=== PATIENT | female | born 1940 | race Caucasian/White ===

== ENCOUNTER → 2016-05-11 | Outpatient (CLI) | payer MEDICARE | END | disposition home or self-care (01) | LOC: LABWHC1 14:53 | PROVIDERS: ATTEND Internal Medicine Endocrinology, Diabetes & Metabolism | DX: E06.3 Autoimmune thyroiditis (principal) | CPT/HCPCS: 36415; 84439; 84443 ==

== ENCOUNTER → 2016-07-17 | Outpatient (CLI) | payer MEDICARE ==
--- NOTE | 2016-07-17 14:23 | MM ---
Reason for exam: follow-up at short interval from prior study. Last mammogram was performed 8 months ago. History: Patient is postmenopausal, has history of breast cancer at age 75, and is nulliparous. Family history of breast cancer in mother. Benign MG pre op needle loc RT of the right breast, December 03, 2015. Malignant US biopsy breast VAD RT of the right breast, November 17, 2015. Took hormonal contraceptives for 10 years beginning at age 22. Took estrogen for 5 years beginning at age 49. Took progesterone for 5 years beginning at age 49. Physical Findings: Nurse did not find any significant physical abnormalities on exam. MG 3D Diag Mammo W/Cad [facility] Bilateral CC and MLO view(s) were taken. Prior study comparison: November 17, 2015, right breast MG diagnostic mammo RT wo CAD. October 28, 2015, right breast US breast workup limited RT. October 22, 2015, bilateral MG 3d screening mammo w/cad. October 20, 2014, bilateral MG screening mammo w CAD. May 27, 2012, bilateral digital screening mammo w/CAD. There are scattered fibroglandular densities. There is chronic nodularity in the right breast. Post surgical and post therapy changes in the right breast. These results were verbally communicated with the patient and result sheet given to the patient on 07/17/16. ASSESSMENT: Benign, BI-RAD 2 RECOMMENDATION: Follow-up diagnostic mammogram of both breasts in 1 year.
== END | disposition home or self-care (01) ==
LOC: RADMAMWWP 13:11
PROVIDERS: ATTEND Radiology Radiation Oncology
DX: C50.511 Malignant neoplasm of lower-outer quadrant of right female breast (principal)
CPT/HCPCS: G0204; G0279

== ENCOUNTER → 2017-05-17 | Outpatient (CLI) | payer MEDICARE ==
[2017-05-17 11:51] LABS: ALT 29 U/L (9-52); AST 29 U/L (14-36); Albumin 3.6 g/dL (3.5-5.0); Alkaline Phosphatase 120 U/L (38-126); Anion Gap 8 mmol/L; Blood Urea Nitrogen 26 mg/dL (7-17); Calcium 9.6 mg/dL (8.4-10.2); Carbon Dioxide 29 mmol/L (22-30); Chloride 103 mmol/L (98-107); Cholesterol 178 mg/dL (<200); Glucose 99 mg/dL (74-99); HDL Cholesterol 67 mg/dL (40-60); LDL Cholesterol,Calculated 82 mg/dL (0-99); Potassium 4.2 mmol/L (3.5-5.1); Sodium 140 mmol/L (137-145); Total Bilirubin 0.5 mg/dL (0.2-1.3); Total Protein 6.2 g/dL (6.3-8.2); Triglycerides 146 mg/dL (<150)
[2017-05-17 12:04] LABS: T4, Free (Free Thyroxine) 0.88 ng/dL (0.78-2.19)
== END | disposition home or self-care (01) ==
LOC: LABWHC1 11:00
PROVIDERS: ATTEND Internal Medicine Endocrinology, Diabetes & Metabolism
DX: E03.9 Hypothyroidism, unspecified (principal); M89.9 Disorder of bone, unspecified; E55.9 Vitamin D deficiency, unspecified
CPT/HCPCS: 36415; 80053; 80061; 82306; 84439; 84443

== ENCOUNTER → 2017-07-25 | Outpatient (CLI) | payer MEDICARE ==
--- NOTE | 2017-07-25 14:04 | MM ---
Reason for exam: additional evaluation requested from prior study. Last mammogram was performed 1 year ago. History: Patient is postmenopausal, has history of breast cancer at age 75, and is nulliparous. Family history of breast cancer in mother. Benign MG pre op needle loc RT of the right breast, December 03, 2015. Malignant US biopsy breast VAD RT of the right breast, November 17, 2015. Took hormonal contraceptives for 10 years beginning at age 22. Took estrogen for 5 years beginning at age 49. Took progesterone for 5 years beginning at age 49. Physical Findings: Nurse did not find any significant physical abnormalities on exam. MG 3D Diag Mammo W/Cad [facility] Bilateral CC and MLO view(s) were taken. Prior study comparison: July 17, 2016, bilateral MG 3d diag mammo w/cad [facility]. November 17, 2015, right breast MG diagnostic mammo RT wo CAD. The breast tissue is almost entirely fat. There is chronic nodularity in the right breast. Asymmetric breast tissue greater in the right breast. Surgical clips on the right breast. These results were verbally communicated with the patient and result sheet given to the patient on 07/25/17. ASSESSMENT: Benign, BI-RAD 2 RECOMMENDATION: Follow-up diagnostic mammogram of both breasts in 1 year.
== END | disposition home or self-care (01) ==
LOC: RADMAMWWP 13:06
PROVIDERS: ATTEND Radiology Radiation Oncology
DX: C50.511 Malignant neoplasm of lower-outer quadrant of right female breast (principal); Z85.3 Personal history of malignant neoplasm of breast
CPT/HCPCS: 77066; G0279

== ENCOUNTER → 2018-07-26 | Outpatient (CLI) | payer MEDICARE ==
--- NOTE | 2018-07-26 11:54 | MM ---
Reason for exam: additional evaluation requested from prior study. Last mammogram was performed 1 year ago. History: Patient is postmenopausal, has history of breast cancer at age 75, and is nulliparous. Family history of breast cancer in mother. Benign MG pre op needle loc RT of the right breast, December 03, 2015. Malignant US biopsy breast VAD RT of the right breast, November 17, 2015. Took hormonal contraceptives for 10 years beginning at age 22. Took estrogen for 5 years beginning at age 49. Took progesterone for 5 years beginning at age 49. Physical Findings: Nurse did not find any significant physical abnormalities on exam. MG 3D Diag Mammo W/Cad [facility] Bilateral CC and MLO view(s) were taken. Prior study comparison: July 25, 2017, bilateral MG 3d diag mammo w/cad [facility]. July 17, 2016, bilateral MG 3d diag mammo w/cad [facility]. The breast tissue is heterogeneously dense. This may lower the sensitivity of mammography. No suspicious abnormality. Post therapy change on the right. These results were verbally communicated with the patient and result sheet given to the patient on 07/26/18. ASSESSMENT: Benign, BI-RAD 2 RECOMMENDATION: Follow-up diagnostic mammogram of both breasts in 1 year.
== END | disposition home or self-care (01) ==
LOC: RADMAMWWP 10:59
PROVIDERS: ATTEND Radiology Radiation Oncology
DX: Z08 Encounter for follow-up examination after completed treatment for malignant neoplasm (principal); Z85.3 Personal history of malignant neoplasm of breast
CPT/HCPCS: 77066; G0279; 77062

== ENCOUNTER 2018-10-12 16:31 | Emergency (ER) | payer MEDICARE ==
[2018-10-12 16:45] VITALS: RESP 18
--- NOTE | 2018-10-12 17:15 | XR ---
EXAMINATION TYPE: XR KUB DATE OF EXAM: 10/12/2018 COMPARISON: NONE HISTORY: Bloating and constipation TECHNIQUE: Single view FINDINGS: There is lumbar levoscoliosis. There is thoracic dextroscoliosis. There is no sign of intes tinal obstruction or pneumoperitoneum. There is large hiatal hernia that also appears to contain mccann sverse colon. 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 There is moderate retained fecal material in the bow el. IMPRESSION: Nonacute abdomen. Very large hiatal hernia. Constipation.
--- NOTE | 2018-10-12 17:27 | ED ---
General Adult HPI - General Chief complaint: Abdominal Pain Stated complaint: CONSTIPATION Time Seen by Provider: 10/12/18 16:49 Source: patient, RN notes reviewed, old records reviewed Mode of arrival: ambulatory Limitations: no limitations - History of Present Illness Initial comments: 78-year-old female presenting for evaluation of constipation. She states she has not had a normal bowel movement in the past one week. She has dealt with constipation for many years. Denies abdominal pain, she does complain of some abdominal distention. No vomiting. She did try to self disimpact with minimal success. She has been taking MiraLAX and Colace without relief. She states she had a colonoscopy 4 years ago which was reported as normal. - Related Data Home Medications Medication Instructions Recorded Confirmed Levothyroxine Sodium [Synthroid] 88 mcg PO DAILY 03/17/15 10/12/18 Calcium Carbonate/Vitamin D3 1 tab PO BID 12/01/15 10/12/18 [Caltrate 600 Plus D3 Tablet] Multivitamins, Thera [Multivitamin] 1 tab PO DAILY 12/01/15 10/12/18 Naproxen Sodium [Aleve] 220 mg PO BID 10/12/18 10/12/18 Polyethylene Glycol 3350 [Miralax] 17 gm PO DAILY 10/12/18 10/12/18 Previous Rx's Medication Instructions Recorded Magnesium Citrate [Citrate of 0 ml PO ONCE #150 ml 10/12/18 Magnesia] Allergies Allergy/AdvReac Type Severity Reaction Status Date / Time diphenhydramine HCl Allergy Itching Verified 10/12/18 17:46 [From Benadryl] morphine Allergy Itching Verified 10/12/18 17:46 Review of Systems ROS Statement: Those systems with pertinent positive or pertinent negative responses have been documented in the HPI. ROS Other: All systems not noted in ROS Statement are negative. Past Medical History Past Medical History: Osteoarthritis (OA), Thyroid Disorder Additional Past Medical History / Comment(s): hiatal hernia,sinusitis,osteopenia History of Any Multi-Drug Resistant Organisms: None Reported Past Surgical History: Appendectomy, Joint Replacement, Orthopedic Surgery, Tonsillectomy Additional Past Surgical History / Comment(s): hemmorroidectomy, bilateral hip, knee, and shoulder replacement, and bilateral oopherectomy Past Anesthesia/Blood Transfusion Reactions: Postoperative Nausea & Vomiting (PONV) Past Psychological History: No Psychological Hx Reported Smoking Status: Former smoker Past Alcohol Use History: Daily Past Drug Use History: None Reported - Past Family History Mother Family Medical History: Cancer Additional Family Medical History / Comment(s): breast Father Family Medical History: Cancer Additional Family Medical History / Comment(s): prostate and skin General Exam Limitations: no limitations General appearance: alert, in no apparent distress Head exam: Present: atraumatic, normocephalic Eye exam: Present: normal appearance, PERRL ENT exam: Present: normal exam Neck exam: Present: normal inspection. Absent: tenderness, meningismus Respiratory exam: Present: normal lung sounds bilaterally. Absent: respiratory distress, wheezes Cardiovascular Exam: Present: regular rate, normal rhythm GI/Abdominal exam: Present: soft. Absent: distended, tenderness, guarding, kiley ound, rigid Rectal exam: Present: normal rectal tone, fecal impaction Extremities exam: Present: normal inspection, full ROM Back exam: Present: normal inspection Neurological exam: Present: alert, oriented X3, CN II-XII intact. Absent: motor sensory deficit Psychiatric exam: Present: normal affect, normal mood Skin exam: Present: warm, dry, intact. Absent: cyanosis, diaphoretic Course Vital Signs 10/12/18 16:41 Temperature 98.4 F Pulse Rate 101 H Respiratory 18 Rate Blood Pressure 151/90 O2 Sat by Pulse 100 Oximetry Medical Decision Making - Medical Decision Making Patient with constipation, no bowel movement for one week. She has fecal impaction x-ray showing constipation no obstruction. Patient is well-appearing with soft abdomen. Given 2 enemas and has disimpaction in the emergency department with significant relief. She will continue Colace, and MiraLAX, she will be prescribed additional bottle of magnesium citrate. Please return with worsening or changing symptoms. Disposition Clinical Impression: Constipation Disposition: HOME SELF-CARE Condition: Good Instructions (If sedation given, give patient instructions): Constipation (ED) Prescriptions: Magnesium Citrate [Citrate of Magnesia] 0 ml PO ONCE #150 ml Is patient prescribed a controlled substance at d/c from ED?: No Referrals: Jasper Linares DO [Primary Care Provider] - 1-2 days Time of Disposition: 20:26
[2018-10-12] MEDS ORDERED: MAGNESIUM CITRATE 296 ML BOTTLE PO ONE (17:34)
[2018-10-12 21:34] VITALS: BP 118/92; PULSE 79; TEMP 97.9
== END 2018-10-12 21:38 | disposition home or self-care (01) ==
LOC: EC 16:31
DX: K59.00 Constipation, unspecified (principal); M19.90 Unspecified osteoarthritis, unspecified site; E07.9 Disorder of thyroid, unspecified; Z87.891 Personal history of nicotine dependence; Z79.1 Long term (current) use of non-steroidal anti-inflammatories (NSAID); Z79.890 Hormone replacement therapy; Z79.899 Other long term (current) drug therapy; Z88.5 Allergy status to narcotic agent; Z88.8 Allergy status to other drugs, medicaments and biological substances; Z96.643 Presence of artificial hip joint, bilateral; Z96.653 Presence of artificial knee joint, bilateral; Z96.612 Presence of left artificial shoulder joint; Z96.611 Presence of right artificial shoulder joint; Z90.49 Acquired absence of other specified parts of digestive tract
CPT/HCPCS: 74018; 99284

== ENCOUNTER 2019-04-16 15:29 | Emergency (ER) | payer MEDICARE ==
[2019-04-16 15:34] VITALS: BP 141/84; PULSE 93; RESP 20; TEMP 97.9
--- NOTE | 2019-04-16 16:04 | XR ---
EXAMINATION TYPE: XR KUB DATE OF EXAM: 04/16/2019 COMPARISON: 10/12/2018 HISTORY: Constipation TECHNIQUE: Upright abdomen FINDINGS: Scoliosis is present. Nonspecific bowel are evident. There is moderate fecal retention thro ughout the colon. No suspicious air-fluid levels or differential air-fluid levels are evident. No han e air is evident. Bilateral hip prostheses are present. Clinical consideration for fecal impaction at the rectum is recommended. IMPRESSION: 1. Moderate fecal retention. Clinical consideration for fecal impaction at the rectum is recommended
--- NOTE | 2019-04-16 17:58 | ED ---
Abdominal Pain HPI - General Chief Complaint: Abdominal Pain Stated Complaint: constipation Time Seen by Provider: 04/16/19 15:36 Source: patient Mode of arrival: wheelchair Limitations: no limitations - History of Present Illness Initial Comments: 79-year-old female presenting today for chief complaint of constipation. 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 She states that this causes a "bottle neck" effect and she has struggled with constipation ch ronically. She states for the past week she has had only small loose stool which she feels is going around a larger blockage. Admits to feeling distended similar to when she had constipation in the past and needed an enema. She denies severe abdominal pain, vomiting, fevers, bloody stools. Denies any other complaints. - Related Data Home Medications Medication Instructions Recorded Confirmed Levothyroxine Sodium [Synthroid] 88 mcg PO DAILY 03/17/15 10/12/18 Calcium Carbonate/Vitamin D3 1 tab PO BID 12/01/15 10/12/18 [Caltrate 600 Plus D3 Tablet] Multivitamins, Thera [Multivitamin] 1 tab PO DAILY 12/01/15 10/12/18 Naproxen Sodium [Aleve] 220 mg PO BID 10/12/18 10/12/18 Polyethylene Glycol 3350 [Miralax] 17 gm PO DAILY 10/12/18 10/12/18 Previous Rx's Medication Instructions Recorded Magnesium Citrate [Citrate of 0 ml PO ONCE #150 ml 10/12/18 Magnesia] Magnesium Citrate 0 ml PO ONCE 1 Days #150 ml 04/16/19 Allergies Allergy/AdvReac Type Severity Reaction Status Date / Time diphenhydramine HCl Allergy Itching Verified 10/12/18 17:46 [From Benadryl] levofloxacin [From Levaquin] Allergy Itching Verified 04/16/19 15:34 morphine Allergy Itching Verified 10/12/18 17:46 Review of Systems ROS Statement: Those systems with pertinent positive or pertinent negative responses have been documented in the HPI. ROS Other: All systems not noted in ROS Statement are negative. Past Medical History Past Medical History: Osteoarthritis (OA), Thyroid Disorder Additional Past Medical History / Comment(s): hiatal hernia,sinusit is,osteopenia,constipation History of Any Multi-Drug Resistant Organisms: None Reported Past Surgical History: Appendectomy, Joint Replacement, Orthopedic Surgery, Tonsillectomy Additional Past Surgical History / Comment(s): hemmorroidectomy, bilateral hip, knee, and shoulder replacement, and bilateral oopherectomy Past Anesthesia/Blood Transfusion Reactions: Postoperative Nausea & Vomiting (PONV) Past Psychological History: No Psychological Hx Reported Smoking Status: Former smoker Past Alcohol Use History: Daily Past Drug Use History: None Reported - Past Family History Mother Family Medical History: Cancer Additional Family Medical History / Comment(s): breast Father Family Medical History: Cancer Additional Family Medical History / Comment(s): prostate and skin General Exam - General Exam Comments Initial Comments: General: The patient is awake and alert, in no distress, and does not appear acutely ill. Eye: +3 mm pupils are equal, round and reactive to light, extra-ocular movements are intact. No nystagmus. There is normal conjunctiva bilaterally. No signs of icterus. Ears, nose, mouth and throat: There are moist mucous membranes and no oral lesions. Cardiovascular: There is a regular rate and rhythm. No murmur, rub or gallop is appreciated. Respiratory: Lungs are clear to auscultation, respirations are non-labored, breath sounds are equal. No wheezes, stridor, rales, or rhonchi. Gastrointestinal: Soft, non-distended, non-tender abdomen without masses or organomegaly noted. There is no rebound or guarding present. Bowel sounds are unremarkable. There is no stool ball or fecal impaction noted on the rectal exam, No bright red blood. soft stool in rectum palpable. Musculoskeletal: Normal ROM, no tenderness. Strength 5/5. Sensation intact. Pulses equal bilaterally 2+. Neurological: A&O x 3. CN II-XII intact grossly, There are no obvious motor or sensory deficits. Coordination appears grossly intact. Speech is normal. Skin: Skin is warm and dry and no rashes or lesions are noted. Psychiatric: Cooperative, appropriate mood & affect, normal judgment. Limitations: no limitations Course Vital Signs 04/16/19 15:30 Temperature 97.9 F Pulse Rate 93 Respiratory 20 Rate Blood Pressure 141/84 O2 Sat by Pulse 99 Oximetry Medical Decision Making - Medical Decision Making 79yo female that presets for constipation, hx of constipation and rectal scarring. Patient has no impaction on exam. XR no obstruction, possible impaction but does not clinically correlate. Enema administered, success with large quantities of soft stool. Patient states its the most she has gone in a long time. Patient has no abdominal pain, no blood in stool. Requesting magnesium citrate on discharge stating this helped her "get it all out" in the past after an enema. Patient VS stable and she appears well, return parameters discussed and patient was discharged appearing well with PCP f/u. Dr. Paz is agreeable to care plan and discharge. Disposition Clinical Impression: Constipation Disposition: HOME SELF-CARE Condition: Good Instructions (If sedation given, give patient instructions): Constipation (ED), High Fiber Diet (ED) Additional Instructions: Please use medication as discussed. Please follow-up with family doctor in the next 2 days, Take magnesium citrate as discussed. Please return to emergency room if the symptoms increase or worsen or for any other concerns-rectal bleeding, vomiting, abdominal pain . Prescriptions: Magnesium Citrate 0 ml PO ONCE 1 Days #150 ml Is patient prescribed a controlled substance at d/c from ED?: No Referrals: Jasper Linares DO [Primary Care Provider] - 1-2 days Time of Disposition: 17:57
== END 2019-04-16 19:20 | disposition home or self-care (01) ==
LOC: EC 15:29
DX: K59.00 Constipation, unspecified (principal); M19.90 Unspecified osteoarthritis, unspecified site; E07.9 Disorder of thyroid, unspecified; Z87.891 Personal history of nicotine dependence; Z88.1 Allergy status to other antibiotic agents; Z88.5 Allergy status to narcotic agent; Z88.8 Allergy status to other drugs, medicaments and biological substances; Z79.1 Long term (current) use of non-steroidal anti-inflammatories (NSAID); Z79.890 Hormone replacement therapy; Z79.899 Other long term (current) drug therapy; Z90.49 Acquired absence of other specified parts of digestive tract; Z96.611 Presence of right artificial shoulder joint; Z96.612 Presence of left artificial shoulder joint; Z96.643 Presence of artificial hip joint, bilateral; Z96.653 Presence of artificial knee joint, bilateral; Z98.890 Other specified postprocedural states
CPT/HCPCS: 74018; 99284

== ENCOUNTER → 2019-09-12 | Outpatient (CLI) | payer MEDICARE ==
--- NOTE | 2019-09-16 08:48 | MM ---
Reason for exam: additional evaluation requested from prior study. Last mammogram was performed 1 year and 2 months ago. History: Patient is postmenopausal, has history of breast cancer at age 75, and is nulliparous. Family history of breast cancer in mother. Benign MG pre op needle loc RT of the right breast, December 03, 2015. Malignant US biopsy breast VAD RT of the right breast, November 17, 2015. Took hormonal contraceptives for 10 years beginning at age 22. Took estrogen for 5 years beginning at age 49. Took progesterone for 5 years beginning at age 49. Physical Findings: Nurse did not find any significant physical abnormalities on exam. MG 3D Diag Mammo W/Cad [facility] Bilateral CC and MLO view(s) were taken. Prior study comparison: July 26, 2018, bilateral MG 3d diag mammo w/cad [facility]. July 25, 2017, bilateral MG 3d diag mammo w/cad [facility]. The breast tissue is heterogeneously dense. This may lower the sensitivity of mammography. Finding: Architectural distortion in the right breast consistent with known excisional changes. There is no discrete abnormality. These results were verbally communicated with the patient and result sheet given to the patient on 09/12/19. ASSESSMENT: Benign, BI-RAD 2 RECOMMENDATION: Follow-up diagnostic mammogram of both breasts in 1 year.
== END | disposition home or self-care (01) ==
LOC: RADMAMWWP 13:37
PROVIDERS: ATTEND Radiology Radiation Oncology
DX: Z98.890 Other specified postprocedural states (principal); Z17.0 Estrogen receptor positive status [ER+]; C50.511 Malignant neoplasm of lower-outer quadrant of right female breast
CPT/HCPCS: 77066; G0279; 77062

== ENCOUNTER → 2020-09-16 | Outpatient (CLI) | payer MEDICARE ==
--- NOTE | 2020-09-16 12:16 | MM ---
Reason for exam: additional evaluation requested from prior study. Last mammogram was performed 1 year ago. History: Patient is postmenopausal, has history of breast cancer at age 75, and is nulliparous. Family history of breast cancer in mother. Benign MG pre op needle loc RT of the right breast, December 03, 2015. Malignant US biopsy breast VAD RT of the right breast, November 17, 2015. Lumpectomy of the right breast. Radiation therapy of the right breast. Took hormonal contraceptives for 10 years beginning at age 22. Took estrogen for 5 years beginning at age 49. Took progesterone for 5 years beginning at age 49. Physical Findings: Nurse did not find any significant physical abnormalities on exam. MG 3D Diag Mammo W/Cad [facility] Bilateral CC and MLO view(s) were taken. Prior study comparison: September 12, 2019, bilateral MG 3d diag mammo w/cad [facility]. July 26, 2018, bilateral MG 3d diag mammo w/cad [facility]. There are scattered fibroglandular densities. Post surgical changes right breast. No significant new findings when compared with previous films. These results were verbally communicated with the patient and result sheet given to the patient on 09/16/20. ASSESSMENT: Benign, BI-RAD 2 RECOMMENDATION: Follow-up diagnostic mammogram of both breasts in 1 year.
== END | disposition home or self-care (01) ==
LOC: RADMAMWWP 11:05
PROVIDERS: ATTEND Radiology Radiation Oncology
DX: N64.89 Other specified disorders of breast (principal); Z80.3 Family history of malignant neoplasm of breast; Z85.3 Personal history of malignant neoplasm of breast; Z78.0 Asymptomatic menopausal state
CPT/HCPCS: 77066; G0279; 77062

== ENCOUNTER → 2021-09-19 | Outpatient (CLI) | payer MEDICARE ==
--- NOTE | 2021-09-20 09:07 | MM ---
Reason for Exam: Hx of breast cancer, conservation therapy. Last screening mammogram was performed 12 month(s) ago. Patient History: Menarche at age 14. Patient has no children. Postmenopausal. Breast cancer, age 75. Estrogen for 5 years from age 49 until age 55. Progesterone for 5 years from age 49 until age 55. Hormonal Contraceptives for 10 years from age 22 until age 32. Lumpectomy on the Right side. 12/03/2015, Benign Core Biopsy on the right side. 11/17/2015, Malignant Core Biopsy on the right side. Radiation Therapy, right. Mother had breast cancer. Prior Study Comparison: 10/22/2015 Bilateral Screening Mammogram, [facility]. 10/28/2015 Right Diagnostic Ultrasound, [facility]. 11/17/2015 Right Diagnostic Mammogram, [facility]. 07/17/2016 Bilateral Diagnostic Mammogram, [facility]. 07/25/2017 Bilateral Diagnostic Mammogram, [facility]. 07/26/2018 Bilateral Diagnostic Mammogram, [facility]. 09/12/2019 Bilateral Diagnostic Mammogram, [facility]. 09/16/2020 Bilateral Diagnostic Mammogram, [facility]. Tissue Density: The breast tissue is heterogeneously dense. This may lower the sensitivity of mammography. Findings: Analyzed By CAD. No evidence for mass or distortion. Postoperative changes upper outer right breast. Increased septal markings throughout the breast may reflect underlying congestive failure. Correlate clinically. There is also bilateral skin thickening. Overall Assessment: Benign, BI-RAD 2 Management: Diagnostic Mammogram of both breasts in 1 year. A clinical breast exam by your physician is recommended on an annual basis and results should be correlated with mammographic findings. This exam should not preclude additional follow-up of suspicious palpable abnormalities. Results were given to the patient verbally at the time of exam. Electronically signed and approved by: Dylan Downing M.D. Radiologis
== END | disposition home or self-care (01) ==
LOC: RADMAMWWP 11:23
PROVIDERS: ATTEND Radiology Radiation Oncology
DX: R92.8 Other abnormal and inconclusive findings on diagnostic imaging of breast (principal); Z78.0 Asymptomatic menopausal state; Z80.3 Family history of malignant neoplasm of breast
CPT/HCPCS: 77066; G0279; 77062

== ENCOUNTER 2021-09-28 14:58 | Inpatient (IN) | payer MEDICARE ==
[2021-09-28 15:41] LABS: Albumin 3.4 g/dL (3.5-5.0); Anisocytosis Moderate; Basophils % (A) 0 %; Calcium 8.3 mg/dL (8.4-10.2); Eosinophils % (A) 1 %; Hypochromasia Marked; Lymphocytes # (A) 2.3 k/uL (1.0-4.8); Lymphocytes % (A) 51 %; MCH 24.8 pg (25.0-35.0); MCHC 26.9 g/dL (31.0-37.0); MCV 92.1 fL (80.0-100.0); Macrocytosis Slight; Mean Platelet Volume 7.2; Monocytes # (A) 0.2 k/uL (0-1.0); Monocytes % (A) 4 %; Neutrophils # (A) 1.8 k/uL (1.3-7.7); Neutrophils % (A) 41 %; Platelet Count 332 k/uL (150-450); Poikilocytosis Slight; Potassium 3.8 mmol/L (3.5-5.1); RBC 2.21 m/uL (3.80-5.40); RDW 22.2 % (11.5-15.5); Total Bilirubin 0.7 mg/dL (0.2-1.3); Total Protein 6.1 g/dL (6.3-8.2); WBC 4.5 k/uL (3.8-10.6)
[2021-09-28 15:47] LABS: HGB 5.5 gm/dL (11.4-16.0)
[2021-09-28 15:48] LABS: HCT 20.4 % (34.0-46.0)
[2021-09-28 15:51] LABS: INR 0.9 (<1.2); Prothrombin Time 9.7 sec (9.0-12.0)
[2021-09-28 15:53] LABS: Partial Thromboplastin Time 21.6 sec (22.0-30.0)
--- NOTE | 2021-09-28 16:11 | XR ---
EXAMINATION TYPE: XR chest 2V DATE OF EXAM: 09/28/2021 COMPARISON: X-ray dated 03/17/2015 HISTORY: Difficulty breathing TECHNIQUE: Frontal and lateral views of the chest are obtained. FINDINGS: Increased cardiac size probably augmented by a large hiatal hernia. The hiatal hernia likely contains portion of the colon. Congested pulmonary vasculature suggestive of pulmonary edema. Suspected small right pleural effusion . No definite pneumothorax. Bilateral humeral head prosthesis. Osteopenia. IMPRESSION: Large hiatal hernia with suspected pulmonary edema.
--- NOTE | 2021-09-28 16:35 | ED ---
General Adult HPI - General Chief complaint: Shortness of Breath Stated complaint: UYEN,critically low hemoglobin Time Seen by Provider: 09/28/21 16:30 Source: patient Mode of arrival: wheelchair Limitations: no limitations - History of Present Illness Initial comments: Nidhi is a pleasant 81yo F with PMH of breast cancer treated with surgical excision, anemia in the past, required blood transfusions post operatively previous. Patient presents to the emergency department today for evaluation after she had outpatient labs drawn and was notified that she had a critical low hemoglobin. Patient states that she's been feeling more fatigued short of b reath and has noticed some leg swelling. She saw her primary care last week she was started on Lasix for leg swelling however she still feel short of breath her labs are drawn and she was told that she is very anemic. Patient states she's been anemic in the past, she has had blood transfusions but only with surgeries. She states that she's had IBS for 40 years and has chronic abdominal pain veda rrhea and fatigue. 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 She cannot recall when her last colonoscopy was. - Related Data Home Medications Medication Instructions Recorded Confirmed Levothyroxine Sodium [Synthroid] 88 mcg PO DAILY 03/17/15 09/28/21 Multivitamins, Thera [Multivitamin] 1 tab PO DAILY 12/01/15 09/28/21 Naproxen Sodium [Aleve] 220 mg PO BID PRN 10/12/18 09/28/21 Ascorbic Acid [Vitamin C] 500 mg PO DAILY 09/28/21 09/28/21 Biotin [Biotin Disolve] 5,000 mcg PO DAILY 09/28/21 09/28/21 Calcium Citrate/Vitamin D3 1 tab PO DAILY 09/28/21 09/28/21 [Citracal + D Maximum Caplet] Chlorpheniramine Maleate 4 mg PO DAILY 09/28/21 09/28/21 [Chlor-Trimeton] Furosemide [Lasix] 40 mg PO DAILY@1200 09/28/21 09/28/21 Allergies Allergy/AdvReac Type Severity Reaction Status Date / Time diphenhydramine HCl Allergy Itching Verified 09/28/21 17:17 [From Benadryl] levofloxacin [From Levaquin] Allergy Itching Verified 09/28/21 17:17 morphine Allergy Itching Verified 09/28/21 17:17 Review of Systems ROS Statement: Those systems with pertinent positive or pertinent negative responses have been documented in the HPI. ROS Other: All systems not noted in ROS Statement are negative. Past Medical History Past Medical History: COPD, Osteoarthritis (OA), Thyroid Disorder Additional Past Medical History / Comment(s): hiatal hernia,sinusitis,osteopenia,constipation History of Any Multi-Drug Resistant Organisms: None Reported Past Surgical History: Appendectomy, Joint Replacement, Orthopedic Surgery, Tonsillectomy Additional Past Surgical History / Comment(s): hemmorroidectomy, bilateral hip, knee, and shoulder replacement, and bilateral oopherectomy Past Anesthesia/Blood Transfusion Reactions: Postoperative Nausea & Vomiting (PONV) Past Psychological History: No Psychological Hx Reported Smoking Status: Former smoker Past Alcohol Use History: Daily Past Drug Use History: None Reported - Past Family History Mother Family Medical History: Cancer Additional Family Medical History / Comment(s): breast Father Family Medical History: Cancer Additional Family Medical History / Comment(s): prostate and skin General Exam - General Exam Comments Initial Comments: Physical Exam GENERAL: Patient is well-developed and well-nourished. Patient is nontoxic and well- hydrated and is in no distress. HENT: Normocephalic, Atraumatic. EYES: PERRL, EOMI Conjunctival pallor PULMONARY: Unlabored respirations. No audible rales rhonchi or wheezing was noted. CARDIOVASCULAR: There is a regular rate and rhythm without any murmurs gallops or rubs. 2+ pitting edema bilateral lower extremities ABDOMEN: Soft and nontender with normal bowel sounds. SKIN: Pale : Deferred NEUROLOGIC: Patient is alert and oriented x3. Moving all extremities spontaneously MUSCULOSKELETAL: Normal extremities with adequate strength and full range of motion. PSYCHIATRIC: Normal psychiatric evaluation. Limitations: no limitations Course Vital Signs 09/28/21 14:59 Temperature 98.5 F Pulse Rate 89 Respiratory 18 Rate Blood Pressure 105/56 O2 Sat by Pulse 98 Oximetry Medical Decision Making - Medical Decision Making Labs obtained in triage, patient with critical anemia, transfusion was ordered patient did consent to this Patient care was discussed with Dr. Wolf who accepts the admission with plan for evaluation by general surgery and possible cardiology. - Lab Data Result diagrams: 09/28/21 15:24 09/28/21 15:24 Lab Results 09/28/21 09/28/21 09/28/21 Range/Units 15:20 15:24 15:24 WBC 4.5 (3.8-10.6) k/uL RBC 2.21 L (3.80-5.40) m/uL Hgb 5.5 L* (11.4-16.0) gm/dL Hct 20.4 L (34.0-46.0) % MCV 92.1 (80.0-100.0) fL MCH 24.8 L (25.0-35.0) pg MCHC 26.9 L (31.0-37.0) g/dL RDW 22.2 H (11.5-15.5) % Plt Count 332 (150-450) k/uL MPV 7.2 Neutrophils % 41 % Lymphocytes % 51 % Monocytes % 4 % Eosinophils % 1 % Basophils % 0 % Neutrophils # 1.8 (1.3-7.7) k/uL Lymphocytes # 2.3 (1.0-4.8) k/uL Monocytes # 0.2 (0-1.0) k/uL Eosinophils # 0.0 (0-0.7) k/uL Basophils # 0.0 (0-0.2) k/uL Hypochromasia Marked Poikilocytosis Slight Anisocytosis Moderate Macrocytosis Slight PT 9.7 (9.0-12.0) sec INR 0.9 (<1.2) APTT 21.6 L (22.0-30.0) sec Sodium (137-145) mmol/L Potassium (3.5-5.1) mmol/L Chloride (98-107) mmol/L Carbon Dioxide (22-30) mmol/L Anion Gap mmol/L BUN (7-17) mg/dL Creatinine (0.52-1.04) mg/dL Est GFR (CKD-EPI)AfAm (>60 ml/min/1.73 sqM) Est GFR (CKD-EPI)NonAf (>60 ml/min/1.73 sqM) Glucose (74-99) mg/dL Calcium (8.4-10.2) mg/dL Total Bilirubin (0.2-1.3) mg/dL AST (14-36) U/L ALT (4-34) U/L Alkaline Phosphatase (38-126) U/L Troponin I (0.000-0.034) ng/mL NT-Pro-B Natriuret Pep pg/mL Total Protein (6.3-8.2) g/dL Albumin (3.5-5.0) g/dL Blood Type Blood Type Confirm O Negative Blood Type Recheck Bld Type Recheck Status Antibody Screen Crossmatch Spec Expiration Date 09/28/21 09/28/21 09/28/21 Range/Units 15:24 15:24 15:24 WBC (3.8-10.6) k/uL RBC (3.80-5.40) m/uL Hgb (11.4-16.0) gm/dL Hct (34.0-46.0) % MCV (80.0-100.0) fL MCH (25.0-35.0) pg MCHC (31.0-37.0) g/dL RDW (11.5-15.5) % Plt Count (150-450) k/uL MPV Neutrophils % % Lymphocytes % % Monocytes % % Eosinophils % % Basophils % % Neutrophils # (1.3-7.7) k/uL Lymphocytes # (1.0-4.8) k/uL Monocytes # (0-1.0) k/uL Eosinophils # (0-0.7) k/uL Basophils # (0-0.2) k/uL Hypochromasia Poikilocytosis Anisocytosis Macrocytosis PT (9.0-12.0) sec INR (<1.2) APTT (22.0-30.0) sec Sodium 136 L (137-145) mmol/L Potassium 3.8 (3.5-5.1) mmol/L Chloride 103 (98-107) mmol/L Carbon Dioxide 28 (22-30) mmol/L Anion Gap 5 mmol/L BUN 28 H (7-17) mg/dL Creatinine 1.01 (0.52-1.04) mg/dL Est GFR (CKD-EPI)AfAm 61 (>60 ml/min/1.73 sqM) Est GFR (CKD-EPI)NonAf 53 (>60 ml/min/1.73 sqM) Glucose 103 H (74-99) mg/dL Calcium 8.3 L (8.4-10.2) mg/dL Total Bilirubin 0.7 (0.2-1.3) mg/dL AST 39 H (14-36) U/L ALT 25 (4-34) U/L Alkaline Phosphatase 185 H (38-126) U/L Troponin I <0.012 (0.000-0.034) ng/mL NT-Pro-B Natriuret Pep 722 pg/mL Total Protein 6.1 L (6.3-8.2) g/dL Albumin 3.4 L (3.5-5.0) g/dL Blood Type Blood Type Confirm Blood Type Recheck Bld Type Recheck Status Antibody Screen Crossmatch Spec Expiration Date 09/28/21 Range/Units 15:25 WBC (3.8-10.6) k/uL RBC (3.80-5.40) m/uL Hgb (11.4-16.0) gm/dL Hct (34.0-46.0) % MCV (80.0-100.0) fL MCH (25.0-35.0) pg MCHC (31.0-37.0) g/dL RDW (11.5-15.5) % Plt Count (150-450) k/uL MPV Neutrophils % % Lymphocytes % % Monocytes % % Eosinophils % % Basophils % % Neutrophils # (1.3-7.7) k/uL Lymphocytes # (1.0-4.8) k/uL Monocytes # (0-1.0) k/uL Eosinophils # (0-0.7) k/uL Basophils # (0-0.2) k/uL Hypochromasia Poikilocytosis Anisocytosis Macrocytosis PT (9.0-12.0) sec INR (<1.2) APTT (22.0-30.0) sec Sodium (137-145) mmol/L Potassium (3.5-5.1) mmol/L Chloride (98-107) mmol/L Carbon Dioxide (22-30) mmol/L Anion Gap mmol/L BUN (7-17) mg/dL Creatinine (0.52-1.04) mg/dL Est GFR (CKD-EPI)AfAm (>60 ml/min/1.73 sqM) Est GFR (CKD-EPI)NonAf (>60 ml/min/1.73 sqM) Glucose (74-99) mg/dL Calcium (8.4-10.2) mg/dL Total Bilirubin (0.2-1.3) mg/dL AST (14-36) U/L ALT (4-34) U/L Alkaline Phosphatase (38-126) U/L Troponin I (0.000-0.034) ng/mL NT-Pro-B Natriuret Pep pg/mL Total Protein (6.3-8.2) g/dL Albumin (3.5-5.0) g/dL Blood Type O Negative Blood Type Confirm Blood Type Recheck No Previous Record Bld Type Recheck Status CABO Indicated Antibody Screen NEGATIVE Crossmatch See Detail Spec Expiration Date 10/01/20212324 Disposition Clinical Impression: Congestive heart failure, Anemia Disposition: ADMITTED IP TO THIS [facility] Condition: Serious Is patient prescribed a controlled substance at d/c from ED?: No Referrals: Jasper Linares DO [Primary Care Provider] - 1-2 days
[2021-09-28] MEDS ORDERED: NALOXONE 0.4 MG/ML 1 ML VIAL IV PRN (18:11)
--- NOTE | 2021-09-28 20:24 | HP ---
HISTORY AND PHYSICAL DATE OF SERVICE: 09/28/2021 CHIEF COMPLAINTS: Shortness of breath and weakness and abnormal hemoglobin. HISTORY OF PRESENT ILLNESS: This 81-year-old woman with a past medical history of COPD, DJD, hypothyroidism, being followed by Dr. Linares in the outpatient setting, was noted to have bilateral leg swelling. The patient also had a blood test today. Hemoglobin was found to be 5, and the patient was sent to [facility] and admitted for further evaluation and treatment. The sodium was Other labs are noted. Two units of transfusion have been arranged. There is no obvious GI in the history. PAST MEDICAL HISTORY: History of COPD, DJD, thyroid disorder. HOME MEDICATIONS: Reviewed. They include Aleve, multivitamin. Rest of the medications noted. ALLERGIES: ALLERGIES INCLUDE BENADRYL. FAMILY HISTORY: History of cancer in the family. SOCIAL HISTORY: Previous history of smoking and apparently daily alcohol intake. REVIEW OF SYSTEMS: Fourteen-point review of systems negative except as mentioned earlier. PHYSICAL EXAMINATION: Pulse is 89, blood pressure 105/70, respiration 18. HEENT: Conjunctivae very pale. Oral mucosa is pale. NECK: No jugular venous distention. CARDIOVASCULAR: S1, S2 muffled. Ejection systolic murmur. RESPIRATION: Breath sounds diminished at the bases. ABDOMEN: Soft, nontender. No mass palpable. LEGS: No edema. No swelling. NERVOUS SYSTEM: Diffusely weak. SKIN: No ulcer, rash, bleeding. JOINTS: No active deforming arthropathy. LABS: WBC 4.2, hemoglobin 5.5. The rest of the labs are noted. ASSESSMENT: 1. Severe anemia for evaluation. Rule out acute on chronic GI bleed. 2. Hyponatremia. 3. History of ETOH. 4. History of chronic obstructive pulmonary disease. 5. Hypothyroidism. 6. Bilateral leg swelling. 7. History of hemorrhoidectomy. 8. Large hiatal hernia. 9. Kyphoscoliosis. RECOMMENDATIONS AND DISCUSSION: In this 81-year-old woman who presented with multiple complex medical issues, we will monitor the patient closely. Will continue the current treatment. Continue symptomatic treatment. Otherwise, 2 units of transfusion arranged. Will obtain a surgical evaluation for possible endoscopies. I would also recommend resuming the home medications. Avoid NSAIDs. Prognosis guarded. Further recommendations to follow. Discussed with the patient. We will also follow CIWA protocol for any possible withdrawals. Prognosis guarded. Further recommendations to follow. See orders for further details. Chest x-ray was reviewed personally by me. MARLEE / IJN: [id number] / TERRI
[2021-09-28] MEDS: FERROUS SULFATE 325 MG TAB PO SCH (23:11)
[2021-09-28] MEDS: PANTOPRAZOLE 40 MG/10 ML VIAL IVP SCH (23:20)
[2021-09-29] MEDS: LEVOTHYROXINE 88 MCG TAB PO SCH (06:34)
[2021-09-29] MEDS: FERROUS SULFATE 325 MG TAB PO SCH ×2 (06:34→17:08)
[2021-09-29 06:49] LABS: Albumin 2.9 g/dL (3.5-5.0); Calcium 7.8 mg/dL (8.4-10.2); Potassium 3.9 mmol/L (3.5-5.1); Total Bilirubin 1.5 mg/dL (0.2-1.3); Total Protein 5.2 g/dL (6.3-8.2)
[2021-09-29 06:56] LABS: Anisocytosis Slight; HCT 25.9 % (34.0-46.0); Hypochromasia Marked; MCV 90.1 fL (80.0-100.0); Mean Platelet Volume 8.1; Platelet Count 258 k/uL (150-450); Poikilocytosis Marked; RBC 2.87 m/uL (3.80-5.40); RDW 19.6 % (11.5-15.5); WBC 3.2 k/uL (3.8-10.6)
[2021-09-29 06:58] LABS: HGB 7.8 gm/dL (11.4-16.0)
[2021-09-29] MEDS: PANTOPRAZOLE 40 MG/10 ML VIAL IVP SCH ×2 (09:05→20:26)
[2021-09-29 09:51] LABS: Eosinophils # (M) 0.03 k/uL (0-0.7); Monocytes # (M) 0.16 k/uL (0-1.0); Neutrophils # (M) 1.31 k/uL (1.3-7.7); Neutrophils % (M) 41 %; Nucleated Red Blood Cells 0 /100 WBC (0-0); Total Cells Counted 96
[2021-09-29] MEDS: FUROSEMIDE 40 MG TAB PO SCH (12:33)
[2021-09-29 12:51] VITALS: BMI 24.0
--- NOTE | 2021-09-29 12:59 | P.GSCN ---
History of Present Illness Consult date: 09/29/21 History of present illness: CHIEF COMPLAINT: Shortness of breath HISTORY OF PRESENT ILLNESS: This is a 81-year-old female who came into the emergency room after having a low hemoglobin in the outpatient labs. Her hemoglobin is critically low at 5.5. She received a unit of blood hemoglobin is not 7.8. Patient denies any blood in her stools or having any black stools. Denies any nausea vomiting. Denies any abdominal pain. She does take Aleve on a regular basis. She's had blood transfusions in the past after prior surgeries. Surgical service consulted regarding questionable GI bleed and need for endoscopies. Patient has required hemorrhoid surgery in the past Patient seen and examined with Dr. Marquez PAST MEDICAL HISTORY: COPD, Osteoarthritis (OA), Thyroid Disorder, hiatal hernia,sinusitis,osteopenia,constipation, breast cancer status post lumpectomy PAST SURGICAL HISTORY: Appendectomy, Joint Replacement, Orthopedic Surgery, Tonsillectomy MEDICATIONS: See list. ALLERGIES: See list. SOCIAL HISTORY: No illicit drug use. REVIEW OF SYSTEMS: CONSTITUTIONAL: Denies fever or chills. HEENT: Denies blurred vision, vision changes, or eye pain. Denies hemoptysis CARDIOVASCULAR: Denies chest pain or pressure. RESPIRATORY: No shortness of breath. GASTROINTESTINAL: See HPI for pertinent findings HEMATOLOGIC: Denies bleeding disorders. GENITOURINARY: Denies any blood in urine or increased urinary frequency. SKIN: Denies pruitis. Denies rash. PHYSICAL EXAM: VITAL SIGNS: Reviewed GENERAL: Well-developed in no acute distress. HEENT: No sclera icterus. Extraocular movements grossly intact. Moist buccal mucosa. Head is atraumatic, normocephalic. No nasal drainage. ABDOMEN: Soft. Nondistended. Nontender NEUROLOGIC: Awake and alert LABORATORY DATA: WBC 3.2 Hgb 5.5 up to 7.8 platelets 258 INR 0.9 Sodium is 137 potassium 3.9 creatinine 0.97 Total bili 1.5 AST 32 ALT 20 alk phos 133 troponin is negative BNP 722 IMAGING: Chest x-ray large hiatal hernia with suspected pulmonary edema ASSESSMENT: 1. Normocytic anemia with no active signs of bleeding. Hemoglobin of 5.5 on admission up to 7.8 PLAN: -Patient scheduled for EGD and colonoscopy on 10/03/[address] marquez -Patient can have endoscopies completed outpatient if she is discharged prior to Sunday -Continue to monitor hemoglobin -Continue to monitor for any signs or symptoms of bleeding -Avoid NSAIDs -Continue PPI Thank you for this consultation Physician Manufacturing Plant Controller note has been reviewed by physician. Signing provider agrees with the documented findings, assessment, and plan of care. Past Medical History Past Medical History: COPD, Osteoarthritis (OA), Thyroid Disorder Additional Past Medical History / Comment(s): hiatal hernia,sinusitis,osteopenia,constipation History of Any Multi-Drug Resistant Organisms: None Reported Past Surgical History: Appendectomy, Joint Replacement, Orthopedic Surgery, Tonsillectomy Additional Past Surgical History / Comment(s): hemmorroidectomy, bilateral hip, knee, and shoulder replacement, and bilateral oopherectomy Past Anesthesia/Blood Transfusion Reactions: Postoperative Nausea & Vomiting (PONV) Past Psychological History: No Psychological Hx Reported Smoking Status: Former smoker Past Alcohol Use History: Daily Past Drug Use History: None Reported - Past Family History Mother Family Medical History: Cancer Additional Family Medical History / Comment(s): breast Father Family Medical History: Cancer Additional Family Medical History / Comment(s): prostate and skin Medications and Allergies Home Medications Medication Instructions Recorded Confirmed Type Levothyroxine Sodium [Synthroid] 88 mcg PO DAILY 03/17/15 09/28/21 History Multivitamins, Thera [Multivitamin] 1 tab PO DAILY 12/01/15 09/28/21 History Naproxen Sodium [Aleve] 220 mg PO BID PRN 10/12/18 09/28/21 History Ascorbic Acid [Vitamin C] 500 mg PO DAILY 09/28/21 09/28/21 History Biotin [Biotin Disolve] 5,000 mcg PO DAILY 09/28/21 09/28/21 History Calcium Citrate/Vitamin D3 1 tab PO DAILY 09/28/21 09/28/21 History [Citracal + D Maximum Caplet] Chlorpheniramine Maleate 4 mg PO DAILY 09/28/21 09/28/21 History [Chlor-Trimeton] Furosemide [Lasix] 40 mg PO DAILY@1200 09/28/21 09/28/21 History Allergies Allergy/AdvReac Type Severity Reaction Status Date / Time diphenhydramine HCl Allergy Itching Verified 09/28/21 17:17 [From Benadryl] levofloxacin [From Levaquin] Allergy Itching Verified 09/28/21 17:17 morphine Allergy Itching Verified 09/28/21 17:17 Surgical - Exam Vital Signs Temp Pulse Resp BP Pulse Ox 98.5 F 89 18 105/56 98 09/28/21 14:59 09/28/21 14:59 09/28/21 14:59 09/28/21 14:59 09/28/21 14:59 Results - Labs 09/29/21 05:34 09/29/21 05:34 Abnormal Lab Results - Last 24 Hours (Table) 09/28/21 09/28/21 09/28/21 Range/Units 15:24 15:24 15:24 WBC (3.8-10.6) k/uL RBC 2.21 L (3.80-5.40) m/uL Hgb 5.5 L* (11.4-16.0) gm/dL Hct 20.4 L (34.0-46.0) % MCH 24.8 L (25.0-35.0) pg MCHC 26.9 L (31.0-37.0) g/dL RDW 22.2 H (11.5-15.5) % APTT 21.6 L (22.0-30.0) sec Sodium 136 L (137-145) mmol/L BUN 28 H (7-17) mg/dL Glucose 103 H (74-99) mg/dL Calcium 8.3 L (8.4-10.2) mg/dL Total Bilirubin (0.2-1.3) mg/dL AST 39 H (14-36) U/L Alkaline Phosphatase 185 H (38-126) U/L Total Protein 6.1 L (6.3-8.2) g/dL Albumin 3.4 L (3.5-5.0) g/dL Crossmatch 09/28/21 09/29/21 09/29/21 Range/Units 15:25 05:34 05:34 WBC 3.2 L (3.8-10.6) k/uL RBC 2.87 L (3.80-5.40) m/uL Hgb 7.8 L D (11.4-16.0) gm/dL Hct 25.9 L (34.0-46.0) % MCH (25.0-35.0) pg MCHC 30.0 L (31.0-37.0) g/dL RDW 19.6 H (11.5-15.5) % APTT (22.0-30.0) sec Sodium (137-145) mmol/L BUN 28 H (7-17) mg/dL Glucose (74-99) mg/dL Calcium 7.8 L (8.4-10.2) mg/dL Total Bilirubin 1.5 H (0.2-1.3) mg/dL AST (14-36) U/L Alkaline Phosphatase 133 H (38-126) U/L Total Protein 5.2 L (6.3-8.2) g/dL Albumin 2.9 L (3.5-5.0) g/dL Crossmatch See Detail Diabetes panel 09/28/21 09/29/21 Range/Units 15:24 05:34 Sodium 136 L 137 (137-145) mmol/L Potassium 3.8 3.9 (3.5-5.1) mmol/L Chloride 103 104 (98-107) mmol/L Carbon Dioxide 28 28 (22-30) mmol/L BUN 28 H 28 H (7-17) mg/dL Creatinine 1.01 0.97 (0.52-1.04) mg/dL Glucose 103 H 90 (74-99) mg/dL Calcium 8.3 L 7.8 L (8.4-10.2) mg/dL AST 39 H 32 (14-36) U/L ALT 25 20 (4-34) U/L Alkaline Phosphatase 185 H 133 H (38-126) U/L Total Protein 6.1 L 5.2 L (6.3-8.2) g/dL Albumin 3.4 L 2.9 L (3.5-5.0) g/dL Calcium panel 09/28/21 09/29/21 Range/Units 15:24 05:34 Calcium 8.3 L 7.8 L (8.4-10.2) mg/dL Albumin 3.4 L 2.9 L (3.5-5.0) g/dL Pituitary panel 09/28/21 09/29/21 Range/Units 15:24 05:34 Sodium 136 L 137 (137-145) mmol/L Potassium 3.8 3.9 (3.5-5.1) mmol/L Chloride 103 104 (98-107) mmol/L Carbon Dioxide 28 28 (22-30) mmol/L BUN 28 H 28 H (7-17) mg/dL Creatinine 1.01 0.97 (0.52-1.04) mg/dL Glucose 103 H 90 (74-99) mg/dL Calcium 8.3 L 7.8 L (8.4-10.2) mg/dL Adrenal panel 09/28/21 09/29/21 Range/Units 15:24 05:34 Sodium 136 L 137 (137-145) mmol/L Potassium 3.8 3.9 (3.5-5.1) mmol/L Chloride 103 104 (98-107) mmol/L Carbon Dioxide 28 28 (22-30) mmol/L BUN 28 H 28 H (7-17) mg/dL Creatinine 1.01 0.97 (0.52-1.04) mg/dL Glucose 103 H 90 (74-99) mg/dL Calcium 8.3 L 7.8 L (8.4-10.2) mg/dL Total Bilirubin 0.7 1.5 H (0.2-1.3) mg/dL AST 39 H 32 (14-36) U/L ALT 25 20 (4-34) U/L Alkaline Phosphatase 185 H 133 H (38-126) U/L Total Protein 6.1 L 5.2 L (6.3-8.2) g/dL Albumin 3.4 L 2.9 L (3.5-5.0) g/dL
--- NOTE | 2021-09-29 19:22 | PN ---
PROGRESS NOTE DATE OF SERVICE: 09/29/2021 This 81-year-old woman who was admitted with shortness of breath and severe anemia had 2 units transfusion. Hemoglobin has improved to 7.8. Surgery is following the patient. Patient will require EGD and colonoscopy. No chest pain. No palpitations. PHYSICAL EXAMINATION: Pulse is 76, blood pressure 126/60, respirations 16. Conjunctivae pale. Oral mucosa pale. CARDIOVASCULAR: Ejection systolic murmur. RESPIRATION: Breath sounds diminished at the bases. A few scattered rhonchi. ABDOMEN: Soft. NERVOUS SYSTEM: No focal deficit. LABS: Hemoglobin is .8. Other labs are noted. ASSESSMENT: 1. Severe anemia, symptomatic. Rule out acute on chronic GI bleed. 2. Hyponatremia. 3. History of ETOH. 4. Multiple medical issues. RECOMMENDATIONS AND DISCUSSION: I recommend to continue current medications, continue with the monitoring, symptomatic treatment. Repeat labs. Closely follow with Surgery for possible endoscopies. Proton pump inhibitors. Further recommendations to follow. MMODL / IJN: [id number] / MTDChucho
[2021-09-30] MEDS: ACETAMINOPHEN TAB 325 MG TAB PO PRN ×2 (03:38→09:13)
[2021-09-30] MEDS: LEVOTHYROXINE 88 MCG TAB PO SCH (06:36)
[2021-09-30] MEDS: FERROUS SULFATE 325 MG TAB PO SCH ×2 (06:36→17:53)
[2021-09-30] MEDS: PANTOPRAZOLE 40 MG/10 ML VIAL IVP SCH ×2 (09:12→20:00)
[2021-09-30 10:24] LABS: Anisocytosis Slight; Basophils % (A) 0 %; Eosinophils % (A) 1 %; HCT 28.7 % (34.0-46.0); HGB 8.4 gm/dL (11.4-16.0); Hypochromasia Marked; Lymphocytes # (A) 1.8 k/uL (1.0-4.8); Lymphocytes % (A) 47 %; MCH 26.9 pg (25.0-35.0); MCHC 29.2 g/dL (31.0-37.0); MCV 92.2 fL (80.0-100.0); Macrocytosis Slight; Mean Platelet Volume 8.2; Monocytes # (A) 0.2 k/uL (0-1.0); Monocytes % (A) 6 %; Neutrophils # (A) 1.6 k/uL (1.3-7.7); Neutrophils % (A) 43 %; Platelet Count 264 k/uL (150-450); Poikilocytosis Marked; RBC 3.11 m/uL (3.80-5.40); RDW 19.5 % (11.5-15.5); WBC 3.7 k/uL (3.8-10.6)
[2021-09-30 10:42] LABS: Calcium 8.4 mg/dL (8.4-10.2); Potassium 4.4 mmol/L (3.5-5.1)
[2021-09-30] MEDS: FUROSEMIDE 40 MG TAB PO SCH (13:02)
--- NOTE | 2021-09-30 13:49 | P.PN ---
Subjective Progress Note Date: 09/30/21 CHIEF COMPLAINT: Shortness of breath HISTORY OF PRESENT ILLNESS: Surgical service following for anemia. Patient reports having bowel movements. No evidence of blood in the stools or black stools. She denies any abdominal pain. Hemoglobin has increased from 7.8-8.4 PHYSICAL EXAM: VITAL SIGNS: Reviewed. GENERAL: Well-developed in no acute distress. HEENT: No sclera icterus. Extraocular movements grossly intact. Moist buccal mucosa. Head is atraumatic, normocephalic. ABDOMEN: Soft. Nondistended. Nontender. NEUROLOGIC: Alert and oriented. Cranial nerves II through XII grossly intact. ASSESSMENT: 1. Normocytic anemia with no active signs of bleeding PLAN: -Patient scheduled for EGD and colonoscopy on 10/03/[address] marquez -Start full liquid diet tomorrow in preparation for colonoscopy -Patient can have endoscopies completed outpatient if she is discharged prior to Sunday -Continue to monitor hemoglobin -Continue to monitor for any signs or symptoms of bleeding -Avoid NSAIDs -Continue PPI Physician Production Supervisor Trainee note has been reviewed by physician. Signing provider agrees with the documented findings, assessment, and plan of care. Objective - Vital Signs Vital signs: Vital Signs Temp 98.1 F 09/30/21 12:06 Pulse 76 09/30/21 12:06 Resp 16 09/30/21 12:06 BP 158/84 09/30/21 12:06 Pulse Ox 95 09/30/21 12:06 FiO2 Intake & Output 09/29/21 09/30/21 09/30/21 18:59 06:59 18:59 Intake Total 500 240 Balance 500 240 Weight 57.606 kg Intake: Oral 500 240 Other: Voiding Method Toilet Toilet Toilet # Voids 1 2 2 - Labs CBC & Chem 7: 09/30/21 09:02 09/30/21 09:02 Labs: Abnormal Lab Results - Last 24 Hours (Table) 09/30/21 09/30/21 Range/Units 09:02 09:02 WBC 3.7 L (3.8-10.6) k/uL RBC 3.11 L (3.80-5.40) m/uL Hgb 8.4 L (11.4-16.0) gm/dL Hct 28.7 L (34.0-46.0) % MCHC 29.2 L (31.0-37.0) g/dL RDW 19.5 H (11.5-15.5) % Sodium 136 L (137-145) mmol/L Carbon Dioxide 33 H (22-30) mmol/L BUN 23 H (7-17) mg/dL
--- NOTE | 2021-09-30 19:38 | P.PN ---
Subjective Progress Note Date: 09/30/21 81yo F with PMH of breast cancer treated with surgical excision, anemia in the past, required blood transfusions post operatively previous. Patient presents to the emergency department today for evaluation after she had outpatient labs drawn and was notified that she had a critical low hemoglobin. Patient states that she's been feeling more fatigued short of breath and has noticed some leg swelling. She saw her primary care last week she was started on Lasix for leg swelling however she still feel short of breath her labs are drawn and she was told that she is very anemic. Patient states she's been anemic in the past, she has had blood transfusions but only with surgeries. She states that she's had IBS for 40 years and has chronic abdominal pain diarrhea and fatigue. 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 She cannot recall when her last colonoscopy was. Patient reports having bowel movements. No evidence of blood in the stools or black stools. She denies any abdominal pain. Hemoglobin has increased from 7.8-8.4 Objective - Vital Signs Vital signs: Vital Signs Temp 98.1 F 09/30/21 12:06 Pulse 76 09/30/21 12:06 Resp 16 09/30/21 12:06 BP 158/84 09/30/21 12:06 Pulse Ox 95 09/30/21 12:06 FiO2 Intake & Output 09/29/21 09/30/21 09/30/21 18:59 06:59 18:59 Intake Total 500 240 Balance 500 240 Weight 57.606 kg Intake: Oral 500 240 Other: Voiding Method Toilet Toilet Toilet # Voids 1 2 2 - Exam - Constitutional General appearance: Present: average body habitus, cooperative, no acute distress - EENT Eyes: Present: anicteric sclerae, EOMI, PERRLA, normal appearance ENT: Present: hearing grossly normal, normal oropharynx Ears: bilateral: normal - Neck Neck: Present: normal ROM. Absent: lymphadenopathy, rigidity, thyromegaly Carotids: negative: bruit present Thyroid: bilateral: normal size, negative: enlarged, nodule - Respiratory Respiratory: bilateral: CTA, negative: rales, rhonchi, wheezing - Cardiovascular Rhythm: regular Heart sounds: normal: S1, S2 Abnormal Heart Sounds: Absent: systolic murmur, diastolic murmur - Gastrointestinal General gastrointestinal: Present: normal bowel sounds, soft. Absent: dis tended, organomegaly, tenderness - Genitourinary Genitourinary Comment(s): deferred - Integumentary Integumentary: Present: normal turgor. Absent: jaundiced, rash, ulcer - Neurologic Neurologic: Present: CNII-XII intact. Absent: focal deficits - Musculoskeletal Musculoskeletal: Present: gait normal, strength equal bilaterally - Psychiatric Psychiatric: Present: A&O x's 3, appropriate affect, intact judgment & insight - Labs CBC & Chem 7: 09/30/21 09:02 09/30/21 09:02 Labs: Abnormal Lab Results - Last 24 Hours (Table) 09/30/21 09/30/21 Range/Units 09:02 09:02 WBC 3.7 L (3.8-10.6) k/uL RBC 3.11 L (3.80-5.40) m/uL Hgb 8.4 L (11.4-16.0) gm/dL Hct 28.7 L (34.0-46.0) % MCHC 29.2 L (31.0-37.0) g/dL RDW 19.5 H (11.5-15.5) % Sodium 136 L (137-145) mmol/L Carbon Dioxide 33 H (22-30) mmol/L BUN 23 H (7-17) mg/dL Assessment and Plan Assessment: 1. Acute symptomatic anemia; no signs of GI bleed - Patient has been evaluated by general surgery with plans for EGD and colonoscopy on Sunday; we will continue to monitor H&H closely; continue with IV Protonix; iron sulfate 325 mg twice a day 2. Hyponatremia 3. Hypothyroidism; levothyroxin 88 MCG daily PLAN: -Patient scheduled for EGD and colonoscopy on 10/03/[address] marquez -Patient can have endoscopies completed outpatient if she is discharged prior to Sunday -Continue to monitor hemoglobin -Continue to monitor for any signs or symptoms of bleeding -Avoid NSAIDs -Continue PPI
[2021-10-01] MEDS: FERROUS SULFATE 325 MG TAB PO SCH ×2 (06:16→16:05)
[2021-10-01] MEDS: LEVOTHYROXINE 88 MCG TAB PO SCH (06:16)
[2021-10-01 08:07] LABS: Anisocytosis Slight; HCT 27.7 % (34.0-46.0); HGB 8.4 gm/dL (11.4-16.0); Hypochromasia Marked; MCH 27.6 pg (25.0-35.0); MCHC 30.2 g/dL (31.0-37.0); MCV 91.3 fL (80.0-100.0); Platelet Count 234 k/uL (150-450); Poikilocytosis Moderate; RBC 3.04 m/uL (3.80-5.40); RDW 19.4 % (11.5-15.5)
[2021-10-01 08:13] LABS: Calcium 8.8 mg/dL (8.4-10.2); Potassium 4.1 mmol/L (3.5-5.1)
[2021-10-01] MEDS: PANTOPRAZOLE 40 MG/10 ML VIAL IVP SCH ×2 (09:04→19:32)
--- NOTE | 2021-10-01 10:28 | P.PN ---
Progress Note - Text Progress Note Date: 10/01/21 Patient still. She has no evidence of GI bleed. On exam vitals are still. Abdomen soft. Her patient is scheduled for EGD and colonoscopy on Sunday. She'll start her bowel prep tomorrow.
[2021-10-01] MEDS: FUROSEMIDE 40 MG TAB PO SCH (12:35)
[2021-10-01] MEDS: ACETAMINOPHEN TAB 325 MG TAB PO PRN (16:05)
--- NOTE | 2021-10-01 21:49 | P.PN ---
Subjective Progress Note Date: 10/01/21 Principal diagnosis: Acute symptomatic anemia 81yo F with PMH of breast cancer treated with surgical excision, anemia in the past, required blood transfusions post operatively previous. Patient presents to the emergency department today for evaluation after she had outpatient labs drawn and was notified that she had a critical low hemoglobin. Patient states that she's been feeling more fatigued short of breath and has noticed some leg swelling. She saw her primary care last week she was started on Lasix for leg swelling however she still feel short of breath her labs are drawn and she was told that she is very anemic. Patient states she's been anemic in the past, she has had blood transfusions but only with surgeries. She states that she's had IBS for 40 years and has chronic abdominal pain diarrhea and fatigue. 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 She cannot recall when her last colonoscopy was. Patient reports having bowel movements. No evidence of blood in the stools or black stools. She denies any abdominal pain. Hemoglobin has increased from 7.8-8.4 10/01/2021 Patient is seen and evaluated in room at bedside; denies any specific complaints; no bloody bowel movements Hemoglobin is being monitored and remained stable Plan for EGD/colonoscopy on Sunday Objective - Vital Signs Vital signs: Vital Signs Temp 97.5 F L 10/01/21 12:35 Pulse 88 10/01/21 12:35 Resp 16 10/01/21 14:00 BP 125/74 10/01/21 12:35 Pulse Ox 94 L 10/01/21 12:35 FiO2 Intake & Output 09/30/21 10/01/21 10/01/21 18:59 06:59 18:59 Intake Total 358 240 Balance 358 240 Intake: Oral 358 240 Other: Voiding Method Toilet Toilet Toilet # Voids 2 3 2 # Bowel Movements 1 - Exam - Constitutional General appearance: Present: average body habitus, cooperative, no acute d istress - EENT Eyes: Present: anicteric sclerae, EOMI, PERRLA, normal appearance ENT: Present: hearing grossly normal, normal oropharynx Ears: bilateral: normal - Neck Neck: Present: normal ROM. Absent: lymphadenopathy, rigidity, thyromegaly Carotids: negative: bruit present Thyroid: bilateral: normal size, negative: enlarged, nodule - Respiratory Respiratory: bilateral: CTA, negative: rales, rhonchi, wheezing - Cardiovascular Rhythm: regular Heart sounds: normal: S1, S2 Abnormal Heart Sounds: Absent: systolic murmur, diastolic murmur - Gastrointestinal General gastrointestinal: Present: normal bowel sounds, soft. Absent: distended, organomegaly, tenderness - Genitourinary Genitourinary Comment(s): deferred - Integumentary Integumentary: Present: normal turgor. Absent: jaundiced, rash, ulcer - Neurologic Neurologic: Present: CNII-XII intact. Absent: focal deficits - Musculoskeletal Musculoskeletal: Present: gait normal, strength equal bilaterally - Psychiatric Psychiatric: Present: A&O x's 3, appropriate affect, intact judgment & insight - Labs CBC & Chem 7: 10/01/21 07:27 10/01/21 07:27 Labs: Abnormal Lab Results - Last 24 Hours (Table) 10/01/21 10/01/21 Range/Units 07:27 07:27 RBC 3.04 L (3.80-5.40) m/uL Hgb 8.4 L (11.4-16.0) gm/dL Hct 27.7 L (34.0-46.0) % MCHC 30.2 L (31.0-37.0) g/dL RDW 19.4 H (11.5-15.5) % Sodium 136 L (137-145) mmol/L Carbon Dioxide 34 H (22-30) mmol/L BUN 21 H (7-17) mg/dL Assessment and Plan Assessment: 1. Acute symptomatic anemia; no signs of GI bleed - Patient has been evaluated by general surgery with plans for EGD and colonoscopy on Sunday; we will continue to monitor H&H closely; continue with IV Protonix; iron sulfate 325 mg twice a day 2. Hyponatremia 3. Hypothyroidism; levothyroxin 88 MCG daily PLAN: -Patient scheduled for EGD and colonoscopy on 10/03/[address] mraquez -Patient can have endoscopies completed outpatient if she is discharged prior to Sunday -Continue to monitor hemoglobin -Continue to monitor for any signs or symptoms of bleeding -Avoid NSAIDs -Continue PPI
[2021-10-02] MEDS: FERROUS SULFATE 325 MG TAB PO SCH ×2 (06:06→16:43)
[2021-10-02] MEDS: LEVOTHYROXINE 88 MCG TAB PO SCH (06:06)
[2021-10-02] MEDS ORDERED: PEG 3350-NA SULF,BICARB,CL/KCL 4,000 ML BOTTLE PO ONE (08:00)
--- NOTE | 2021-10-02 09:12 | P.PN ---
Progress Note - Text Progress Note Date: 10/02/21 Patient [place] stable. She's had no further GI bleed. He will stably 0.4. Vital signs are stable. Abdomen soft. Patient scheduled for EGD colonoscopy tomorrow.
[2021-10-02] MEDS: PANTOPRAZOLE 40 MG/10 ML VIAL IVP SCH ×2 (09:40→19:33)
[2021-10-02] MEDS: FUROSEMIDE 40 MG TAB PO SCH (11:56)
--- NOTE | 2021-10-02 15:55 | P.PN ---
Subjective Progress Note Date: 10/02/21 Principal diagnosis: Acute symptomatic anemia 81yo F with PMH of breast cancer treated with surgical excision, anemia in the past, required blood transfusions post operatively previous. Patient presents to the emergency department today for evaluation after she had outpatient labs drawn and was notified that she had a critical low hemoglobin. Patient states that she's been feeling more fatigued short of breath and has noticed some leg swelling. She saw her primary care last week she was started on Lasix for leg swelling however she still feel short of breath her labs are drawn and she was told that she is very anemic. Patient states she's been anemic in the past, she has had blood transfusions but only with surgeries. She states that she's had IBS for 40 years and has chronic abdominal pain diarrhea and fatigue. 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 She cannot recall when her last colonoscopy was. Patient reports having bowel movements. No evidence of blood in the stools or black stools. She denies any abdominal pain. Hemoglobin has increased from 7.8-8.4 10/01/2021 Patient is seen and evaluated in room at bedside; denies any specific complaints; no bloody bowel movements Hemoglobin is being monitored and remained stable Plan for EGD/colonoscopy on Sunday10/02/2021 Patient is seen and evaluated resting comfortably in bed; patient reports feeling is somewhat sleepy and weak today Vital signs are reviewed and remained stable with temperature of 97.8, pulse 69, respiration 18 and blood pressure of 137/78 with O2 saturation of 99% on room air Labs are reviewed; hemoglobin 8.4 yesterday; no complaining of any rectal bleed Surgery on board with plans for EGD/colonoscopy tomorrow morning Objective - Vital Signs Vital signs: Vital Signs Temp 97.8 F 10/02/21 09:40 Pulse 75 10/02/21 11:55 Resp 16 10/02/21 11:55 BP 126/84 10/02/21 11:55 Pulse Ox 98 10/02/21 11:55 FiO2 Intake & Output 10/01/21 10/02/21 10/02/21 18:59 06:59 18:59 Intake Total 448 840 Balance 448 840 Intake: Oral 448 840 Other: Voiding Method Toilet Toilet Toilet # Voids 2 2 # Bowel Movements 1 - Exam - Constitutional General appearance: Present: average body habitus, cooperative, no acute distress - EENT Eyes: Present: anicteric sclerae, EOMI, PERRLA, normal appearance ENT: Present: hearing grossly normal, normal oropharynx Ears: bilateral: normal - Neck Neck: Present: normal ROM. Absent: lymphadenopathy, rigidity, thyromegaly Carotids: negative: bruit present Thyroid: bilateral: normal size, negative: enlarged, nodule - Respiratory Respiratory: bilateral: CTA, negative: rales, rhonchi, wheezing - Cardiovascular Rhythm: regular Heart sounds: normal: S1, S2 Abnormal Heart Sounds: Absent: systolic murmur, diastolic murmur - Gastrointestinal General gastrointestinal: Present: normal bowel sounds, soft. Absent: distended, organomegaly, tenderness - Genitourinary Genitourinary Comment(s): deferred - Integumentary Integumentary: Present: normal turgor. Absent: jaundiced, rash, ulcer - Neurologic Neurologic: Present: CNII-XII intact. Absent: focal deficits - Musculoskeletal Musculoskeletal: Present: gait normal, strength equal bilaterally - Psychiatric Psychiatric: Present: A&O x's 3, appropriate affect, intact judgment & insight - Labs CBC & Chem 7: 10/01/21 07:27 10/01/21 07:27 Assessment and Plan Assessment: 1. Acute symptomatic anemia; no signs of GI bleed - Patient has been evaluated by general surgery with plans for EGD and colonoscopy on Sunday; we will continue to monitor H&H closely; continue with IV Protonix; iron sulfate 325 mg twice a day 2. Hyponatremia 3. Hypothyroidism; levothyroxin 88 MCG daily PLAN: -Patient scheduled for EGD and colonoscopy on 10/03/[address] marquez -Patient can have endoscopies completed outpatient if she is discharged prior to Sunday -Continue to monitor hemoglobin -Continue to monitor for any signs or symptoms of bleeding -Avoid NSAIDs -Continue PPI
[2021-10-02] MEDS: ACETAMINOPHEN TAB 325 MG TAB PO PRN (16:46)
[2021-10-02 16:49] LABS: Anisocytosis Moderate; Hypochromasia Marked; MCHC 29.2 g/dL (31.0-37.0); MCV 92.5 fL (80.0-100.0); Macrocytosis Slight; Mean Platelet Volume 8.3; Platelet Count 246 k/uL (150-450); Poikilocytosis Moderate; RBC 3.35 m/uL (3.80-5.40); WBC 3.8 k/uL (3.8-10.6)
[2021-10-03 07:46] LABS: Anisocytosis Moderate; HCT 28.5 % (34.0-46.0); HGB 8.7 gm/dL (11.4-16.0); Hypochromasia Marked; MCH 28.2 pg (25.0-35.0); MCHC 30.5 g/dL (31.0-37.0); MCV 92.6 fL (80.0-100.0); Macrocytosis Slight; Mean Platelet Volume 8.1; Platelet Count 198 k/uL (150-450); Poikilocytosis Slight; RBC 3.07 m/uL (3.80-5.40); RDW 20.3 % (11.5-15.5); WBC 2.8 k/uL (3.8-10.6)
[2021-10-03] MEDS: LEVOTHYROXINE 88 MCG TAB PO SCH (10:28)
--- NOTE | 2021-10-03 12:27 | CA ---
Transthoracic Echo Report Name: Nidhi Moore Age: 81 Gender: F : 1940 Exam Date: 09/29/2021 08:22 Exam Location: [facility] Ht (in): 60 Wt (lb): 127 Ordering Physician: Marion Wolf MD Attending/Referring Phys: Delicatessen Slicer Earnestine Pagan RDCS Procedure CPT: Indications: chf Cardiac Hx: Technical Quality: Good Contrast 1: N/A Total Dose (mL): Contrast 2: Total Dose (mL): MEASUREMENTS (Male / Female) Normal Values 2D ECHO LV Diastolic Diameter PLAX 3.8 cm 4.2 - 5.9 / 3.9 - 5.3 cm LV Systolic Diameter PLAX 2.6 cm IVS Diastolic Thickness 0.9 cm 0.6 - 1.0 / 0.6 - 0.9 cm LVPW Diastolic Thickness 1.2 cm 0.6 - 1.0 / 0.6 - 0.9 cm LV Relative Wall Thickness 0.6 RV Internal Dim ED PLAX 2.3 cm LA Systolic Diameter LX 3.1 cm 3.0 - 4.0 / 2.7 - 3.8 cm LA Volume 87.2 cm??? 18 - 58 / 22 - 52 cm??? M-MODE Aortic Root Diameter MM 3.3 cm LA Systolic Diameter MM 3.9 cm LA Ao Ratio MM 1.2 MV E Point Septal Separation 0.1 cm AV Cusp Separation MM 1.3 cm DOPPLER AV Peak Velocity 325.7 cm/s AV Peak Gradient 42.4 mmHg AV Mean Velocity 221.3 cm/s AV Mean Gradient 22.9 mmHg AV Velocity Time Integral 72.3 cm LVOT Peak Velocity 179.3 cm/s LVOT Peak Gradient 12.9 mmHg MV Area PHT 3.0 cm??? Mitral E Point Velocity 123.0 cm/s Mitral A Point Velocity 138.1 cm/s Mitral E to A Ratio 0.9 MV Deceleration Time 253.6 ms TR Peak Velocity 328.5 cm/s TR Peak Gradient 43.2 mmHg Right Ventricular Systolic Press 48.2 mmHg FINDINGS Left Ventricle Normal Left ventricular size, mild wall thickness, systolic function with no obvious regional wall motion abnormalities.left ventricular ejection fraction is estimated at 50-55 %. Right Ventricle Normal right ventricular size and function. Moderate pulmonary hypertension. Right Atrium Normal right atrial size. Left Atrium Severely increased left atrial volume. Mildly increased left atrial area. Mitral Valve Structurally normal mitral valve. Mild mitral regurgitation. Aortic Valve [id number] aortic stenosis with a peak gradient of 53 mmHg and a mean gradient of 27 mmHg. Tricuspid Valve Structurally normal tricuspid valve. Mild tricuspid regurgitation. Pulmonic Valve Structurally normal pulmonic valve. Trace pulmonic regurgitation. Pericardium Normal pericardium. Aorta Normal size aortic root and proximal ascending aorta. CONCLUSIONS Normal LV systolic function Left atrial enlargement Moderate to severe aortic stenosis with a peak gradient of 53 mm and the mean gradient of 27 mm across the valve Previewed by: Dr. Gavino Contreras MD (Electronically Signed) Final Date: 03 October 2021 12:26
--- NOTE | 2021-10-03 14:00 | XR ---
EXAMINATION TYPE: XR chest 1V portable DATE OF EXAM: 10/03/2021 COMPARISON: 09/28/2021 INDICATION: Short of breath TECHNIQUE: Single frontal view of the chest is obtained. FINDINGS: The heart size is upper limits of normal. The pulmonary vasculature is normal. Mild left lower lobe infiltrate is present. There appears to be a left diaphragm elevation or large i ntrathoracic hernia. This is stable from comparison. Loops of bowel containing air are present. IMPRESSION: 1. Mild left lower lobe infiltrate with an adjacent large diaphragmatic hernia or eventration.
[2021-10-03] MEDS ORDERED: PROPOFOL 10 MG/ML 20 ML VIAL IV ONE (14:02)
[2021-10-03] MEDS ORDERED: LIDOCAINE 2% INJ 20 MG/ML (2 ML VIAL) ONE (14:02)
[2021-10-03] MEDS ORDERED: LACTATED RINGERS 1,000 ML IV ONE ×2 (14:04)
--- NOTE | 2021-10-03 14:31 | P.OP ---
Date of Procedure: 10/03/21 Preoperative Diagnosis: GI bleed Postoperative Diagnosis: Antral gastritis Severe diverticulosis Procedure(s) Performed: EGD Colonoscopy Anesthesia: MAC Surgeon: Candido Harrington Pathology: other (Antrum) Condition: stable Disposition: PACU Description of Procedure: The patient's placed on the endoscopy table in the lateral position. She received IV sedation. The gastroscope was oropharynx past esophagus and into the stomach. Scope was then placed through the pylorus. First and second portion duodenum appeared normal. Scope summer back the antrum this. Mildly inflamed. Biopsies performed. Was then retroflexed. Normal. The GE junction was at 40 cm per the distal esophagus appeared normal proximal esophagus. The scope was withdrawn for patient. Next digital rectal exam was performed. This revealed no abnormalities. Flexible colonoscope was then placed patient anus passed with colon. Scope could not pass beyond the splenic flexure secondary tortuous valve. The descending colon had diverticular changes. The; was extensive diverticular changes. Scope was brought back the rectum this appeared normal. Scope withdrawn for patient. There is no evidence of any active GI bleed. Presumed patient may have bleeding from diverticular disease.
[2021-10-03] MEDS ORDERED: IPRATROPIUM-ALBUTEROL 3 ML NEB INHALATION PRN (15:16)
--- NOTE | 2021-10-03 15:17 | P.PN ---
Subjective Progress Note Date: 10/03/21 Acute symptomatic anemia 81yo F with PMH of breast cancer treated with surgical excision, anemia in the past, required blood transfusions post operatively previous. Patient presents to the emergency department today for evaluation after she had outpatient labs drawn and was notified that she had a critical low hemoglobin. Patient states that she's been feeling more fatigued short of breath and has noticed some leg swelling. She saw her primary care last week she was started on Lasix for leg swelling however she still feel short of breath her labs are drawn and she was told that she is very anemic. Patient states she's been anemic in the past, she has had blood transfusions but only with surgeries. She states that she's had IBS for 40 years and has chronic abdominal pain diarrhea and fatigue. 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 She cannot recall when her last colonoscopy was. Patient reports having bowel movements. No evidence of blood in the stools or black stools. She denies any abdominal pain. Hemoglobin has increased from 7.8-8.4 10/01/2021 Patient is seen and evaluated in room at bedside; denies any specific complaints; no bloody bowel movements Hemoglobin is being monitored and remained stable Plan for EGD/colonoscopy on Sunday10/02/2021 Patient is seen and evaluated resting comfortably in bed; patient reports feeling is somewhat sleepy and weak today Vital signs are reviewed and remained stable with temperature of 97.8, pulse 69, respiration 18 and blood pressure of 137/78 with O2 saturation of 99% on room air Labs are reviewed; hemoglobin 8.4 yesterday; no complaining of any rectal bleed Surgery on board with plans for EGD/colonoscopy tomorrow morning 10/03/2021 Patient is seen in follow-up this morning hemoglobin is stable at 8.7 and plan is for EGD/colonoscopy was surgery today. Patient appears slightly short of breath on exam and will obtain chest x-ray. Patient denies any chest pain or shortness of breath and is currently nothing by mouth for the procedure. Patient is afebrile and asking when she is able to go home. Recommend follow-up labs and will await surgical report. Review of systems: Constitutional: No reports of fatigue, fever, or chills Cardiovascular: No reports of chest pain or palpitations Respiratory: No reports of shortness of breath or cough GI: No reports of nausea, vomiting, or diarrhea : No reports of dysuria or retention Neurovascular: No reports of weakness or numbness All medications have been reviewed Active Medications Acetaminophen (Acetaminophen Tab 325 Mg Tab) 325 mg PO Q6HR PRN PRN Reason: Fever and/ or Pain Last Admin: 10/02/21 16:46 Dose: 325 mg Ferrous Sulfate (Ferrous Sulfate 325 Mg Tab) 325 mg PO BID-W/MEALS [facility] Last Admin: 10/02/21 16:43 Dose: 325 mg Furosemide (Furosemide 40 Mg Tab) 40 mg PO DAILY@1200 [facility] Last Admin: 10/02/21 11:56 Dose: 40 mg Levothyroxine Sodium (Levothyroxine 88 Mcg Tab) 88 mcg PO DAILY@0630 [facility] Last Admin: 10/03/21 10:28 Dose: Not Given Naloxone HCl (Naloxone 0.4 Mg/Ml 1 Ml Vial) 0.2 mg IV Q2M PRN PRN Reason: Opioid Reversal Pantoprazole Sodium (Pantoprazole 40 Mg/10 Ml Vial) 40 mg IVP BID [facility] Last Admin: 10/02/21 19:33 Dose: 40 mg Physical exam: Gen: This is a 81-year-old female awake, alert and oriented 3, thin built HEENT: Head is atraumatic, normocephalic. Pupils equal, round. Sclerae is anicteric. NECK: Supple. No JVD. No lymphadenopathy. No thyromegaly. LUNGS: Diminished breath sounds bilaterally with some scattered rhonchi noted. No intercostal retractions. HEART: S1, S2 are muffled ABDOMEN: Soft. Thin built, Bowel sounds are present. No masses. No tenderness. EXTREMITIES: No pedal edema. No calf tenderness. NEUROLOGICAL: Patient is awake, alert and oriented x3. Cranial nerves 2 through 12 are grossly intact. Assessment: Acute symptomatic anemia with no signs of GI bleed Hyponatremia Hypothyroidism COPD, possible acute exacerbation GI prophylaxis DVT prophylaxis Full code with no mechanical ventilation Plan: Patient is currently nothing by mouth and will resume diet after discussing with surgery and follow-up EGD/colonoscopy today. Hemoglobin is 8.7 with no active bleeding noted and recommend repeat labs in the morning Recommend continue with GI prophylaxis Chest x-ray today shows a mild left lower lobe infiltrate is present that appears to be a left diaphragm elevation or large intrathoracic hernia stable from comparison, patient is afebrile and denies shortness of breath and currently 97% on room air Recommend incentive spirometer and encouraged to use at least 10 times every hour while awake, also add DuoNeb 3 times a day and as needed Social work following and will discuss about discharge planning and possible Homecare Due to multiple complex medical issues, prognosis is guarded Possible discharge in 24 hours The impression and plan of care has been dictated by Ana M Dee, Nurse Practitioner as directed. Dr. Luciano MD I have performed a history and examination and MDM of this patient, discussed the same with the dictator, and agree with the dictator's assessment and plan as written ,documented as a scribe. Based on total visit time, I have performed more than 50% of the visit. Objective - Vital Signs Vital signs: Vital Signs Temp 97.8 F 10/03/21 08:23 Pulse 71 10/03/21 08:23 Resp 16 10/03/21 08:23 BP 139/65 10/03/21 08:23 Pulse Ox 95 10/03/21 08:23 FiO2 Intake & Output 10/02/21 10/03/21 10/03/21 18:59 06:59 18:59 Intake Total 840 Output Total 3 Balance 837 Weight 48.8 kg Intake: Oral 840 Output: Urine 3 Other: Voiding Method Toilet Toilet # Voids 3 # Bowel Movements 3 4 - Labs CBC & Chem 7: 10/03/21 07:19 10/01/21 07:27 Labs: Abnormal Lab Results - Last 24 Hours (Table) 10/02/21 10/03/21 Range/Units 16:05 07:19 WBC 2.8 L (3.8-10.6) k/uL RBC 3.35 L 3.07 L (3.80-5.40) m/uL Hgb 9.0 L 8.7 L (11.4-16.0) gm/dL Hct 31.0 L 28.5 L (34.0-46.0) % MCHC 29.2 L 30.5 L (31.0-37.0) g/dL RDW 20.0 H 20.3 H (11.5-15.5) %
[2021-10-03] MEDS: FERROUS SULFATE 325 MG TAB PO SCH ×2 (15:32→15:47)
[2021-10-03] MEDS: FUROSEMIDE 40 MG TAB PO SCH (15:37)
[2021-10-03] MEDS: PANTOPRAZOLE 40 MG/10 ML VIAL IVP SCH ×2 (15:37→19:31)
[2021-10-03] MEDS: IPRATROPIUM-ALBUTEROL 3 ML NEB INHALATION SCH (20:17)
[2021-10-03] MEDS: ACETAMINOPHEN TAB 325 MG TAB PO PRN (22:29)
[2021-10-04] MEDS: LEVOTHYROXINE 88 MCG TAB PO SCH (05:49)
[2021-10-04] MEDS: FERROUS SULFATE 325 MG TAB PO SCH ×2 (05:49→17:32)
[2021-10-04 07:03] LABS: Anisocytosis Moderate; HCT 27.4 % (34.0-46.0); HGB 8.1 gm/dL (11.4-16.0); Hypochromasia Marked; MCH 27.4 pg (25.0-35.0); MCHC 29.5 g/dL (31.0-37.0); MCV 92.9 fL (80.0-100.0); Macrocytosis Slight; Mean Platelet Volume 8.6; Platelet Count 185 k/uL (150-450); Poikilocytosis Slight; RBC 2.94 m/uL (3.80-5.40); RDW 20.8 % (11.5-15.5); WBC 3.3 k/uL (3.8-10.6)
[2021-10-04] MEDS: PANTOPRAZOLE 40 MG/10 ML VIAL IVP SCH ×2 (08:47→20:27)
[2021-10-04] MEDS: IPRATROPIUM-ALBUTEROL 3 ML NEB INHALATION SCH ×3 (09:25→19:21)
[2021-10-04] MEDS: FUROSEMIDE 40 MG TAB PO SCH (11:52)
--- NOTE | 2021-10-04 12:26 | P.PN ---
Subjective Progress Note Date: 10/04/21 CHIEF COMPLAINT: Shortness of breath HISTORY OF PRESENT ILLNESS: Surgical service following for anemia. Patient status post EGD and colonoscopy revealing antral gastritis and severe diverticulosis. There is no evidence of any active GI bleed. Presumed patient may have had bleeding from diverticular disease. Patient is lying in bed comfortably. No abdominal pain blood in stools reported. Currently on a heart healthy diet. Afebrile. Hemoglobin stable at 8.1 Patient seen and examined with Dr. Harrington PHYSICAL EXAM: VITAL SIGNS: Reviewed. GENERAL: Well-developed in no acute distress. HEENT: No sclera icterus. Extraocular movements grossly intact. Moist buccal mucosa. Head is atraumatic, normocephalic. ABDOMEN: Soft. Nondistended. Nontender. NEUROLOGIC: Alert and oriented. Cranial nerves II through XII grossly intact. ASSESSMENT: 1. Anemia status post EGD and colonoscopy revealing antral gastritis and severe diverticulosis PLAN: -Patient is stable from surgical standpoint for discharge -Continue PPI for gastritis Physician Merchandiser note has been reviewed by physician. Signing provider agrees with the documented findings, assessment, and plan of care. Objective - Vital Signs Vital signs: Vital Signs Temp 97.9 F 10/04/21 11:34 Pulse 72 10/04/21 12:21 Resp 14 10/04/21 11:34 BP 150/74 10/04/21 11:34 Pulse Ox 97 10/04/21 11:34 FiO2 Intake & Output 10/03/21 10/04/21 10/04/21 18:59 06:59 18:59 Intake Total 400 358 Balance 400 358 Weight 46.5 kg Intake: IV 400 Oral 358 Other: Voiding Method Toilet # Voids 3 1 # Bowel Movements 1 - Labs CBC & Chem 7: 10/04/21 06:23 10/01/21 07:27 Labs: Abnormal Lab Results - Last 24 Hours (Table) 10/04/21 Range/Units 06:23 WBC 3.3 L (3.8-10.6) k/uL RBC 2.94 L (3.80-5.40) m/uL Hgb 8.1 L (11.4-16.0) gm/dL Hct 27.4 L (34.0-46.0) % MCHC 29.5 L (31.0-37.0) g/dL RDW 20.8 H (11.5-15.5) %
[2021-10-04 15:42] LABS: Glucose,Whole Blood 129 mg/dL (70-110)
--- NOTE | 2021-10-04 16:54 | CT ---
EXAMINATION TYPE: CT brain wo con DATE OF EXAM: 10/04/2021 COMPARISON: 03/17/2015 HISTORY: fall CT DLP: 1112.4 mGycm Automated exposure control for dose reduction was used. There is some cerebral cortical atrophy. There is no mass effect or midline shift. No sign of intracr anial hemorrhage. Calvarium is intact. Skull base is intact. There is normal aeration of the mastoid sinuses. There are some minimal hypodensity in the periventricular white matter. IMPRESSION: Cerebral atrophy. There is some mild chronic small vessel ischemia. No acute intracranial abnormality . No change.
--- NOTE | 2021-10-04 16:56 | XR ---
EXAMINATION TYPE: XR wrist limited LT DATE OF EXAM: 10/04/2021 COMPARISON: NONE HISTORY: Pain after a fall TECHNIQUE: 2 views FINDINGS: There is narrowing and spurring at the first carpometacarpal joint. I see no fracture nor d islocation. Radius and ulna appear intact. There is old healed fracture of the fourth metacarpal. IMPRESSION: No acute abnormality of the left wrist. 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
--- NOTE | 2021-10-04 18:09 | XR ---
EXAMINATION TYPE: XR Hip Complete LT DATE OF EXAM: 10/04/2021 COMPARISON: NONE HISTORY: Pain TECHNIQUE: 2 views FINDINGS: I see no fracture nor dislocation. There is left hip prosthesis which appears in anatomic p osition. There is osteopenia. IMPRESSION: No acute abnormality of the left hip.
[2021-10-04] MEDS: ACETAMINOPHEN TAB 325 MG TAB PO PRN (20:28)
--- NOTE | 2021-10-05 05:12 | P.PN ---
Subjective Progress Note Date: 10/04/21 Acute symptomatic anemia 81yo F with PMH of breast cancer treated with surgical excision, anemia in the past, required blood transfusions post operatively previous. Patient presents to the emergency department today for evaluation after she had outpatient labs drawn and was notified that she had a critical low hemoglobin. Patient states that she's been feeling more fatigued short of breath and has noticed some leg swelling. She saw her primary care last week she was started on Lasix for leg swelling however she still feel short of breath her labs are drawn and she was told that she is very anemic. Patient states she's been anemic in the past, she has had blood transfusions but only with surgeries. She states that she's had IBS for 40 years and has chronic abdominal pain diarrhea and fatigue. 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 She cannot recall when her last colonoscopy was. Patient reports having bowel movements. No evidence of blood in the stools or black stools. She denies any abdominal pain. Hemoglobin has increased from 7.8-8.4 10/01/2021 Patient is seen and evaluated in room at bedside; denies any specific complaints; no bloody bowel movements Hemoglobin is being monitored and remained stable Plan for EGD/colonoscopy on Sunday10/02/2021 Patient is seen and evaluated resting comfortably in bed; patient reports feeling is somewhat sleepy and weak today Vital signs are reviewed and remained stable with temperature of 97.8, pulse 69, respiration 18 and blood pressure of 137/78 with O2 saturation of 99% on room air Labs are reviewed; hemoglobin 8.4 yesterday; no complaining of any rectal bleed Surgery on board with plans for EGD/colonoscopy tomorrow morning 10/03/2021 Patient is seen in follow-up this morning hemoglobin is stable at 8.7 and plan is for EGD/colonoscopy was surgery today. Patient appears slightly short of breath on exam and will obtain chest x-ray. Patient denies any chest pain or shortness of breath and is currently nothing by mouth for the procedure. Patient is afebrile and asking when she is able to go home. Recommend follow-up labs and will await surgical report. 10/04/2021 Patient is seen today and planning on discharge today as hemoglobin is stable and no bleeding noted. General surgery has cleared her after EGD/colonoscopy and patient was getting ready and dressed for discharge and apparently her shoe got twisted and stuck and she fell and nursing staff found her on the ground and unable to get herself up. Patient reported to falling and not hitting her head, but was face down and also landing on her hip and left wrist. Imaging ordered including ct head, left wrist and left hip. Patient is afebrile and denies any chest pain or shortness of breath. Patient denies any feelings of dizziness or lightheadedness, just reports to her shoe twisting. Will consult PT and have them evaluate her and discuss discharge planning and maybe ecf. Review of systems: Constitutional: No reports of fatigue, fever, or chills Cardiovascular: No reports of chest pain or palpitations Respiratory: No reports of shortness of breath or cough GI: No reports of nausea, vomiting, or diarrhea : No reports of dysuria or retention Neurovascular: No reports of weakness or numbness, reports some left wrist pain All medications have been reviewed Physical exam: Gen: This is a 81-year-old female awake, alert and oriented 3, thin built HEENT: Head is atraumatic, normocephalic. Pupils equal, round. Sclerae is anicteric. NECK: Supple. No JVD. No lymphadenopathy. No thyromegaly. LUNGS: Diminished breath sounds bilaterally with some scattered rhonchi noted. No intercostal retractions. HEART: S1, S2 are muffled ABDOMEN: Soft. Thin built, Bowel sounds are present. No masses. No tenderness. EXTREMITIES: No pedal edema. No calf tenderness. NEUROLOGICAL: Patient is awake, alert and oriented x3. Cranial nerves 2 through 12 are grossly intact. Assessment: Acute symptomatic anemia with no signs of GI bleed Hyponatremia diverticular disease with no active bleed noted on endoscopy fall while getting dressed, mechanical Hypothyroidism COPD, possible acute exacerbation GI prophylaxis DVT prophylaxis Full code with no mechanical ventilation Plan: Patient is currently tolerating diet after EGD/colonoscopy Surgery reports diverticular disease on endoscopy and biopsies obtained and recommend follow up in the outpatient setting Hemoglobin is 8.3 with no active bleeding noted Recommend continue with GI prophylaxis Recommend incentive spirometer and encouraged to use at least 10 times every hour while awake, also continue DuoNeb 3 times a day and as needed Social work following and will discuss about discharge planning and possible Homecare, will have PT evaluate gait as patient fell while getting ready for discharge, mechanical due to her shoe getting twisted and stuck and obtained xrays and brain ct which were all negative for any acute process. Maybe ECF for discharge. Due to multiple complex medical issues, prognosis is guarded Possible discharge in 24 hours The impression and plan of care has been dictated by Ana M Dee, Nurse Practitioner as directed. Dr. Luciano MD I have performed a history and examination and MDM of this patient, discussed the same with the dictator, and agree with the dictator's assessment and plan as written ,documented as a scribe. Based on total visit time, I have performed more than 50% of the visit. Objective - Vital Signs Vital signs: Vital Signs Temp 98.1 F 10/05/21 04:00 Pulse 74 10/05/21 04:00 Resp 16 10/05/21 04:00 BP 131/71 10/05/21 04:00 Pulse Ox 96 10/05/21 04:00 FiO2 Intake & Output 10/04/21 10/04/21 10/05/21 06:59 18:59 06:59 Intake Total 594 Balance 594 Weight 46.5 kg Intake: Oral 594 Other: Voiding Method Toilet # Voids 3 3 1 # Bowel Movements 1 - Labs CBC & Chem 7: 10/04/21 06:23 10/01/21 07:27 Labs: Abnormal Lab Results - Last 24 Hours (Table) 10/04/21 10/04/21 Range/Units 06:23 15:41 WBC 3.3 L (3.8-10.6) k/uL RBC 2.94 L (3.80-5.40) m/uL Hgb 8.1 L (11.4-16.0) gm/dL Hct 27.4 L (34.0-46.0) % MCHC 29.5 L (31.0-37.0) g/dL RDW 20.8 H (11.5-15.5) % POC Glucose (mg/dL) 129 H (70-110) mg/dL
[2021-10-05] MEDS: FERROUS SULFATE 325 MG TAB PO SCH ×2 (06:29→17:20)
[2021-10-05] MEDS: LEVOTHYROXINE 88 MCG TAB PO SCH (06:29)
[2021-10-05] MEDS: PANTOPRAZOLE 40 MG/10 ML VIAL IVP SCH (08:26)
[2021-10-05] MEDS: IPRATROPIUM-ALBUTEROL 3 ML NEB INHALATION SCH ×2 (08:33→11:16)
[2021-10-05] MEDS ORDERED: PANTOPRAZOLE 40 MG TABLET PO SCH (09:15)
[2021-10-05] MEDS: FUROSEMIDE 40 MG TAB PO SCH (11:58)
[2021-10-05 12:14] VITALS: TEMP 97.8
[2021-10-05 12:51] LABS: Anisocytosis Moderate; HCT 26.9 % (34.0-46.0); Hypochromasia Marked; MCH 28.1 pg (25.0-35.0); MCHC 29.7 g/dL (31.0-37.0); MCV 94.5 fL (80.0-100.0); Macrocytosis Slight; Mean Platelet Volume 8.6; Platelet Count 149 k/uL (150-450); Poikilocytosis Slight; RBC 2.84 m/uL (3.80-5.40); RDW 21.5 % (11.5-15.5); WBC 3.6 k/uL (3.8-10.6)
--- NOTE | 2021-10-05 15:05 | P.PN ---
Subjective Progress Note Date: 10/05/21 CHIEF COMPLAINT: Shortness of breath HISTORY OF PRESENT ILLNESS: Surgical service following for anemia. Patient status post EGD and colonoscopy revealing antral gastritis and severe diverticulosis. There is no evidence of any active GI bleed. Presumed patient may have had bleeding from diverticular disease. Patient is lying in bed comfortably. No abdominal pain blood in stools reported. Currently on a heart healthy diet. Patient was supposed to be discharged yesterday however she had a fall. X-rays negative for fracture. Afebrile. Hemoglobin stable at 8 Patient seen and examined with Dr. Harrington PHYSICAL EXAM: VITAL SIGNS: Reviewed. GENERAL: Well-developed in no acute distress. HEENT: No sclera icterus. Extraocular movements grossly intact. Moist buccal mucosa. Head is atraumatic, normocephalic. ABDOMEN: Soft. Nondistended. Nontender. NEUROLOGIC: Alert and oriented. Cranial nerves II through XII grossly intact. ASSESSMENT: 1. Anemia status post EGD and colonoscopy revealing antral gastritis and severe diverticulosis PLAN: -Patient is stable from surgical standpoint for discharge -Continue PPI for gastritis Physician Supercharger Repair Supervisor note has been reviewed by physician. Signing provider agrees with the documented findings, assessment, and plan of care. Objective - Vital Signs Vital signs: Vital Signs Temp 97.8 F 10/05/21 12:13 Pulse 81 10/05/21 12:13 Resp 28 H 10/05/21 12:13 BP 110/62 10/05/21 12:13 Pulse Ox 95 10/05/21 12:13 FiO2 Intake & Output 10/04/21 10/05/21 10/05/21 18:59 06:59 18:59 Intake Total 594 240 Balance 594 240 Intake: Oral 594 240 Other: # Voids 3 1 # Bowel Movements 1 - Labs CBC & Chem 7: 10/05/21 11:25 10/01/21 07:27 Labs: Abnormal Lab Results - Last 24 Hours (Table) 10/04/21 10/05/21 Range/Units 15:41 11:25 WBC 3.6 L (3.8-10.6) k/uL RBC 2.84 L (3.80-5.40) m/uL Hgb 8.0 L (11.4-16.0) gm/dL Hct 26.9 L (34.0-46.0) % MCHC 29.7 L (31.0-37.0) g/dL RDW 21.5 H (11.5-15.5) % Plt Count 149 L (150-450) k/uL POC Glucose (mg/dL) 129 H (70-110) mg/dL
[2021-10-05 15:09] LABS: Eosinophils # (M) 0.04 k/uL (0-0.7); Lymphocytes # (M) 1.51 k/uL (1.0-4.8); Monocytes # (M) 0.25 k/uL (0-1.0); Neutrophils % (M) 50 %; Nucleated Red Blood Cells 0 /100 WBC (0-0); Poikilocytosis (M) Present; Polychromasia Present; Stomatocytes Present; Total Cells Counted 100
[2021-10-05 15:10] LABS: Spherocytes Present
[2021-10-05] MEDS: ACETAMINOPHEN TAB 325 MG TAB PO PRN (15:27)
[2021-10-05 16:16] VITALS: BP 118/69; PULSE 79; RESP 24
--- NOTE | 2021-10-06 10:46 | P.DS ---
Providers Date of admission: 09/28/21 18:11 Expected date of discharge: 10/05/21 Attending physician: Marion Wolf Consults: 09/28/21 17:13 Consult Physician Routine Consulting Provider: Candido Harrington Consult Reason/Comments: gi bleed, scopes? Do you want consulting provider notified?: Yes Primary care physician: Jasper Linares [facility] Course: Final diagnosis Acute symptomatic anemia with no signs of GI bleed Hyponatremia diverticular disease with no active bleed noted on endoscopy fall while getting dressed, mechanical Hypothyroidism COPD, possible acute exacerbation GI prophylaxis DVT prophylaxis Full code with no mechanical ventilation Discharge disposition Patient is being discharged in a stable condition with guarded prognosis to home. Patient will follow-up with Dr. Linares in the outpatient setting upon discharge. Patient is to follow-up with general surgery and GI as scheduled. Patient will continue on Protonix daily. Recommend repeat labs in a prescription was provided for a follow-up CBC. Total time taken is greater than 35 minutes. Hospital course This is a 81-year-old female who was recently admitted with acute symptomatic anemia with no evidence of GI bleed and underwent EGD colonoscopy showing most likely diverticular disease. General surgery performed endoscopy and biopsies and will have patient follow-up in the outpatient setting for results. Hemoglobin is stable at 8.0 and recommend close outpatient follow-up with repeat labs in the next 2-3 days. Patient was initially scheduled to be discharged 1 day prior although attempting to get ready and twisted her shoe and fell face first and landing on her left wrist and having some left hip pain. Imaging were negative and patient encouraged and instructed to elevate wrist and continue with ice and follow-up with primary care provider this week. Patient reports to feeling well and requesting to go home. Currently no reports of chest pain, shortness of breath, or palpitations. Patient is afebrile. No reports of nausea or vomiting and patient is tolerating diet. Patient will be discharged home today. Guarded prognosis. On exam vital signs are stable. Cardio S1, S2 are muffled. Respiratory system shows diminished breath sounds at the bases with no wheezing or rhonchi noted. Abdomen is soft and nontender. Nervous system shows no focal deficits. Please refer to medication reconciliation sheet for a list of medications. The impression and plan of care has been dictated by Ana M Dee, Nurse Practitioner as directed. Dr. Luciano MD I have performed a history and examination and MDM of this patient, discussed the same with the dictator, and agree with the dictator's assessment and plan as written ,documented as a scribe. Based on total visit time, I have performed more than 50% of the visit. Patient Condition at Discharge: Stable Plan - Discharge Summary Discharge Rx Participant: Yes New Discharge Prescriptions: New Ferrous Sulfate [Iron (65 MG Elemental)] 325 mg PO BID-W/MEALS #60 tab Pantoprazole [Protonix] 40 mg PO DAILY 30 Days #30 tab Acetaminophen Tab [Tylenol] 325 mg PO Q6HR PRN tab PRN Reason: Fever And/ Or Pain Continue Levothyroxine Sodium [Synthroid] 88 mcg PO DAILY Multivitamins, Thera [Multivitamin (formulary)] 1 tab PO DAILY Furosemide [Lasix] 40 mg PO DAILY@1200 Chlorpheniramine Maleate [Chlor-Trimeton] 4 mg PO DAILY Biotin [Biotin Disolve] 5,000 mcg PO DAILY Ascorbic Acid [Vitamin C] 500 mg PO DAILY Calcium Citrate/Vitamin D3 [Citracal + D Maximum Caplet] 1 tab PO DAILY Discontinued Naproxen Sodium [Aleve] 220 mg PO BID PRN PRN Reason: Pain Discharge Medication List Levothyroxine Sodium [Synthroid] 88 mcg PO DAILY 03/17/15 [History] Multivitamins, Thera [Multivitamin (formulary)] 1 tab PO DAILY 12/01/15 [History] Ascorbic Acid [Vitamin C] 500 mg PO DAILY 09/28/21 [History] Biotin [Biotin Disolve] 5,000 mcg PO DAILY 09/28/21 [History] Calcium Citrate/Vitamin D3 [Citracal + D Maximum Caplet] 1 tab PO DAILY 09/28/21 [History] Chlorpheniramine Maleate [Chlor-Trimeton] 4 mg PO DAILY 09/28/21 [History] Furosemide [Lasix] 40 mg PO DAILY@1200 09/28/21 [History] Acetaminophen Tab [Tylenol] 325 mg PO Q6HR PRN tab 10/04/21 [Rx] Ferrous Sulfate [Iron (65 MG Elemental)] 325 mg PO BID-W/MEALS #60 tab 10/04/21 [Rx] Pantoprazole [Protonix] 40 mg PO DAILY 30 Days #30 tab 10/04/21 [Rx] Follow up Appointment(s)/Referral(s): Kanwal Contreras MD [STAFF PHYSICIAN] - 1 Week (gastroentrologist option. schedule follow up.) Jasper Linares DO [Primary Care Provider] - 10/11/21 1:15 pm Candido Harrington MD [STAFF PHYSICIAN] - 1 Week (gastroentrologist option. schedule follow up.) Ambulatory/Diagnostic Orders: Complete Blood Count w/diff [LAB.AMB] Time Frame: 3 Days, Location: None Selected Patient Instructions/Handouts: Anemia (DC) Activity/Diet/Wound Care/Special Instructions: Activity Limited until follow-up Follow-up with primary care provider on discharge Follow-up with general surgery for test results in 1-2 weeks Follow-up with GI outpatient Continue Protonix daily Recommend repeat labs of CBC to monitor hemoglobin in 2-3 days Recommend to continue with heart healthy diet Continue using ice to the left wrist and use Tylenol for pain Discharge Disposition: HOME SELF-CARE
--- NOTE | 2021-10-07 16:10 | CDI ---
Dr. Wolf, Severe anemia is documented per H&P. Additional specificity regarding the [type, acuity] of anemia is requested. History/Risk Factors: 81yo F, severe diverticulosis, Chronic gastritis with intestinal metaplasia, hx breast ca anemia, pulm edema, CHF, anemia, Hyponatremia, LI diverticulitis no active bleed, nonPOA fall mechanical, Hypothyroidism, COPD w possible acute exacerbation Clinical indicators: UYEN,critically low hemoglobin Hgb 5.5 L* (11.4-16.0) gm/dL Hct 20.4 L (34.0-46.0) % Treatment: EGD/Louise "There is no evidence of any active GI bleed. Presumed patient may have bleeding from diverticulosis." Please clarify the type and acuity of anemia: [ ] Acute blood loss anemia [ ] Acute on chronic blood loss anemia [ ] Chronic blood loss anemia [ ] Iron deficiency anemia [ ] Nutritional anemia [ ] Unable to determine [ ] Other, please specify Acute blood loss anemia MTDD
--- NOTE | 2021-10-07 16:38 | CDI ---
Dr Wolf, Your patient has the documented diagnosis of unspecified CHF ED Note. Additional information regarding the [type, acuity] of CHF is requested. History/Risk Factors: 81yo F, severe diverticulosis, Chronic gastritis with intestinal metaplasia, hx breast ca anemia, pulm edema, CHF, anemia, Hyponatremia, LI diverticulitis no active bleed, nonPOA fall mechanical, Hypothyroidism, COPD w possible acute exacerbation Clinical Indicators: VS/Pulse OX: O2 Sat by Pulse 98 BNP: 722 Echocardiogram Results: Normal LV systolic function, Left atrial enlargement, Moderate to severe aortic stenosis with a peak gradient of 53 mm and the mean Chest X Ray: Increased cardiac size probably augmented by a large hiatal hernia.The hiatal hernia likely contains portion of the colon. Congested pulmonary vasculature suggestive of pulmonary edema. Suspected small right pleural effusion. Treatment: In your professional opinion, can you please clarify the [acuity and type] of CHF if known? [ ] Acute Systolic Heart Failure (reduced EF) [ ] Chronic Systolic Heart Failure (reduced EF) [ ] Acute on Chronic Systolic Heart Failure (reduced EF) [ ] Acute Diastolic Heart Failure (preserved EF) [ ] Chronic Diastolic Heart Failure (preserved EF) [ ] Acute on Chronic Diastolic Heart Failure (preserved EF) [ ] Acute Systolic & Diastolic Heart Failure [ ] Chronic Systolic & Diastolic Heart Failure [ ] Acute on Chronic Heart Failure Systolic & Diastolic Heart Failure [ ] Other, please specify [ ] Unable to determine (Template Last Revised: May 2020) Unable to determine MTDD
== END 2021-10-05 17:57 | disposition home or self-care (01) | DRG 378 ==
LOC: EC 14:58 → 3SCARD 18:11
PROVIDERS: ADMIT Hospitalist; ATTEND Hospitalist
PROC: 30233N1 Transfusion of Nonautologous Red Blood Cells into Peripheral Vein, Percutaneous Approach (ICD-10-PCS; 2021-09-29)
PROC: 0DB78ZX Excision of Stomach, Pylorus, Via Natural or Artificial Opening Endoscopic, Diagnostic (ICD-10-PCS; principal; 2021-10-03 13:10)
PROC: 0DJD8ZZ Inspection of Lower Intestinal Tract, Via Natural or Artificial Opening Endoscopic (ICD-10-PCS; 2021-10-03 13:10)
DX: K57.31 Diverticulosis of large intestine without perforation or abscess with bleeding (principal); D62 Acute posthemorrhagic anemia; E87.1 Hypo-osmolality and hyponatremia; F10.939 Alcohol use, unspecified with withdrawal, unspecified; J44.1 Chronic obstructive pulmonary disease with (acute) exacerbation; K29.51 Unspecified chronic gastritis with bleeding; I50.9 Heart failure, unspecified; E03.9 Hypothyroidism, unspecified; K31.A0 Gastric intestinal metaplasia, unspecified; K58.0 Irritable bowel syndrome with diarrhea; G89.29 Other chronic pain; K62.4 Stenosis of anus and rectum; M19.90 Unspecified osteoarthritis, unspecified site; K44.9 Diaphragmatic hernia without obstruction or gangrene; M85.80 Other specified disorders of bone density and structure, unspecified site; W18.31XA Fall on same level due to stepping on an object, initial encounter; Y92.230 Patient room in hospital as the place of occurrence of the external cause; M25.552 Pain in left hip; M79.89 Other specified soft tissue disorders; M41.9 Scoliosis, unspecified; K64.9 Unspecified hemorrhoids; R01.1 Cardiac murmur, unspecified; Z96.612 Presence of left artificial shoulder joint; Z96.611 Presence of right artificial shoulder joint; Z96.653 Presence of artificial knee joint, bilateral; Z96.643 Presence of artificial hip joint, bilateral; Z87.891 Personal history of nicotine dependence; Z85.3 Personal history of malignant neoplasm of breast; Z98.890 Other specified postprocedural states; Z79.890 Hormone replacement therapy; Z79.899 Other long term (current) drug therapy; Z88.8 Allergy status to other drugs, medicaments and biological substances; Z88.1 Allergy status to other antibiotic agents; Z88.5 Allergy status to narcotic agent; Z90.89 Acquired absence of other organs; Z90.722 Acquired absence of ovaries, bilateral; Z80.3 Family history of malignant neoplasm of breast
CPT/HCPCS: 36415; 43239; 45378; 70450; 71045; 71046; 73502; 80048; 80053; 83880; 84484; 85025; 85027; 85610; 85730; 86850; 86900; 86901; 86920; 88305; 88342; 93306; 94640; 94760; 99285

== ENCOUNTER 2022-09-05 15:25 | Inpatient (IN) | payer MEDICARE ==
[2022-09-05 17:19] LABS: Anisocytosis Moderate; Basophils % (A) 0 %; Eosinophils % (A) 1 %; Lymphocytes # (A) 3.5 k/uL (1.0-4.8); Lymphocytes % (A) 80 %; MCHC 35.5 g/dL (31.0-37.0); MCV 128.3 fL (80.0-100.0); Macrocytosis Marked; Monocytes % (A) 1 %; Neutrophils # (A) 0.8 k/uL (1.3-7.7); Neutrophils % (A) 18 %; RDW 21.7 % (11.5-15.5); WBC 4.3 k/uL (3.8-10.6)
[2022-09-05 17:31] LABS: Albumin 3.6 g/dL (3.5-5.0); Bilirubin, Conjugated 0.1 mg/dL (0.0-0.3); Bilirubin, Delta 0.9 mg/dL (0.0-0.2); Bilirubin,Unconjugated 2.4 mg/dL (0.0-1.1); Calcium 8.5 mg/dL (8.4-10.2); Magnesium 2.3 mg/dL (1.6-2.3); Potassium 4.3 mmol/L (3.5-5.1); Total Bilirubin 3.4 mg/dL (0.2-1.3); Total Protein 5.9 g/dL (6.3-8.2)
[2022-09-05 17:38] LABS: Prothrombin Time 10.7 sec (9.0-12.0)
[2022-09-05 18:01] LABS: Partial Thromboplastin Time 21.9 sec (22.0-30.0)
[2022-09-05 18:36] LABS: Anisocytosis Moderate; Basophils % (A) 0 %; Eosinophils # (A) 0.1 k/uL (0-0.7); Eosinophils % (A) 1 %; Lymphocytes # (A) 3.4 k/uL (1.0-4.8); Lymphocytes % (A) 81 %; MCHC 34.3 g/dL (31.0-37.0); MCV 127.3 fL (80.0-100.0); Macrocytosis Marked; Monocytes % (A) 1 %; Neutrophils # (A) 0.7 k/uL (1.3-7.7); Neutrophils % (A) 16 %; Platelet Count 89 k/uL (150-450); RDW 22.6 % (11.5-15.5); WBC 4.2 k/uL (3.8-10.6)
[2022-09-05 18:37] LABS: HCT 11.6 % (34.0-46.0); MCH 43.7 pg (25.0-35.0); RBC 0.91 m/uL (3.80-5.40)
[2022-09-05 18:40] LABS: HGB 4.2 gm/dL (11.4-16.0); RBC 0.93 m/uL (3.80-5.40)
[2022-09-05 18:41] LABS: MCH 45.5 pg (25.0-35.0)
[2022-09-05 18:58] LABS: Platelet Count 96 k/uL (150-450)
[2022-09-05] MEDS ORDERED: PANTOPRAZOLE 40 MG/10 ML VIAL IVP STA (19:34)
[2022-09-05] MEDS ORDERED: NALOXONE 0.4 MG/ML 1 ML VIAL IV PRN (19:35)
--- NOTE | 2022-09-05 19:35 | ED ---
General Adult HPI - General Chief complaint: Shortness of Breath Stated complaint: Weakness,SOB Time Seen by Provider: 09/05/22 16:51 Source: patient, family, RN notes reviewed, old records reviewed Mode of arrival: wheelchair Limitations: no limitations - History of Present Illness Initial comments: Patient is an 82-year-old female who presents emergency department for any shortness of breath. Is progressively becoming worse over the last 4-6 weeks with somewhat noticeably worse over the last week. States it comes and goes with no specific activity. Does have a history of anemia. Denies any GI bleeding symptoms at this time including denying hematochezia, melena, hematemesis. Denies any abdominal pain or chest pain. Denies any coughing. Denies any current shortness of breath. Patient's family is at bedside and is concerned that she may be anemic again. Patient does have a slight yellow tinge which has been a progressive as well. Denies any other acute complaints at this time. Patient does have a history remarkable for cancer, COPD, thyroid disorder. Presents for further evaluation of this time. - Related Data Home Medications Medication Instructions Recorded Confirmed Levothyroxine Sodium [Synthroid] 88 mcg PO DAILY 03/17/15 09/05/22 Allergies Allergy/AdvReac Type Severity Reaction Status Date / Time diphenhydramine HCl Allergy Itching Verified 09/05/22 19:29 [From Benadryl] levofloxacin [From Levaquin] Allergy Itching Verified 09/05/22 19:29 morphine Allergy Itching Verified 09/05/22 19:29 Review of Systems ROS Statement: Those systems with pertinent positive or pertinent negative responses have been documented in the HPI. Review of Systems: CONST: Denies fever EYES: Denies blurry vision ENT: Denies nasal congestion C/V: Denies Chest pain RESP: Endorses exertional shortness of breath. GI: Denies abdominal pain : Denies dysuria SKIN: Denies rash. MSK: Denies joint pain. NEURO: Endorses weakness ROS Other: All systems not noted in ROS Statement are negative. Past Medical History Past Medical History: Cancer, COPD, Musculoskeletal Disorder, Osteoarthritis (OA), Thyroid Disorder Additional Past Medical History / Comment(s): Hiatal hernia, sinusitis, osteopenia, IBS-C(constipation), Scoliosis, Kyphosis, seasonal allergies, poor sleep, anemia. Hx right breast cancer 2016, had lumpectomy and radiation. History of Any Multi-Drug Resistant Organisms: None Reported Past Surgical History: Appendectomy, Breast Surgery, Joint Replacement, Orthopedic Surgery, Tonsillectomy Additional Past Surgical History / Comment(s): Hemmorroidectomy, bilateral hip, knee, and shoulder replacements, and bilateral oopherectomy, right breast lumpectomy, bilateral cataract surgery. Past Anesthesia/Blood Transfusion Reactions: Postoperative Nausea & Vomiting (PONV) Additional Past Anesthesia/Blood Transfusion Reaction / Comment(s): Hiatal hernia. Past Psychological History: No Psychological Hx Reported Smoking Status: Former smoker Past Alcohol Use History: Occasional Past Drug Use History: None Reported - Past Family History Mother Family Medical History: Cancer Additional Family Medical History / Comment(s): Breast cancer. Father Family Medical History: Cancer, Deep Vein Thrombosis (DVT) Additional Family Medical History / Comment(s): Prostate and skin cancer. General Exam - General Exam Comments Initial Comments: General: Appears in no acute distress. Patient is cachectic. HEAD: Normal with no signs of head trauma. EYES: PERRLA, EOMI, conjunctiva normal, no discharge. ENT: Hearing grossly intact, normal oropharynx. RESPIRATORY: Clear breath sounds bilaterally. No wheezes, rales, or rhonchi. No hypoxia. No respiratory distress. C/V: Regular rate and rhythm. S1 and S2 auscultated,peripheral pulses 2+ and intact throughout ABD: Abd is soft, nontender, nondistended. Rectal exam performed in the presence of the staff member. Good tone. No gross blood. Occult blood sent off. EXT: Normal range of motion, no obvious deformity SKIN: Slight Jaundiced. NEURO: Alert and oriented x 4. Cranial nerves II-XII intact. No focal sensory or strength deficits. Limitations: no limitations Course Vital Signs 09/05/22 09/05/22 15:50 17:04 Temperature 98.0 F Pulse Rate 85 Respiratory 18 Rate Blood Pressure 131/55 O2 Sat by Pulse 98 93 L Oximetry Medical Decision Making - Medical Decision Making Was pt. sent in by a medical professional or institution (, PA, GEOGRAPHIC INFORMATION SYSTEMS DIRECTOR, urgent care, hospital, or [facility]...) When possible be specific @ -No Did you speak to anyone other than the patient for history (EMS, parent, family, police, friend...)? What history was obtained from this source @ -Patient's son who is at bedside and provides much of the past medical history. Did you review nursing and triage notes (agree or disagree)? Why? @ -I reviewed and agree with nursing and triage notes Were old charts reviewed (outside hosp., previous admission, EMS record, old EKG, old radiological studies, urgent care reports/EKG's, [facility] records)? Report findings @ -Old charts reviewed from prior admission in September 2022 Differential Diagnosis (chest pain, altered mental status, abdominal pain women, abdominal pain men, vaginal bleeding, weakness, fever, dyspnea, syncope, headache, dizziness, GI bleed, back pain, seizure, CVA, palpatations, mental health, musculoskeletal)? @ -Differential Weakness: Hypoglycemia, shock, sepsis, hyponatremia, anemia, infection, HI, ETOH, adverse medicine reaction, overdose, stroke, this is not meant to be an all-inclusive list. EKG interpreted by me (3pts min.). @ -As above X-rays interpreted by me (1pt min.). @ -Chest x-ray shows very minimal right pleural effusion. CT interpreted by me (1pt min.). @ -None done U/S interpreted by me (1pt. min.). @ -None done What testing was considered but not performed or refused? (CT, X-rays, U/S, labs)? Why? @ -None What meds were considered but not given or refused? Why? @ -None Did you discuss the management of the patient with other professionals (professionals i.e. , PA, GEOGRAPHIC INFORMATION SYSTEMS DIRECTOR, lab, RT, psych nurse, social sciences lecturer, process laboratory specialist, teacher, sheriff's officer, geriatric case manager)? Give summary @ -Discussed with Dr. Mcgee who accepted the consult. Discussed with the admitting physician Dr. miller who accepted the admission. Was smoking cessation discussed for >3mins.? @ -No Was critical care preformed (if so, how long)? @ -No Were there social determinants of health that impacted care today? How? (Homelessness, low income, unemployed, alcoholism, drug addiction, transportation, low edu. Level, literacy, decrease access to med. care, care home, rehab)? @ -No Was there de-escalation of care discussed even if they declined (Discuss DNR or withdrawal of care, Hospice)? DNR status @ -No What co-morbidities impacted this encounter? (DM, HTN, Smoking, COPD, CAD, Cancer, CVA, ARF, Chemo, Hep., AIDS, mental health diagnosis, sleep apnea, morbid obesity)? @ -Prior anemia. Was patient admitted / discharged? Hospital course, mention meds given and route, prescriptions, significant lab abnormalities, going to OR and other per tinent info. @ -Based on the patient's presentation and physical exam, presents with weakness. We will obtain generalized weakness labs. She was in agreement this plan. Hemodynamically stable. Vital signs within acceptable limits. EKG showed no signs of acute ischemia. Chest x-ray shows very small right pleural effusion. Labs are remarkable for an anemia with a hemoglobin of 4 is macrocytic in nature. Normocytic anemia with a platelet count of 89. Elevated total bilirubin which appears to be under conjugated suggestive of possible acute breakdown of blood products. Cardiac labs within acceptable limits. Occult blood negative. Vital signs negative. On reevaluation, patient remains stable. She has no acute complaints at this time. We discussed workup. We will admit for her anemia and provide her with 2 units packed red blood cells transfusion. There were agreement this plan. They do not want to be transferred. Dr. Harrington of surgery will be consulted to evaluate the patient for the anemia as well. I spoke with Dr. Miller who accepted the patient. Patient admitted in stable condition.I did also add on a consult for oncology as well as obtain hemostasis labs as her unconjugated bilirubin is elevated. This includes haptoglobin and LDH. Undiagnosed new problem with uncertain prognosis? @ -yes Drug Therapy requiring intensive monitoring for toxicity (Heparin, Nitro, Insulin, Cardizem)? @ -No Were any procedures done? @ -No Diagnosis/symptom? @ -Symptomatic anemia of unknown etiology, thrombocytopenia Acute, or Chronic, or Acute on Chronic? @ -Acute Uncomplicated (without systemic symptoms) or Complicated (systemic symptoms)? @ -Complicated Side effects of treatment? @ -No Exacerbation, Progression, or Severe Exacerbation? @ -No Poses a threat to life or bodily function? How? (Chest pain, USA, HI, pneumonia, PE, COPD, DKA, ARF, appy, cholecystitis, CVA, Diverticulitis, Homicidal, Suicidal, threat to staff... and all critical care pts) @ -yes - Lab Data Result diagrams: 09/05/22 18:12 09/05/22 17:07 Lab Results 09/05/22 09/05/22 09/05/22 Range/Units 17:07 17:07 17:07 WBC 4.3 (3.8-10.6) k/uL RBC 0.93 L (3.80-5.40) m/uL Hgb 4.2 L* (11.4-16.0) gm/dL Hct 12.0 L* (34.0-46.0) % MCV 128.3 H (80.0-100.0) fL MCH 45.5 H (25.0-35.0) pg MCHC 35.5 (31.0-37.0) g/dL RDW 21.7 H (11.5-15.5) % Plt Count 96 L (150-450) k/uL MPV 10.0 Neutrophils % 18 % Lymphocytes % 80 % Monocytes % 1 % Eosinophils % 1 % Basophils % 0 % Neutrophils # 0.8 L (1.3-7.7) k/uL Lymphocytes # 3.5 (1.0-4.8) k/uL Monocytes # 0.0 (0-1.0) k/uL Eosinophils # 0.0 (0-0.7) k/uL Basophils # 0.0 (0-0.2) k/uL Manual Slide Review Performed Anisocytosis Moderate Macrocytosis Marked A PT 10.7 (9.0-12.0) sec INR 1.0 (<1.2) APTT 21.9 L (22.0-30.0) sec Sodium 136 L (137-145) mmol/L Potassium 4.3 (3.5-5.1) mmol/L Chloride 105 (98-107) mmol/L Carbon Dioxide 23 (22-30) mmol/L Anion Gap 8 mmol/L BUN 43 H (7-17) mg/dL Creatinine 1.06 H (0.52-1.04) mg/dL Est GFR (CKD-EPI)AfAm 58 (>60 ml/min/1.73 sqM) Est GFR (CKD-EPI)NonAf 50 (>60 ml/min/1.73 sqM) Glucose 94 (74-99) mg/dL Plasma Lactic Acid [place] (0.7-2.0) mmol/L Calcium 8.5 (8.4-10.2) mg/dL Magnesium 2.3 (1.6-2.3) mg/dL Total Bilirubin 3.4 H (0.2-1.3) mg/dL Conjugated Bilirubin 0.1 (0.0-0.3) mg/dL Unconjugated Bilirubin 2.4 H (0.0-1.1) mg/dL Delta Bilirubin 0.9 H (0.0-0.2) mg/dL AST 47 H (14-36) U/L ALT 23 (4-34) U/L Alkaline Phosphatase 116 (38-126) U/L Troponin I (0.000-0.034) ng/mL NT-Pro-B Natriuret Pep pg/mL Total Protein 5.9 L (6.3-8.2) g/dL Albumin 3.6 (3.5-5.0) g/dL Stool Occult Blood (Negative) Influenza Type A (PCR) (Not Detectd) Influenza Type B (PCR) (Not Detectd) RSV (PCR) (Not Detectd) SARS-CoV-2 (PCR) (Not Detectd) Blood Type Blood Type Recheck Bld Type Recheck Status Antibody Screen Crossmatch Spec Expiration Date 09/05/22 09/05/22 09/05/22 Range/Units 17:07 17:07 18:12 WBC 4.2 (3.8-10.6) k/uL RBC 0.91 L (3.80-5.40) m/uL Hgb 4.0 L* (11.4-16.0) gm/dL Hct 11.6 L* (34.0-46.0) % MCV 127.3 H (80.0-100.0) fL MCH 43.7 H (25.0-35.0) pg MCHC 34.3 (31.0-37.0) g/dL RDW 22.6 H (11.5-15.5) % Plt Count 89 L (150-450) k/uL MPV 10.0 Neutrophils % 16 % Lymphocytes % 81 % Monocytes % 1 % Eosinophils % 1 % Basophils % 0 % Neutrophils # 0.7 L (1.3-7.7) k/uL Lymphocytes # 3.4 (1.0-4.8) k/uL Monocytes # 0.0 (0-1.0) k/uL Eosinophils # 0.1 (0-0.7) k/uL Basophils # 0.0 (0-0.2) k/uL Manual Slide Review Anisocytosis Moderate Macrocytosis Marked A PT (9.0-12.0) sec INR (<1.2) APTT (22.0-30.0) sec Sodium (137-145) mmol/L Potassium (3.5-5.1) mmol/L Chloride (98-107) mmol/L Carbon Dioxide (22-30) mmol/L Anion Gap mmol/L BUN (7-17) mg/dL Creatinine (0.52-1.04) mg/dL Est GFR (CKD-EPI)AfAm (>60 ml/min/1.73 sqM) Est GFR (CKD-EPI)NonAf (>60 ml/min/1.73 sqM) Glucose (74-99) mg/dL Plasma Lactic Acid [place] 0.8 (0.7-2.0) mmol/L Calcium (8.4-10.2) mg/dL Magnesium (1.6-2.3) mg/dL Total Bilirubin (0.2-1.3) mg/dL Conjugated Bilirubin (0.0-0.3) mg/dL Unconjugated Bilirubin (0.0-1.1) mg/dL Delta Bilirubin (0.0-0.2) mg/dL AST (14-36) U/L ALT (4-34) U/L Alkaline Phosphatase (38-126) U/L Troponin I <0.012 (0.000-0.034) ng/mL NT-Pro-B Natriuret Pep pg/mL Total Protein (6.3-8.2) g/dL Albumin (3.5-5.0) g/dL Stool Occult Blood (Negative) Influenza Type A (PCR) (Not Detectd) Influenza Type B (PCR) (Not Detectd) RSV (PCR) (Not Detectd) SARS-CoV-2 (PCR) (Not Detectd) Blood Type Blood Type Recheck Bld Type Recheck Status Antibody Screen Crossmatch Spec Expiration Date 09/05/22 09/05/22 09/05/22 Range/Units 18:14 18:14 18:49 WBC (3.8-10.6) k/uL RBC (3.80-5.40) m/uL Hgb (11.4-16.0) gm/dL Hct (34.0-46.0) % MCV (80.0-100.0) fL MCH (25.0-35.0) pg MCHC (31.0-37.0) g/dL RDW (11.5-15.5) % Plt Count (150-450) k/uL MPV Neutrophils % % Lymphocytes % % Monocytes % % Eosinophils % % Basophils % % Neutrophils # (1.3-7.7) k/uL Lymphocytes # (1.0-4.8) k/uL Monocytes # (0-1.0) k/uL Eosinophils # (0-0.7) k/uL Basophils # (0-0.2) k/uL Manual Slide Review Anisocytosis Macrocytosis PT (9.0-12.0) sec INR (<1.2) APTT (22.0-30.0) sec Sodium (137-145) mmol/L Potassium (3.5-5.1) mmol/L Chloride (98-107) mmol/L Carbon Dioxide (22-30) mmol/L Anion Gap mmol/L BUN (7-17) mg/dL Creatinine (0.52-1.04) mg/dL Est GFR (CKD-EPI)AfAm (>60 ml/min/1.73 sqM) Est GFR (CKD-EPI)NonAf (>60 ml/min/1.73 sqM) Glucose (74-99) mg/dL Plasma Lactic Acid [place] (0.7-2.0) mmol/L Calcium (8.4-10.2) mg/dL Magnesium (1.6-2.3) mg/dL Total Bilirubin (0.2-1.3) mg/dL Conjugated Bilirubin (0.0-0.3) mg/dL Unconjugated Bilirubin (0.0-1.1) mg/dL Delta Bilirubin (0.0-0.2) mg/dL AST (14-36) U/L ALT (4-34) U/L Alkaline Phosphatase (38-126) U/L Troponin I (0.000-0.034) ng/mL NT-Pro-B Natriuret Pep 989 pg/mL Total Protein (6.3-8.2) g/dL Albumin (3.5-5.0) g/dL Stool Occult Blood Negative (Negative) Influenza Type A (PCR) Not Detected (Not Detectd) Influenza Type B (PCR) Not Detected (Not Detectd) RSV (PCR) Not Detected (Not Detectd) SARS-CoV-2 (PCR) Not Detected (Not Detectd) Blood Type Blood Type Recheck Bld Type Recheck Status Antibody Screen Crossmatch Spec Expiration Date 09/05/22 Range/Units 19:20 WBC (3.8-10.6) k/uL RBC (3.80-5.40) m/uL Hgb (11.4-16.0) gm/dL Hct (34.0-46.0) % MCV (80.0-100.0) fL MCH (25.0-35.0) pg MCHC (31.0-37.0) g/dL RDW (11.5-15.5) % Plt Count (150-450) k/uL MPV Neutrophils % % Lymphocytes % % Monocytes % % Eosinophils % % Basophils % % Neutrophils # (1.3-7.7) k/uL Lymphocytes # (1.0-4.8) k/uL Monocytes # (0-1.0) k/uL Eosinophils # (0-0.7) k/uL Basophils # (0-0.2) k/uL Manual Slide Review Anisocytosis Macrocytosis PT (9.0-12.0) sec INR (<1.2) APTT (22.0-30.0) sec Sodium (137-145) mmol/L Potassium (3.5-5.1) mmol/L Chloride (98-107) mmol/L Carbon Dioxide (22-30) mmol/L Anion Gap mmol/L BUN (7-17) mg/dL Creatinine (0.52-1.04) mg/dL Est GFR (CKD-EPI)AfAm (>60 ml/min/1.73 sqM) Est GFR (CKD-EPI)NonAf (>60 ml/min/1.73 sqM) Glucose (74-99) mg/dL Plasma Lactic Acid [place] (0.7-2.0) mmol/L Calcium (8.4-10.2) mg/dL Magnesium (1.6-2.3) mg/dL Total Bilirubin (0.2-1.3) mg/dL Conjugated Bilirubin (0.0-0.3) mg/dL Unconjugated Bilirubin (0.0-1.1) mg/dL Delta Bilirubin (0.0-0.2) mg/dL AST (14-36) U/L ALT (4-34) U/L Alkaline Phosphatase (38-126) U/L Troponin I (0.000-0.034) ng/mL NT-Pro-B Natriuret Pep pg/mL Total Protein (6.3-8.2) g/dL Albumin (3.5-5.0) g/dL Stool Occult Blood (Negative) Influenza Type A (PCR) (Not Detectd) Influenza Type B (PCR) (Not Detectd) RSV (PCR) (Not Detectd) SARS-CoV-2 (PCR) (Not Detectd) Blood Type O Negative Blood Type Recheck O Neg Bld Type Recheck Status No Antibody Screen NEGATIVE Crossmatch See Detail Spec Expiration Date 09/08/20222319 - EKG Data -: EKG Interpreted by Me EKG Comments: 12-lead Electrocardiogram Interpretation Note EKG was reviewed and interpreted by myself. 12-lead ECG performed at 1713 is interpreted by me as revealing normal sinus rhythm at a rate of 87 beats per minute. Jackson is normal. MT interval is 156 ms, QRS duration is 80 ms, QTc is 444 ms.. There were no ST or T wave abnormalities to suggest myocardial ischemia or injury. R wave progression across the precordium was satisfactory. By my interpretation this EKG is non-diagnostic for acute ischemia. Disposition Clinical Impression: Symptomatic anemia, Jaundice, Weakness Disposition: ADMITTED IP TO THIS HOSP Condition: Serious Referrals: Jasper Linares DO [Primary Care Provider] - 1-2 days Time of Disposition: 19:15
--- NOTE | 2022-09-05 19:52 | XR ---
EXAMINATION TYPE: XR chest 2V DATE OF EXAM: 09/05/2022 COMPARISON: 10/03/2021 INDICATION: Weakness short of breath TECHNIQUE: Frontal and lateral views of the chest are obtained. FINDINGS: The heart size is normal. The pulmonary vasculature is normal. Very minimal right pleural effusion is present. There may be some elevation of the left diaphragm. r within bowel in this region similar comparison. Findings appear similar to comparison. Bilateral sh oulder prostheses are evident. IMPRESSION: 1. Minimal right pleural effusion.
--- NOTE | 2022-09-05 23:23 | US ---
EXAMINATION TYPE: US liver DATE OF EXAM: 09/05/2022 COMPARISON: NONE CLINICAL INDICATION: Female, 82 years old with history of elevated bilirubin; elevated bilirubin TECHNIQUE: Multiple sonographic images of the right upper quadrant are obtained. FINDINGS: EXAM MEASUREMENTS: Liver Length: 13.4 cm Gallbladder Wall: 0.26 cm CBD: 0.37 cm Right Kidney: 9.7 x 4.6 x 4.7 cm FIELD CHECKER NOTES: Pancreas: Obscured by bowel gas Liver: wnl Gallbladder: wnl Evidence for sonographic Retana's sign: No CBD: wnl Right Kidney: wnl IMPRESSION: 1. Unremarkable right upper quadrant ultrasound.
[2022-09-06] MEDS ORDERED: ACETAMINOPHEN TAB 325 MG TAB PO PRN (09:14)
--- NOTE | 2022-09-06 09:14 | P.HPIM ---
History of Present Illness This is a pleasant 82 years old female with multiple medical problems including osteoarthritis, hypothyroidism, COPD, irritable bowel syndrome, history of right breast cancer in 2016 status post lumpectomy and radiotherapy. Patient presents because of dyspnea and weakness few days especially with exertion for example going up stairs and she has to stop. She denies chest pain but is complaining of from coughing and yellow phlegm for the last 2 days. No abdominal pain vomiting or diarrhea, she denies blood per rectum and her stool color is brown. No recent urinary symptoms like urgency or dysuria. No headache weakness numb ness. Chief complaint from generalized weakness She had little short of breath when she is talking. She has good appetite. She denies smoking alcohol or illicit drugs She does not follow up recently with oncologist, no recent chemoradiotherapy She denies leg pain or swelling, she denies hemoptysis or bleeding from anywhere -Last year she had similar presentation with acute symptomatic anemia with no GI bleed, she was noted to have diverticular disease with no active bleeding on endoscopy. She states follow-up with Dr. Contreras for her anemia and Dr. Mitchell for her breast cancer and radiotherapy Vitals looks stable and patient is afebrile. showing severe anemia with hemoglobin 4.0 on admission her baseline hemoglobin is (8-9), platelet count is 89k, Baseline platelet count 185-195 creatinine 1.06, Baseline 0.8-1.01 Total bilirubin is 3.4 which is elevated. AST slightly up at 47 and ALT normal at 23. proBNP is 99. Lactate dehydrogenase elevated at [birth year]16/1939. Troponin is negative. EKG showed normal sinus rhythm at [address]-T changes Chest x-ray: Minimal right pleural effusion.per radiologist, However when I reviewed the chest x-ray suspicion of left lower lobe infiltrates. Physical Lovenox was negative. B12 and folic pending. Viruses undetected , including influenza, RSV, mccarthy v Liver ultrasound: unremarkable for right upper quadrant ultrasound Patient was started on Protonix and admitted with surgery and hematology consults Patient received 2 units of blood transfusion Review of Systems Review of systems CONSTITUTIONAL: No fever, no malaise, no fatigue. HEENT: No recent visual problems or hearing problems. Denied any sore throat. CARDIOVASCULAR: No orthopnea, PND, no palpitations, no syncope. PULMONARY: No chest wall tenderness breath, no cough, no hemoptysis. GASTROINTESTINAL: No diarrhea, no nausea, no vomiting, no abdominal pain. Normoactive bowel sounds. NEUROLOGICAL: No headaches, no weakness, no numbness. HEMATOLOGICAL: Denies any bleeding or petechiae. GENITOURINARY: Denies any burning micturition, frequency, or urgency. MUSCULOSKELETAL/RHEUMATOLOGICAL: Denies any joint pain, swelling, or any muscle pain. ENDOCRINE: Denies any polyuria or polydipsia. Past Medical History Past Medical History: Cancer, COPD, Musculoskeletal Disorder, Osteoarthritis (OA), Thyroid Disorder Additional Past Medical History / Comment(s): Hiatal hernia, sinusitis, osteopenia, IBS-C(constipation), Scoliosis, Kyphosis, seasonal allergies, poor sleep, anemia. Hx right breast cancer 2015, had lumpectomy and radiation. History of Any Multi-Drug Resistant Organisms: None Reported Past Surgical History: Appendectomy, Breast Surgery, Joint Replacement, Orthopedic Surgery, Tonsillectomy Additional Past Surgical History / Comment(s): Hemmorroidectomy, bilateral hip, knee, and shoulder replacements, and bilateral oopherectomy, right breast lum pectomy, bilateral cataract surgery. Past Anesthesia/Blood Transfusion Reactions: Postoperative Nausea & Vomiting (PONV) Additional Past Anesthesia/Blood Transfusion Reaction / Comment(s): Hiatal hernia. Past Psychological History: No Psychological Hx Reported Smoking Status: Former smoker Past Alcohol Use History: Occasional Past Drug Use History: None Reported - Past Family History Mother Family Medical History: Cancer Additional Family Medical History / Comment(s): Breast cancer. Father Family Medical History: Cancer, Deep Vein Thrombosis (DVT) Additional Family Medical History / Comment(s): Prostate and skin cancer. Medications and Allergies Home Medications Medication Instructions Recorded Confirmed Type Levothyroxine Sodium [Synthroid] 88 mcg PO DAILY 03/17/15 09/05/22 History Allergies Allergy/AdvReac Type Severity Reaction Status Date / Time diphenhydramine HCl Allergy Itching Verified 09/05/22 19:29 [From Benadryl] levofloxacin [From Levaquin] Allergy Itching Verified 09/05/22 19:29 morphine Allergy Itching Verified 09/05/22 19:29 Physical Exam Vitals: Vital Signs Temp Pulse Pulse Resp BP BP Pulse Ox 09/06/22 04:00 98.5 F 84 16 130/76 95 09/06/22 02:00 80 18 09/06/22 00:52 98.2 F 80 18 134/84 94 L 09/05/22 23:43 80 18 136/77 94 L 09/05/22 22:51 98.4 F 86 18 146/80 94 L 09/05/22 22:31 98.5 F 89 18 132/62 95 09/05/22 22:18 98.5 F 89 22 137/62 95 09/05/22 22:00 98.5 F 89 20 137/62 95 09/05/22 21:51 98.4 F 92 22 123/62 94 L 09/05/22 21:00 90 16 139/64 95 09/05/22 19:00 82 16 148/66 94 L 09/05/22 17:04 93 L 09/05/22 15:50 98.0 F 85 18 131/55 98 Intake and Output 09/05/22 09/06/22 09/06/22 22:59 06:59 14:59 Intake Total 429 0 Balance 429 0 Intake: Blood Product 279 0 Rc Pheresis 2 As3 Unit 0 0 [id number] Rc Pheresis 2 As3 Unit 279 [id number] Other 150 Rc Pheresis 2 As3 Unit 150 [id number] Other: # Voids 2 1 Weight 46.266 kg -GENERAL: The patient is alert and oriented x3, not in any acute distress. Thin built, mild puffy eyelids HEENT: Pupils are round and equally reacting to light. EOMI. No scleral icterus. No conjunctival pallor. Normocephalic, atraumatic. No pharyngeal erythema. No thyromegaly. CARDIOVASCULAR: S1 and S2 present. No murmurs, rubs, or gallops. PULMONARY: Chest is clear to auscultation, no wheezing or crackles. ABDOMEN: Soft, nontender, nondistended, normoactive bowel sounds. No palpable organomegaly. MUSCULOSKELETAL: No joint swelling or deformity. -EXTREMITIES: No cyanosis, clubbing, mild bilateral pitting leg edema. NEUROLOGICAL: Gross neurological examination did not reveal any focal deficits. SKIN: No rashes. no petechiae. Results CBC & Chem 7: 09/05/22 18:12 09/05/22 17:07 Labs: Abnormal Lab Results - Last 24 Hours (Table) 09/05/22 09/05/22 09/05/22 Range/Units 17:07 17:07 17:07 RBC 0.93 L (3.80-5.40) m/uL Hgb 4.2 L* (11.4-16.0) gm/dL Hct 12.0 L* (34.0-46.0) % MCV 128.3 H (80.0-100.0) fL MCH 45.5 H (25.0-35.0) pg RDW 21.7 H (11.5-15.5) % Plt Count 96 L (150-450) k/uL Neutrophils # 0.8 L (1.3-7.7) k/uL Macrocytosis Marked A APTT 21.9 L (22.0-30.0) sec Sodium 136 L (137-145) mmol/L BUN 43 H (7-17) mg/dL Creatinine 1.06 H (0.52-1.04) mg/dL Total Bilirubin 3.4 H (0.2-1.3) mg/dL Unconjugated Bilirubin 2.4 H (0.0-1.1) mg/dL Delta Bilirubin 0.9 H (0.0-0.2) mg/dL AST 47 H (14-36) U/L Lactate Dehydrogenase (120-246) U/L Total Protein 5.9 L (6.3-8.2) g/dL Crossmatch 09/05/22 09/05/22 09/05/22 Range/Units 17:07 18:12 19:20 RBC 0.91 L (3.80-5.40) m/uL Hgb 4.0 L* (11.4-16.0) gm/dL Hct 11.6 L* (34.0-46.0) % MCV 127.3 H (80.0-100.0) fL MCH 43.7 H (25.0-35.0) pg RDW 22.6 H (11.5-15.5) % Plt Count 89 L (150-450) k/uL Neutrophils # 0.7 L (1.3-7.7) k/uL Macrocytosis Marked A APTT (22.0-30.0) sec Sodium (137-145) mmol/L BUN (7-17) mg/dL Creatinine (0.52-1.04) mg/dL Total Bilirubin (0.2-1.3) mg/dL Unconjugated Bilirubin (0.0-1.1) mg/dL Delta Bilirubin (0.0-0.2) mg/dL AST (14-36) U/L Lactate Dehydrogenase 1842 H (120-246) U/L Total Protein (6.3-8.2) g/dL Crossmatch See Detail Thrombosis Risk Factor Assmnt - Choose All That Apply Any of the Below Risk Factors Present?: Yes Other Risk Factors: Yes Each Risk Factor Represents 3 Points: Age 75 years or older Other congenital or acquired thrombophilia - If yes, enter type in comment: No Thrombosis Risk Factor Assessment Total Risk Factor Score: 3 Thrombosis Risk Factor Assessment Level: Moderate Risk Assessment and Plan Assessment: Severe acute Anemia and thrombocytopenia, present on admission . Status post 2 units of blood transfusion on admission Acute Dyspnea, could be related to above, however rule out pulmonary causes elevated bilirubin. Chronic kidney disease stage III history of constipation History of right breast cancer status post radiotherapy and right lumpectomy COPD, no acute exacerbation hypothyroidism History of osteoarthritis Plan: Monitor hemoglobin Anemia workup. Check sputum culture, pronecalcitonin, proBNP, also I'll order CT of the chest without IV contrast d-dimer is already ordered Hematology/oncology team consult Surgery team consult monitor bilirubin and liver enzyme Labs and medication were reviewed.. Continue same treatment. Continue with symptomatic treatment. Resume home medication. Monitor labs and vitals. DVT and GI prophylaxis. Further recommendations as per clinical course of the patient DVT prophylaxis: no Subcutaneous heparin, mechanical GI Prophylaxis: Protonix PT/OT: Pending Prognosis is guarded
[2022-09-06] MEDS: PANTOPRAZOLE 40 MG/10 ML VIAL IV SCH (09:16)
[2022-09-06] MEDS: LEVOTHYROXINE 88 MCG TAB PO SCH (09:16)
[2022-09-06 09:23] LABS: Reticulocyte % 1.2 % (0.5-2.0)
[2022-09-06] MEDS: ACETAMINOPHEN TAB 325 MG TAB PO PRN (09:23)
[2022-09-06 09:42] LABS: Anisocytosis Marked; HCT 24.2 % (34.0-46.0); MCH 35.7 pg (25.0-35.0); MCHC 33.7 g/dL (31.0-37.0); Macrocytosis Marked; Mean Platelet Volume 10.9; RBC 2.29 m/uL (3.80-5.40)
[2022-09-06 09:43] LABS: INR 0.9 (<1.2); Partial Thromboplastin Time 22.4 sec (22.0-30.0); Prothrombin Time 10.1 sec (9.0-12.0)
[2022-09-06 09:44] LABS: RDW 27.9 % (11.5-15.5)
[2022-09-06 09:45] LABS: African American GFR (CKD) 58 (>60 ml/min/1.73 sqM); Anion Gap 6 mmol/L; Blood Urea Nitrogen 32 mg/dL (7-17); Calcium 8.6 mg/dL (8.4-10.2); Carbon Dioxide 27 mmol/L (22-30); Chloride 105 mmol/L (98-107); Glucose 143 mg/dL (74-99); Non-African American GFR(CKD) 50 (>60 ml/min/1.73 sqM); Potassium 3.8 mmol/L (3.5-5.1); Sodium 138 mmol/L (137-145)
[2022-09-06 09:45] LABS: HGB 8.2 gm/dL (11.4-16.0); MCV 105.8 fL (80.0-100.0); Platelet Count 86 k/uL (150-450)
[2022-09-06 11:10] LABS: Neutrophils # (M) 0.55 k/uL (1.3-7.7); Neutrophils % (M) 11 %; Nucleated Red Blood Cells 1 /100 WBC (0-0); Total Cells Counted 200
[2022-09-06 11:12] LABS: Poikilocytosis (M) Present
[2022-09-06 11:17] LABS: Mixed Population RBC Present
--- NOTE | 2022-09-06 12:22 | CT ---
EXAMINATION TYPE: CT chest wo con DATE OF EXAM: 09/06/2022 COMPARISON: NONE HISTORY: SOB with cough and phlem. CT DLP: 183.4 mGycm. Automated Exposure Control for Dose Reduction was Utilized. TECHNIQUE: CT scan of the thorax is performed without IV contrast. FINDINGS: LUNGS: There are small bilateral pleural effusions. Tiny patchy ground glass opacity anterior right u pper to mid lung axial image 18. No suspicious focal consolidation. Tracheobronchial tree is patent. MEDIASTINUM: Lack of IV contrast is noted to limit evaluation for mediastinal and especially hilar ad enopathy. There are no definitive greater than 1 cm mediastinal lymph nodes. No cardiomegaly. Tiny Pericardial effusion is seen. Coronary artery calcification is present. There is a large hiatal herni a containing nearly entire stomach along with significant portion of the transverse colon along with portions of the pancreas. Ascending aorta measures up to 3.5 cm in diameter. OTHER: Moderate diffuse soft tissue anasarca is seen. There is underlying scoliosis. There is exagger ated thoracic kyphosis. IMPRESSION: 1. Large hiatal hernia with local mass effect. 2. Moderate diffuse subcutaneous edema and small bilateral pleural effusions likely product of the fa ilure fluid overload state. Tiny focus of groundglass opacity anterior right mid lung could reflect t iny focal edema and/or developing acute infiltrate.
[2022-09-06] MEDS: IOPAMIDOL CONTRAST (ORAL USE) VIAL PO PRN ×2 (13:34→14:50)
[2022-09-06] MEDS: FUROSEMIDE 10 MG/ML 2 ML VIAL IV SCH (13:36)
[2022-09-06 15:36] LABS: % Iron Saturation 84.57 (12.00-45.00); Iron 251 ug/dL (50-170); Total Iron Binding Capacity 297 ug/dL (228-460)
--- NOTE | 2022-09-06 15:43 | P.CONS ---
History of Present Illness - Reason for Consult Consult date: 09/06/22 anemia Requesting physician: Blake Owens - Chief Complaint SOB and weakness - History of Present Illness Patient is a 82 -year-old female with a significant history of breast cancer and anemia with hx of blood transfusions She is a patient of Dr. Lara but has no t been seen in our clinic since 2015. Patient has a history of grade 2 infiltrating ductal carcinoma. She had R partial mastectomy on 11/2015. She was started on adjuvant anastrozole but was unable to tolerate due to side effects. We were consulted for anemia and thrombocytopenia. Patient presented to the ER for progressing shortness of breath and weakness over the last approximate 4 weeks. Patient does report decreased appetite and weight loss and reports that sometimes she is too tired to eat and would rather go to bed. Patient denies abdominal pain, nausea vomiting diarrhea. Denies blood in stool or melena. Patient denies history of heart valve replacement. stool occult negative. RSV, influenza, covid are negative. Hemoglobin upon admission was 4.2, hct 12.0, MCV 127.3, platelets 89,000. S/P 2 units of PRBCs. Repeat hemoglobin 8.2 today, platelets 86,000. Total bilirubin 3.4. LDH 1842. AST mildly elevated, 47, ALP and ALT normal. Chest x-ray revealed minimal right pleural effusion CT chest revealed large hiatal hernia with local mass effect. Moderate diffuse subcutaneous edema and small bilateral pleural effusion likely product of fluid overload state. Tiny focus of groundglass opacity anterior right mid lung could reflect tiny focal edema versus developing acute infiltrate. Liver ultrasound unremarkable. Patient reports feeling improved since admission but is still experiencing fatigue and weakness. Denies any episodes of bleeding. Review of Systems 10 point ROS is negative except as stated in the HPI Past Medical History Past Medical History: Cancer, COPD, Musculoskeletal Disorder, Osteoarthritis (OA), Thyroid Disorder Additional Past Medical History / Comment(s): Hiatal hernia, sinusitis, osteopenia, IBS-C(constipation), Scoliosis, Kyphosis, seasonal allergies, poor sleep, anemia. Hx right breast cancer 2015, had lumpectomy and radiation. History of Any Multi-Drug Resistant Organisms: None Reported Past Surgical History: Appendectomy, Breast Surgery, Joint Replacement, Orthopedic Surgery, Tonsillectomy Additional Past Surgical History / Comment(s): Hemmorroidectomy, bilateral hip, knee, and shoulder replacements, and bilateral oopherectomy, right breast lumpectomy, bilateral cataract surgery. Past Anesthesia/Blood Transfusion Reactions: Postoperative Nausea & Vomiting (PONV) Additional Past Anesthesia/Blood Transfusion Reaction / Comm: Hiatal hernia. Past Psychological History: No Psychological Hx Reported Smoking Status: Former smoker Past Alcohol Use History: Occasional Past Drug Use History: None Reported - Past Family History Mother Family Medical History: Cancer Additional Family Medical History / Comment(s): Breast cancer. Father Family Medical History: Cancer, Deep Vein Thrombosis (DVT) Additional Family Medical History / Comment(s): Prostate and skin cancer. Medications and Allergies Home Medications Medication Instructions Recorded Confirmed Type Levothyroxine Sodium [Synthroid] 88 mcg PO DAILY 03/17/15 09/05/22 History Allergies Allergy/AdvReac Type Severity Reaction Status Date / Time diphenhydramine HCl Allergy Itching Verified 09/05/22 19:29 [From Benadryl] levofloxacin [From Levaquin] Allergy Itching Verified 09/05/22 19:29 morphine Allergy Itching Verified 09/05/22 19:29 Physical Exam Vitals: Vital Signs Temp Pulse Pulse Resp BP BP Pulse Ox 09/06/22 11:50 98.1 F 92 18 141/66 97 09/06/22 09:15 98.2 F 87 19 134/67 98 09/06/22 04:00 98.5 F 84 16 130/76 95 09/06/22 02:00 80 18 09/06/22 00:52 98.2 F 80 18 134/84 94 L 09/05/22 23:43 80 18 136/77 94 L 09/05/22 22:51 98.4 F 86 18 146/80 94 L 09/05/22 22:31 98.5 F 89 18 132/62 95 09/05/22 22:18 98.5 F 89 22 137/62 95 09/05/22 22:00 98.5 F 89 20 137/62 95 09/05/22 21:51 98.4 F 92 22 123/62 94 L 09/05/22 21:00 90 16 139/64 95 09/05/22 19:00 82 16 148/66 94 L 09/05/22 17:04 93 L 09/05/22 15:50 98.0 F 85 18 131/55 98 Intake and Output 09/05/22 09/06/22 09/06/22 22:59 06:59 14:59 Intake Total 429 0 360 Balance 429 0 360 Intake: Oral 360 Blood Product 279 0 Rc Pheresis 2 As3 Unit 0 0 [id number] Rc Pheresis 2 As3 Unit 279 [id number] Other 150 Rc Pheresis 2 As3 Unit 150 [id number] Other: # Voids 2 1 Weight 46.266 kg 46.266 kg - Constitutional General appearance: average body habitus, no acute distress - EENT Eyes: anicteric sclerae, EOMI ENT: hearing grossly normal - Neck Neck: no lymphadenopathy - Respiratory Respiratory: bilateral: CTA - Cardiovascular Rhythm: regular Heart sounds: normal: S1, S2 Abnormal Heart Sounds: systolic murmur - Gastrointestinal General gastrointestinal: normal bowel sounds, soft, no tenderness - Integumentary Integumentary: pale - Neurologic grossly intact - Musculoskeletal Musculoskeletal: generalized weakness - Psychiatric Psychiatric: A&O x's 3, appropriate affect, intact judgment & insight Results CBC & Chem 7: 09/06/22 08:47 09/06/22 08:52 Labs: Abnormal Lab Results - Last 24 Hours (Table) 09/05/22 09/05/22 09/05/22 Range/Units 17:07 17:07 17:07 RBC 0.93 L (3.80-5.40) m/uL Hgb 4.2 L* (11.4-16.0) gm/dL Hct 12.0 L* (34.0-46.0) % MCV 128.3 H (80.0-100.0) fL MCH 45.5 H (25.0-35.0) pg RDW 21.7 H (11.5-15.5) % Plt Count 96 L (150-450) k/uL Neutrophils # 0.8 L (1.3-7.7) k/uL Neutrophils # (Manual) (1.3-7.7) k/uL Nucleated RBCs (0-0) /100 WBC Macrocytosis Marked A Haptoglobin (31.2-198.0) mg/dL APTT 21.9 L (22.0-30.0) sec D-Dimer (<0.60) mg/L FEU Sodium 136 L (137-145) mmol/L BUN 43 H (7-17) mg/dL Creatinine 1.06 H (0.52-1.04) mg/dL Glucose (74-99) mg/dL Total Bilirubin 3.4 H (0.2-1.3) mg/dL Unconjugated Bilirubin 2.4 H (0.0-1.1) mg/dL Delta Bilirubin 0.9 H (0.0-0.2) mg/dL AST 47 H (14-36) U/L Lactate Dehydrogenase (120-246) U/L Total Protein 5.9 L (6.3-8.2) g/dL Crossmatch 09/05/22 09/05/22 09/05/22 Range/Units 17:07 17:07 18:12 RBC 0.91 L (3.80-5.40) m/uL Hgb 4.0 L* (11.4-16.0) gm/dL Hct 11.6 L* (34.0-46.0) % MCV 127.3 H (80.0-100.0) fL MCH 43.7 H (25.0-35.0) pg RDW 22.6 H (11.5-15.5) % Plt Count 89 L (150-450) k/uL Neutrophils # 0.7 L (1.3-7.7) k/uL Neutrophils # (Manual) (1.3-7.7) k/uL Nucleated RBCs (0-0) /100 WBC Macrocytosis Marked A Haptoglobin <10.0 L (31.2-198.0) mg/dL APTT (22.0-30.0) sec D-Dimer (<0.60) mg/L FEU Sodium (137-145) mmol/L BUN (7-17) mg/dL Creatinine (0.52-1.04) mg/dL Glucose (74-99) mg/dL Total Bilirubin (0.2-1.3) mg/dL Unconjugated Bilirubin (0.0-1.1) mg/dL Delta Bilirubin (0.0-0.2) mg/dL AST (14-36) U/L Lactate Dehydrogenase 1842 H (120-246) U/L Total Protein (6.3-8.2) g/dL Crossmatch 09/05/22 09/06/22 09/06/22 Range/Units 19:20 08:47 08:52 RBC 2.29 L (3.80-5.40) m/uL Hgb 8.2 L D (11.4-16.0) gm/dL Hct 24.2 L (34.0-46.0) % MCV 105.8 H D (80.0-100.0) fL MCH 35.7 H (25.0-35.0) pg RDW 27.9 H (11.5-15.5) % Plt Count 86 L (150-450) k/uL Neutrophils # (1.3-7.7) k/uL Neutrophils # (Manual) 0.55 L (1.3-7.7) k/uL Nucleated RBCs 1 H (0-0) /100 WBC Macrocytosis Marked A Haptoglobin (31.2-198.0) mg/dL APTT (22.0-30.0) sec D-Dimer (<0.60) mg/L FEU Sodium (137-145) mmol/L BUN 32 H (7-17) mg/dL Creatinine 1.06 H (0.52-1.04) mg/dL Glucose 143 H (74-99) mg/dL Total Bilirubin (0.2-1.3) mg/dL Unconjugated Bilirubin (0.0-1.1) mg/dL Delta Bilirubin (0.0-0.2) mg/dL AST (14-36) U/L Lactate Dehydrogenase (120-246) U/L Total Protein (6.3-8.2) g/dL Crossmatch See Detail 09/06/22 Range/Units 09:06 RBC (3.80-5.40) m/uL Hgb (11.4-16.0) gm/dL Hct (34.0-46.0) % MCV (80.0-100.0) fL MCH (25.0-35.0) pg RDW (11.5-15.5) % Plt Count (150-450) k/uL Neutrophils # (1.3-7.7) k/uL Neutrophils # (Manual) (1.3-7.7) k/uL Nucleated RBCs (0-0) /100 WBC Macrocytosis Haptoglobin (31.2-198.0) mg/dL APTT (22.0-30.0) sec D-Dimer 4.05 H (<0.60) mg/L FEU Sodium (137-145) mmol/L BUN (7-17) mg/dL Creatinine (0.52-1.04) mg/dL Glucose (74-99) mg/dL Total Bilirubin (0.2-1.3) mg/dL Unconjugated Bilirubin (0.0-1.1) mg/dL Delta Bilirubin (0.0-0.2) mg/dL AST (14-36) U/L Lactate Dehydrogenase (120-246) U/L Total Protein (6.3-8.2) g/dL Crossmatch Chest x-ray: report reviewed CT scan - chest: report reviewed US - abdomen: report reviewed Assessment and Plan (1) Thrombocytopenia Current Visit: Yes Status: Acute Priority: High Code(s): D69.6 - THROMBOCYTOPENIA, UNSPECIFIED SNOMED Code(s): 217253357 (2) Anemia Current Visit: Yes Status: Acute Priority: High Code(s): D64.9 - ANEMIA, UNSPECIFIED SNOMED Code(s): 779426550 Plan: Bicytopenia: -Hx anemia, requiring transfusions -Hemoglobin upon admission was 4.2, platelets 89,000. S/P 2 units of PRBCs. Hemoglobin 8.2 today, showing appropriate response to transfusions. Platelets 86,000. No reported episodes of bleeding noted. Anemia workup ordered. Surgery consulted to r/o GI bleed -Total bilirubin 3.4, LDH 1842. Hemolysis and DIC workup and LEATHA ordered. -Anemia could be related to hemolysis. Will await workup and LEATHA to r/o immune mediated vs non-immune mediated -AST mildly elevated, 47, ALP and ALT normal. Liver US unremarkable. -TSH/T4 ordered, as CBC revealed macrocytosis and hx of hypothyroidism -Will continue to monitor counts -Please transfuse for hemoglobin less than 7 or platelets less than 10,000 attests: I have performed H&P and developed impression and plan of care for patient, discussed with dictator. I agree with dictated note, documented as a scribe
--- NOTE | 2022-09-06 15:44 | P.GSCN ---
History of Present Illness Consult date: 09/06/22 History of present illness: CHIEF COMPLAINT: Shortness of breath and weakness HISTORY OF PRESENT ILLNESS: This is a 82-year-old female presented to the hospital with complaints of shortness of breath and weakness. She has a known history of anemia with previous workup in September 2021. She has been done with constipation. She reports no blood in the stools no melanotic stools. Hemoglobin on admission was 4.0. She did get 2 units of blood and repeat hemoglobin is 8.2. Her stool for occult blood was negative. Patient had EGD and colonoscopy in September 2021 that showed gastritis and severe diverticulosis. The colonoscopy was limited because not past the splenic flexure due to torturous valve. Patient also followed by hematology service. She does report about an 80 pound weight loss over the last couple of years. PAST MEDICAL HISTORY: See below PAST SURGICAL HISTORY: See below MEDICATIONS: See below ALLERGIES: See below SOCIAL HISTORY: No illicit drug use. REVIEW OF SYSTEMS: CONSTITUTIONAL: Denies fever or chills. HEENT: Denies blurred vision, vision changes, or eye pain. Denies hemoptysis CARDIOVASCULAR: Denies chest pain or pressure. RESPIRATORY: No shortness of breath. GASTROINTESTINAL: See HPI for pertinent findings HEMATOLOGIC: Denies bleeding disorders. GENITOURINARY: Denies any blood in urine or increased urinary frequency. SKIN: Denies pruitis. Denies rash. PHYSICAL EXAM: VITAL SIGNS: Reviewed GENERAL: Well-developed in no acute distress. HEENT: No sclera icterus. Extraocular movements grossly intact. Moist buccal mucosa. Head is atraumatic, normocephalic. No nasal drainage. ABDOMEN: Soft. Nondistended. Tenderness with palpation to right lower quadrant. NEUROLOGIC: Alert and oriented. Cranial nerves II through XII grossly intact. LABORATORY DATA: WBC 5.0 Hgb 4.0-8.2 platelets 86 Sodium 138 potassium 3.8 creatinine 1.06 Total bilirubin 3.4 AST 47 ALT 23 Iron elevated at 251 The occult blood negative IMAGING: ASSESSMENT: 1. Macrocytic anemia with no evidence of active bleeding status post blood t ransfusion PLAN: -Patient scheduled for EGD tomorrow with Dr. Harrington -Nothing by mouth after midnight -Computed tomography scan abdomen and pelvis ordered due to patient's anemia and incomplete colonoscopy in September 2021 -Continue monitoring hemoglobin -Patient also followed by hematology -Follow up on computed tomography scan results of abdomen and chest Physician Manager [employer] note has been reviewed by physician. Signing provider agrees with the documented findings, assessment, and plan of care. Past Medical History Past Medical History: Cancer, COPD, Musculoskeletal Disorder, Osteoarthritis (OA), Thyroid Disorder Additional Past Medical History / Comment(s): Hiatal hernia, sinusitis, osteopenia, IBS-C(constipation), Scoliosis, Kyphosis, seasonal allergies, poor sleep, anemia. Hx right breast cancer 2015, had lumpectomy and radiation. History of Any Multi-Drug Resistant Organisms: None Reported Past Surgical History: Appendectomy, Breast Surgery, Joint Replacement, Ort hopedic Surgery, Tonsillectomy Additional Past Surgical History / Comment(s): Hemmorroidectomy, bilateral hip, knee, and shoulder replacements, and bilateral oopherectomy, right breast lumpectomy, bilateral cataract surgery. Past Anesthesia/Blood Transfusion Reactions: Postoperative Nausea & Vomiting (PONV) Additional Past Anesthesia/Blood Transfusion Reaction / Comm: Hiatal hernia. Past Psychological History: No Psychological Hx Reported Smoking Status: Former smoker Past Alcohol Use History: Occasional Past Drug Use History: None Reported - Past Family History Mother Family Medical History: Cancer Additional Family Medical History / Comment(s): Breast cancer. Father Family Medical History: Cancer, Deep Vein Thrombosis (DVT) Additional Family Medical History / Comment(s): Prostate and skin cancer. Medications and Allergies Home Medications Medication Instructions Recorded Confirmed Type Levothyroxine Sodium [Synthroid] 88 mcg PO DAILY 03/17/15 09/05/22 History Allergies Allergy/AdvReac Type Severity Reaction Status Date / Time diphenhydramine HCl Allergy Itching Verified 09/05/22 19:29 [From Benadryl] levofloxacin [From Levaquin] Allergy Itching Verified 09/05/22 19:29 morphine Allergy Itching Verified 09/05/22 19:29 Surgical - Exam Vital Signs Temp Pulse Resp BP Pulse Ox 98.0 F 85 18 131/55 98 09/05/22 15:50 09/05/22 15:50 09/05/22 15:50 09/05/22 15:50 09/05/22 15:50 Results - Labs 09/06/22 08:47 09/06/22 08:52 Abnormal Lab Results - Last 24 Hours (Table) 09/05/22 09/05/22 09/05/22 Range/Units 17:07 17:07 17:07 RBC 0.93 L (3.80-5.40) m/uL Hgb 4.2 L* (11.4-16.0) gm/dL Hct 12.0 L* (34.0-46.0) % MCV 128.3 H (80.0-100.0) fL MCH 45.5 H (25.0-35.0) pg RDW 21.7 H (11.5-15.5) % Plt Count 96 L (150-450) k/uL Neutrophils # 0.8 L (1.3-7.7) k/uL Neutrophils # (Manual) (1.3-7.7) k/uL Nucleated RBCs (0-0) /100 WBC Macrocytosis Marked A Haptoglobin (31.2-198.0) mg/dL APTT 21.9 L (22.0-30.0) sec D-Dimer (<0.60) mg/L FEU Sodium 136 L (137-145) mmol/L BUN 43 H (7-17) mg/dL Creatinine 1.06 H (0.52-1.04) mg/dL Glucose (74-99) mg/dL Iron (50-170) ug/dL % Saturation (12.00-45.00) Ferritin (10.0-291.0) ng/mL Total Bilirubin 3.4 H (0.2-1.3) mg/dL Unconjugated Bilirubin 2.4 H (0.0-1.1) mg/dL Delta Bilirubin 0.9 H (0.0-0.2) mg/dL AST 47 H (14-36) U/L Lactate Dehydrogenase (120-246) U/L Total Protein 5.9 L (6.3-8.2) g/dL Procalcitonin (0.02-0.09) ng/mL Crossmatch 09/05/22 09/05/22 09/05/22 Range/Units 17:07 17:07 18:12 RBC 0.91 L (3.80-5.40) m/uL Hgb 4.0 L* (11.4-16.0) gm/dL Hct 11.6 L* (34.0-46.0) % MCV 127.3 H (80.0-100.0) fL MCH 43.7 H (25.0-35.0) pg RDW 22.6 H (11.5-15.5) % Plt Count 89 L (150-450) k/uL Neutrophils # 0.7 L (1.3-7.7) k/uL Neutrophils # (Manual) (1.3-7.7) k/uL Nucleated RBCs (0-0) /100 WBC Macrocytosis Marked A Haptoglobin <10.0 L (31.2-198.0) mg/dL APTT (22.0-30.0) sec D-Dimer (<0.60) mg/L FEU Sodium (137-145) mmol/L BUN (7-17) mg/dL Creatinine (0.52-1.04) mg/dL Glucose (74-99) mg/dL Iron (50-170) ug/dL % Saturation (12.00-45.00) Ferritin (10.0-291.0) ng/mL Total Bilirubin (0.2-1.3) mg/dL Unconjugated Bilirubin (0.0-1.1) mg/dL Delta Bilirubin (0.0-0.2) mg/dL AST (14-36) U/L Lactate Dehydrogenase 1842 H (120-246) U/L Total Protein (6.3-8.2) g/dL Procalcitonin (0.02-0.09) ng/mL Crossmatch 09/05/22 09/06/22 09/06/22 Range/Units 19:20 08:47 08:52 RBC 2.29 L (3.80-5.40) m/uL Hgb 8.2 L D (11.4-16.0) gm/dL Hct 24.2 L (34.0-46.0) % MCV 105.8 H D (80.0-100.0) fL MCH 35.7 H (25.0-35.0) pg RDW 27.9 H (11.5-15.5) % Plt Count 86 L (150-450) k/uL Neutrophils # (1.3-7.7) k/uL Neutrophils # (Manual) 0.55 L (1.3-7.7) k/uL Nucleated RBCs 1 H (0-0) /100 WBC Macrocytosis Marked A Haptoglobin (31.2-198.0) mg/dL APTT (22.0-30.0) sec D-Dimer (<0.60) mg/L FEU Sodium (137-145) mmol/L BUN 32 H (7-17) mg/dL Creatinine 1.06 H (0.52-1.04) mg/dL Glucose 143 H (74-99) mg/dL Iron 251 H (50-170) ug/dL % Saturation 84.57 H (12.00-45.00) Ferritin 368.0 H (10.0-291.0) ng/mL Total Bilirubin (0.2-1.3) mg/dL Unconjugated Bilirubin (0.0-1.1) mg/dL Delta Bilirubin (0.0-0.2) mg/dL AST (14-36) U/L Lactate Dehydrogenase (120-246) U/L Total Protein (6.3-8.2) g/dL Procalcitonin (0.02-0.09) ng/mL Crossmatch See Detail 09/06/22 09/06/22 Range/Units 08:52 09:06 RBC (3.80-5.40) m/uL Hgb (11.4-16.0) gm/dL Hct (34.0-46.0) % MCV (80.0-100.0) fL MCH (25.0-35.0) pg RDW (11.5-15.5) % Plt Count (150-450) k/uL Neutrophils # (1.3-7.7) k/uL Neutrophils # (Manual) (1.3-7.7) k/uL Nucleated RBCs (0-0) /100 WBC Macrocytosis Haptoglobin (31.2-198.0) mg/dL APTT (22.0-30.0) sec D-Dimer 4.05 H (<0.60) mg/L FEU Sodium (137-145) mmol/L BUN (7-17) mg/dL Creatinine (0.52-1.04) mg/dL Glucose (74-99) mg/dL Iron (50-170) ug/dL % Saturation (12.00-45.00) Ferritin (10.0-291.0) ng/mL Total Bilirubin (0.2-1.3) mg/dL Unconjugated Bilirubin (0.0-1.1) mg/dL Delta Bilirubin (0.0-0.2) mg/dL AST (14-36) U/L Lactate Dehydrogenase (120-246) U/L Total Protein (6.3-8.2) g/dL Procalcitonin 0.11 H (0.02-0.09) ng/mL Crossmatch Diabetes panel 09/05/22 09/06/22 Range/Units 17:07 08:52 Sodium 136 L 138 (137-145) mmol/L Potassium 4.3 3.8 (3.5-5.1) mmol/L Chloride 105 105 (98-107) mmol/L Carbon Dioxide 23 27 (22-30) mmol/L BUN 43 H 32 H (7-17) mg/dL Creatinine 1.06 H 1.06 H (0.52-1.04) mg/dL Glucose 94 143 H (74-99) mg/dL Calcium 8.5 8.6 (8.4-10.2) mg/dL AST 47 H (14-36) U/L ALT 23 (4-34) U/L Alkaline Phosphatase 116 (38-126) U/L Total Protein 5.9 L (6.3-8.2) g/dL Albumin 3.6 (3.5-5.0) g/dL Thyroid panel 09/06/22 Range/Units 08:52 TSH 2.250 (0.465-4.680) mIU/L Calcium panel 09/05/22 09/06/22 Range/Units 17:07 08:52 Calcium 8.5 8.6 (8.4-10.2) mg/dL Albumin 3.6 (3.5-5.0) g/dL Pituitary panel 09/05/22 09/06/22 Range/Units 17:07 08:52 Sodium 136 L 138 (137-145) mmol/L Potassium 4.3 3.8 (3.5-5.1) mmol/L Chloride 105 105 (98-107) mmol/L Carbon Dioxide 23 27 (22-30) mmol/L BUN 43 H 32 H (7-17) mg/dL Creatinine 1.06 H 1.06 H (0.52-1.04) mg/dL Glucose 94 143 H (74-99) mg/dL Calcium 8.5 8.6 (8.4-10.2) mg/dL TSH 2.250 (0.465-4.680) mIU/L Adrenal panel 09/05/22 09/06/22 Range/Units 17:07 08:52 Sodium 136 L 138 (137-145) mmol/L Potassium 4.3 3.8 (3.5-5.1) mmol/L Chloride 105 105 (98-107) mmol/L Carbon Dioxide 23 27 (22-30) mmol/L BUN 43 H 32 H (7-17) mg/dL Creatinine 1.06 H 1.06 H (0.52-1.04) mg/dL Glucose 94 143 H (74-99) mg/dL Calcium 8.5 8.6 (8.4-10.2) mg/dL Total Bilirubin 3.4 H (0.2-1.3) mg/dL AST 47 H (14-36) U/L ALT 23 (4-34) U/L Alkaline Phosphatase 116 (38-126) U/L Total Protein 5.9 L (6.3-8.2) g/dL Albumin 3.6 (3.5-5.0) g/dL
--- NOTE | 2022-09-06 15:59 | CT ---
EXAMINATION TYPE: CT abdomen pelvis wo con DATE OF EXAM: 09/06/2022 HISTORY: Anemia, abdominal pain. CT DLP: 413.1 mGycm. Automated Exposure Control for Dose Reduction was Utilized. TECHNIQUE: CT scan of the abdomen and pelvis is performed with oral but without IV contrast. COMPARISON: NONE FINDINGS: Within the limitations of a non-contrast study, the following observations are made. LUNG BASES: Small to tiny right greater than left pleural effusions. Coronary artery calcification is present. LIVER/GB: No significant abnormality is appreciated. PANCREAS: No significant abnormality is seen. SPLEEN: No significant abnormality is seen. ADRENALS: No significant abnormality is seen. KIDNEYS: Asymmetric diminished size to left kidney. Bowel: There is large hiatal hernia containing a significant portion of stomach and transverse colon. Oral Contrast does not reach colonic level making evaluation suboptimal as patient also has little i ntra-abdominal fat.. No suspicious small or large bowel dilatation. Niap-ow-syunxdux diffuse colonic fecal prominence. Diverticula in the sigmoid colon in the left pelvis. GENITAL ORGANS: Suboptimally evaluated. LYMPH NODES: No greater than 1cm abdominal or pelvic lymph nodes are appreciated. OSSEOUS STRUCTURES: Metallic hardware from bilateral hip arthroplasty causes streak artifact limiting evaluation of pelvic structures. There is S-shaped scoliosis that is dextroconvex curvature centered in the mid thoracic spine and levoconvex curvature centered in the mid lumbar spine. OTHER: Moderate 2 severe diffuse soft tissue anasarca is present. Mild intraperitoneal ascites is se en blurring the fat planes of the mesentery. IMPRESSION: Suboptimal study. Mild diffuse colonic fecal stasis. No bowel obstruction. Large hiatal h ernia containing majority of stomach and significant portion of transverse colon. Moderate to severe diffuse soft tissue anasarca with small to tiny bilateral pleural effusions correlates with the bautista ired fluid overload state.
[2022-09-06] MEDS ORDERED: FUROSEMIDE 10 MG/ML 2 ML VIAL IV SCH (16:00)
[2022-09-06 17:07] LABS: Vitamin B12 <150.0 pg/mL (200.0-944.0)
[2022-09-07] MEDS: FUROSEMIDE 10 MG/ML 2 ML VIAL IV SCH ×3 (00:12→15:08)
[2022-09-07] MEDS: LEVOTHYROXINE 88 MCG TAB PO SCH (05:58)
--- NOTE | 2022-09-07 08:45 | NM ---
EXAMINATION TYPE: NM pul vent and perfuse DATE OF EXAM: 09/07/2022 CLINICAL INDICATION: Female, 82 years old with history of high d-dimer, r/u pe; TECHNIQUE: Utilizing inhalation of 37.4 mCi Tc 99m DTPA aerosol and intravenous injection of 4.3 mCi of Tc 99m MAA, ventilation and perfusion images are acquired post injection in multiple projections. FINDINGS: There is clumping of radiotracer is seen around the pulmonary hilum.There is no evidence of mismatche d defects. IMPRESSION: No evidence for pulmonary embolus in this limited exam with radiotracer clumping.
[2022-09-07] MEDS: PANTOPRAZOLE 40 MG/10 ML VIAL IV SCH (09:01)
[2022-09-07] MEDS: HEPARIN SODIUM,PORCINE/PF 5,000 UNIT/0.5 ML SYRINGE SQ SCH ×2 (09:02→20:35)
[2022-09-07] MEDS: CYANOCOBALAMIN 1,000 MCG/ML 1 ML VIAL IM SCH (09:02)
[2022-09-07] MEDS: ACETAMINOPHEN TAB 325 MG TAB PO PRN (09:20)
[2022-09-07 09:53] LABS: Anisocytosis Marked; HCT 23.8 % (34.0-46.0); HGB 8.1 gm/dL (11.4-16.0); MCH 35.9 pg (25.0-35.0); MCV 105.5 fL (80.0-100.0); Macrocytosis Marked; Mean Platelet Volume 10.4; RBC 2.26 m/uL (3.80-5.40); WBC 5.8 k/uL (3.8-10.6)
[2022-09-07 09:57] LABS: Albumin 3.6 g/dL (3.5-5.0); Bilirubin, Delta 0.3 mg/dL (0.0-0.2); Bilirubin,Unconjugated 2.8 mg/dL (0.0-1.1); Calcium 8.5 mg/dL (8.4-10.2); Potassium 3.7 mmol/L (3.5-5.1); RDW 27.6 % (11.5-15.5); Total Bilirubin 3.1 mg/dL (0.2-1.3); Total Protein 5.9 g/dL (6.3-8.2)
[2022-09-07 09:58] LABS: Platelet Count 79 k/uL (150-450)
[2022-09-07 11:10] LABS: Lymphocytes # (M) 4.81 k/uL (1.0-4.8); Neutrophils # (M) 0.99 k/uL (1.3-7.7); Neutrophils % (M) 17 %; Nucleated Red Blood Cells 0 /100 WBC (0-0); Total Cells Counted 100
[2022-09-07 11:12] LABS: Mixed Population RBC Present
--- NOTE | 2022-09-07 15:03 | P.PN ---
Subjective Progress Note Date: 09/07/22 CHIEF COMPLAINT: Shortness of breath and weakness HISTORY OF PRESENT ILLNESS: Patient to the hospital with shortness of breath and weakness and found to have a hemoglobin of 4.0. Stool for occult blood ne gative. Patient had computed tomography scan of abdomen and pelvis that showed mild diffuse colonic fecal stasis. No bowel obstruction. Large hiatal hernia containing majority of stomach and significant portion of the transverse colon. Moderate to severe diffuse soft tissue anasarca with small tiny bilateral pleural effusion correlate with the desired fluid overload state. Medicine service did add IV Lasix for fluid overload. Patient does have a known history of severe aortic stenosis. Hemoglobin today is remaining stable at 8.1. Patient denies any heartburn or indigestion. She denies any abdominal pain. Patient initially scheduled for EGD today, however she refused to have scope c ompleted. Patient seen and examined with Dr. marquez PHYSICAL EXAM: VITAL SIGNS: Reviewed. GENERAL: Well-developed in no acute distress. HEENT: No sclera icterus. Extraocular movements grossly intact. Moist buccal mucosa. Head is atraumatic, normocephalic. ABDOMEN: Soft. Nondistended. Nontender. NEUROLOGIC: Alert and oriented. Cranial nerves II through XII grossly intact. ASSESSMENT: 1. Large hiatal hernia containing majority of the stomach and a significant portion of the transverse colon 2. Anemia possibly related to microscopic bleeding from patient's large hiatal hernia 3. Severe aortic stenosis 4. Fluid overload receiving Lasix PLAN: -Patient scheduled for laparoscopic repair of paraesophageal hernia on 09/11/[address] marquez -Consult cardiology for risk management assessment for surgery -Start full liquid diet with aspiration precautions -Patient initially scheduled for EGD today for further evaluation of this large hiatal hernia. Patient refused EGD today. Patient is aware that EGD is routinely done prior to surgery for hiatal hernia. Patient still refused EGD and was adamant about starting diet. At this time she is agreeable for repair of the large hiatal hernia on Sunday. Physician Securities Clerk note has been reviewed by physician. Signing provider agrees with the documented findings, assessment, and plan of care. Objective - Vital Signs Vital signs: Vital Signs Temp 98.2 F 09/07/22 09:00 Pulse 71 09/07/22 11:00 Resp 17 09/07/22 11:00 BP 110/69 09/07/22 11:00 Pulse Ox 98 09/07/22 11:00 FiO2 Intake & Output 09/06/22 09/07/22 09/07/22 18:59 06:59 18:59 Intake Total 540 Output Total 1200 Balance 540 -1200 Weight 46.266 kg 43.1 kg Intake: Oral 540 Output: Urine 1200 Other: # Voids 1 3 - Labs CBC & Chem 7: 09/07/22 09:06 09/07/22 09:06 Labs: Abnormal Lab Results - Last 24 Hours (Table) 09/06/22 09/06/22 09/07/22 Range/Units 08:52 08:52 09:06 RBC 2.26 L (3.80-5.40) m/uL Hgb 8.1 L (11.4-16.0) gm/dL Hct 23.8 L (34.0-46.0) % MCV 105.5 H (80.0-100.0) fL MCH 35.9 H (25.0-35.0) pg RDW 27.6 H (11.5-15.5) % Plt Count 79 L (150-450) k/uL Neutrophils # (Manual) 0.99 L (1.3-7.7) k/uL Lymphocytes # (Manual) 4.81 H (1.0-4.8) k/uL Macrocytosis Marked A Carbon Dioxide (22-30) mmol/L BUN (7-17) mg/dL Glucose (74-99) mg/dL Iron 251 H (50-170) ug/dL % Saturation 84.57 H (12.00-45.00) Ferritin 368.0 H (10.0-291.0) ng/mL Total Bilirubin (0.2-1.3) mg/dL Unconjugated Bilirubin (0.0-1.1) mg/dL Delta Bilirubin (0.0-0.2) mg/dL AST (14-36) U/L Total Protein (6.3-8.2) g/dL Vitamin B12 <150.0 L (200.0-944.0) pg/mL Procalcitonin 0.11 H (0.02-0.09) ng/mL 09/07/22 Range/Units 09:06 RBC (3.80-5.40) m/uL Hgb (11.4-16.0) gm/dL Hct (34.0-46.0) % MCV (80.0-100.0) fL MCH (25.0-35.0) pg RDW (11.5-15.5) % Plt Count (150-450) k/uL Neutrophils # (Manual) (1.3-7.7) k/uL Lymphocytes # (Manual) (1.0-4.8) k/uL Macrocytosis Carbon Dioxide 35 H (22-30) mmol/L BUN 35 H (7-17) mg/dL Glucose 104 H (74-99) mg/dL Iron (50-170) ug/dL % Saturation (12.00-45.00) Ferritin (10.0-291.0) ng/mL Total Bilirubin 3.1 H (0.2-1.3) mg/dL Unconjugated Bilirubin 2.8 H (0.0-1.1) mg/dL Delta Bilirubin 0.3 H (0.0-0.2) mg/dL AST 43 H (14-36) U/L Total Protein 5.9 L (6.3-8.2) g/dL Vitamin B12 (200.0-944.0) pg/mL Procalcitonin (0.02-0.09) ng/mL
[2022-09-07] MEDS ORDERED: FUROSEMIDE 10 MG/ML 2 ML VIAL IV SCH (20:45)
--- NOTE | 2022-09-07 20:50 | P.PN ---
Subjective This is a pleasant 82 years old female with multiple medical problems including osteoarthritis, hypothyroidism, COPD, irritable bowel syndrome, history of right breast cancer in 2016 status post lumpectomy and radiotherapy. Patient presents because of dyspnea and weakness few days especially with exertion for example going up stairs and she has to stop. She denies chest pain but is complaining of from coughing and yellow phlegm for the last 2 days. No abdominal pain vomiting or diarrhea, she denies blood per rectum and her stool color is brown. No recent urinary symptoms like urgency or dysuria. No headache weakness numbness. Chief complaint from generalized weakness She had little short of breath when she is talking. She has good appetite. She denies smoking alcohol or illicit drugs She does not follow up recently with oncologist, no recent chemoradiotherapy She denies leg pain or swelling, she denies hemoptysis or bleeding from anywhere -Last year she had similar presentation with acute symptomatic anemia with no GI bleed, she was noted to have diverticular disease with no active bleeding on endoscopy. She states follow-up with Dr. Contreras for her anemia and Dr. Mitchell for her breast cancer and radiotherapy Vitals looks stable and patient is afebrile. showing severe anemia with hemoglobin 4.0 on admission her baseline hemoglobin is (8-9), platelet count is 89k, Baseline platelet count 185-195 creatinine 1.06, Baseline 0.8-1.01 Total bilirubin is 3.4 which is elevated. AST slightly up at 47 and ALT normal at 23. proBNP is 99. Lactate dehydrogenase elevated at 04/16/1939. Troponin is negative. EKG showed normal sinus rhythm at [address]-T changes Chest x-ray: Minimal right pleural effusion.per radiologist, However when I reviewed the chest x-ray suspicion of left lower lobe infiltrates. Physical Lovenox was negative. B12 and folic pending. Viruses undetected , including influenza, RSV, mccarthy v Liver ultrasound: unremarkable for right upper quadrant ultrasound Patient was started on Protonix and admitted with surgery and hematology consults Patient received 2 units of blood transfusion 09/07/2022 Patient have severe vitamin B12 deficiency and the placement started with IM injection until Sunday and then can switch to oral dose. Surgery Tech team ordered gastric antibodies to check for pernicious anemia which is pending. Elevated bilirubin is a due to vitamin B12 deficiency Her fluid overload is improved, this couldn't be explained by units of blood transfusion given to this thin built lady, currently she is on IV Lasix 20 mg twice daily this can be switched to oral dose tomorrow Surgical team recommended hiatal hernia repair, cardiology consult requested for preoperative evaluation. Patient and family requested second opinion and requested Dr. mclain consult Possible discharge in 24-48 hours if she keeps improving Objective - Vital Signs Vital signs: Vital Signs Temp 98.2 F 09/07/22 09:00 Pulse 71 09/07/22 11:00 Resp 17 09/07/22 11:00 BP 110/69 09/07/22 11:00 Pulse Ox 98 09/07/22 11:00 FiO2 Intake & Output 09/06/22 09/07/22 09/07/22 18:59 06:59 18:59 Intake Total 540 Output Total 1200 Balance 540 -1200 Weight 46.266 kg 43.1 kg Intake: Oral 540 Output: Urine 1200 Other: # Voids 1 3 - Exam -GENERAL: The patient is alert and oriented x3, not in any acute distress. Frail, thin built HEENT: Pupils are round and equally reacting to light. EOMI. No scleral icterus. No conjunctival pallor. Normocephalic, atraumatic. No pharyngeal erythema. No thyromegaly. CARDIOVASCULAR: S1 and S2 present. No murmurs, rubs, or gallops. -PULMONARY: Chest is clear to auscultation, no wheezing . no crackles. No basal crepitation ABDOMEN: Soft, nontender, nondistended, normoactive bowel sounds. No palpable organomegaly. MUSCULOSKELETAL: No joint swelling or deformity. -EXTREMITIES: No cyanosis, clubbing, or pedal edema. Improving leg edema NEUROLOGICAL: Gross neurological examination did not reveal any focal deficits. SKIN: No rashes. no petechiae. - Labs CBC & Chem 7: 09/07/22 09:06 09/07/22 09:06 Labs: Abnormal Lab Results - Last 24 Hours (Table) 09/06/22 09/06/22 09/07/22 Range/Units 08:52 08:52 09:06 RBC 2.26 L (3.80-5.40) m/uL Hgb 8.1 L (11.4-16.0) gm/dL Hct 23.8 L (34.0-46.0) % MCV 105.5 H (80.0-100.0) fL MCH 35.9 H (25.0-35.0) pg RDW 27.6 H (11.5-15.5) % Plt Count 79 L (150-450) k/uL Neutrophils # (Manual) 0.99 L (1.3-7.7) k/uL Lymphocytes # (Manual) 4.81 H (1.0-4.8) k/uL Macrocytosis Marked A Carbon Dioxide (22-30) mmol/L BUN (7-17) mg/dL Glucose (74-99) mg/dL Iron 251 H (50-170) ug/dL % Saturation 84.57 H (12.00-45.00) Ferritin 368.0 H (10.0-291.0) ng/mL Total Bilirubin (0.2-1.3) mg/dL Unconjugated Bilirubin (0.0-1.1) mg/dL Delta Bilirubin (0.0-0.2) mg/dL AST (14-36) U/L Total Protein (6.3-8.2) g/dL Vitamin B12 <150.0 L (200.0-944.0) pg/mL Procalcitonin 0.11 H (0.02-0.09) ng/mL 09/07/22 Range/Units 09:06 RBC (3.80-5.40) m/uL Hgb (11.4-16.0) gm/dL Hct (34.0-46.0) % MCV (80.0-100.0) fL MCH (25.0-35.0) pg RDW (11.5-15.5) % Plt Count (150-450) k/uL Neutrophils # (Manual) (1.3-7.7) k/uL Lymphocytes # (Manual) (1.0-4.8) k/uL Macrocytosis Carbon Dioxide 35 H (22-30) mmol/L BUN 35 H (7-17) mg/dL Glucose 104 H (74-99) mg/dL Iron (50-170) ug/dL % Saturation (12.00-45.00) Ferritin (10.0-291.0) ng/mL Total Bilirubin 3.1 H (0.2-1.3) mg/dL Unconjugated Bilirubin 2.8 H (0.0-1.1) mg/dL Delta Bilirubin 0.3 H (0.0-0.2) mg/dL AST 43 H (14-36) U/L Total Protein 5.9 L (6.3-8.2) g/dL Vitamin B12 (200.0-944.0) pg/mL Procalcitonin (0.02-0.09) ng/mL Assessment and Plan Assessment: Severe acute microcytic Anemia and thrombocytopenia, secondary to vitamin B12 deficiency present on admission . Status post 2 units of blood transfusion on admission Acute Dyspnea, could be related to acute diastolic CHF and anemia Acute diastolic CHF normal ejection fraction 50-55% on echocardiogram on 09/2021 Moderate to severe aortic stenosis elevated bilirubin. Unconjugated secondary to an effective erythropoiesis secondary to vitamin B12 deficiency Chronic kidney disease stage III history of constipation History of right breast cancer status post radiotherapy and right lumpectomy COPD, no acute exacerbation hypothyroidism History of osteoarthritis Plan: Continue with vitamin B12 replacement therapy Check gastric antibody ordered by custom protection officer team or on the case Patient continued with IV Lasix for aggressive CHF secondary to fluid overload. Patient may be switched to oral Lasix tomorrow hiatal hernia surgery team Recommended surgical repair however patient asked for a second opinion Hematology/oncology team consult Surgery team consult Labs and medication were reviewed.. Continue same treatment. Continue with symptomatic treatment. Resume home medication. Monitor labs and vitals. DVT and GI prophylaxis. Further recommendations as per clinical course of the patient DVT prophylaxis: no Subcutaneous heparin, mechanical GI Prophylaxis: Protonix PT/OT:Subacute rehab
--- NOTE | 2022-09-07 20:50 | P.PN ---
Subjective Progress Note Date: 09/07/22 Principal diagnosis: anemia At today's visit patient is resting comfortably in bed. Patient reports feeling improved today. She reports reports persisting fatigue. Denies shortness of breath. Denies pain. Denies any reported episodes of bleeding. Patient was evaluated by surgery but has declined endoscopic evaluation. Objective - Vital Signs Vital signs: Vital Signs Temp 98.2 F 09/07/22 09:00 Pulse 92 09/07/22 15:43 Resp 17 09/07/22 15:43 BP 108/73 09/07/22 15:43 Pulse Ox 99 09/07/22 15:43 FiO2 Intake & Output 09/07/22 09/07/22 09/08/22 06:59 18:59 06:59 Output Total 1200 Balance -1200 Weight 43.1 kg Output: Urine 1200 Other: # Voids 3 - Constitutional General appearance: Present: average body habitus, no acute distress - EENT Eyes: Present: anicteric sclerae, EOMI ENT: Present: hearing grossly normal - Respiratory Details: breathing is even and unlabored - Cardiovascular Details: skin warm and dry - Integumentary Integumentary: Present: pale - Neurologic Neurologic Comment(s): grossly intact - Musculoskeletal Musculoskeletal: Present: generalized weakness - Psychiatric Psychiatric: Present: A&O x's 3, appropriate affect, intact judgment & insight - Labs CBC & Chem 7: 09/07/22 09:06 09/07/22 09:06 Labs: Abnormal Lab Results - Last 24 Hours (Table) 09/07/22 09/07/22 Range/Units 09:06 09:06 RBC 2.26 L (3.80-5.40) m/uL Hgb 8.1 L (11.4-16.0) gm/dL Hct 23.8 L (34.0-46.0) % MCV 105.5 H (80.0-100.0) fL MCH 35.9 H (25.0-35.0) pg RDW 27.6 H (11.5-15.5) % Plt Count 79 L (150-450) k/uL Neutrophils # (Manual) 0.99 L (1.3-7.7) k/uL Lymphocytes # (Manual) 4.81 H (1.0-4.8) k/uL Macrocytosis Marked A Carbon Dioxide 35 H (22-30) mmol/L BUN 35 H (7-17) mg/dL Glucose 104 H (74-99) mg/dL Total Bilirubin 3.1 H (0.2-1.3) mg/dL Unconjugated Bilirubin 2.8 H (0.0-1.1) mg/dL Delta Bilirubin 0.3 H (0.0-0.2) mg/dL AST 43 H (14-36) U/L Total Protein 5.9 L (6.3-8.2) g/dL Assessment and Plan (1) Thrombocytopenia Current Visit: Yes Status: Acute Priority: High Code(s): D69.6 - THROMBOCYTOPENIA, UNSPECIFIED SNOMED Code(s): 246849509 (2) Anemia Current Visit: Yes Status: Acute Priority: High Code(s): D64.9 - ANEMIA, UNSPECIFIED SNOMED Code(s): 693659855 Plan: Bicytopenia: -Hx anemia, requiring transfusions. -CBC reveals macrocytic normochromic anemia. Hemoglobin stable, 8.1, platelets 79,000. S/P 2 units of PRBCs. No reported episodes of bleeding noted. -Surgery consulted to r/o GI bleed, however patient has declined endoscopic evaluation -Iron studies not consistent with FRANK. Vitamin B12 significantly low, less than 150. Folate normal. Vitamin B12 supplement supplementation has been started. TSH WNL, T4 pending -Total bilirubin elevated, LDH 1842. Haptoglobin less than 10, reticulocytes 1.2. LEATHA negative. Labs consistent with hemolytic anemia, however, LEATHA negative, not likely immune mediated. Will hold steroids at this time. Differential diagnosis includes PNH, FLAER ordered. Thrombocytopenia could be r/t Vitamin B12 deficiency but with concurrent anemia also need to rule out other etiologies including aplastic anemia and MDS. Will obtain bone marrow biopsy. If counts remain stable we will obtain bone marrow biopsy outpatient, however if blood counts begin to drop, will do testing inpatient. Intrinsic factor and gastric parietal cell antibody ordered. -DIC work-up negative -AST mildly elevated, ALP and ALT normal. Liver US unremarkable. -Will continue to monitor counts -Please transfuse for hemoglobin less than 7 or platelets less than 10,000 attests: I have performed H&P and developed impression and plan of care for patient, discussed with dictator. I agree with dictated note, documented as a scribe
[2022-09-08 05:42] LABS: Anisocytosis Marked; Basophils % (A) 0 %; Eosinophils # (A) 0.1 k/uL (0-0.7); Eosinophils % (A) 1 %; HCT 22.2 % (34.0-46.0); HGB 7.6 gm/dL (11.4-16.0); Lymphocytes # (A) 5.7 k/uL (1.0-4.8); Lymphocytes % (A) 88 %; MCHC 34.4 g/dL (31.0-37.0); MCV 107.5 fL (80.0-100.0); Macrocytosis Marked; Mean Platelet Volume 10.5; Monocytes % (A) 1 %; Neutrophils # (A) 0.6 k/uL (1.3-7.7); Neutrophils % (A) 10 %; Platelet Count 66 k/uL (150-450); RBC 2.07 m/uL (3.80-5.40); WBC 6.6 k/uL (3.8-10.6)
[2022-09-08 06:32] LABS: Calcium 8.9 mg/dL (8.4-10.2); Potassium 3.8 mmol/L (3.5-5.1)
[2022-09-08] MEDS: HEPARIN SODIUM,PORCINE/PF 5,000 UNIT/0.5 ML SYRINGE SQ SCH ×2 (08:59→20:28)
[2022-09-08] MEDS: CYANOCOBALAMIN 1,000 MCG/ML 1 ML VIAL IM SCH (08:59)
[2022-09-08] MEDS: FUROSEMIDE 10 MG/ML 2 ML VIAL IV SCH ×2 (09:00→09:03)
[2022-09-08] MEDS: LEVOTHYROXINE 88 MCG TAB PO SCH (09:00)
[2022-09-08] MEDS: PANTOPRAZOLE 40 MG/10 ML VIAL IV SCH (09:00)
--- NOTE | 2022-09-08 13:04 | CONS ---
CONSULTATION HISTORY OF PRESENT ILLNESS: Nidhi is an 82-year-old lady who is admitted to hospital with symptomatic anemia, primarily with symptoms of dyspnea and weakness that has been going on for the last several days. She also has cough and yellowish sputum. She has had history of breast cancer and received radiation therapy and has had anemia for a while. Cardiology has been consulted because of her dyspnea and the possibility of congestive heart failure. At the time of my evaluation, she appears comfortable at rest and denies any chest pain. There is no history of leg edema, PND, or orthopnea. Her physical exam reveals a murmur of aortic stenosis. PAST MEDICAL HISTORY: Significant for hypothyroidism. MEDICATIONS: Synthroid. ALLERGIES: Levaquin, morphine and Benadryl. FAMILY HISTORY: Negative for premature coronary artery disease. SOCIAL HISTORY: Negative for smoking, EtOH abuse, or drug abuse. REVIEW OF SYSTEMS: HEENT: Unremarkable. CARDIAC: As described above. RESPIRATORY: As described above. GI: Negative. GENITOURINARY: Negative. ALLERGY/IMMUNOLOGY: Negative. SKIN: Negative. MUSCULOSKELETAL: Negative for arthritis. PSYCHOSOCIAL: Negative. DERM: Negative. CONSTITUTIONAL: Negative. ONCOLOGICAL: Negative . REFINERY OPERATOR HELPER: Negative. Rest of the system review is not relevant. PHYSICAL EXAMINATION: GENERAL: Comfortable at rest. VITAL SIGNS: Stable. NECK: There is no jugular venous distention. CHEST: Good air entry bilaterally. HEART: Reveals first and second heart sounds, a 4/6 ejection systolic murmur in the aortic area. ABDOMEN: Soft. EXTREMITIES: Did not reveal any edema. LABORATORY DATA: Showed a hemoglobin of 7.6. She presented with a hemoglobin of 4, potassium is 3.8, creatinine is 1. EKG shows sinus rhythm with evidence of prior anteroseptal myocardial infarction. ASSESSMENT: 1. Shortness of breath secondary to anemia. The patient is not in congestive heart failure. 2. Moderate to severe aortic stenosis. PLAN: I will obtain a 2D echo to evaluate the underlying aortic stenosis. Continue current care. MMODL / IJN: [id number] /
--- NOTE | 2022-09-08 13:22 | P.GSCN ---
History of Present Illness Consult date: 09/08/22 Reason for Consult: Hiatal hernia History of present illness: 82-year-old female presents to the hospital with fatigue. Was found to have a hemoglobin of 4.0. Patient says she had a colonoscopy within the last 1-2 years. Patient's hemoglobin has responded well to transfusion. CAT scan was performed showing a large hiatal hernia containing both stomach and colon. Apparently she was refusing EGD. We were consulted for second opinion. Review of Systems The patient denies any acute changes in vision or hearing, no dysphagia or odynophagia, no chest pain or shortness of breath, no dysuria or hematuria, no h eadache, no runny nose, no rectal bleeding or melena, no unexplained weight loss Past Medical History Past Medical History: Cancer, COPD, Musculoskeletal Disorder, Osteoarthritis (OA), Thyroid Disorder Additional Past Medical History / Comment(s): Hiatal hernia, sinusitis, osteopenia, IBS-C(constipation), Scoliosis, Kyphosis, seasonal allergies, poor sleep, anemia. Hx right breast cancer 2015, had lumpectomy and radiation. History of Any Multi-Drug Resistant Organisms: None Reported Past Surgical History: Appendectomy, Breast Surgery, Joint Replacement, Orthopedic Surgery, Tonsillectomy Additional Past Surgical History / Comment(s): Hemmorroidectomy, bilateral hip, knee, and shoulder replacements, and bilateral oopherectomy, right breast lumpectomy, bilateral cataract surgery. Past Anesthesia/Blood Transfusion Reactions: Postoperative Nausea & Vomiting (PONV) Additional Past Anesthesia/Blood Transfusion Reaction / Comm: Hiatal hernia. Past Psychological History: No Psychological Hx Reported Smoking Status: Former smoker Past Alcohol Use History: Occasional Past Drug Use History: None Reported - Past Family History Mother Family Medical History: Cancer Additional Family Medical History / Comment(s): Breast cancer. Father Family Medical History: Cancer, Deep Vein Thrombosis (DVT) Additional Family Medical History / Comment(s): Prostate and skin cancer. Medications and Allergies Home Medications Medication Instructions Recorded Confirmed Type Levothyroxine Sodium [Synthroid] 88 mcg PO DAILY 03/17/15 09/05/22 History Allergies Allergy/AdvReac Type Severity Reaction Status Date / Time diphenhydramine HCl Allergy Itching Verified 09/05/22 19:29 [From Benadryl] levofloxacin [From Levaquin] Allergy Itching Verified 09/05/22 19:29 morphine Allergy Itching Verified 09/05/22 19:29 Surgical - Exam Vital Signs Temp Pulse Resp BP Pulse Ox 98.0 F 85 18 131/55 98 09/05/22 15:50 09/05/22 15:50 09/05/22 15:50 09/05/22 15:50 09/05/22 15:50 Physical exam: General: Well-developed, well-nourished HEENT: Normocephalic, sclerae nonicteric Abdomen: Nontender, nondistended Extremities: No edema Neuro: Alert and oriented Results - Labs 09/08/22 05:17 09/08/22 05:17 Abnormal Lab Results - Last 24 Hours (Table) 09/08/22 09/08/22 Range/Units 05:17 05:17 RBC 2.07 L (3.80-5.40) m/uL Hgb 7.6 L (11.4-16.0) gm/dL Hct 22.2 L (34.0-46.0) % MCV 107.5 H (80.0-100.0) fL MCH 37.0 H (25.0-35.0) pg RDW 26.0 H (11.5-15.5) % Plt Count 66 L (150-450) k/uL Neutrophils # 0.6 L (1.3-7.7) k/uL Lymphocytes # 5.7 H (1.0-4.8) k/uL Macrocytosis Marked A Carbon Dioxide 35 H (22-30) mmol/L BUN 39 H (7-17) mg/dL Diabetes panel 09/08/22 Range/Units 05:17 Sodium 137 (137-145) mmol/L Potassium 3.8 (3.5-5.1) mmol/L Chloride 100 (98-107) mmol/L Carbon Dioxide 35 H (22-30) mmol/L BUN 39 H (7-17) mg/dL Creatinine 1.04 (0.52-1.04) mg/dL Glucose 96 (74-99) mg/dL Calcium 8.9 (8.4-10.2) mg/dL Calcium panel 09/08/22 Range/Units 05:17 Calcium 8.9 (8.4-10.2) mg/dL Pituitary panel 09/08/22 Range/Units 05:17 Sodium 137 (137-145) mmol/L Potassium 3.8 (3.5-5.1) mmol/L Chloride 100 (98-107) mmol/L Carbon Dioxide 35 H (22-30) mmol/L BUN 39 H (7-17) mg/dL Creatinine 1.04 (0.52-1.04) mg/dL Glucose 96 (74-99) mg/dL Calcium 8.9 (8.4-10.2) mg/dL Adrenal panel 09/08/22 Range/Units 05:17 Sodium 137 (137-145) mmol/L Potassium 3.8 (3.5-5.1) mmol/L Chloride 100 (98-107) mmol/L Carbon Dioxide 35 H (22-30) mmol/L BUN 39 H (7-17) mg/dL Creatinine 1.04 (0.52-1.04) mg/dL Glucose 96 (74-99) mg/dL Calcium 8.9 (8.4-10.2) mg/dL Assessment and Plan (1) Anemia Narrative/Plan: 82-year-old female with anemia and large hiatal hernia. Options reviewed with patient. Patient still needs further workup of the profound anemia. Recommend EGD. Following that advise elective repair hiatal hernia. She will follow up with Dr. Harrington for this. Current Visit: Yes Status: Acute Priority: High Code(s): D64.9 - ANEMIA, UNSPECIFIED SNOMED Code(s): 071030327
--- NOTE | 2022-09-08 13:54 | P.PN ---
Subjective Progress Note Date: 09/08/22 CHIEF COMPLAINT: Shortness of breath and weakness HISTORY OF PRESENT ILLNESS: Patient to the hospital with shortness of breath and weakness and found to have a hemoglobin of 4.0. Stool for occult blood ne gative. Patient found to have a large hiatal hernia that contained both stomach and part of the transverse colon. Patient refused EGD. She is tentatively scheduled Sunday for hiatal hernia repair. Patient seen by cardiology for cardiac risk assessment. They've ordered an echo. Patient also followed by hematology. Patient with evidence of B12 deficiency and is receiving B12 supplement. Hematology is also recommending a bone marrow biopsy outpatient. Afebrile. WBC is 6.6 hemoglobin is 7.6 platelets 66 Patient seen and examined with Dr. marquez PHYSICAL EXAM: VITAL SIGNS: Reviewed. GENERAL: Well-developed in no acute distress. HEENT: No sclera icterus. Extraocular movements grossly intact. Moist buccal mucosa. Head is atraumatic, normocephalic. ABDOMEN: Soft. Nondistended. Nontender. NEUROLOGIC: Alert and oriented. Cranial nerves II through XII grossly intact. ASSESSMENT: 1. Large hiatal hernia containing majority of the stomach and a significant portion of the transverse colon 2. Anemia possibly related to microscopic bleeding from patient's large hiatal hernia and evidence of B12 deficiency 3. Severe aortic stenosis 4. Fluid overload receiving Lasix 5. Thrombocytopenia followed by hematology PLAN: -Patient is tentatively scheduled for laparoscopic repair of paraesophageal hernia on 09/11/[address] mraquez if medically cleared -Continue full liquid diet with aspiration precautions -Follow up on echo and further cardiology recommendations -Anemia and thrombocytopenia workup per hematology. Patient refused EGD. -Continue supportive care -Continue to medically optimize patient for possible surgery Sunday Physician Behavioral Health Care Manager note has been reviewed by physician. Signing provider agrees with the documented findings, assessment, and plan of care. Objective - Vital Signs Vital signs: Vital Signs Temp 97.8 F 09/08/22 07:25 Pulse 77 09/08/22 07:25 Resp 16 09/08/22 07:25 BP 123/70 09/08/22 07:25 Pulse Ox 98 09/08/22 07:25 FiO2 Intake & Output 09/07/22 09/08/22 09/08/22 18:59 06:59 18:59 Output Total 200 Balance -200 Weight 40.5 kg Output: Urine 200 Other: Voiding Method Bedside Commode # Voids 2 - Labs CBC & Chem 7: 09/08/22 05:17 09/08/22 05:17 Labs: Abnormal Lab Results - Last 24 Hours (Table) 09/07/22 09/07/22 09/08/22 Range/Units 09:06 09:06 05:17 RBC 2.26 L 2.07 L (3.80-5.40) m/uL Hgb 8.1 L 7.6 L (11.4-16.0) gm/dL Hct 23.8 L 22.2 L (34.0-46.0) % MCV 105.5 H 107.5 H (80.0-100.0) fL MCH 35.9 H 37.0 H (25.0-35.0) pg RDW 27.6 H 26.0 H (11.5-15.5) % Plt Count 79 L 66 L (150-450) k/uL Neutrophils # 0.6 L (1.3-7.7) k/uL Neutrophils # (Manual) 0.99 L (1.3-7.7) k/uL Lymphocytes # 5.7 H (1.0-4.8) k/uL Lymphocytes # (Manual) 4.81 H (1.0-4.8) k/uL Macrocytosis Marked A Marked A Carbon Dioxide 35 H (22-30) mmol/L BUN 35 H (7-17) mg/dL Glucose 104 H (74-99) mg/dL Total Bilirubin 3.1 H (0.2-1.3) mg/dL Unconjugated Bilirubin 2.8 H (0.0-1.1) mg/dL Delta Bilirubin 0.3 H (0.0-0.2) mg/dL AST 43 H (14-36) U/L Total Protein 5.9 L (6.3-8.2) g/dL 09/08/22 Range/Units 05:17 RBC (3.80-5.40) m/uL Hgb (11.4-16.0) gm/dL Hct (34.0-46.0) % MCV (80.0-100.0) fL MCH (25.0-35.0) pg RDW (11.5-15.5) % Plt Count (150-450) k/uL Neutrophils # (1.3-7.7) k/uL Neutrophils # (Manual) (1.3-7.7) k/uL Lymphocytes # (1.0-4.8) k/uL Lymphocytes # (Manual) (1.0-4.8) k/uL Macrocytosis Carbon Dioxide 35 H (22-30) mmol/L BUN 39 H (7-17) mg/dL Glucose (74-99) mg/dL Total Bilirubin (0.2-1.3) mg/dL Unconjugated Bilirubin (0.0-1.1) mg/dL Delta Bilirubin (0.0-0.2) mg/dL AST (14-36) U/L Total Protein (6.3-8.2) g/dL
[2022-09-08] MEDS ORDERED: IPRATROPIUM-ALBUTEROL 3 ML NEB INHALATION STA (15:09)
[2022-09-08] MEDS ORDERED: IPRATROPIUM-ALBUTEROL 3 ML NEB INHALATION PRN (15:09)
--- NOTE | 2022-09-08 17:33 | CA ---
Transthoracic Echo Report Name: Nidhi Moore Age: 82 Gender: F : 1940 Exam Date: 09/08/2022 15:17 Exam Location: [facility] Ht (in): 63 Wt (lb): 89 Ordering Physician: Gavino Contreras MD ([id number]) Attending/Referring Phys: Ben LIZAMA Healthcare Manager Bhavani Washburn RDCS Procedure CPT: Indications: Cardiac clearance Cardiac Hx: Technical Quality: Fair Contrast 1: Total Dose (mL): Contrast 2: Total Dose (mL): MEASUREMENTS (Male / Female) Normal Values 2D ECHO LV Diastolic Diameter PLAX 2.5 cm 4.2 - 5.9 / 3.9 - 5.3 cm LV Systolic Diameter PLAX 1.6 cm IVS Diastolic Thickness 1.2 cm 0.6 - 1.0 / 0.6 - 0.9 cm LVPW Diastolic Thickness 1.2 cm 0.6 - 1.0 / 0.6 - 0.9 cm LV Relative Wall Thickness 0.9 RV Internal Dim ED PLAX 2.6 cm LA Volume 67.4 cm??? 18 - 58 / 22 - 52 cm??? M-MODE Aortic Root Diameter MM 2.5 cm LA Systolic Diameter MM 3.2 cm LA Ao Ratio MM 1.3 AV Cusp Separation MM 1.1 cm DOPPLER AV Peak Velocity 294.7 cm/s AV Peak Gradient 34.7 mmHg AV Mean Velocity 211.2 cm/s AV Mean Gradient 20.1 mmHg AV Velocity Time Integral 48.6 cm AI Peak Velocity 377.8 cm/s AI Peak Gradient 57.1 mmHg AI Pressure Half Time 437.2 ms LVOT Peak Velocity 146.8 cm/s LVOT Peak Gradient 8.6 mmHg LVOT Velocity Time Integral 28.3 cm MV Area PHT 6.9 cm??? Mitral E Point Velocity 91.8 cm/s Mitral A Point Velocity 134.8 cm/s Mitral E to A Ratio 0.7 MV Deceleration Time 110.4 ms MV E' Velocity 5.1 cm/s Mitral E to MV E' Ratio 17.9 TR Peak Velocity 269.8 cm/s TR Peak Gradient 29.1 mmHg Right Ventricular Systolic Press 34.1 mmHg FINDINGS Left Ventricle Mildly increased left ventricular wall thickness. Left ventricular cavity size normal. Normal left ventricular wall motion. Left ventricular ejection fraction is estimated at 55-60 %. Right Ventricle Normal right ventricular size and function. Right ventricular systolic pressure within normal limits. Right Atrium Normal right atrial size. Left Atrium Moderately increased left atrial volume. Mildly increased left atrial area. Mitral Valve Structurally normal mitral valve. Moderate mitral annular calcification. Mitral valve thickened. [id number] mitral regurgitation. Aortic Valve Trileaflet aortic valve. Mild aortic stenosis with a peak gradient of 35 mmHg and a mean gradient of 20 mmHg. Mild aortic regurgitation. Tricuspid Valve Structurally normal tricuspid valve. Mild tricuspid regurgitation. Pulmonic Valve Structurally normal pulmonic valve. Pericardium Minimal pericardial effusion (normal variant). Aorta Normal size aortic root and proximal ascending aorta. CONCLUSIONS Left ventricular hypertrophy with normal LV systolic function Mild to moderate mitral regurgitation with mitral annular calcification Moderate aortic stenosis Previewed by: Dr. Gavino Contreras MD (Electronically Signed) Final Date: 08 September 2022 17:32
[2022-09-08] MEDS: ACETAMINOPHEN TAB 325 MG TAB PO PRN (20:33)
--- NOTE | 2022-09-08 21:59 | P.PN ---
Subjective This is a pleasant 82 years old female with multiple medical problems including osteoarthritis, hypothyroidism, COPD, irritable bowel syndrome, history of right breast cancer in 2016 status post lumpectomy and radiotherapy. Patient presents because of dyspnea and weakness few days especially with exertion for example going up stairs and she has to stop. She denies chest pain but is complaining of from coughing and yellow phlegm for the last 2 days. No abdominal pain vomiting or diarrhea, she denies blood per rectum and her stool color is brown. No recent urinary symptoms like urgency or dysuria. No headache weakness numbness. Chief complaint from generalized weakness She had little short of breath when she is talking. She has good appetite. She denies smoking alcohol or illicit drugs She does not follow up recently with oncologist, no recent chemoradiotherapy She denies leg pain or swelling, she denies hemoptysis or bleeding from anywhere -Last year she had similar presentation with acute symptomatic anemia with no GI bleed, she was noted to have diverticular disease with no active bleeding on endoscopy. She states follow-up with Dr. Contreras for her anemia and Dr. Mitchell for her breast cancer and radiotherapy Vitals looks stable and patient is afebrile. showing severe anemia with hemoglobin 4.0 on admission her baseline hemoglobin is (8-9), platelet count is 89k, Baseline platelet count 185-195 creatinine 1.06, Baseline 0.8-1.01 Total bilirubin is 3.4 which is elevated. AST slightly up at 47 and ALT normal at 23. proBNP is 99. Lactate dehydrogenase elevated at 04/16/1939. Troponin is negative. EKG showed normal sinus rhythm at [address]-T changes Chest x-ray: Minimal right pleural effusion.per radiologist, However when I reviewed the chest x-ray suspicion of left lower lobe infiltrates. Physical Lovenox was negative. B12 and folic pending. Viruses undetected , including influenza, RSV, mccarthy v Liver ultrasound: unremarkable for right upper quadrant ultrasound Patient was started on Protonix and admitted with surgery and hematology consults Patient received 2 units of blood transfusion 09/07/2022 Patient have severe vitamin B12 deficiency and the placement started with IM injection until Sunday and then can switch to oral dose. Controls Project Engineer team ordered gastric antibodies to check for pernicious anemia which is pending. Elevated bilirubin is a due to vitamin B12 deficiency Her fluid overload is improved, this couldn't be explained by units of blood transfusion given to this thin built lady, currently she is on IV Lasix 20 mg twice daily this can be switched to oral dose tomorrow Surgical team recommended hiatal hernia repair, cardiology consult requested for preoperative evaluation. Patient and family requested second opinion and requested Dr. mclain consult Possible discharge in 24-48 hours if she keeps improving 09/08/2022 Patient generally feels improving, she still somewhat tachypneic. Breathing treatment is added for her She's becoming more euvolemic and her hypervolemia is improving therefore we switched her IV Lasix and oral Lasix 20 mg daily Second surgery opinion obtained, EGD is recommended with follow-up by hiatal hernia repair electively. Surgery team on the case and planned for Sunday hernia repair. Procedure team patient refused EGD Antiparietal antibody is elevated suggestive of pernicious anemia. That's consult is requested. She remains on IV vitamin B12 deficiency. Subacute rehab is recommended for the patient upon discharge, telephonic nurse case manager on the case Objective - Vital Signs Vital signs: Vital Signs Temp 98.5 F 09/08/22 12:04 Pulse 95 09/08/22 12:04 Resp 20 09/08/22 12:04 BP 106/64 09/08/22 12:04 Pulse Ox 95 09/08/22 12:04 FiO2 Intake & Output 09/07/22 09/08/22 09/08/22 18:59 06:59 18:59 Intake Total 590 Output Total 200 Balance -200 590 Weight 40.5 kg 40.5 kg Intake: Oral 590 Output: Urine 200 Other: Voiding Method Bedside Commode # Voids 2 - Exam -GENERAL: The patient is alert and oriented x3, not in any acute distress. Frail, thin built HEENT: Pupils are round and equally reacting to light. EOMI. No scleral icterus. No conjunctival pallor. Normocephalic, atraumatic. No pharyngeal erythema. No thyromegaly. CARDIOVASCULAR: S1 and S2 present. No murmurs, rubs, or gallops. -PULMONARY: Chest is clear to auscultation, no wheezing . no crackles. No basal crepitation ABDOMEN: Soft, nontender, nondistended, normoactive bowel sounds. No palpable organomegaly. MUSCULOSKELETAL: No joint swelling or deformity. -EXTREMITIES: No cyanosis, clubbing, or pedal edema. Improving leg edema NEUROLOGICAL: Gross neurological examination did not reveal any focal deficits. SKIN: No rashes. no petechiae. - Labs CBC & Chem 7: 09/08/22 05:17 09/08/22 05:17 Labs: Abnormal Lab Results - Last 24 Hours (Table) 09/07/22 09/08/22 09/08/22 Range/Units 10:49 05:17 05:17 RBC 2.07 L (3.80-5.40) m/uL Hgb 7.6 L (11.4-16.0) gm/dL Hct 22.2 L (34.0-46.0) % MCV 107.5 H (80.0-100.0) fL MCH 37.0 H (25.0-35.0) pg RDW 26.0 H (11.5-15.5) % Plt Count 66 L (150-450) k/uL Neutrophils # 0.6 L (1.3-7.7) k/uL Lymphocytes # 5.7 H (1.0-4.8) k/uL Macrocytosis Marked A Carbon Dioxide 35 H (22-30) mmol/L BUN 39 H (7-17) mg/dL Anti-Parietal Cell Ab 65.7 H (<=20) UNITS Assessment and Plan Assessment: Pernicious anemia Severe acute macrocytic Anemia and thrombocytopenia, secondary to vitamin B12 deficiency present on admission . Status post 2 units of blood transfusion on admission Acute Dyspnea, could be related to acute diastolic CHF and anemia Acute diastolic CHF normal ejection fraction 50-55% on echocardiogram on 09/2021 Moderate to severe aortic stenosis elevated bilirubin. Unconjugated secondary to an effective erythropoiesis secondary to vitamin B12 deficiency Chronic kidney disease stage III history of constipation History of right breast cancer status post radiotherapy and right lumpectomy COPD, no acute exacerbation hypothyroidism History of osteoarthritis Plan: Continue with vitamin B12 replacement therapy cognos consultant team or on the case Social IV to oral Lasix today hiatal hernia surgery team on the case and recommended EGD and elective hernia repair Labs and medication were reviewed.. Continue same treatment. Continue with symptomatic treatment. Resume home medication. Monitor labs and vitals. DVT and GI prophylaxis. Further recommendations as per clinical course of the patient DVT prophylaxis: no Subcutaneous heparin, mechanical GI Prophylaxis: Protonix PT/OT:Subacute rehab
[2022-09-09] MEDS: LEVOTHYROXINE 88 MCG TAB PO SCH (06:10)
[2022-09-09] MEDS: PANTOPRAZOLE 40 MG/10 ML VIAL IV SCH (09:09)
[2022-09-09] MEDS: HEPARIN SODIUM,PORCINE/PF 5,000 UNIT/0.5 ML SYRINGE SQ SCH ×2 (09:09→20:49)
[2022-09-09] MEDS: FOLIC ACID 1 MG TAB PO SCH (09:10)
[2022-09-09] MEDS: CYANOCOBALAMIN 1,000 MCG/ML 1 ML VIAL IM SCH (09:10)
[2022-09-09] MEDS: FUROSEMIDE 20 MG TAB PO SCH (09:12)
--- NOTE | 2022-09-09 14:38 | P.PN ---
Subjective Progress Note Date: 09/09/22 82 years old female with multiple medical problems including osteoarthritis, hypothyroidism, COPD, irritable bowel syndrome, history of right breast cancer in 2016 status post lumpectomy and radiotherapy. Patient presents because of dyspnea and weakness few days especially with exertion for example going up stairs and she has to stop. She denies chest pain but is complaining of from coughing and yellow phlegm for the last 2 days. No abdominal pain vomiting or diarrhea, she denies blood per rectum and her stool color is brown. No recent urinary symptoms like urgency or dysuria. No headache weakness numbness. Chief complaint from generalized weakness She had little short of breath when she is talking. She has good appetite. She denies smoking alcohol or illicit drugs She does not follow up recently with oncologist, no recent chemoradiotherapy She denies leg pain or swelling, she denies hemoptysis or bleeding from anywhere -Last year she had similar presentation with acute symptomatic anemia with no GI bleed, she was noted to have diverticular disease with no active bleeding on endoscopy. She states follow-up with Dr. Contreras for her anemia and Dr. Mitchell for her breast cancer and radiotherapy Vitals looks stable and patient is afebrile. showing severe anemia with hemoglobin 4.0 on admission her baseline hemoglobin is (8-9), platelet count is 89k, Baseline platelet count 185-195 creatinine 1.06, Baseline 0.8-1.01 Total bilirubin is 3.4 which is elevated. AST slightly up at 47 and ALT normal at 23. proBNP is 99. Lactate dehydrogenase elevated at [birth year]16/1939. Troponin is neg ative. EKG showed normal sinus rhythm at [address]-T changes Chest x-ray: Minimal right pleural effusion.per radiologist, However when I reviewed the chest x-ray suspicion of left lower lobe infiltrates. Physical Lovenox was negative. B12 and folic pending. Viruses undetected , including influenza, RSV, mccarthy v Liver ultrasound: unremarkable for right upper quadrant ultrasound Patient was started on Protonix and admitted with surgery and hematology consults Patient received 2 units of blood transfusion 09/07/2022 Patient have severe vitamin B12 deficiency and the placement started with IM injection until Sunday and then can switch to oral dose. Sed Special Education Teacher team ordered gastric antibodies to check for pernicious anemia which is pending. Elevated bilirubin is a due to vitamin B12 deficiency Her fluid overload is improved, this couldn't be explained by units of blood transfusion given to this thin built lady, currently she is on IV Lasix 20 mg twice daily this can be switched to oral dose tomorrow Surgical team recommended hiatal hernia repair, cardiology consult requested for preoperative evaluation. Patient and family requested second opinion and requested Dr. mclain consult Possible discharge in 24-48 hours if she keeps improving 09/08/2022 Patient generally feels improving, she still somewhat tachypneic. Breathing treatment is added for her She's becoming more euvolemic and her hypervolemia is improving therefore we switched her IV Lasix and oral Lasix 20 mg daily Second surgery opinion obtained, EGD is recommended with follow-up by hiatal hernia repair electively. Surgery team on the case and planned for Sunday hernia repair. Procedure team patient refused EGD Antiparietal antibody is elevated suggestive of pernicious anemia. That's consu lt is requested. She remains on IV vitamin B12 deficiency. Subacute rehab is recommended for the patient upon discharge, caseworker on the case 09/09 Okay with EGD, Hb stable Diet advanced EXAM GENERAL: The patient is alert and oriented x3, not in any acute distress. Frail, thin built HEENT: Pupils are round and equally reacting to light. EOMI. No scleral icterus. No conjunctival pallor. Normocephalic, atraumatic. No pharyngeal erythema. No thyromegaly. CARDIOVASCULAR: S1 and S2 present. No murmurs, rubs, or gallops. PULMONARY: Chest is clear to auscultation, no wheezing . no crackles. No basal crepitation ABDOMEN: Soft, nontender, nondistended, normoactive bowel sounds. No palpable organomegaly. MUSCULOSKELETAL: No joint swelling or deformity. EXTREMITIES: No cyanosis, clubbing, or pedal edema. Improving leg edema NEUROLOGICAL: Gross neurological examination did not reveal any focal deficits. SKIN: No rashes. no petechiae. Assessment: * Pernicious anemia >> Severe acute macrocytic Anemia and thrombocytopenia, secondary to vitamin B12 deficiency present on admission . Status post 2 units of blood transfusion on admission * Acute diastolic CHF normal ejection fraction 50-55% on echocardiogram on 09/2021 * Moderate to severe aortic stenosis * elevated bilirubin. Unconjugated secondary to an effective erythropoiesis secondary to vitamin B12 deficiency * Chronic kidney disease stage III * history of constipation * History of right breast cancer status post radiotherapy and right lumpectomy * COPD, no acute exacerbation * hypothyroidism * History of osteoarthritis Plan: Continue with vitamin B12 replacement therapy Daily IM paramedical aide Consulted [facility] hiatal hernia surgery team on the case and recommended EGD and elective hernia repair > Patient in agreement Labs and medication were reviewed.. DVT prophylaxis: SCD GI Prophylaxis: Protonix PT/OT:Subacute rehab Objective - Vital Signs Vital signs: Vital Signs Temp 97.8 F 09/09/22 12:30 Pulse 91 09/09/22 12:30 Resp 18 09/09/22 12:30 BP 105/64 09/09/22 12:30 Pulse Ox 96 09/09/22 12:30 FiO2 Intake & Output 09/08/22 09/09/22 09/09/22 18:59 06:59 18:59 Intake Total 590 0 Balance 590 0 Weight 40.5 kg 40.5 kg Intake: Oral 590 0 Other: Voiding Method Bedside Commode # Voids 3 1 - Labs CBC & Chem 7: 09/08/22 05:17 09/08/22 05:17
--- NOTE | 2022-09-09 14:52 | P.PN ---
Subjective Progress Note Date: 09/09/22 This is a pleasant 82-year-old female patient who is admitted to the hospital symptomatic anemia with her symptoms being mild shortness of breath and weakness for the past several days. Rest of the patient in consultation for evaluation for possible CHF. NT proBNP 1040 which is normal for her age group. Echocardiogram with Doppler study was done due to history of aortic stenosis and this showed a normal LV systolic function with evidence of moderate . On examination the patient is overall feeling a bit better. She continues to feel weak but has no shortness of breath. She has no symptoms to suggest CHF. Objective - Vital Signs Vital signs: Vital Signs Temp 97.8 F 09/09/22 12:30 Pulse 91 09/09/22 12:30 Resp 18 09/09/22 12:30 BP 105/64 09/09/22 12:30 Pulse Ox 96 09/09/22 12:30 FiO2 Intake & Output 09/08/22 09/09/22 09/09/22 18:59 06:59 18:59 Intake Total 590 0 Balance 590 0 Weight 40.5 kg 40.5 kg Intake: Oral 590 0 Other: Voiding Method Bedside Commode # Voids 3 1 - Exam PHYSICAL EXAMINATION: HEENT: Head is atraumatic, normocephalic. Pupils equal, round. Neck is supple. There is no elevated jugular venous pressure. HEART EXAMINATION: Heart sounds regular, S1 and S2 normal. With a grade 3/6 systolic ejection murmur at the base. CHEST EXAMINATION: Lungs are clear to auscultation and precussion. No chest wall tenderness is noted on palpation or with deep breathing. ABDOMEN: Soft, nontender. Bowel sounds are heard. No organomegaly noted. EXTREMITIES: 2+ peripheral pulses with no evidence of peripheral edema and no calf tenderness noted. NEUROLOGIC patient is awake, alert and oriented x3. . - Labs CBC & Chem 7: 09/08/22 05:17 09/08/22 05:17 Assessment and Plan Assessment: 1 symptoms of shortness of breath and weakness likely secondary to anemia there is no evidence to suggest congestive heart failure #2 moderate aortic stenosis Plan: From cardiology's perspective there is no need for further cardiac workup at this time. We'll follow the patient on an as-needed basis. Please do not hesitate to contact us with questions. NEW CAR GET READY MECHANIC note has been reviewed, I agree with a documented findings and plan of care. Patient was seen and examined.
--- NOTE | 2022-09-09 16:10 | P.PN ---
Subjective Progress Note Date: 09/09/22 She denies abdominal pain. She reports feeling easily short of breath with exertion. She has new diagnosed heart murmur. She is considering surgery for her hiatal hernia pending upper scope. "I want to eat." She reports living home alone and will consider rehab for 2 weeks after discharge. Advance diet for optimal nutrition as she denies prior dysphagia or chest pain with food and she is underweight. Objective - Vital Signs Vital signs: Vital Signs Temp 97.8 F 09/09/22 12:30 Pulse 91 09/09/22 12:30 Resp 18 09/09/22 12:30 BP 105/64 09/09/22 12:30 Pulse Ox 96 09/09/22 12:30 FiO2 Intake & Output 09/08/22 09/09/22 09/09/22 18:59 06:59 18:59 Intake Total 590 0 Balance 590 0 Weight 40.5 kg 40.5 kg Intake: Oral 590 0 Other: Voiding Method Bedside Commode # Voids 3 1 - Labs CBC & Chem 7: 09/08/22 05:17 09/08/22 05:17
[2022-09-10] MEDS: LEVOTHYROXINE 88 MCG TAB PO SCH (06:25)
[2022-09-10] MEDS: HEPARIN SODIUM,PORCINE/PF 5,000 UNIT/0.5 ML SYRINGE SQ SCH ×2 (07:07→20:58)
[2022-09-10] MEDS: CYANOCOBALAMIN 1,000 MCG/ML 1 ML VIAL IM SCH (07:24)
[2022-09-10] MEDS: FUROSEMIDE 20 MG TAB PO SCH (07:25)
[2022-09-10] MEDS: FOLIC ACID 1 MG TAB PO SCH (07:25)
[2022-09-10 07:34] LABS: Anisocytosis Marked; HCT 21.9 % (34.0-46.0); HGB 7.3 gm/dL (11.4-16.0); MCH 36.8 pg (25.0-35.0); MCHC 33.5 g/dL (31.0-37.0); Macrocytosis Marked; Mean Platelet Volume 10.9; RBC 1.99 m/uL (3.80-5.40); WBC 6.3 k/uL (3.8-10.6)
[2022-09-10 08:14] LABS: African American GFR (CKD) 76 (>60 ml/min/1.73 sqM); Anion Gap -1 mmol/L; Blood Urea Nitrogen 32 mg/dL (7-17); Calcium 9.3 mg/dL (8.4-10.2); Carbon Dioxide 36 mmol/L (22-30); Chloride 99 mmol/L (98-107); Glucose 87 mg/dL (74-99); Magnesium 2.4 mg/dL (1.6-2.3); Non-African American GFR(CKD) 66 (>60 ml/min/1.73 sqM); Potassium 5.1 mmol/L (3.5-5.1); Sodium 134 mmol/L (137-145)
[2022-09-10 08:22] LABS: RDW 25.7 % (11.5-15.5)
[2022-09-10] MEDS: PANTOPRAZOLE 40 MG/10 ML VIAL IV SCH (08:28)
[2022-09-10 09:06] LABS: Platelet Count 55 k/uL (150-450)
--- NOTE | 2022-09-10 13:08 | P.PN ---
Subjective Progress Note Date: 09/10/22 82 years old female with multiple medical problems including osteoarthritis, hypothyroidism, COPD, irritable bowel syndrome, history of right breast cancer in 2016 status post lumpectomy and radiotherapy. Patient presents because of dyspnea and weakness few days especially with exertion for example going up stairs and she has to stop. She denies chest pain but is complaining of from coughing and yellow phlegm for the last 2 days. No abdominal pain vomiting or diarrhea, she denies blood per rectum and her stool color is brown. No recent urinary symptoms like urgency or dysuria. No headache weakness numbness. Chief complaint from generalized weakness She had little short of breath when she is talking. She has good appetite. She denies smoking alcohol or illicit drugs She does not follow up recently with oncologist, no recent chemoradiotherapy She denies leg pain or swelling, she denies hemoptysis or bleeding from anywhere -Last year she had similar presentation with acute symptomatic anemia with no GI bleed, she was noted to have diverticular disease with no active bleeding on endoscopy. She states follow-up with Dr. Contreras for her anemia and Dr. Mitchell for her breast cancer and radiotherapy Vitals looks stable and patient is afebrile. showing severe anemia with hemoglobin 4.0 on admission her baseline hemoglobin is (8-9), platelet count is 89k, Baseline platelet count 185-195 creatinine 1.06, Baseline 0.8-1.01 Total bilirubin is 3.4 which is elevated. AST slightly up at 47 and ALT normal at 23. proBNP is 99. Lactate dehydrogenase elevated at [birth year]16/1939. Troponin is neg ative. EKG showed normal sinus rhythm at [address]-T changes Chest x-ray: Minimal right pleural effusion.per radiologist, However when I reviewed the chest x-ray suspicion of left lower lobe infiltrates. Physical Lovenox was negative. B12 and folic pending. Viruses undetected , including influenza, RSV, mccarthy v Liver ultrasound: unremarkable for right upper quadrant ultrasound Patient was started on Protonix and admitted with surgery and hematology consults Patient received 2 units of blood transfusion 09/07/2022 Patient have severe vitamin B12 deficiency and the placement started with IM injection until Sunday and then can switch to oral dose. Dental Office Assistant team ordered gastric antibodies to check for pernicious anemia which is pending. Elevated bilirubin is a due to vitamin B12 deficiency Her fluid overload is improved, this couldn't be explained by units of blood transfusion given to this thin built lady, currently she is on IV Lasix 20 mg twice daily this can be switched to oral dose tomorrow Surgical team recommended hiatal hernia repair, cardiology consult requested for preoperative evaluation. Patient and family requested second opinion and requested Dr. mclain consult Possible discharge in 24-48 hours if she keeps improving 09/08/2022 Patient generally feels improving, she still somewhat tachypneic. Breathing treatment is added for her She's becoming more euvolemic and her hypervolemia is improving therefore we switched her IV Lasix and oral Lasix 20 mg daily Second surgery opinion obtained, EGD is recommended with follow-up by hiatal hernia repair electively. Surgery team on the case and planned for Sunday hernia repair. Procedure team patient refused EGD Antiparietal antibody is elevated suggestive of pernicious anemia. That's consu lt is requested. She remains on IV vitamin B12 deficiency. Subacute rehab is recommended for the patient upon discharge, machine adjuster leader case trim on the case 09/09 Okay with EGD, Hb stable Diet advanced 09/10 Hb low, no sign sof bleed, okay with EGD, NPO at midnight till Surgery eval tomorrow Objective - Vital Signs Vital signs: Vital Signs Temp 98.4 F 09/10/22 07:37 Pulse 76 09/10/22 07:37 Resp 16 09/10/22 07:37 BP 124/62 09/10/22 07:37 Pulse Ox 98 09/10/22 07:37 FiO2 Intake & Output 09/09/22 09/10/22 09/10/22 18:59 06:59 18:59 Weight 40.5 kg Other: Voiding Method Bedside Commode # Voids 2 3 1 - Exam EXAM GENERAL: The patient is alert and oriented x3, not in any acute distress. Frail, thin built HEENT: Pupils are round and equally reacting to light. EOMI. No scleral icterus. No conjunctival pallor. Normocephalic, atraumatic. No pharyngeal erythema. No thyromegaly. CARDIOVASCULAR: S1 and S2 present. No murmurs, rubs, or gallops. PULMONARY: Chest is clear to auscultation, no wheezing . no crackles. No basal crepitation ABDOMEN: Soft, nontender, nondistended, normoactive bowel sounds. No palpable organomegaly. MUSCULOSKELETAL: No joint swelling or deformity. EXTREMITIES: No cyanosis, clubbing, or pedal edema. Improving leg edema NEUROLOGICAL: Gross neurological examination did not reveal any focal deficits. SKIN: No rashes. no petechiae. - Labs CBC & Chem 7: 09/10/22 06:39 09/10/22 06:43 Labs: Abnormal Lab Results - Last 24 Hours (Table) 09/10/22 09/10/22 Range/Units 06:39 06:43 RBC 1.99 L (3.80-5.40) m/uL Hgb 7.3 L (11.4-16.0) gm/dL Hct 21.9 L (34.0-46.0) % MCV 110.0 H (80.0-100.0) fL MCH 36.8 H (25.0-35.0) pg RDW 25.7 H (11.5-15.5) % Plt Count 55 L (150-450) k/uL Macrocytosis Marked A Sodium 134 L (137-145) mmol/L Carbon Dioxide 36 H (22-30) mmol/L BUN 32 H (7-17) mg/dL Magnesium 2.4 H (1.6-2.3) mg/dL Assessment and Plan Assessment: Assessment: * Pernicious anemia >> Severe acute macrocytic Anemia and thrombocytopenia, secondary to vitamin B12 deficiency present on admission . Status post 2 units of blood transfusion on admission * Acute diastolic CHF normal ejection fraction 50-55% on echocardiogram on 09/2021 * Moderate to severe aortic stenosis * elevated bilirubin. 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 DVT prophylaxis: SCD GI Prophylaxis: Protonix PT/OT:Subacute rehab
--- NOTE | 2022-09-10 14:33 | P.PN ---
Subjective Progress Note Date: 09/10/22 Principal diagnosis: Patient reiterates that she is only seeking upper endoscopy not complete surgical hiatal hernia. At this time. She has additional questions regarding any further surgery but she is agreeable to upper scope. She tolerated 100% of her ground diet. No dysphagia. Recommend continue diet until nothing by mouth after midnight. Objective - Vital Signs Vital signs: Vital Signs Temp 99.2 F 09/10/22 13:57 Pulse 89 09/10/22 13:57 Resp 16 09/10/22 13:57 BP 130/73 09/10/22 13:57 Pulse Ox 99 09/10/22 13:57 FiO2 Intake & Output 09/09/22 09/10/22 09/10/22 18:59 06:59 18:59 Weight 40.5 kg Other: Voiding Method Bedside Commode # Voids 2 3 1 - Labs CBC & Chem 7: 09/10/22 06:39 09/10/22 06:43 Labs: Abnormal Lab Results - Last 24 Hours (Table) 09/10/22 09/10/22 Range/Units 06:39 06:43 RBC 1.99 L (3.80-5.40) m/uL Hgb 7.3 L (11.4-16.0) gm/dL Hct 21.9 L (34.0-46.0) % MCV 110.0 H (80.0-100.0) fL MCH 36.8 H (25.0-35.0) pg RDW 25.7 H (11.5-15.5) % Plt Count 55 L (150-450) k/uL Macrocytosis Marked A Sodium 134 L (137-145) mmol/L Carbon Dioxide 36 H (22-30) mmol/L BUN 32 H (7-17) mg/dL Magnesium 2.4 H (1.6-2.3) mg/dL
[2022-09-11] MEDS: LEVOTHYROXINE 88 MCG TAB PO SCH (05:26)
[2022-09-11 07:07] LABS: African American GFR (CKD) 62 (>60 ml/min/1.73 sqM); Anion Gap 3 mmol/L; Blood Urea Nitrogen 28 mg/dL (7-17); Calcium 9.3 mg/dL (8.4-10.2); Carbon Dioxide 36 mmol/L (22-30); Chloride 98 mmol/L (98-107); Glucose 99 mg/dL (74-99); Non-African American GFR(CKD) 54 (>60 ml/min/1.73 sqM); Sodium 137 mmol/L (137-145)
[2022-09-11 07:15] LABS: Anisocytosis Marked; HCT 24.8 % (34.0-46.0); Hypochromasia Slight; MCH 35.7 pg (25.0-35.0); MCHC 32.2 g/dL (31.0-37.0); MCV 110.9 fL (80.0-100.0); Macrocytosis Marked; Mean Platelet Volume 11.2; RBC 2.23 m/uL (3.80-5.40); WBC 6.2 k/uL (3.8-10.6)
[2022-09-11 07:16] LABS: Platelet Count 69 k/uL (150-450); RDW 26.3 % (11.5-15.5)
[2022-09-11] MEDS: FUROSEMIDE 20 MG TAB PO SCH (08:23)
[2022-09-11] MEDS: FOLIC ACID 1 MG TAB PO SCH (08:23)
[2022-09-11] MEDS: HEPARIN SODIUM,PORCINE/PF 5,000 UNIT/0.5 ML SYRINGE SQ SCH ×2 (08:23→21:49)
[2022-09-11] MEDS: PANTOPRAZOLE 40 MG/10 ML VIAL IV SCH (08:25)
[2022-09-11] MEDS: CYANOCOBALAMIN 1,000 MCG/ML 1 ML VIAL IM SCH (08:26)
--- NOTE | 2022-09-11 12:02 | P.PN ---
Subjective Progress Note Date: 09/11/22 CHIEF COMPLAINT: Shortness of breath and weakness HISTORY OF PRESENT ILLNESS: Patient to the hospital with shortness of breath and weakness and found to have a hemoglobin of 4.0. Stool for occult blood ne gative. Patient found to have a large hiatal hernia that contained both stomach and part of the transverse colon. Patient seen by cardiology service for cardiac clearance. They've evaluated patient and have signed off. Report notes no evidence of CHF. Hemoglobin stable at 8.0. Platelets 69 Patient is now agreeable for EGD and hiatal hernia repair. Patient seen and examined with Dr. marquez PHYSICAL EXAM: VITAL SIGNS: Reviewed. GENERAL: Well-developed in no acute distress. HEENT: No sclera icterus. Extraocular movements grossly intact. Moist buccal mucosa. Head is atraumatic, normocephalic. ABDOMEN: Soft. Nondistended. Nontender. NEUROLOGIC: Alert and oriented. Cranial nerves II through XII grossly intact. ASSESSMENT: 1. Large hiatal hernia containing majority of the stomach and a significant portion of the transverse colon 2. Anemia possibly related to microscopic bleeding from patient's large hiatal hernia and evidence of B12 deficiency 3. Severe aortic stenosis 4. Fluid overload resolved. 5. Thrombocytopenia followed by hematology PLAN: -Patient scheduled for EGD today with Dr. marquez -Further recommendations forthcoming regarding scheduling for hiatal hernia repair Physician News Department Intern note has been reviewed by physician. Signing provider agrees with the documented findings, assessment, and plan of care. Objective - Vital Signs Vital signs: Vital Signs Temp 97.6 F 09/11/22 07:35 Pulse 72 09/11/22 07:35 Resp 14 09/11/22 07:35 BP 124/74 09/11/22 07:35 Pulse Ox 100 09/11/22 07:35 FiO2 Intake & Output 09/10/22 09/11/22 09/11/22 18:59 06:59 18:59 Intake Total 600 0 Balance 600 0 Weight 40.5 kg Intake: Oral 600 0 Other: Voiding Method Bedside Commode Bedside Commode Bedside Commode # Voids 4 1 - Labs CBC & Chem 7: 09/11/22 06:28 09/11/22 06:28 Labs: Abnormal Lab Results - Last 24 Hours (Table) 09/11/22 09/11/22 Range/Units 06:28 06:28 RBC 2.23 L (3.80-5.40) m/uL Hgb 8.0 L (11.4-16.0) gm/dL Hct 24.8 L (34.0-46.0) % MCV 110.9 H (80.0-100.0) fL MCH 35.7 H (25.0-35.0) pg RDW 26.3 H (11.5-15.5) % Plt Count 69 L (150-450) k/uL Macrocytosis Marked A Carbon Dioxide 36 H (22-30) mmol/L BUN 28 H (7-17) mg/dL
--- NOTE | 2022-09-11 13:50 | P.PN ---
Subjective Progress Note Date: 09/11/22 82 years old female with multiple medical problems including osteoarthritis, hypothyroidism, COPD, irritable bowel syndrome, history of right breast cancer in 2016 status post lumpectomy and radiotherapy. Patient presents because of dyspnea and weakness few days especially with exertion for example going up stairs and she has to stop. She denies chest pain but is complaining of from coughing and yellow phlegm for the last 2 days. No abdominal pain vomiting or diarrhea, she denies blood per rectum and her stool color is brown. No recent urinary symptoms like urgency or dysuria. No headache weakness numbness. Chief complaint from generalized weakness She had little short of breath when she is talking. She has good appetite. She denies smoking alcohol or illicit drugs She does not follow up recently with oncologist, no recent chemoradiotherapy She denies leg pain or swelling, she denies hemoptysis or bleeding from anywhere -Last year she had similar presentation with acute symptomatic anemia with no GI bleed, she was noted to have diverticular disease with no active bleeding on endoscopy. She states follow-up with Dr. Contreras for her anemia and Dr. Mitchell for her breast cancer and radiotherapy Vitals looks stable and patient is afebrile. showing severe anemia with hemoglobin 4.0 on admission her baseline hemoglobin is (8-9), platelet count is 89k, Baseline platelet count 185-195 creatinine 1.06, Baseline 0.8-1.01 Total bilirubin is 3.4 which is elevated. AST slightly up at 47 and ALT normal at 23. proBNP is 99. Lactate dehydrogenase elevated at 04[birth year]16/1939. Troponin is neg ative. EKG showed normal sinus rhythm at [address]-T changes Chest x-ray: Minimal right pleural effusion.per radiologist, However when I reviewed the chest x-ray suspicion of left lower lobe infiltrates. Physical Lovenox was negative. B12 and folic pending. Viruses undetected , including influenza, RSV, mccarthy v Liver ultrasound: unremarkable for right upper quadrant ultrasound Patient was started on Protonix and admitted with surgery and hematology consults Patient received 2 units of blood transfusion 09/07/2022 Patient have severe vitamin B12 deficiency and the placement started with IM injection until Sunday and then can switch to oral dose. Aircraft Engine Assembler team ordered gastric antibodies to check for pernicious anemia which is pending. Elevated bilirubin is a due to vitamin B12 deficiency Her fluid overload is improved, this couldn't be explained by units of blood transfusion given to this thin built lady, currently she is on IV Lasix 20 mg twice daily this can be switched to oral dose tomorrow Surgical team recommended hiatal hernia repair, cardiology consult requested for preoperative evaluation. Patient and family requested second opinion and requested Dr. mclain consult Possible discharge in 24-48 hours if she keeps improving 09/08/2022 Patient generally feels improving, she still somewhat tachypneic. Breathing treatment is added for her She's becoming more euvolemic and her hypervolemia is improving therefore we switched her IV Lasix and oral Lasix 20 mg daily Second surgery opinion obtained, EGD is recommended with follow-up by hiatal hernia repair electively. Surgery team on the case and planned for Sunday hernia repair. Procedure team patient refused EGD Antiparietal antibody is elevated suggestive of pernicious anemia. That's consu lt is requested. She remains on IV vitamin B12 deficiency. Subacute rehab is recommended for the patient upon discharge, manager case management on the case 09/09 Okay with EGD, Hb stable Diet advanced 09/10 Hb low, no sign sof bleed, okay with EGD, NPO at midnight till Surgery eval tomorrow 09/11 Patient seen by surgery planned for EGD scheduled for today, hemoglobin remained stable, we'll continue with vitamin B12 supplementation Objective - Vital Signs Vital signs: Vital Signs Temp 98.8 F 09/11/22 12:55 Pulse 69 09/11/22 12:55 Resp 15 09/11/22 12:55 BP 109/67 09/11/22 12:55 Pulse Ox 97 09/11/22 12:55 FiO2 Intake & Output 09/10/22 09/11/22 09/11/22 18:59 06:59 18:59 Intake Total 600 0 Balance 600 0 Weight 40.5 kg Intake: Oral 600 0 Other: Voiding Method Bedside Commode Bedside Commode Bedside Commode # Voids 4 1 - Exam EXAM GENERAL: The patient is alert and oriented x3, not in any acute distress. Frail, thin built, pale appearance HEENT: Pupils are round and equally reacting to light. EOMI. No scleral icterus. No conjunctival pallor. Normocephalic, atraumatic. No pharyngeal erythema. No thyromegaly. CARDIOVASCULAR: S1 and S2 present. No murmurs, rubs, or gallops. PULMONARY: Chest is clear to auscultation, no wheezing . no crackles. No basal crepitation ABDOMEN: Soft, nontender, nondistended, normoactive bowel sounds. No palpable organomegaly. MUSCULOSKELETAL: No joint swelling or deformity. EXTREMITIES: No cyanosis, clubbing, or pedal edema. Improving leg edema NEUROLOGICAL: Gross neurological examination did not reveal any focal deficits. SKIN: No rashes. no petechiae. - Labs CBC & Chem 7: 09/11/22 06:28 09/11/22 06:28 Labs: Abnormal Lab Results - Last 24 Hours (Table) 09/11/22 09/11/22 Range/Units 06:28 06:28 RBC 2.23 L (3.80-5.40) m/uL Hgb 8.0 L (11.4-16.0) gm/dL Hct 24.8 L (34.0-46.0) % MCV 110.9 H (80.0-100.0) fL MCH 35.7 H (25.0-35.0) pg RDW 26.3 H (11.5-15.5) % Plt Count 69 L (150-450) k/uL Macrocytosis Marked A Carbon Dioxide 36 H (22-30) mmol/L BUN 28 H (7-17) mg/dL Assessment and Plan Assessment: Assessment: * Pernicious anemia >> Severe acute macrocytic Anemia and thrombocytopenia, secondary to vitamin B12 deficiency present on admission . Status post 2 units of blood transfusion on admission * Acute diastolic CHF normal ejection fraction 50-55% on echocardiogram on 09/2021 * Moderate to severe aortic stenosis * elevated bilirubin. Unconjugated secondary to an effective erythropoiesis secondary to vitamin B12 deficiency * Chronic kidney disease stage III * history of constipation * History of right breast cancer status post radiotherapy and right lumpectomy * COPD, no acute exacerbation * hypothyroidism * History of osteoarthritis Plan: Continue with vitamin B12 replacement therapy Daily IM x 7 days (Day 5/7) then weekly dosing Surgery Following, scheduled for EGD 09/11 head inspector and center marker Consulted [facility] Oral hiatal hernia surgery team on the case and recommended EGD and elective hernia repair > Patient in agreement Labs and medication were reviewed.. DVT prophylaxis: SCD GI Prophylaxis: Protonix PT/OT:Subacute rehab
[2022-09-11] MEDS ORDERED: PROPOFOL 10 MG/ML 20 ML VIAL IV ONE (14:15)
[2022-09-11] MEDS ORDERED: LACTATED RINGERS 1,000 ML IV ONE ×2 (14:17)
--- NOTE | 2022-09-11 14:26 | P.OP ---
Date of Procedure: 09/11/22 Preoperative Diagnosis: Paraesophageal hiatal hernia Postoperative Diagnosis: Large paraesophageal hiatal hernia Procedure(s) Performed: EGD Anesthesia: MAC Surgeon: Candido Harrington Pathology: none sent Condition: stable Disposition: PACU Description of Procedure: The patient's placed on the endoscopy table in the lateral position. She received IV sedation. The gastro-/oropharynx S in the esophagus. Scope was then placed and stomach. Patient a very large hiatal hernia with intrathoracic stomach the pylorus could not be entered. At this point scope withdrawn. The gastric body appeared normal. The GE junction was at 36 cm. The distal esophagus normal. Proximal esophagus appeared normal. Scope withdrawn for patient.
--- NOTE | 2022-09-11 15:07 | P.PN ---
Progress Note - Text Progress Note Date: 09/11/22 Patient seen and examined with Dr. marquez Patient is status post EGD with evidence of a very large hiatal hernia with intrathoracic stomach the pylorus could not be entered. Dr. Marquez does recommend the patient proceeds with hiatal hernia repair. Patient is agreeable to proceed with hiatal hernia repair. She'll be on full liquid diet today and then nothing by mouth after midnight. She is scheduled for hiatal hernia repair tomorrow, 09/12/[address] marquez.
--- NOTE | 2022-09-11 19:31 | P.PN ---
Subjective Progress Note Date: 09/11/22 Principal diagnosis: Symptomatic anemia In f/u pt denying fever, bleeding, abd pain. She is pending endoscopy Objective - Vital Signs Vital signs: Vital Signs Temp 97.6 F 09/11/22 07:35 Pulse 72 09/11/22 07:35 Resp 14 09/11/22 07:35 BP 124/74 09/11/22 07:35 Pulse Ox 100 09/11/22 07:35 FiO2 Intake & Output 09/10/22 09/11/22 09/11/22 18:59 06:59 18:59 Intake Total 600 0 Balance 600 0 Weight 40.5 kg Intake: Oral 600 0 Other: Voiding Method Bedside Commode Bedside Commode Bedside Commode # Voids 4 1 - Constitutional General appearance: Present: average body habitus, cooperative, no acute distress - EENT Eyes: Present: anicteric sclerae, EOMI ENT: Present: hard of hearing - Respiratory Details: resp even and unlabored at rest - Cardiovascular Rhythm: regular - Gastrointestinal General gastrointestinal: Present: soft - Integumentary Integumentary: Present: pale - Neurologic Neurologic: Present: CNII-XII intact (grossly) - Musculoskeletal Musculoskeletal: Present: generalized weakness - Psychiatric Psychiatric: Present: A&O x's 3, appropriate affect, intact judgment & insight - Labs CBC & Chem 7: 09/11/22 06:28 09/11/22 06:28 Labs: Abnormal Lab Results - Last 24 Hours (Table) 09/11/22 09/11/22 Range/Units 06:28 06:28 RBC 2.23 L (3.80-5.40) m/uL Hgb 8.0 L (11.4-16.0) gm/dL Hct 24.8 L (34.0-46.0) % MCV 110.9 H (80.0-100.0) fL MCH 35.7 H (25.0-35.0) pg RDW 26.3 H (11.5-15.5) % Plt Count 69 L (150-450) k/uL Macrocytosis Marked A Carbon Dioxide 36 H (22-30) mmol/L BUN 28 H (7-17) mg/dL Assessment and Plan (1) Symptomatic anemia Current Visit: Yes Status: Acute Priority: High Code(s): D64.9 - ANEMIA, UNSPECIFIED SNOMED Code(s): 121054075 (2) Thrombocytopenia Current Visit: Yes Status: Acute Priority: High Code(s): D69.6 - THROMBOCYTOPENIA, UNSPECIFIED SNOMED Code(s): 570141816 Plan: Bicytopenia -Work up ordered, still pending some results -Transfuse for a Hgb <7, Hgb 8 today. Transfuse for plt <10,000, plt 69,000 today. -Endoscopy today, pending findings Pernicious anemia -Anti-parietal ab testing was positive. Pt has been started on parenteral B12 and oral folate. This will need to be continued outpt. -F/U outpt attests: I seen and examined patient, performed H&P, developed impression and plan of care. Discussed with dictator. Agree with documentation, dictated as a scribe
[2022-09-12] MEDS: LEVOTHYROXINE 88 MCG TAB PO SCH (06:19)
[2022-09-12 06:42] LABS: Anisocytosis Marked; HGB 8.4 gm/dL (11.4-16.0); Hypochromasia Moderate; MCH 36.3 pg (25.0-35.0); MCHC 32.3 g/dL (31.0-37.0); MCV 112.5 fL (80.0-100.0); Macrocytosis Marked; Mean Platelet Volume 10.6; RBC 2.31 m/uL (3.80-5.40); RDW 24.8 % (11.5-15.5); WBC 6.2 k/uL (3.8-10.6)
[2022-09-12 06:44] LABS: Platelet Count 107 k/uL (150-450)
[2022-09-12 06:48] LABS: African American GFR (CKD) 60 (>60 ml/min/1.73 sqM); Anion Gap 4 mmol/L; Blood Urea Nitrogen 32 mg/dL (7-17); Calcium 9.4 mg/dL (8.4-10.2); Carbon Dioxide 33 mmol/L (22-30); Chloride 99 mmol/L (98-107); Glucose 99 mg/dL (74-99); Non-African American GFR(CKD) 52 (>60 ml/min/1.73 sqM); Sodium 136 mmol/L (137-145)
[2022-09-12] MEDS ORDERED: CYANOCOBALAMIN 500 MCG TAB PO SCH (09:00)
[2022-09-12] MEDS: PANTOPRAZOLE 40 MG/10 ML VIAL IV SCH (09:20)
[2022-09-12] MEDS: FOLIC ACID 1 MG TAB PO SCH (09:20)
[2022-09-12] MEDS: FUROSEMIDE 20 MG TAB PO SCH (09:20)
[2022-09-12] MEDS: HEPARIN SODIUM,PORCINE/PF 5,000 UNIT/0.5 ML SYRINGE SQ SCH ×2 (09:22→20:47)
[2022-09-12] MEDS: CYANOCOBALAMIN 1,000 MCG/ML 1 ML VIAL IM SCH (09:31)
[2022-09-12] MEDS ORDERED: ONDANSETRON 4 MG/2 ML VIAL ONE (11:08)
[2022-09-12] MEDS ORDERED: DEXAMETHASONE SOD PHOSPHATE 4 MG/ML 1 ML VIAL IVP ONE (11:13)
[2022-09-12] MEDS ORDERED: HEPARIN SODIUM,PORCINE 5,000 UNIT/ML 1 ML VIAL SQ ONE (11:14)
[2022-09-12] MEDS ORDERED: SUCCINYLCHOLINE CHLORIDE 200 MG/10 ML VIAL IV ONE (11:51)
[2022-09-12] MEDS ORDERED: NEOSTIGMINE 1 MG/ML 10 ML VIAL ONE (11:51)
[2022-09-12] MEDS ORDERED: ROCURONIUM 10 MG/ML (5 ML VIAL) IV ONE (11:51)
[2022-09-12] MEDS ORDERED: SODIUM CHLORIDE 0.9% 100 ML with ceFAZolin 2 GM IV ONE ×2 (11:51)
[2022-09-12] MEDS ORDERED: fentaNYL (PF) 50 MCG/ML 2 ML AMP ONE (11:51)
[2022-09-12] MEDS ORDERED: LIDOCAINE 2% INJ 20 MG/ML (2 ML VIAL) ONE (11:51)
[2022-09-12] MEDS ORDERED: PHENYLEPHRINE-0.9% NACL SYG 1,000 MCG/10 ML SYRINGE ONE (11:51)
[2022-09-12] MEDS ORDERED: PROPOFOL 10 MG/ML 20 ML VIAL IV ONE (11:51)
[2022-09-12] MEDS ORDERED: HYDROmorphone (PF) 1 MG/ML ONE (11:51)
[2022-09-12] MEDS ORDERED: GLYCOPYRROLATE 0.2 MG/ML 2 ML VIAL ONE (11:51)
[2022-09-12] MEDS ORDERED: BUPIVACAINE (PF) 0.25% 30 ML VIAL SQ ONE ×2 (12:19→12:24)
--- NOTE | 2022-09-12 13:20 | P.PN ---
Subjective Progress Note Date: 09/12/22 82 years old female with multiple medical problems including osteoarthritis, hypothyroidism, COPD, irritable bowel syndrome, history of right breast cancer in 2016 status post lumpectomy and radiotherapy. Patient presents because of dyspnea and weakness few days especially with exertion for example going up stairs and she has to stop. She denies chest pain but is complaining of from coughing and yellow phlegm for the last 2 days. No abdominal pain vomiting or diarrhea, she denies blood per rectum and her stool color is brown. No recent urinary symptoms like urgency or dysuria. No headache weakness numbness. Chief complaint from generalized weakness She had little short of breath when she is talking. She has good appetite. She denies smoking alcohol or illicit drugs She does not follow up recently with oncologist, no recent chemoradiotherapy She denies leg pain or swelling, she denies hemoptysis or bleeding from anywhere -Last year she had similar presentation with acute symptomatic anemia with no GI bleed, she was noted to have diverticular disease with no active bleeding on endoscopy. She states follow-up with Dr. Contreras for her anemia and Dr. Mitchell for her breast cancer and radiotherapy Vitals looks stable and patient is afebrile. showing severe anemia with hemoglobin 4.0 on admission her baseline hemoglobin is (8-9), platelet count is 89k, Baseline platelet count 185-195 creatinine 1.06, Baseline 0.8-1.01 Total bilirubin is 3.4 which is elevated. AST slightly up at 47 and ALT normal at 23. proBNP is 99. Lactate dehydrogenase elevated at 04[birth year]16/1939. Troponin is neg ative. EKG showed normal sinus rhythm at [address]-T changes Chest x-ray: Minimal right pleural effusion.per radiologist, However when I reviewed the chest x-ray suspicion of left lower lobe infiltrates. Physical Lovenox was negative. B12 and folic pending. Viruses undetected , including influenza, RSV, mccarthy v Liver ultrasound: unremarkable for right upper quadrant ultrasound Patient was started on Protonix and admitted with surgery and hematology consults Patient received 2 units of blood transfusion 09/07/2022 Patient have severe vitamin B12 deficiency and the placement started with IM injection until Sunday and then can switch to oral dose. News Technical Director team ordered gastric antibodies to check for pernicious anemia which is pending. Elevated bilirubin is a due to vitamin B12 deficiency Her fluid overload is improved, this couldn't be explained by units of blood transfusion given to this thin built lady, currently she is on IV Lasix 20 mg twice daily this can be switched to oral dose tomorrow Surgical team recommended hiatal hernia repair, cardiology consult requested for preoperative evaluation. Patient and family requested second opinion and requested Dr. mclain consult Possible discharge in 24-48 hours if she keeps improving 09/08/2022 Patient generally feels improving, she still somewhat tachypneic. Breathing treatment is added for her She's becoming more euvolemic and her hypervolemia is improving therefore we switched her IV Lasix and oral Lasix 20 mg daily Second surgery opinion obtained, EGD is recommended with follow-up by hiatal hernia repair electively. Surgery team on the case and planned for Sunday hernia repair. Procedure team patient refused EGD Antiparietal antibody is elevated suggestive of pernicious anemia. That's consu lt is requested. She remains on IV vitamin B12 deficiency. Subacute rehab is recommended for the patient upon discharge, manager case on the case 09/09 Okay with EGD, Hb stable Diet advanced 09/10 Hb low, no sign sof bleed, okay with EGD, NPO at midnight till Surgery eval tomorrow 09/11 Patient seen by surgery planned for EGD scheduled for today, hemoglobin remained stable, we'll continue with vitamin B12 supplementation 09/12 > status was EGD completed, normal gastric body, normal esophagus,. Surgery following plan for hiatal hernia surgery Continue with vitamin B12 supplementation Objective - Vital Signs Vital signs: Vital Signs Temp 97.8 F 09/12/22 10:57 Pulse 75 09/12/22 10:57 Resp 17 09/12/22 10:57 BP 114/65 09/12/22 10:57 Pulse Ox 100 09/12/22 10:57 FiO2 Intake & Output 09/11/22 09/12/22 09/12/22 18:59 06:59 18:59 Intake Total 650 200 Balance 650 200 Weight 43.3 kg Intake: IV 50 200 Oral 600 Other: Voiding Method Bedside Commode Bedside Commode # Voids 5 2 - Exam EXAM GENERAL: The patient is alert and oriented x3, not in any acute distress. Frail, thin built, pale appearance HEENT: Pupils are round and equally reacting to light. EOMI. No scleral icterus. No conjunctival pallor. Normocephalic, atraumatic. No pharyngeal erythema. No thyromegaly. CARDIOVASCULAR: S1 and S2 present. No murmurs, rubs, or gallops. PULMONARY: Chest is clear to auscultation, no wheezing . no crackles. No basal crepitation ABDOMEN: Soft, nontender, nondistended, normoactive bowel sounds. No palpable organomegaly. MUSCULOSKELETAL: No joint swelling or deformity. EXTREMITIES: No cyanosis, clubbing, or pedal edema. Improving leg edema NEUROLOGICAL: Gross neurological examination did not reveal any focal deficits. SKIN: No rashes. no petechiae. - Labs CBC & Chem 7: 09/12/22 06:14 09/12/22 06:14 Labs: Abnormal Lab Results - Last 24 Hours (Table) 09/12/22 09/12/22 Range/Units 06:14 06:14 RBC 2.31 L (3.80-5.40) m/uL Hgb 8.4 L (11.4-16.0) gm/dL Hct 26.0 L (34.0-46.0) % MCV 112.5 H (80.0-100.0) fL MCH 36.3 H (25.0-35.0) pg RDW 24.8 H (11.5-15.5) % Plt Count 107 L D (150-450) k/uL Macrocytosis Marked A Sodium 136 L (137-145) mmol/L Carbon Dioxide 33 H (22-30) mmol/L BUN 32 H (7-17) mg/dL Assessment and Plan Assessment: Assessment: * Pernicious anemia >> Severe acute macrocytic Anemia and thrombocytopenia, secondary to vitamin B12 deficiency present on admission . Status post 2 units of blood transfusion on admission * Acute diastolic CHF normal ejection fraction 50-55% on echocardiogram on 09/2021 * Moderate to severe aortic stenosis * elevated bilirubin. Unconjugated secondary to an effective erythropoiesis secondary to vitamin B12 deficiency * Chronic kidney disease stage III * history of constipation * History of right breast cancer status post radiotherapy and right lumpectomy * COPD, no acute exacerbation * hypothyroidism * History of osteoarthritis Plan: Continue with vitamin B12 replacement therapy Daily IM x 7 days (Day 6) then weekly dosing Surgery Following, EGD completed, planned vital hernia surgery network security administrator Consulted [facility] hiatal hernia surgery team on the case and recommended EGD and elective hernia repair > Patient in agreement Labs and medication were reviewed.. DVT prophylaxis: SCD GI Prophylaxis: Protonix PT/OT:Subacute rehab
[2022-09-12] MEDS ORDERED: HYDROmorphone 1 MG/ML 1 ML SYRINGE IVP PRN (13:49)
[2022-09-12] MEDS ORDERED: ONDANSETRON 4 MG/2 ML VIAL IVP PRN (13:49)
[2022-09-12] MEDS ORDERED: LACTATED RINGERS 1,000 ML IV ONE (13:51)
--- NOTE | 2022-09-12 13:53 | P.OP ---
Date of Procedure: 09/12/22 Preoperative Diagnosis: Paraesophageal hiatal hernia Postoperative Diagnosis: Paraesophageal hiatal hernia containing transverse colon Procedure(s) Performed: Laparoscopic repair of paraesophageal hiatal hernia with mesh Anesthesia: LAW Surgeon: Cadnido Harrington Estimated Blood Loss (ml): 20 Pathology: none sent Condition: stable Disposition: PACU Indications for Procedure: large intrathoracic paraesophageal hernia containing transverse colon and 90% of stomach Description of Procedure: the patient was placed on the operative table in the supine position. She received general anesthesia. She was then placed in the dorsal lithotomy position. Her abdomen was prepped and draped in usual sterile fashion. The skin incision sites were anesthetized 1% local Xylocaine. And then using a 5 mm optical trocar under direct vision the peritoneal cavity was entered and the left periumbilical area. The laparoscope was then placed into the peritoneal cavity. after adequate insufflation. Next a 5 mm trocar was placed in the right up epigastric position. And then the left lateral lobe of the liver was retracted. Another 5 mm trocar was placed in the left epigastric position. And then 5 mm trocars were placed in the right lateral and left lateral position. The camera was then positioned in the left epigastric position. The patient had a very large hiatal hernia. The transverse colon and almost entire stomach was in the chest. The transverse colon was reduced. And then the stomach was partially reduced. There was omentum which was also reduced from the hiatal hernia. The hiatal hernia sac was then dissected from the edge of the gaby. A 360 degree dissection of the hiatal hernia sac was performed. The stomach was then reduced. The adhesions to the esophagus were then lysed using the harmonic scissors. After complete reduction of the stomach and esophagus there was a suitable intra abdominal length of esophagus. The crura was then brought together using 2-0 Ethibond suture. After suture repair of the crura was perfor med. The repair was buttressed with Crocker bio a mesh. And this was secured with 2-0 Ethibond suture. The stomach inspected. There is no evidence of any injury to the stomach or esophagus. There is no bleeding seen. The abdomen was irrigated there is no bleeding seen. The trocars were withdrawn. The skin was closed interrupted 3-0 Monocryl suture. Due to the patient's underlying medical condition she was elected to be extubated and observed in the ICU overnight.
[2022-09-12] MEDS ORDERED: HYDROmorphone 0.5 MG/0.5 ML SYRINGE IVP ONE (14:28)
--- NOTE | 2022-09-12 15:19 | P.PN ---
Subjective Progress Note Date: 09/12/22 Principal diagnosis: Symptomatic anemia In f/u ptHas had EGD, scope unable to be passed past pylorus because of hernia. Patient is on her way for hernia repair this a.m. No acute complaints. Objective - Vital Signs Vital signs: Vital Signs Temp 98 F 09/12/22 14:05 Pulse 73 09/12/22 15:00 Resp 16 09/12/22 15:00 BP 138/63 09/12/22 15:00 Pulse Ox 100 09/12/22 15:00 FiO2 Intake & Output 09/11/22 09/12/22 09/12/22 18:59 06:59 18:59 Intake Total 650 1100 Output Total 30 Balance 650 1070 Weight 43.3 kg 43.3 kg Intake: IV 50 1100 Oral 600 Output: Estimated Blood Loss 30 Other: Voiding Method Bedside Commode Bedside Commode # Voids 5 2 - Constitutional General appearance: Present: cooperative, no acute distress, thin - EENT Eyes: Present: anicteric sclerae, EOMI ENT: Present: hearing grossly normal - Psychiatric Psychiatric: Present: A&O x's 3, appropriate affect, intact judgment & insight - Labs CBC & Chem 7: 09/12/22 06:14 09/12/22 06:14 Labs: Abnormal Lab Results - Last 24 Hours (Table) 09/12/22 09/12/22 Range/Units 06:14 06:14 RBC 2.31 L (3.80-5.40) m/uL Hgb 8.4 L (11.4-16.0) gm/dL Hct 26.0 L (34.0-46.0) % MCV 112.5 H (80.0-100.0) fL MCH 36.3 H (25.0-35.0) pg RDW 24.8 H (11.5-15.5) % Plt Count 107 L D (150-450) k/uL Macrocytosis Marked A Sodium 136 L (137-145) mmol/L Carbon Dioxide 33 H (22-30) mmol/L BUN 32 H (7-17) mg/dL Assessment and Plan (1) Symptomatic anemia Current Visit: Yes Status: Acute Priority: High Code(s): D64.9 - ANEMIA, UNSPECIFIED SNOMED Code(s): 710194568 (2) Thrombocytopenia Current Visit: Yes Status: Acute Priority: High Code(s): D69.6 - THROMBOCYTOPENIA, UNSPECIFIED SNOMED Code(s): 159348201 Plan: Bicytopenia -Work up ordered, No pathological findings so far. -Transfuse for a Hgb <7, Hgb 8.4 today. Transfuse for plt <10,000, plt 107,000 today. -EGD unable to pass pylorus. Patient is having hernia repair today. Pernicious anemia -Anti-parietal ab testing was positive. Pt has been started on parenteral B12 and oral folate (Her hemoglobin has been slowly increasing). Tx will need to be continued outpt. -F/U outpt
--- NOTE | 2022-09-12 17:02 | P.CNPUL ---
History of Present Illness Consult date: 09/12/22 Requesting physician: Candido Harrington Reason for consult: other (ICU management) Chief complaint: Paraesophageal hiatal hernia History of present illness: This is an 82-year-old female, admitted initially on 09/06/2022. She was admitted to Dr. mak, patient is known to have history of hypothyroidism COPD, irritable bowel syndrome, and history of right breast cancer in 2016 status post lumpectomy and radiotherapy. Patient was noted to have severe acute anemia and thrombocytopenia on admission received ideation a 2 units of packed RBCs, she was also found to have elevated bilirubin, chronic kidney disease stage III, and she has underlying COPD but no acute exacerbation since admission the patient was seen by many consultants including general surgery, hematology/oncology, and internal medicine. EGD revealed evidence of a very large hiatal hernia with intrathoracic stomach, and could not enter the pylorus. Hence the surgeon recommended that he proceeds with hiatal hernia repair. Today the patient underwent laparoscopic repair of paraesophageal hiatal hernia with mesh, considering her marginal clinical status and medical debility, patient was admitted to the ICU, and this consult was initiated. I saw this patient in the recovery room, she is on a Ventimask, she is still not fully awake, could not assess mental status or get any appropriate history from the patient. Patient was hemodynamically stable, she was already extubated, and I recommended overnight admission to the ICU and observation. Labs today showed hemoglobin of 8.4 WBC count of 6.2 twice a normal renal profile is normal, chest x-ray on admission showed very minimal right-sided pleural effusion, no follow-up chest x-ray was done since admission Review of Systems ROS unobtainable: due to mental status Past Medical History Past Medical History: Cancer, COPD, Musculoskeletal Disorder, Osteoarthritis (OA), Thyroid Disorder Additional Past Medical History / Comment(s): Hiatal hernia, sinusitis, o steopenia, IBS-C(constipation), Scoliosis, Kyphosis, seasonal allergies, poor sleep, anemia. Hx right breast cancer 2016, had lumpectomy and radiation. History of Any Multi-Drug Resistant Organisms: None Reported Past Surgical History: Appendectomy, Breast Surgery, Joint Replacement, Orthopedic Surgery, Tonsillectomy Additional Past Surgical History / Comment(s): Hemmorroidectomy, bilateral hip, knee, and shoulder replacements, and bilateral oopherectomy, right breast lumpectomy, bilateral cataract surgery. Past Anesthesia/Blood Transfusion Reactions: Postoperative Nausea & Vomiting (PONV) Additional Past Anesthesia/Blood Transfusion Reaction / Comment(s): Hiatal her traci. Past Psychological History: No Psychological Hx Reported Smoking Status: Former smoker Past Alcohol Use History: Occasional Past Drug Use History: None Reported - Past Family History Mother Family Medical History: Cancer Additional Family Medical History / Comment(s): Breast cancer. Father Family Medical History: Cancer, Deep Vein Thrombosis (DVT) Additional Family Medical History / Comment(s): Prostate and skin cancer. Medications and Allergies Home Medications Medication Instructions Recorded Confirmed Type Levothyroxine Sodium [Synthroid] 88 mcg PO DAILY 03/17/15 09/05/22 History Allergies Allergy/AdvReac Type Severity Reaction Status Date / Time diphenhydramine HCl Allergy Itching Verified 09/12/22 10:57 [From Benadryl] levofloxacin [From Levaquin] Allergy Itching Verified 09/12/22 10:57 morphine Allergy Itching Verified 09/12/22 10:57 Physical Exam Vitals: Vital Signs Temp Pulse Pulse Resp BP Pulse Ox 09/12/22 16:45 76 16 117/68 100 09/12/22 16:30 79 16 138/74 100 09/12/22 16:15 77 16 138/71 100 09/12/22 16:00 76 16 121/67 100 09/12/22 15:45 76 16 120/65 100 09/12/22 15:30 74 16 128/66 100 09/12/22 15:16 73 16 134/61 100 09/12/22 15:00 73 16 138/63 100 09/12/22 14:45 72 16 124/63 100 09/12/22 14:30 75 16 153/75 100 09/12/22 14:15 81 16 143/68 100 09/12/22 14:05 98 F 97 16 156/70 100 09/12/22 10:57 97.8 F 75 17 114/65 100 09/12/22 07:38 98.4 F 82 15 110/74 100 09/12/22 01:10 98.4 F 76 14 112/68 98 09/11/22 19:29 98.3 F 88 15 104/66 98 Intake and Output 0609/12/22 09/12/22 06:59 14:59 22:59 Intake Total 1100 Output Total 30 Balance 1070 Intake: IV 1100 Output: Estimated Blood Loss 30 Other: Voiding Method Bedside Commode # Voids 2 Weight 43.3 kg 43.3 kg Physical Exam: Revealed an 82-year-old female, looks frail, chronically ill, on Ventimask, in no distress. Head: Atraumatic, normocephalic. HEENT:[Neck is supple.] [No neck masses.] [No thyromegaly.] [No JVD.] Minimal periorbital edema is noted. Chest: [Clear throughout, no crackles, no rhonchi, no wheezes.] Cardiac Exam: [Normal S1 and S2, no S3 gallop, no murmur.] Abdomen: [Postsurgical, Soft, nontender, no megaly, no rebound, no guarding, no bowel sounds.] Extremities: [No clubbing, no edema, no cyanosis.] Neurological Exam: Could not assess, patient is just waking up from anesthesia, could not follow any instructions. And could not verbalize. Skin: No rashes. Results - Laboratory Findings CBC and BMP: 09/12/22 06:14 09/12/22 06:14 PT/INR, D-dimer PT 10.1 sec (9.0-12.0) 09/06/22 09:06 INR 0.9 (<1.2) 09/06/22 09:06 D-Dimer 4.05 mg/L FEU (<0.60) H 09/06/22 09:06 Abnormal lab findings: Abnormal Labs 09/05/22 09/05/22 09/05/22 17:07 17:07 17:07 RBC 0.93 L Hgb 4.2 L* Hct 12.0 L* MCV 128.3 H MCH 45.5 H RDW 21.7 H Plt Count 96 L Neutrophils # 0.8 L Neutrophils # (Manual) Lymphocytes # Lymphocytes # (Manual) Nucleated RBCs Macrocytosis Marked A Haptoglobin APTT 21.9 L D-Dimer Sodium 136 L Carbon Dioxide BUN 43 H Creatinine 1.06 H Glucose Magnesium Iron % Saturation Ferritin Total Bilirubin 3.4 H Unconjugated Bilirubin 2.4 H Delta Bilirubin 0.9 H AST 47 H Lactate Dehydrogenase Total Protein 5.9 L Vitamin B12 Procalcitonin Anti-Parietal Cell Ab Crossmatch 09/05/22 09/05/22 09/05/22 17:07 17:07 18:12 RBC 0.91 L Hgb 4.0 L* Hct 11.6 L* MCV 127.3 H MCH 43.7 H RDW 22.6 H Plt Count 89 L Neutrophils # 0.7 L Neutrophils # (Manual) Lymphocytes # Lymphocytes # (Manual) Nucleated RBCs Macrocytosis Marked A Haptoglobin <10.0 L APTT D-Dimer Sodium Carbon Dioxide BUN Creatinine Glucose Magnesium Iron % Saturation Ferritin Total Bilirubin Unconjugated Bilirubin Delta Bilirubin AST Lactate Dehydrogenase 1842 H Total Protein Vitamin B12 Procalcitonin Anti-Parietal Cell Ab Crossmatch 09/05/22 09/06/22 09/06/22 19:20 08:47 08:52 RBC 2.29 L Hgb 8.2 L D Hct 24.2 L MCV 105.8 H D MCH 35.7 H RDW 27.9 H Plt Count 86 L Neutrophils # Neutrophils # (Manual) 0.55 L Lymphocytes # Lymphocytes # (Manual) Nucleated RBCs 1 H Macrocytosis Marked A Haptoglobin APTT D-Dimer Sodium Carbon Dioxide BUN 32 H Creatinine 1.06 H Glucose 143 H Magnesium Iron 251 H % Saturation 84.57 H Ferritin 368.0 H Total Bilirubin Unconjugated Bilirubin Delta Bilirubin AST Lactate Dehydrogenase Total Protein Vitamin B12 <150.0 L Procalcitonin Anti-Parietal Cell Ab Crossmatch See Detail 09/06/22 09/06/22 09/07/22 08:52 09:06 09:06 RBC 2.26 L Hgb 8.1 L Hct 23.8 L MCV 105.5 H MCH 35.9 H RDW 27.6 H Plt Count 79 L Neutrophils # Neutrophils # (Manual) 0.99 L Lymphocytes # Lymphocytes # (Manual) 4.81 H Nucleated RBCs Macrocytosis Marked A Haptoglobin APTT D-Dimer 4.05 H Sodium Carbon Dioxide BUN Creatinine Glucose Magnesium Iron % Saturation Ferritin Total Bilirubin Unconjugated Bilirubin Delta Bilirubin AST Lactate Dehydrogenase Total Protein Vitamin B12 Procalcitonin 0.11 H Anti-Parietal Cell Ab Crossmatch 09/07/22 09/07/22 09/08/22 09:06 10:49 05:17 RBC 2.07 L Hgb 7.6 L Hct 22.2 L MCV 107.5 H MCH 37.0 H RDW 26.0 H Plt Count 66 L Neutrophils # 0.6 L Neutrophils # (Manual) Lymphocytes # 5.7 H Lymphocytes # (Manual) Nucleated RBCs Macrocytosis Marked A Haptoglobin APTT D-Dimer Sodium Carbon Dioxide 35 H BUN 35 H Creatinine Glucose 104 H Magnesium Iron % Saturation Ferritin Total Bilirubin 3.1 H Unconjugated Bilirubin 2.8 H Delta Bilirubin 0.3 H AST 43 H Lactate Dehydrogenase Total Protein 5.9 L Vitamin B12 Procalcitonin Anti-Parietal Cell Ab 65.7 H Crossmatch 09/08/22 09/10/22 09/10/22 05:17 06:39 06:43 RBC 1.99 L Hgb 7.3 L Hct 21.9 L MCV 110.0 H MCH 36.8 H RDW 25.7 H Plt Count 55 L Neutrophils # Neutrophils # (Manual) Lymphocytes # Lymphocytes # (Manual) Nucleated RBCs Macrocytosis Marked A Haptoglobin APTT D-Dimer Sodium 134 L Carbon Dioxide 35 H 36 H BUN 39 H 32 H Creatinine Glucose Magnesium 2.4 H Iron % Saturation Ferritin Total Bilirubin Unconjugated Bilirubin Delta Bilirubin AST Lactate Dehydrogenase Total Protein Vitamin B12 Procalcitonin Anti-Parietal Cell Ab Crossmatch 09/11/22 09/11/22 09/12/22 06:28 06:28 06:14 RBC 2.23 L 2.31 L Hgb 8.0 L 8.4 L Hct 24.8 L 26.0 L MCV 110.9 H 112.5 H MCH 35.7 H 36.3 H RDW 26.3 H 24.8 H Plt Count 69 L 107 L D Neutrophils # Neutrophils # (Manual) Lymphocytes # Lymphocytes # (Manual) Nucleated RBCs Macrocytosis Marked A Marked A Haptoglobin APTT D-Dimer Sodium Carbon Dioxide 36 H BUN 28 H Creatinine Glucose Magnesium Iron % Saturation Ferritin Total Bilirubin Unconjugated Bilirubin Delta Bilirubin AST Lactate Dehydrogenase Total Protein Vitamin B12 Procalcitonin Anti-Parietal Cell Ab Crossmatch 09/12/22 06:14 RBC Hgb Hct MCV MCH RDW Plt Count Neutrophils # Neutrophils # (Manual) Lymphocytes # Lymphocytes # (Manual) Nucleated RBCs Macrocytosis Haptoglobin APTT D-Dimer Sodium 136 L Carbon Dioxide 33 H BUN 32 H Creatinine Glucose Magnesium Iron % Saturation Ferritin Total Bilirubin Unconjugated Bilirubin Delta Bilirubin AST Lactate Dehydrogenase Total Protein Vitamin B12 Procalcitonin Anti-Parietal Cell Ab Crossmatch - Diagnostic Findings Chest x-ray: image reviewed (As noted in HPI) Assessment and Plan Assessment: Impression:Laparoscopic repair of paraesophageal hiatal hernia with mesh, postoperative day #0 Pernicious anemia, severe macrocytic anemia with thrombocytopenia and B12 deficiency as noted on the workup on this patient. Acute diastolic congestive heart failure resolved with diuretics. With small right-sided pleural effusion on admission. Chronic kidney disease stage III History of underlying COPD, inactive History of hypothyroidism History of right breast cancer and status post radiotherapy and right lumpectomy. Recommendation: Agree with admitting the patient to the ICU overnight Resume preoperative medications including diuretics Continue cefazolin Continue GI and DVT prophylaxis Continue bronchodilators Resume home meds including levothyroxine Incentive spirometry Follow-up chest x-ray in a.m. We'll continue to follow. Time with Patient: Greater than 30
[2022-09-12 18:04] LABS: Glucose,Whole Blood 153 mg/dL (70-110)
[2022-09-12 18:43] LABS: Anisocytosis Marked; HCT 24.5 % (34.0-46.0); Hypochromasia Moderate; MCH 35.9 pg (25.0-35.0); MCHC 31.9 g/dL (31.0-37.0); MCV 112.8 fL (80.0-100.0); Macrocytosis Marked; Mean Platelet Volume 10.1; Platelet Count 139 k/uL (150-450); RBC 2.17 m/uL (3.80-5.40); RDW 24.5 % (11.5-15.5); WBC 10.1 k/uL (3.8-10.6)
[2022-09-12] MEDS: D5-0.45% NACL WITH KCL 20MEQ/L 1,000 ML IV SCH (18:44)
[2022-09-12 18:48] LABS: HGB 7.8 gm/dL (11.4-16.0)
[2022-09-12 18:51] LABS: African American GFR (CKD) 49 (>60 ml/min/1.73 sqM); Anion Gap 5 mmol/L; Blood Urea Nitrogen 31 mg/dL (7-17); Carbon Dioxide 32 mmol/L (22-30); Chloride 98 mmol/L (98-107); Glucose 140 mg/dL (74-99); Non-African American GFR(CKD) 43 (>60 ml/min/1.73 sqM); Potassium 4.7 mmol/L (3.5-5.1); Sodium 135 mmol/L (137-145)
[2022-09-12 19:11] LABS: Lymphocytes # (M) 5.05 k/uL (1.0-4.8); Monocytes # (M) 1.52 k/uL (0-1.0); Myelocytes % 1 %; Neutrophils # (M) 3.43 k/uL (1.3-7.7); Neutrophils % (M) 34 %; Nucleated Red Blood Cells 0 /100 WBC (0-0); Total Cells Counted 100
[2022-09-12 19:17] LABS: Large Platelets Present; Polychromasia Present
[2022-09-12] MEDS ORDERED: FAMOTIDINE 20 MG/2 ML VIAL IV SCH (21:00)
[2022-09-13] MEDS: D5-0.45% NACL WITH KCL 20MEQ/L 1,000 ML IV SCH ×2 (00:39→10:24)
[2022-09-13] MEDS ORDERED: BENZOCAINE/MENTHOL LOZENG 1 EACH LOZENGE MUCOUS MEM PRN (00:42)
[2022-09-13 05:24] LABS: African American GFR (CKD) 48 (>60 ml/min/1.73 sqM); Anion Gap 5 mmol/L; Blood Urea Nitrogen 33 mg/dL (7-17); Calcium 8.6 mg/dL (8.4-10.2); Carbon Dioxide 30 mmol/L (22-30); Chloride 97 mmol/L (98-107); Glucose 127 mg/dL (74-99); Non-African American GFR(CKD) 42 (>60 ml/min/1.73 sqM); Potassium 5.1 mmol/L (3.5-5.1); Sodium 132 mmol/L (137-145)
[2022-09-13 05:36] LABS: Anisocytosis Marked; HGB 7.4 gm/dL (11.4-16.0); Hypochromasia Marked; MCH 34.6 pg (25.0-35.0); MCV 111.7 fL (80.0-100.0); Macrocytosis Marked; Mean Platelet Volume 10.1; Platelet Count 190 k/uL (150-450); Poikilocytosis Slight; RBC 2.15 m/uL (3.80-5.40); RDW 24.1 % (11.5-15.5)
[2022-09-13] MEDS: LEVOTHYROXINE 88 MCG TAB PO SCH (07:06)
[2022-09-13 07:10] LABS: Band Neutrophils % 1 %; Eosinophils # (M) 0.09 k/uL (0-0.7); Lymphocytes # (M) 4.86 k/uL (1.0-4.8); Monocytes # (M) 0.45 k/uL (0-1.0); Neutrophils % (M) 39 %; Nucleated Red Blood Cells 0 /100 WBC (0-0); Total Cells Counted 100
[2022-09-13 07:11] LABS: Polychromasia Present
[2022-09-13] MEDS: ACETAMINOPHEN TAB 325 MG TAB PO PRN ×2 (07:53→15:46)
[2022-09-13] MEDS ORDERED: ENOXAPARIN 40 MG/0.4 ML SYRINGE SQ SCH (09:00)
[2022-09-13] MEDS: PANTOPRAZOLE 40 MG/10 ML VIAL IV SCH (10:23)
[2022-09-13] MEDS: FUROSEMIDE 20 MG TAB PO SCH (10:24)
[2022-09-13] MEDS: FOLIC ACID 1 MG TAB PO SCH (10:24)
[2022-09-13] MEDS: CYANOCOBALAMIN 1,000 MCG/ML 1 ML VIAL IM SCH (10:35)
--- NOTE | 2022-09-13 11:46 | P.PN ---
Subjective Progress Note Date: 09/13/22 82 years old female with multiple medical problems including osteoarthritis, hypothyroidism, COPD, irritable bowel syndrome, history of right breast cancer in 2016 status post lumpectomy and radiotherapy. Patient presents because of dyspnea and weakness few days especially with exertion for example going up stairs and she has to stop. She denies chest pain but is complaining of from coughing and yellow phlegm for the last 2 days. No abdominal pain vomiting or diarrhea, she denies blood per rectum and her stool color is brown. No recent urinary symptoms like urgency or dysuria. No headache weakness numbness. Chief complaint from generalized weakness She had little short of breath when she is talking. She has good appetite. She denies smoking alcohol or illicit drugs She does not follow up recently with oncologist, no recent chemoradiotherapy She denies leg pain or swelling, she denies hemoptysis or bleeding from anywhere -Last year she had similar presentation with acute symptomatic anemia with no GI bleed, she was noted to have diverticular disease with no active bleeding on endoscopy. She states follow-up with Dr. Contreras for her anemia and Dr. Mitchell for her breast cancer and radiotherapy Vitals looks stable and patient is afebrile. showing severe anemia with hemoglobin 4.0 on admission her baseline hemoglobin is (8-9), platelet count is 89k, Baseline platelet count 185-195 creatinine 1.06, Baseline 0.8-1.01 Total bilirubin is 3.4 which is elevated. AST slightly up at 47 and ALT normal at 23. proBNP is 99. Lactate dehydrogenase elevated at [birth year]16/1939. Troponin is neg ative. EKG showed normal sinus rhythm at [address]-T changes Chest x-ray: Minimal right pleural effusion.per radiologist, However when I reviewed the chest x-ray suspicion of left lower lobe infiltrates. Physical Lovenox was negative. B12 and folic pending. Viruses undetected , including influenza, RSV, mccarthy v Liver ultrasound: unremarkable for right upper quadrant ultrasound Patient was started on Protonix and admitted with surgery and hematology consults Patient received 2 units of blood transfusion 09/07/2022 Patient have severe vitamin B12 deficiency and the placement started with IM injection until Sunday and then can switch to oral dose. Engineered Wood Designer team ordered gastric antibodies to check for pernicious anemia which is pending. Elevated bilirubin is a due to vitamin B12 deficiency Her fluid overload is improved, this couldn't be explained by units of blood transfusion given to this thin built lady, currently she is on IV Lasix 20 mg twice daily this can be switched to oral dose tomorrow Surgical team recommended hiatal hernia repair, cardiology consult requested for preoperative evaluation. Patient and family requested second opinion and requested Dr. mclain consult Possible discharge in 24-48 hours if she keeps improving 09/08/2022 Patient generally feels improving, she still somewhat tachypneic. Breathing treatment is added for her She's becoming more euvolemic and her hypervolemia is improving therefore we switched her IV Lasix and oral Lasix 20 mg daily Second surgery opinion obtained, EGD is recommended with follow-up by hiatal hernia repair electively. Surgery team on the case and planned for Sunday hernia repair. Procedure team patient refused EGD Antiparietal antibody is elevated suggestive of pernicious anemia. That's consu lt is requested. She remains on IV vitamin B12 deficiency. Subacute rehab is recommended for the patient upon discharge, spring encaser on the case 09/09 Okay with EGD, Hb stable Diet advanced 09/10 Hb low, no sign sof bleed, okay with EGD, NPO at midnight till Surgery eval tomorrow 09/11 Patient seen by surgery planned for EGD scheduled for today, hemoglobin remained stable, we'll continue with vitamin B12 supplementation 09/12 > status was EGD completed, normal gastric body, normal esophagus,. Surgery following plan for hiatal hernia surgery Continue with vitamin B12 supplementation 09/13>> patient transferred to ICU postoperatively after Laparoscopic repair of paraesophageal hiatal hernia with mesh POD 1, patient weaned down to room air, diet advanced as tolerated Objective - Vital Signs Vital signs: Vital Signs Temp 98.4 F 09/13/22 08:00 Pulse 82 09/13/22 11:30 Resp 20 09/13/22 08:00 BP 133/78 09/13/22 08:00 Pulse Ox 95 09/13/22 08:00 FiO2 Intake & Output 09/12/22 09/13/22 09/13/22 18:59 06:59 18:59 Intake Total 1225 1700 250 Output Total 30 550 0 Balance 1195 1150 250 Weight 43.3 kg 42.6 kg Intake: IV 1225 1700 250 D5-0.45% NaCl with KCl 1375 250 20Meq/l 1,000 ml @ 125 mls/hr IV .Q8H REPLACED BY [facility] Rx#: [id number] Lactated Ringers 1,000 ml 125 125 @ 0 mls/hr IV .[facility] Rx#:[id number] ceFAZolin 1,000 mg In 200 Sodium Chloride 0.9% 50 ml @ 100 mls/hr IVPB Q8HR REPLACED BY [facility] Rx#:[id number] Output: Urine 550 0 Estimated Blood Loss 30 Other: Voiding Method Bedside Commode Bedside Commode Bedside Commode - Exam EXAM GENERAL: The patient is alert and oriented x3, not in any acute distress. Frail, thin built, pale appearance HEENT: Pupils are round and equally reacting to light. EOMI. No scleral icterus. No conjunctival pallor. Normocephalic, atraumatic. No pharyngeal erythema. No thyromegaly. CARDIOVASCULAR: S1 and S2 present. No murmurs, rubs, or gallops. PULMONARY: Chest is clear to auscultation, no wheezing . no crackles. No basal crepitation ABDOMEN: Soft, nontender, nondistended, postoperative incision and there is no drainage noted MUSCULOSKELETAL: No joint swelling or deformity. EXTREMITIES: No cyanosis, clubbing, or pedal edema. Improving leg edema NEUROLOGICAL: Gross neurological examination did not reveal any focal deficits. SKIN: No rashes. no petechiae. - Labs CBC & Chem 7: 09/13/22 04:05 09/13/22 04:05 Labs: Abnormal Lab Results - Last 24 Hours (Table) 09/12/22 09/12/22 09/12/22 Range/Units 18:02 18:10 18:10 RBC 2.17 L (3.80-5.40) m/uL Hgb 7.8 L (11.4-16.0) gm/dL Hct 24.5 L (34.0-46.0) % MCV 112.8 H (80.0-100.0) fL MCH 35.9 H (25.0-35.0) pg RDW 24.5 H (11.5-15.5) % Plt Count 139 L (150-450) k/uL Lymphocytes # (Manual) 5.05 H (1.0-4.8) k/uL Monocytes # (Manual) 1.52 H (0-1.0) k/uL Myelocytes # (Manual) 0.10 H (0) k/uL Macrocytosis Marked A Sodium 135 L (137-145) mmol/L Chloride (98-107) mmol/L Carbon Dioxide 32 H (22-30) mmol/L BUN 31 H (7-17) mg/dL Creatinine 1.20 H (0.52-1.04) mg/dL Glucose 140 H (74-99) mg/dL POC Glucose (mg/dL) 153 H (70-110) mg/dL 09/13/22 09/13/22 Range/Units 04:05 04:05 RBC 2.15 L (3.80-5.40) m/uL Hgb 7.4 L (11.4-16.0) gm/dL Hct 24.0 L (34.0-46.0) % MCV 111.7 H (80.0-100.0) fL MCH (25.0-35.0) pg RDW 24.1 H (11.5-15.5) % Plt Count (150-450) k/uL Lymphocytes # (Manual) 4.86 H (1.0-4.8) k/uL Monocytes # (Manual) (0-1.0) k/uL Myelocytes # (Manual) (0) k/uL Macrocytosis Marked A Sodium 132 L (137-145) mmol/L Chloride 97 L (98-107) mmol/L Carbon Dioxide (22-30) mmol/L BUN 33 H (7-17) mg/dL Creatinine 1.23 H (0.52-1.04) mg/dL Glucose 127 H (74-99) mg/dL POC Glucose (mg/dL) (70-110) mg/dL Assessment and Plan Assessment: Assessment: * Pernicious anemia >> Severe acute macrocytic Anemia and thrombocytopenia, secondary to vitamin B12 deficiency present on admission . Status post 2 units of blood transfusion on admission * Acute diastolic CHF normal ejection fraction 50-55% on echocardiogram on * Moderate to severe aortic stenosis * Laparoscopic repair of paraesophageal hiatal hernia with mesh * elevated bilirubin. Unconjugated secondary to an effective erythropoiesis secondary to vitamin B12 deficiency * Chronic kidney disease stage III * history of constipation * History of right breast cancer status post radiotherapy and right lumpectomy * COPD, no acute exacerbation * hypothyroidism * History of osteoarthritis Plan: Continue with vitamin B12 replacement therapy Daily IM x 7 days (Day 10/13) then weekly dosing Surgery Following, EGD completed,POD 1 > Laparoscopic repair of paraesophageal hiatal hernia with mesh supervisor taping Consulted Lasix Oral >> postoperatively patient was started on IV fluid which will be discontinued later today hiatal hernia surgery team on the case and recommended EGD and elective hernia repair > Patient in agreement Labs and medication were reviewed.. DVT prophylaxis: SCD, started on Lovenox for DVT prophylaxis GI Prophylaxis: Protonix PT/OT:Subacute rehab
--- NOTE | 2022-09-13 13:10 | P.PN ---
Subjective Progress Note Date: 09/13/22 Principal diagnosis: Status post paraesophageal hernia repair, postoperative day #1 This is an 82-year-old female, admitted initially on 09/06/2022. She was admitted to Dr. mak, patient is known to have history of hypothyroidism COPD, irritable bowel syndrome, and history of right breast cancer in 2016 status post lumpectomy and radiotherapy. Patient was noted to have severe acute anemia and thrombocytopenia on admission received ideation a 2 units of packed RBCs, she wa s also found to have elevated bilirubin, chronic kidney disease stage III, and she has underlying COPD but no acute exacerbation since admission the patient was seen by many consultants including general surgery, hematology/oncology, and internal medicine. EGD revealed evidence of a very large hiatal hernia with intrathoracic stomach, and could not enter the pylorus. Hence the surgeon recommended that he proceeds with hiatal hernia repair. Today the patient underwent laparoscopic repair of paraesophageal hiatal hernia with mesh, considering her marginal clinical status and medical debility, patient was admitted to the ICU, and this consult was initiated. I saw this patient in the recovery room, she is on a Ventimask, she is still not fully awake, could not assess mental status or get any appropriate history from the patient. Patient was hemodynamically stable, she was already extubated, and I recommended overnight admission to the ICU and observation. Labs today showed hemoglobin of 8.4 WBC count of 6.2 twice a normal renal profile is normal, chest x-ray on admission showed very minimal right-sided pleural effusion, no follow-up chest x-ray was done since admission Patient was evaluated today again on 09/13/2022, patient is doing much better today, I saw her yesterday in the recovery room, she is comfortable not in any distress, patient is on 2 L nasal cannula, hemodynamically stable. Hemoglobin today is 7.4. Basic metabolic profile is normal BUN is 33 creatinine 1.23 no x- rays done today. Clinically the patient is doing well, and I will transfer the patient out of the ICU to a medical surgical floor. Objective - Vital Signs Vital signs: Vital Signs Temp 98.4 F 09/13/22 08:00 Pulse 82 09/13/22 11:30 Resp 20 09/13/22 08:00 BP 133/78 09/13/22 08:00 Pulse Ox 95 09/13/22 08:00 FiO2 Intake & Output 09/12/22 09/13/22 09/13/22 18:59 06:59 18:59 Intake Total 1225 1700 250 Output Total 30 550 0 Balance 1195 1150 250 Weight 43.3 kg 42.6 kg 42.6 kg Intake: IV 1225 1700 250 D5-0.45% NaCl with KCl 1375 250 20Meq/l 1,000 ml @ 125 mls/hr IV .Q8H [facility] Rx#: [id number] Lactated Ringers 1,000 ml 125 125 @ 0 mls/hr IV .STK-MED ONE Rx#:[id number] ceFAZolin 1,000 mg In 200 Sodium Chloride 0.9% 50 ml @ 100 mls/hr IVPB Q8HR [facility] Rx#:[id number] Output: Urine 550 0 Estimated Blood Loss 30 Other: Voiding Method Bedside Commode Bedside Commode Bedside Commode - Exam Physical Exam: Revealed an 82-year-old female, looks frail, chronically ill, on 2 L nasal cannula Head: Atraumatic, normocephalic. HEENT:[Neck is supple.] [No neck masses.] [No thyromegaly.] [No JVD.] Chest: [Clear throughout, no crackles, no rhonchi, no wheezes.] Cardiac Exam: [Normal S1 and S2, no S3 gallop, no murmur.] Abdomen: [Postsurgical, Soft, slightly tender to palpation., no megaly, no rebound, no guarding, no bowel sounds.] Extremities: [No clubbing, no edema, no cyanosis.] Neurological Exam: Alert and oriented 3 focal neurologic deficit Skin: No rashes. - Labs CBC & Chem 7: 09/13/22 04:05 09/13/22 04:05 Labs: Abnormal Lab Results - Last 24 Hours (Table) 09/12/22 09/12/22 09/12/22 Range/Units 18:02 18:10 18:10 RBC 2.17 L (3.80-5.40) m/uL Hgb 7.8 L (11.4-16.0) gm/dL Hct 24.5 L (34.0-46.0) % MCV 112.8 H (80.0-100.0) fL MCH 35.9 H (25.0-35.0) pg RDW 24.5 H (11.5-15.5) % Plt Count 139 L (150-450) k/uL Lymphocytes # (Manual) 5.05 H (1.0-4.8) k/uL Monocytes # (Manual) 1.52 H (0-1.0) k/uL Myelocytes # (Manual) 0.10 H (0) k/uL Macrocytosis Marked A Sodium 135 L (137-145) mmol/L Chloride (98-107) mmol/L Carbon Dioxide 32 H (22-30) mmol/L BUN 31 H (7-17) mg/dL Creatinine 1.20 H (0.52-1.04) mg/dL Glucose 140 H (74-99) mg/dL POC Glucose (mg/dL) 153 H (70-110) mg/dL 09/13/22 09/13/22 Range/Units 04:05 04:05 RBC 2.15 L (3.80-5.40) m/uL Hgb 7.4 L (11.4-16.0) gm/dL Hct 24.0 L (34.0-46.0) % MCV 111.7 H (80.0-100.0) fL MCH (25.0-35.0) pg RDW 24.1 H (11.5-15.5) % Plt Count (150-450) k/uL Lymphocytes # (Manual) 4.86 H (1.0-4.8) k/uL Monocytes # (Manual) (0-1.0) k/uL Myelocytes # (Manual) (0) k/uL Macrocytosis Marked A Sodium 132 L (137-145) mmol/L Chloride 97 L (98-107) mmol/L Carbon Dioxide (22-30) mmol/L BUN 33 H (7-17) mg/dL Creatinine 1.23 H (0.52-1.04) mg/dL Glucose 127 H (74-99) mg/dL POC Glucose (mg/dL) (70-110) mg/dL Assessment and Plan Assessment: Impression:Laparoscopic repair of paraesophageal hiatal hernia with mesh, postoperative day #1 Pernicious anemia, severe macrocytic anemia with thrombocytopenia and B12 deficiency as noted on the workup on this patient. Acute diastolic congestive heart failure resolved with diuretics. With small right-sided pleural effusion on admission. Chronic kidney disease stage III History of underlying COPD, inactive History of hypothyroidism History of right breast cancer and status post radiotherapy and right lumpectomy. Recommendation: Continue cefazolin Continue GI and DVT prophylaxis Continue bronchodilators Incentive spirometry Transfer out of the ICU to a regular medical floor We'll continue to follow. Time with Patient: Less than 30
--- NOTE | 2022-09-13 14:03 | P.PN ---
Subjective Progress Note Date: 09/13/22 Principal diagnosis: Symptomatic anemia Patient ICU status post hernia repair, she is doing well, ambulating with physical therapy, no complaints of any unusual pain. No fevers, nausea. Objective - Vital Signs Vital signs: Vital Signs Temp 98.4 F 09/13/22 08:00 Pulse 82 09/13/22 11:30 Resp 20 09/13/22 08:00 BP 133/78 09/13/22 08:00 Pulse Ox 95 09/13/22 08:00 FiO2 Intake & Output 09/12/22 09/13/22 09/13/22 18:59 06:59 18:59 Intake Total 1225 1700 250 Output Total 30 550 0 Balance 1195 1150 250 Weight 43.3 kg 42.6 kg 42.6 kg Intake: IV 1225 1700 250 D5-0.45% NaCl with KCl 1375 250 20Meq/l 1,000 ml @ 125 mls/hr IV .Q8H [facility] Rx#: [id number] Lactated Ringers 1,000 ml 125 125 @ 0 mls/hr IV .STK-MED ONE Rx#:[id number] ceFAZolin 1,000 mg In 200 Sodium Chloride 0.9% 50 ml @ 100 mls/hr IVPB Q8HR [facility] Rx#:[id number] Output: Urine 550 0 Estimated Blood Loss 30 Other: Voiding Method Bedside Commode Bedside Commode Bedside Commode - Constitutional Constitutional Comment(s): Petite, small frame General appearance: Present: cooperative, no acute distress, thin - EENT Eyes: Present: anicteric sclerae, EOMI ENT: Present: hearing grossly normal - Respiratory Details: Respirations even and unlabored after walking - Peripheral edema leg Peripheral Edema: bilateral: None - Neurologic Neurologic: Present: CNII-XII intact (Grossly) - Musculoskeletal Musculoskeletal: Present: generalized weakness (Ambulating with a walker and standby assist) - Psychiatric Psychiatric: Present: A&O x's 3, appropriate affect, intact judgment & insight - Labs CBC & Chem 7: 09/13/22 04:05 09/13/22 04:05 Labs: Abnormal Lab Results - Last 24 Hours (Table) 09/12/22 09/12/22 09/12/22 Range/Units 18:02 18:10 18:10 RBC 2.17 L (3.80-5.40) m/uL Hgb 7.8 L (11.4-16.0) gm/dL Hct 24.5 L (34.0-46.0) % MCV 112.8 H (80.0-100.0) fL MCH 35.9 H (25.0-35.0) pg RDW 24.5 H (11.5-15.5) % Plt Count 139 L (150-450) k/uL Lymphocytes # (Manual) 5.05 H (1.0-4.8) k/uL Monocytes # (Manual) 1.52 H (0-1.0) k/uL Myelocytes # (Manual) 0.10 H (0) k/uL Macrocytosis Marked A Sodium 135 L (137-145) mmol/L Chloride (98-107) mmol/L Carbon Dioxide 32 H (22-30) mmol/L BUN 31 H (7-17) mg/dL Creatinine 1.20 H (0.52-1.04) mg/dL Glucose 140 H (74-99) mg/dL POC Glucose (mg/dL) 153 H (70-110) mg/dL 09/13/22 09/13/22 Range/Units 04:05 04:05 RBC 2.15 L (3.80-5.40) m/uL Hgb 7.4 L (11.4-16.0) gm/dL Hct 24.0 L (34.0-46.0) % MCV 111.7 H (80.0-100.0) fL MCH (25.0-35.0) pg RDW 24.1 H (11.5-15.5) % Plt Count (150-450) k/uL Lymphocytes # (Manual) 4.86 H (1.0-4.8) k/uL Monocytes # (Manual) (0-1.0) k/uL Myelocytes # (Manual) (0) k/uL Macrocytosis Marked A Sodium 132 L (137-145) mmol/L Chloride 97 L (98-107) mmol/L Carbon Dioxide (22-30) mmol/L BUN 33 H (7-17) mg/dL Creatinine 1.23 H (0.52-1.04) mg/dL Glucose 127 H (74-99) mg/dL POC Glucose (mg/dL) (70-110) mg/dL Assessment and Plan (1) Symptomatic anemia Current Visit: Yes Status: Acute Priority: High Code(s): D64.9 - ANEMIA, UNSPECIFIED SNOMED Code(s): 545553751 (2) Thrombocytopenia Current Visit: Yes Status: Acute Priority: High Code(s): D69.6 - THROMBOCYTOPENIA, UNSPECIFIED SNOMED Code(s): 532418790 Plan: Bicytopenia -Work up reveals Pernicious anemia. -Transfuse for a Hgb <7, Hgb 7.4 today. Hemoglobin 4 on admit, status post 2 units of packed red blood cells patient's hemoglobin has remained between 7.5 and 8. -Thrombocytopenia is resolved, platelets are 190,000 today -EGD unable to pass pylorus. Patient is status post hernia repair, she is doing well postop Pernicious anemia -Anti-parietal ab testing was positive. Intrinsic factor antibody positive. -Pt has been started on parenteral B12 and oral folate. Hemoglobin at least stable, platelets have recovered to a normal number. -Tx will need to be continued outpt. Will schedule and get appointments to patient's discharge plan.
[2022-09-13 15:49] VITALS: RESP 16
--- NOTE | 2022-09-13 16:37 | P.PN ---
Subjective Progress Note Date: 09/13/22 CHIEF COMPLAINT: Large hiatal hernia HISTORY OF PRESENT ILLNESS: Patient is postop day #1 status post laparoscopic repair of paraesophageal hiatal hernia with mesh. Patient currently in the ICU. She is to be transferred out of the ICU today. She did complain of some nausea earlier and one episode of vomiting during the night. Otherwise she has been tolerating the nasal clear liquids. Her pain is tolerable. Afebrile. White count 9 hemoglobin 7.4 platelets 190 Patient seen and examined with Dr. marquez PHYSICAL EXAM: VITAL SIGNS: Reviewed. GENERAL: Well-developed in no acute distress. HEENT: No sclera icterus. Extraocular movements grossly intact. Moist buccal mucosa. Head is atraumatic, normocephalic. ABDOMEN: Soft. Nondistended. Nontender. NEUROLOGIC: Alert and oriented. Cranial nerves II through XII grossly intact. ASSESSMENT: 1. Large hiatal hernia containing majority of the stomach and a significant portion of the transverse colon status post repair of paraesophageal hiatal hernia with mesh 2. Anemia with Vitamin B12 deficiency 3. Severe aortic stenosis 4. Thrombocytopenia PLAN: -Continue Candel[place] clear liquid diet -Continue pain management -Patient can be transferred out of the ICU today Physician Turner Off note has been reviewed by physician. Signing provider agrees with the documented findings, assessment, and plan of care. Objective - Vital Signs Vital signs: Vital Signs Temp 98.4 F 09/13/22 08:00 Pulse 82 09/13/22 11:30 Resp 20 09/13/22 08:00 BP 133/78 09/13/22 08:00 Pulse Ox 95 09/13/22 08:00 FiO2 Intake & Output 09/12/22 09/13/22 09/13/22 18:59 06:59 18:59 Intake Total 1225 1700 250 Output Total 30 550 0 Balance 1195 1150 250 Weight 43.3 kg 42.6 kg 42.6 kg Intake: IV 1225 1700 250 D5-0.45% NaCl with KCl 1375 250 20Meq/l 1,000 ml @ 125 mls/hr IV .Q8H [facility] Rx#: [id number] Lactated Ringers 1,000 ml 125 125 @ 0 mls/hr IV .STK-MED ONE Rx#:[id number] ceFAZolin 1,000 mg In 200 Sodium Chloride 0.9% 50 ml @ 100 mls/hr IVPB Q8HR [facility] Rx#:[id number] Output: Urine 550 0 Estimated Blood Loss 30 Other: Voiding Method Bedside Commode Bedside Commode Bedside Commode - Labs CBC & Chem 7: 09/13/22 04:05 09/13/22 04:05 Labs: Abnormal Lab Results - Last 24 Hours (Table) 09/12/22 09/12/22 09/12/22 Range/Units 18:02 18:10 18:10 RBC 2.17 L (3.80-5.40) m/uL Hgb 7.8 L (11.4-16.0) gm/dL Hct 24.5 L (34.0-46.0) % MCV 112.8 H (80.0-100.0) fL MCH 35.9 H (25.0-35.0) pg RDW 24.5 H (11.5-15.5) % Plt Count 139 L (150-450) k/uL Lymphocytes # (Manual) 5.05 H (1.0-4.8) k/uL Monocytes # (Manual) 1.52 H (0-1.0) k/uL Myelocytes # (Manual) 0.10 H (0) k/uL Macrocytosis Marked A Sodium 135 L (137-145) mmol/L Chloride (98-107) mmol/L Carbon Dioxide 32 H (22-30) mmol/L BUN 31 H (7-17) mg/dL Creatinine 1.20 H (0.52-1.04) mg/dL Glucose 140 H (74-99) mg/dL POC Glucose (mg/dL) 153 H (70-110) mg/dL 09/13/22 09/13/22 Range/Units 04:05 04:05 RBC 2.15 L (3.80-5.40) m/uL Hgb 7.4 L (11.4-16.0) gm/dL Hct 24.0 L (34.0-46.0) % MCV 111.7 H (80.0-100.0) fL MCH (25.0-35.0) pg RDW 24.1 H (11.5-15.5) % Plt Count (150-450) k/uL Lymphocytes # (Manual) 4.86 H (1.0-4.8) k/uL Monocytes # (Manual) (0-1.0) k/uL Myelocytes # (Manual) (0) k/uL Macrocytosis Marked A Sodium 132 L (137-145) mmol/L Chloride 97 L (98-107) mmol/L Carbon Dioxide (22-30) mmol/L BUN 33 H (7-17) mg/dL Creatinine 1.23 H (0.52-1.04) mg/dL Glucose 127 H (74-99) mg/dL POC Glucose (mg/dL) (70-110) mg/dL
[2022-09-14 05:35] LABS: Anisocytosis Moderate; Basophils % (A) 0 %; Eosinophils % (A) 0 %; HGB 7.2 gm/dL (11.4-16.0); Hypochromasia Marked; Lymphocytes # (A) 3.2 k/uL (1.0-4.8); Lymphocytes % (A) 33 %; MCH 34.7 pg (25.0-35.0); MCHC 31.3 g/dL (31.0-37.0); MCV 110.8 fL (80.0-100.0); Macrocytosis Marked; Mean Platelet Volume 8.8; Monocytes % (A) 10 %; Neutrophils # (A) 5.4 k/uL (1.3-7.7); Neutrophils % (A) 56 %; Platelet Count 255 k/uL (150-450); RBC 2.08 m/uL (3.80-5.40); RDW 22.8 % (11.5-15.5); WBC 9.7 k/uL (3.8-10.6)
[2022-09-14] MEDS: LEVOTHYROXINE 88 MCG TAB PO SCH (06:22)
[2022-09-14 06:23] LABS: African American GFR (CKD) 48 (>60 ml/min/1.73 sqM); Anion Gap 4 mmol/L; Blood Urea Nitrogen 29 mg/dL (7-17); Calcium 8.8 mg/dL (8.4-10.2); Carbon Dioxide 29 mmol/L (22-30); Chloride 98 mmol/L (98-107); Glucose 99 mg/dL (74-99); Non-African American GFR(CKD) 42 (>60 ml/min/1.73 sqM); Potassium 4.8 mmol/L (3.5-5.1); Sodium 131 mmol/L (137-145)
[2022-09-14] MEDS: ENOXAPARIN 30 MG/0.3 ML SYRINGE SQ SCH (09:55)
[2022-09-14] MEDS: PANTOPRAZOLE 40 MG/10 ML VIAL IV SCH (09:55)
[2022-09-14] MEDS: FUROSEMIDE 20 MG TAB PO SCH (09:55)
[2022-09-14] MEDS: FOLIC ACID 1 MG TAB PO SCH (09:55)
[2022-09-14] MEDS: CYANOCOBALAMIN 1,000 MCG/ML 1 ML VIAL IM SCH (09:55)
--- NOTE | 2022-09-14 11:45 | P.PN ---
Subjective Progress Note Date: 09/14/22 Principal diagnosis: Status post paraesophageal hernia repair, postoperative day #2 This is an 82-year-old female, admitted initially on 09/06/2022. She was admitted to Dr. mak, patient is known to have history of hypothyroidism COPD, irritable bowel syndrome, and history of right breast cancer in 2016 status post lumpectomy and radiotherapy. Patient was noted to have severe acute anemia and thrombocytopenia on admission received ideation a 2 units of packed RBCs, she wa s also found to have elevated bilirubin, chronic kidney disease stage III, and she has underlying COPD but no acute exacerbation since admission the patient was seen by many consultants including general surgery, hematology/oncology, and internal medicine. EGD revealed evidence of a very large hiatal hernia with intrathoracic stomach, and could not enter the pylorus. Hence the surgeon recommended that he proceeds with hiatal hernia repair. Today the patient underwent laparoscopic repair of paraesophageal hiatal hernia with mesh, considering her marginal clinical status and medical debility, patient was admitted to the ICU, and this consult was initiated. I saw this patient in the recovery room, she is on a Ventimask, she is still not fully awake, could not assess mental status or get any appropriate history from the patient. Patient was hemodynamically stable, she was already extubated, and I recommended overnight admission to the ICU and observation. Labs today showed hemoglobin of 8.4 WBC count of 6.2 twice a normal renal profile is normal, chest x-ray on admission showed very minimal right-sided pleural effusion, no follow-up chest x-ray was done since admission Patient was evaluated today again on 09/13/2022, patient is doing much better today, I saw her yesterday in the recovery room, she is comfortable not in any distress, patient is on 2 L nasal cannula, hemodynamically stable. Hemoglobin today is 7.4. Basic metabolic profile is normal BUN is 33 creatinine 1.23 no x- rays done today. Clinically the patient is doing well, and I will transfer the patient out of the ICU to a medical surgical floor. Patient was reevaluated today on , remains in the ICU as an overflow, doing well, relatively asymptomatic, on Coumadin, compliant with her incentive spirometry, patient seems to be appropriate, alert oriented 3, labs today: Of 7.2, hardly any change compared to yesterday. Basic metabolic profile is normal. Creatinine is 1.22. Slightly improved compared to yesterday. Objective - Vital Signs Vital signs: Vital Signs Temp 98.7 F 09/14/22 10:00 Pulse 80 09/14/22 10:00 Resp 16 09/14/22 10:00 BP 119/65 09/14/22 10:00 Pulse Ox 94 L 09/14/22 10:00 FiO2 Intake & Output 09/13/22 09/14/22 09/14/22 18:59 06:59 18:59 Intake Total 260 Output Total 250 350 Balance 10 -350 Weight 42.6 kg 48.4 kg Intake: IV 260 D5-0.45% NaCl with KCl 250 20Meq/l 1,000 ml @ 50 mls /hr IV .Q20H [facility] Rx#: [id number] Invasive Line 2 10 Output: Urine 250 350 Other: Voiding Method Bedside Commode Bedside Commode - Exam Physical Exam: Revealed an 82-year-old female, looks frail, chronically ill, on room air Head: Atraumatic, normocephalic. HEENT:[Neck is supple.] [No neck masses.] [No thyromegaly.] [No JVD.] Chest: [Clear throughout, no crackles, no rhonchi, no wheezes.] Cardiac Exam: [Normal S1 and S2, no S3 gallop, no murmur.] Abdomen: [Postsurgical, Soft, slightly tender to palpation., no megaly, no rebound, no guarding, no bowel sounds.] Extremities: [No clubbing, no edema, no cyanosis.] Neurological Exam: Alert and oriented 3 no focal neurologic deficit Skin: No rashes. - Labs CBC & Chem 7: 09/14/22 04:47 09/14/22 04:47 Labs: Abnormal Lab Results - Last 24 Hours (Table) 09/14/22 09/14/22 Range/Units 04:47 04:47 RBC 2.08 L (3.80-5.40) m/uL Hgb 7.2 L (11.4-16.0) gm/dL Hct 23.0 L (34.0-46.0) % MCV 110.8 H (80.0-100.0) fL RDW 22.8 H (11.5-15.5) % Macrocytosis Marked A Sodium 131 L (137-145) mmol/L BUN 29 H (7-17) mg/dL Creatinine 1.22 H (0.52-1.04) mg/dL Assessment and Plan Assessment: Impression:Laparoscopic repair of paraesophageal hiatal hernia with mesh, postoperative day #2 Pernicious anemia, severe macrocytic anemia with thrombocytopenia and B12 deficiency as noted on the workup on this patient. Acute diastolic congestive heart failure resolved with diuretics. With small right-sided pleural effusion on admission. Chronic kidney disease stage III History of underlying COPD, inactive History of hypothyroidism History of right breast cancer and status post radiotherapy and right lumpectomy. Recommendation: Transfer patient to a regular medical floor Continue GI and DVT prophylaxis Continue bronchodilators Incentive spirometry We'll continue to follow. As needed. Time with Patient: Less than 30
--- NOTE | 2022-09-14 12:06 | P.PN ---
Subjective Progress Note Date: 09/14/22 82 years old female with multiple medical problems including osteoarthritis, hypothyroidism, COPD, irritable bowel syndrome, history of right breast cancer in 2016 status post lumpectomy and radiotherapy. Patient presents because of dyspnea and weakness few days especially with exertion for example going up stairs and she has to stop. She denies chest pain but is complaining of from coughing and yellow phlegm for the last 2 days. Chief complaint from generalized weakness Last year she had similar presentation with acute symptomatic anemia with no GI bleed, she was noted to have diverticular disease with no active bleeding on endoscopy. She states follow-up with Dr. Contreras for her anemia and Dr. Mitchell for her breast cancer and radiotherapy Vitals looks stable and patient is afebrile. showing severe anemia with hemoglobin 4.0 on admission her baseline hemoglobin is (8-9), platelet count is 89k, Baseline platelet count 185-195 creatinine 1.06, Baseline 0.8-1.01 Total bilirubin is 3.4 which is elevated. AST slightly up at 47 and ALT normal at 23. proBNP is 99. Lactate dehydrogenase elevated at [birth year]16/1939. Troponin is negative. EKG showed normal sinus rhythm at [address]-T changes Chest x-ray: Minimal right pleural effusion.per radiologist, However when I reviewed the chest x-ray suspicion of left lower lobe infiltrates. Physical Lovenox was negative. B12 and folic pending. Viruses undetected , including influenza, RSV, mccarthy v Liver ultrasound: unremarkable for right upper quadrant ultrasound Patient was started on Protonix and admitted with surgery and hematology consults Patient received 2 units of blood transfusion 09/07/2022 Patient have severe vitamin B12 deficiency and the placement started with IM injection until Sunday and then can switch to oral dose. Multimedia Programmer team ordered gastric antibodies to check for pernicious anemia which is pending. Elevated bilirubin is a due to vitamin B12 deficiency Her fluid overload is improved, this couldn't be explained by units of blood transfusion given to this thin built lady, currently she is on IV Lasix 20 mg twice daily this can be switched to oral dose tomorrow Surgical team recommended hiatal hernia repair, cardiology consult requested for preoperative evaluation. Patient and family requested second opinion and requested Dr. mclain consult Possible discharge in 24-48 hours if she keeps improving 09/08/2022 Patient generally feels improving, she still somewhat tachypneic. Breathing treatment is added for her She's becoming more euvolemic and her hypervolemia is improving therefore we switched her IV Lasix and oral Lasix 20 mg daily Second surgery opinion obtained, EGD is recommended with follow-up by hiatal hernia repair electively. Surgery team on the case and planned for Sunday hernia repair. Procedure team patient refused EGD Antiparietal antibody is elevated suggestive of pernicious anemia. That's consult is requested. She remains on IV vitamin B12 deficiency. Subacute rehab is recommended for the patient upon discharge, showcase trimmer on the case 09/09 Okay with EGD, Hb stable Diet advanced 09/10 Hb low, no sign sof bleed, okay with EGD, NPO at midnight till Surgery eval tomorrow 09/11 Patient seen by surgery planned for EGD scheduled for today, hemoglobin remained stable, we'll continue with vitamin B12 supplementation 09/12 > status was EGD completed, normal gastric body, normal esophagus,. Surgery following plan for hiatal hernia surgery Continue with vitamin B12 supplementation 09/13>> patient transferred to ICU postoperatively after Laparoscopic repair of paraesophageal hiatal hernia with mesh POD 1, patient weaned down to room air, diet advanced as tolerated 09/14 > patient to be transferred out of ICU, doing well after hernia surgery, t advanced, postoperatively 2, vitamin B12 intramuscular supplementation seven- day course to be completed today were transitioned to weekly vitamin B12 supplementation potential testosterone rehab within the next 24 hours Objective - Vital Signs Vital signs: Vital Signs Temp 98.7 F 09/14/22 10:00 Pulse 80 09/14/22 10:00 Resp 16 09/14/22 10:00 BP 119/65 09/14/22 10:00 Pulse Ox 94 L 09/14/22 10:00 FiO2 Intake & Output 09/13/22 09/14/22 09/14/22 18:59 06:59 18:59 Intake Total 260 240 Output Total 250 350 425 Balance 10 -350 -185 Weight 42.6 kg 48.4 kg Intake: IV 260 D5-0.45% NaCl with KCl 250 20Meq/l 1,000 ml @ 50 mls /hr IV .Q20H CECILIO Rx#: [id number] Invasive Line 2 10 Oral 240 Output: Urine 250 350 425 Other: Voiding Method Bedside Commode Bedside Commode Bedside Commode - Exam EXAM GENERAL: The patient is alert and oriented x3, not in any acute distress. Frail, thin built, pale appearance HEENT: Pupils are round and equally reacting to light. EOMI. No scleral icterus. No conjunctival pallor. Normocephalic, atraumatic. No pharyngeal erythema. No thyromegaly. CARDIOVASCULAR: S1 and S2 present. No murmurs, rubs, or gallops. PULMONARY: Chest is clear to auscultation, no wheezing . no crackles. No basal crepitation ABDOMEN: Soft, nontender, nondistended, postoperative incision, healing no drainage noted MUSCULOSKELETAL: No joint swelling or deformity. EXTREMITIES: No cyanosis, clubbing, or pedal edema. Improving leg edema NEUROLOGICAL: Gross neurological examination did not reveal any focal deficits. SKIN: No rashes. no petechiae. - Labs CBC & Chem 7: 09/14/22 04:47 09/14/22 04:47 Labs: Abnormal Lab Results - Last 24 Hours (Table) 09/14/22 09/14/22 Range/Units 04:47 04:47 RBC 2.08 L (3.80-5.40) m/uL Hgb 7.2 L (11.4-16.0) gm/dL Hct 23.0 L (34.0-46.0) % MCV 110.8 H (80.0-100.0) fL RDW 22.8 H (11.5-15.5) % Macrocytosis Marked A Sodium 131 L (137-145) mmol/L BUN 29 H (7-17) mg/dL Creatinine 1.22 H (0.52-1.04) mg/dL Assessment and Plan Assessment: Assessment: * Pernicious anemia >> Severe acute macrocytic Anemia and thrombocytopenia, secondary to vitamin B12 deficiency present on admission . Status post 2 units of blood transfusion on admission * Laparoscopic repair of paraesophageal hiatal hernia with mesh POD 2 * Acute diastolic CHF normal ejection fraction 50-55% on echocardiogram on 09/2021 * Moderate to severe aortic stenosis * elevated bilirubin. Unconjugated secondary to an effective erythropoiesis secondary to vitamin B12 deficiency * Chronic kidney disease stage III * history of constipation * History of right breast cancer status post radiotherapy and right lumpectomy * COPD, no acute exacerbation * hypothyroidism * History of osteoarthritis Plan: Continue with vitamin B12 replacement therapy Daily IM x 7 days (Day 10/13) then weekly dosing Surgery Following, EGD completed,POD 2 > Laparoscopic repair of paraesophageal hiatal hernia with mesh management consulting Consulted Lasix Oral >> postoperatively patient was started on IV fluid which will be discontinued 09/13 Labs and medication were reviewed. DVT prophylaxis: SCD, started on Lovenox for DVT prophylaxis GI Prophylaxis: Protonix PT/OT:Subacute rehab
[2022-09-14] MEDS: ACETAMINOPHEN TAB 325 MG TAB PO PRN (13:47)
--- NOTE | 2022-09-14 14:24 | P.PN ---
Subjective Progress Note Date: 09/14/22 Principal diagnosis: Symptomatic anemia Seen in ICU today, patient is status post hernia repair, diagnosed with pernicious anemia, started on folic acid and parenteral B12, tolerating well. Her hemoglobin is stable Objective - Vital Signs Vital signs: Vital Signs Temp 98.7 F 09/14/22 10:00 Pulse 80 09/14/22 10:00 Resp 16 09/14/22 10:00 BP 119/65 09/14/22 10:00 Pulse Ox 94 L 09/14/22 10:00 FiO2 Intake & Output 09/13/22 09/14/22 09/14/22 18:59 06:59 18:59 Intake Total 260 240 Output Total 250 350 425 Balance 10 -350 -185 Weight 42.6 kg 48.4 kg Intake: IV 260 D5-0.45% NaCl with KCl 250 20Meq/l 1,000 ml @ 50 mls /hr IV .Q20H CECILIO Rx#: [id number] Invasive Line 2 10 Oral 240 Output: Urine 250 350 425 Other: Voiding Method Bedside Commode Bedside Commode Bedside Commode - Constitutional General appearance: Present: cooperative, no acute distress, thin - EENT Eyes: Present: anicteric sclerae, EOMI ENT: Present: hearing grossly normal - Respiratory Details: Respirations even and unlabored at rest - Peripheral edema leg Peripheral Edema: bilateral: None - Neurologic Neurologic: Present: CNII-XII intact (Grossly) - Musculoskeletal Musculoskeletal: Present: generalized weakness - Psychiatric Psychiatric: Present: A&O x's 3, appropriate affect, intact judgment & insight - Labs CBC & Chem 7: 09/14/22 04:47 09/14/22 04:47 Labs: Abnormal Lab Results - Last 24 Hours (Table) 09/14/22 09/14/22 Range/Units 04:47 04:47 RBC 2.08 L (3.80-5.40) m/uL Hgb 7.2 L (11.4-16.0) gm/dL Hct 23.0 L (34.0-46.0) % MCV 110.8 H (80.0-100.0) fL RDW 22.8 H (11.5-15.5) % Macrocytosis Marked A Sodium 131 L (137-145) mmol/L BUN 29 H (7-17) mg/dL Creatinine 1.22 H (0.52-1.04) mg/dL Assessment and Plan (1) Symptomatic anemia Current Visit: Yes Status: Acute Priority: High Code(s): D64.9 - ANEMIA, UNSPECIFIED SNOMED Code(s): 616358125 (2) Thrombocytopenia Current Visit: Yes Status: Acute Priority: High Code(s): D69.6 - THROMBOCYTOPENIA, UNSPECIFIED SNOMED Code(s): 877720430 Plan: Bicytopenia-resolved -EGD unable to pass pylorus. Patient is status post hernia repair, she is doing well postop Pernicious anemia -Anti-parietal ab testing and Intrinsic factor antibody testing positive. -Tolerating parenteral B12 and oral folate. Hemoglobin 7.2 today. -Tx will need to be continued outpt. Will schedule and get appointments to patient's discharge plan.
[2022-09-15 06:18] LABS: African American GFR (CKD) 58 (>60 ml/min/1.73 sqM); Anion Gap 7 mmol/L; Blood Urea Nitrogen 32 mg/dL (7-17); Calcium 8.7 mg/dL (8.4-10.2); Carbon Dioxide 29 mmol/L (22-30); Chloride 97 mmol/L (98-107); Glucose 98 mg/dL (74-99); Non-African American GFR(CKD) 50 (>60 ml/min/1.73 sqM); Potassium 4.4 mmol/L (3.5-5.1); Sodium 133 mmol/L (137-145)
[2022-09-15 06:33] LABS: Anisocytosis Moderate; HCT 23.4 % (34.0-46.0); HGB 7.2 gm/dL (11.4-16.0); Hypochromasia Marked; MCH 33.2 pg (25.0-35.0); MCHC 30.8 g/dL (31.0-37.0); MCV 107.8 fL (80.0-100.0); Macrocytosis Marked; Mean Platelet Volume 9.2; Platelet Count 375 k/uL (150-450); Poikilocytosis Slight; RBC 2.17 m/uL (3.80-5.40); RDW 22.7 % (11.5-15.5); WBC 12.3 k/uL (3.8-10.6)
[2022-09-15] MEDS: ACETAMINOPHEN TAB 325 MG TAB PO PRN (06:34)
[2022-09-15] MEDS: LEVOTHYROXINE 88 MCG TAB PO SCH (06:35)
--- NOTE | 2022-09-15 06:35 | P.PN ---
Progress Note - Text Progress Note Date: 09/14/22 The patient remains stable. She is minimal pain. She is tolerating clear liquids. She denies any shortness of breath. On exam vital signs are stable. Abdomen is soft Incision sites are clean dry intact Status post laparoscopic repair of large paraesophageal hiatal hernia with intrathoracic stomach and intrathoracic colon. Patient's is progressing nicely. She will have her diet advanced to full liquids.
[2022-09-15] MEDS: FOLIC ACID 1 MG TAB PO SCH (08:06)
[2022-09-15] MEDS: FUROSEMIDE 20 MG TAB PO SCH (08:06)
[2022-09-15] MEDS: ENOXAPARIN 30 MG/0.3 ML SYRINGE SQ SCH (08:06)
[2022-09-15 08:07] VITALS: BP 133/85; PULSE 72
[2022-09-15] MEDS: PANTOPRAZOLE 40 MG/10 ML VIAL IV SCH (08:46)
[2022-09-15 08:55] VITALS: TEMP 98
--- NOTE | 2022-09-15 09:02 | P.PN ---
Progress Note - Text Progress Note Date: 09/15/22 Patient is doing well. She is resting comfortably in her bed. She has no real complaints. She is tolerating diet. On exam vital signs are stable. Abdomen is soft. Incision sites are clean dry tach. Status post repair of large paraesophageal hiatal hernia. Patient is stable for discharge when cleared by the medical service.
[2022-09-15 10:54] VITALS: BMI 18.8
--- NOTE | 2022-09-15 10:56 | P.DS ---
Providers Date of admission: 09/05/22 19:37 Expected date of discharge: 09/15/22 Attending physician: Jamal Delgado MD Consults: 09/05/22 19:35 Consult Physician Routine Consulting Provider: Candido Harrington Consult Reason/Comments: anemia Do you want consulting provider notified?: Already Contacted 09/05/22 21:31 Consult Physician Routine Consulting Provider: Kishor Gonsales Consult Reason/Comments: anemia, thrombocytopenia Do you want consulting provider notified?: Yes 09/07/22 20:50 Consult Physician Routine Consulting Provider: Fabio Connor Consult Reason/Comments: second opinion for hiatial hernia repair Do you want consulting provider notified?: Yes, Notify in am Primary care physician: [facility] [place] Course: 82 years old female with multiple medical problems including osteoarthritis, hypothyroidism, COPD, irritable bowel syndrome, history of right breast cancer in 2016 status post lumpectomy and radiotherapy. Patient presents because of dyspnea and weakness few days especially with exertion for example going up stairs and she has to stop. She denies chest pain but is complaining of from coughing and yellow phlegm for the last 2 days. Chief complaint from generalized weakness Last year she had similar presentation with acute symptomatic anemia with no GI bleed, she was noted to have diverticular disease with no active bleeding on en doscopy. She states follow-up with Dr. Contreras for her anemia and Dr. Mitchell for her breast cancer and radiotherapy Vitals looks stable and patient is afebrile. showing severe anemia with hemoglobin 4.0 on admission her baseline hemoglobin is (8-9), platelet count is 89k, Baseline platelet count 185-195 creatinine 1.06, Baseline 0.8-1.01 Total bilirubin is 3.4 which is elevated. AST slightly up at 47 and ALT normal at 23. proBNP is 99. Lactate dehydrogenase elevated at [birth year]16/1939. Troponin is negative. EKG showed normal sinus rhythm at [address]-T changes Chest x-ray: Minimal right pleural effusion.per radiologist, However when I reviewed the chest x-ray suspicion of left lower lobe infiltrates. Physical Lovenox was negative. B12 and folic pending. Viruses undetected , including influenza, RSV, mccarthy v Liver ultrasound: unremarkable for right upper quadrant ultrasound Patient was started on Protonix and admitted with surgery and hematology consults Patient received 2 units of blood transfusion 09/07/2022 Patient have severe vitamin B12 deficiency and the placement started with IM injection until Sunday and then can switch to oral dose. Construction Foreman team ordered gastric antibodies to check for pernicious anemia which is pending. Elevated bilirubin is a due to vitamin B12 deficiency Her fluid overload is improved, this couldn't be explained by units of blood transfusion given to this thin built lady, currently she is on IV Lasix 20 mg twice daily this can be switched to oral dose tomorrow Surgical team recommended hiatal hernia repair, cardiology consult requested for preoperative evaluation. Patient and family requested second opinion and requested Dr. mclain consult Possible discharge in 24-48 hours if she keeps improving 09/08/2022 Patient generally feels improving, she still somewhat tachypneic. Breathing treatment is added for her She's becoming more euvolemic and her hypervolemia is improving therefore we switched her IV Lasix and oral Lasix 20 mg daily Second surgery opinion obtained, EGD is recommended with follow-up by hiatal hernia repair electively. Surgery team on the case and planned for Sunday hernia repair. Procedure team patient refused EGD Antiparietal antibody is elevated suggestive of pernicious anemia. That's consult is requested. She remains on IV vitamin B12 deficiency. Subacute rehab is recommended for the patient upon discharge, case investigator on the case 09/09 Okay with EGD, Hb stable Diet advanced 09/10 Hb low, no sign sof bleed, okay with EGD, NPO at midnight till Surgery eval tomorrow 09/11 Patient seen by surgery planned for EGD scheduled for today, hemoglobin remained stable, we'll continue with vitamin B12 supplementation 09/12 > status was EGD completed, normal gastric body, normal esophagus,. Surgery following plan for hiatal hernia surgery Continue with vitamin B12 supplementation 09/13>> patient transferred to ICU postoperatively after Laparoscopic repair of paraesophageal hiatal hernia with mesh POD 1, patient weaned down to room air, diet advanced as tolerated 09/14 > patient to be transferred out of ICU, doing well after hernia surgery, diet advanced, postoperatively 2, vitamin B12 intramuscular supplementation seven-day course to be completed today were transitioned to weekly vitamin B12 supplementation potential testosterone rehab within the next 24 hours 09/15>. Patient tolerating diet well postprocedure, transition to vitamin B12 oral supplementation. Transition to subacute rehab. Hemoglobin remained stable discharged with outpatient follow-up with provider EXAM GENERAL: The patient is alert and oriented x3, not in any acute distress. Frail, thin built, pale appearance HEENT: Pupils are round and equally reacting to light. EOMI. No scleral icterus. No conjunctival pallor. Normocephalic, atraumatic. No pharyngeal erythema. No thyromegaly. CARDIOVASCULAR: S1 and S2 present. No murmurs, rubs, or gallops. PULMONARY: Chest is clear to auscultation, no wheezing . no crackles. No basal crepitation ABDOMEN: Soft, nontender, nondistended, postoperative incision, healing no drainage noted MUSCULOSKELETAL: No joint swelling or deformity. EXTREMITIES: No cyanosis, clubbing, or pedal edema. Improving leg edema NEUROLOGICAL: Gross neurological examination did not reveal any focal deficits. SKIN: No rashes. no petechiae. Assessment: * Pernicious anemia >> Severe acute macrocytic Anemia and thrombocytopenia, secondary to vitamin B12 deficiency present on admission . Status post 2 units of blood transfusion on admission * Laparoscopic repair of paraesophageal hiatal hernia with mesh POD 2 * Acute diastolic CHF normal ejection fraction 50-55% on echocardiogram on 09/2021 * Moderate to severe aortic stenosis * elevated bilirubin. Unconjugated secondary to an effective erythropoiesis secondary to vitamin B12 deficiency * Chronic kidney disease stage III * history of constipation * History of right breast cancer status post radiotherapy and right lumpectomy * COPD, no acute exacerbation * hypothyroidism * History of osteoarthritis Plan: Continue with vitamin B12 replacement therapy Daily IM x 7 days (Day 10/13) >> transition to oral daily supplementation Surgery Following, EGD completed,POD 3 > Laparoscopic repair of paraesophageal hiatal hernia with mesh inside wirer Consulted Lasix Oral >> postoperatively patient was started on IV fluid which will be discontinued 09/13, transition to oral Lasix, potassium supplementation given Labs and medication were reviewed. Patient Condition at Discharge: Serious Plan - Discharge Summary Discharge Rx Participant: No New Discharge Prescriptions: New Omeprazole 20 mg PO DAILY 30 Days #30 tab Albuterol Inhaler [Ventolin Hfa Inhaler] 1 - 2 puff INHALATION Q6H PRN 30 Days #1 each PRN Reason: Shortness Of Breath Cyanocobalamin (Vitamin B-12) [Vitamin B-12] 2,500 mcg PO DAILY 30 Days tab Potassium Chloride 20 meq PO DAILY 30 Days #450 ml Folic Acid 1 mg PO DAILY #90 tablet Acetaminophen Tab [Tylenol] 325 mg PO Q6HR PRN tab PRN Reason: Fever And/ Or Pain Furosemide [Lasix] 20 mg PO DAILY tab Continue Levothyroxine Sodium [Synthroid] 88 mcg PO DAILY Discharge Medication List Levothyroxine Sodium [Synthroid] 88 mcg PO DAILY 03/17/15 [History] Folic Acid 1 mg PO DAILY #90 tablet 09/13/22 [Rx] Acetaminophen Tab [Tylenol] 325 mg PO Q6HR PRN tab 09/15/22 [Rx] Albuterol Inhaler [Ventolin Hfa Inhaler] 1 - 2 puff INHALATION Q6H PRN 30 Days #1 each 09/15/22 [Rx] Cyanocobalamin (Vitamin B-12) [Vitamin B-12] 2,500 mcg PO DAILY 30 Days tab 09/15/22 [Rx] Furosemide [Lasix] 20 mg PO DAILY tab 09/15/22 [Rx] Omeprazole 20 mg PO DAILY 30 Days #30 tab 09/15/22 [Rx] Potassium Chloride 20 meq PO DAILY 30 Days #450 ml 09/15/22 [Rx] Follow up Appointment(s)/Referral(s): Jasper Linares DO [Primary Care Provider] - 1-2 days Osito Lara MD [STAFF PHYSICIAN] - 09/28/22 1:30 pm Candido Harrington MD [STAFF PHYSICIAN] - 1 Week Patient Instructions/Handouts: *[facility] - ([facility]any [facility] Nikolas) Lap Candelario Fundiplication Post-Op Instructions, *[facility] - Managing Your Pain After Surgery Without Opioids, Hiatal Hernia (DC), Fall Prevention for Older Adults (ED), Weakness (ED), Anemia (DC), Jaundice (DC), Vitamin B12 Deficiency (GEN), Full Liquid Diet (DC), Upper Endoscopy (GEN), Physical Activity for Older Adults (GEN) Activity/Diet/Wound Care/Special Instructions: Also recommend checking vitamin B12 level as an outpatient in 1-2 months Appointment for B12 injections and pernicious anemia follow-up in chart Continue full liquid diet without straws or carbonation until follow up with Dr. Connor. Ensure Enlive TIDWM Patient may shower. Activity as tolerated. Tylenol PRN For Pain. Discharge Disposition: TRANSFER TO SNF/ECF
--- NOTE | 2022-09-15 13:33 | P.PN ---
Subjective Progress Note Date: 09/15/22 Principal diagnosis: Status post paraesophageal hernia repair, postoperative day #3 This is an 82-year-old female, admitted initially on 09/06/2022. She was admitted to Dr. mak, patient is known to have history of hypothyroidism COPD, irritable bowel syndrome, and history of right breast cancer in 2016 status post lumpectomy and radiotherapy. Patient was noted to have severe acute anemia and thrombocytopenia on admission received ideation a 2 units of packed RBCs, she wa s also found to have elevated bilirubin, chronic kidney disease stage III, and she has underlying COPD but no acute exacerbation since admission the patient was seen by many consultants including general surgery, hematology/oncology, and internal medicine. EGD revealed evidence of a very large hiatal hernia with intrathoracic stomach, and could not enter the pylorus. Hence the surgeon recommended that he proceeds with hiatal hernia repair. Today the patient underwent laparoscopic repair of paraesophageal hiatal hernia with mesh, considering her marginal clinical status and medical debility, patient was admitted to the ICU, and this consult was initiated. I saw this patient in the recovery room, she is on a Ventimask, she is still not fully awake, could not assess mental status or get any appropriate history from the patient. Patient was hemodynamically stable, she was already extubated, and I recommended overnight admission to the ICU and observation. Labs today showed hemoglobin of 8.4 WBC count of 6.2 twice a normal renal profile is normal, chest x-ray on admission showed very minimal right-sided pleural effusion, no follow-up chest x-ray was done since admission Patient was evaluated today again on 09/13/2022, patient is doing much better today, I saw her yesterday in the recovery room, she is comfortable not in any distress, patient is on 2 L nasal cannula, hemodynamically stable. Hemoglobin today is 7.4. Basic metabolic profile is normal BUN is 33 creatinine 1.23 no x- rays done today. Clinically the patient is doing well, and I will transfer the patient out of the ICU to a medical surgical floor. Patient was reevaluated today on , remains in the ICU as an overflow, doing well, relatively asymptomatic, compliant with her incentive spirometry, patient seems to be appropriate, alert oriented 3, labs today: Of 7.2, hardly any change compared to yesterday. Basic metabolic profile is normal. Creatinine is 1.22. Slightly improved compared to yesterday. Reevaluated today on 09/25/2022, patient is doing great, asymptomatic, no active pulmonary symptoms, hence I believe the patient should be considered for discharge or at least transfer out of the ICU. I will clear from my perspective the patient for discharge home. Or discharge to a rehab facility if needed. Objective - Vital Signs Vital signs: Vital Signs Temp 98.0 F 09/15/22 08:55 Pulse 72 09/15/22 08:00 Resp 16 09/15/22 08:55 BP 133/85 09/15/22 08:00 Pulse Ox 97 09/15/22 08:55 FiO2 Intake & Output 09/14/22 09/15/22 09/15/22 18:59 06:59 18:59 Intake Total 730 1180 Output Total 1175 475 200 Balance -445 -475 980 Weight 48.4 kg Intake: IV 10 10 Invasive Line 2 10 10 Oral 720 1170 Output: Urine 1175 475 200 Other: Voiding Method Bedside Commode Bedside Commode Bedside Commode # Voids 2 # Bowel Movements 1 0 - Exam Physical Exam: Revealed an 82-year-old female, looks frail, chronically ill, on room air Head: Atraumatic, normocephalic. HEENT:[Neck is supple.] [No neck masses.] [No thyromegaly.] [No JVD.] Chest: [Clear throughout, no crackles, no rhonchi, no wheezes.] Cardiac Exam: [Normal S1 and S2, no S3 gallop, no murmur.] Abdomen: [Postsurgical, Soft, slightly tender to palpation., no megaly, no rebound, no guarding, no bowel sounds.] Extremities: [No clubbing, no edema, no cyanosis.] Neurological Exam: Alert and oriented 3 no focal neurologic deficit Skin: No rashes. - Labs CBC & Chem 7: 09/15/22 05:40 09/15/22 05:40 Labs: Abnormal Lab Results - Last 24 Hours (Table) 09/15/22 09/15/22 Range/Units 05:40 05:40 WBC 12.3 H (3.8-10.6) k/uL RBC 2.17 L (3.80-5.40) m/uL Hgb 7.2 L (11.4-16.0) gm/dL Hct 23.4 L (34.0-46.0) % MCV 107.8 H (80.0-100.0) fL MCHC 30.8 L (31.0-37.0) g/dL RDW 22.7 H (11.5-15.5) % Macrocytosis Marked A Sodium 133 L (137-145) mmol/L Chloride 97 L (98-107) mmol/L BUN 32 H (7-17) mg/dL Creatinine 1.05 H (0.52-1.04) mg/dL Assessment and Plan Assessment: Impression:Laparoscopic repair of paraesophageal hiatal hernia with mesh, postoperative day #3 Pernicious anemia, severe macrocytic anemia with thrombocytopenia and B12 deficiency as noted on the workup on this patient. Acute diastolic congestive heart failure resolved with diuretics. With small right-sided pleural effusion on admission. Chronic kidney disease stage III History of underlying COPD, inactive History of hypothyroidism History of right breast cancer and status post radiotherapy and right lumpectomy. Recommendation: Cleared for discharge home if cleared by other physicians on the case. Incentive spirometry We'll continue to follow. As needed. Time with Patient: Less than 30
[2022-09-16] MEDS ORDERED: ENOXAPARIN 40 MG/0.4 ML SYRINGE SQ SCH (09:00)
[2022-09-20] MEDS ORDERED: CYANOCOBALAMIN 1,000 MCG/ML 1 ML VIAL IM ONE (09:00)
== END 2022-09-15 13:06 | DRG 981 ==
LOC: EC 15:25 → 3SCARD 19:37 → 5NMEDONC 09-07 23:18 → 2SICU 09-12 15:12
PROVIDERS: ADMIT Internal Medicine; ATTEND Internal Medicine
PROC: 30233N1 Transfusion of Nonautologous Red Blood Cells into Peripheral Vein, Percutaneous Approach (ICD-10-PCS; 2022-09-05)
PROC: 0DJ08ZZ Inspection of Upper Intestinal Tract, Via Natural or Artificial Opening Endoscopic (ICD-10-PCS; 2022-09-11)
PROC: 0BUT4JZ Supplement Diaphragm with Synthetic Substitute, Percutaneous Endoscopic Approach (ICD-10-PCS; principal; 2022-09-12 07:30)
DX: D51.0 Vitamin B12 deficiency anemia due to intrinsic factor deficiency (principal); I50.31 Acute diastolic (congestive) heart failure; E84.9 Cystic fibrosis, unspecified; Z68.1 Body mass index [BMI] 19.9 or less, adult; K44.9 Diaphragmatic hernia without obstruction or gangrene; D53.9 Nutritional anemia, unspecified; D69.59 Other secondary thrombocytopenia; E03.9 Hypothyroidism, unspecified; N18.30 Chronic kidney disease, stage 3 unspecified; M41.9 Scoliosis, unspecified; K57.90 Diverticulosis of intestine, part unspecified, without perforation or abscess without bleeding; Z85.3 Personal history of malignant neoplasm of breast; Z90.11 Acquired absence of right breast and nipple; Z92.3 Personal history of irradiation; M19.90 Unspecified osteoarthritis, unspecified site; J44.9 Chronic obstructive pulmonary disease, unspecified; E87.70 Fluid overload, unspecified; Z20.822 Contact with and (suspected) exposure to COVID-19; R63.4 Abnormal weight loss; I35.0 Nonrheumatic aortic (valve) stenosis; M85.80 Other specified disorders of bone density and structure, unspecified site; K58.1 Irritable bowel syndrome with constipation; Z79.890 Hormone replacement therapy; Z80.3 Family history of malignant neoplasm of breast; Z96.643 Presence of artificial hip joint, bilateral; Z96.653 Presence of artificial knee joint, bilateral; Z96.612 Presence of left artificial shoulder joint; Z96.611 Presence of right artificial shoulder joint; Z71.3 Dietary counseling and surveillance; Z88.1 Allergy status to other antibiotic agents; Z88.5 Allergy status to narcotic agent; Z28.310 Unvaccinated for COVID-19; Z87.891 Personal history of nicotine dependence
CPT/HCPCS: 36415; 36430; 43235; 71046; 71250; 74176; 76705; 78582; 80048; 80053; 80076; 82248; 82272; 82607; 82728; 82746; 83010; 83516; 83540; 83550; 83605; 83615; 83735; 83880; 84100; 84145; 84443; 84484; 85025; 85027; 85045; 85379; 85384; 85610; 85730; 86340; 86850; 86880; 86900; 86901; 86920; 87636; 88184; 88185; 93005; 93306; 94640; 96374; 99285

== ENCOUNTER 2022-12-13 20:10 | Inpatient (IN) | payer MEDICARE ==
[2022-12-13] MEDS ORDERED: HYDROmorphone 1 MG/ML 1 ML SYRINGE IVP STA (21:47)
[2022-12-13] MEDS ORDERED: SODIUM CHLORIDE 0.9% 1,000 ML IV ONE (22:09)
--- NOTE | 2022-12-13 22:10 | ED ---
Fall HPI - General Chief Complaint: Fall Stated Complaint: Fall-left flank pain Time Seen by Provider: 12/13/22 21:24 Source: patient, EMS, RN notes reviewed, old records reviewed Mode of arrival: EMS Limitations: no limitations - History of Present Illness Initial Comments: This is a 82-year-old female to the emergency department for evaluation today. Patient presents today for evaluation regards to weakness fall and history is very limited. Patient allegedly male fell down a flight of stairs she is complaining of back pain hip pain chest pain. Patient admits to significant pain especially with any movement. He does feel significantly weak and debilitated prior to fall. MD Complaint: fall -: unknown Fall From: standing When Fall Occurred: unsure Fall Witnessed: no Place Fall Occurred: home Loss of Consciousness: none Prolonged Down Time?: no Symptoms Prior to Fall: none Severity: mild Severity scale (1-10): 1 Quality: burning, sharp Context: tripped/slipped Associated Symptoms: denies - Related Data Home Medications Medication Instructions Recorded Confirmed Levothyroxine Sodium [Synthroid] 88 mcg PO DAILY 03/17/15 12/14/22 Albuterol Inhaler [Ventolin Hfa 1 - 2 puff INHALATION RT-Q6H PRN 12/14/22 12/14/22 Inhaler] Potassium Chloride ER [K-Dur 20] 20 meq PO DAILY 12/14/22 12/14/22 Previous Rx's Medication Instructions Recorded Folic Acid 1 mg PO DAILY #90 tablet 09/13/22 Acetaminophen Tab [Tylenol] 325 mg PO Q6HR PRN tab 09/15/22 Cyanocobalamin (Vitamin B-12) 2,500 mcg PO DAILY 30 Days tab 09/15/22 [Vitamin B-12] Furosemide [Lasix] 20 mg PO DAILY tab 09/15/22 Omeprazole 20 mg PO DAILY 30 Days #30 tab 09/15/22 Allergies Allergy/AdvReac Type Severity Reaction Status Date / Time diphenhydramine HCl Allergy Itching Verified 12/14/22 07:07 [From Benadryl] levofloxacin [From Levaquin] Allergy Itching Verified 12/14/22 07:07 morphine Allergy Itching Verified 12/14/22 07:07 Review of Systems ROS Statement: Those systems with pertinent positive or pertinent negative responses have been documented in the HPI. ROS Other: All systems not noted in ROS Statement are negative. Past Medical History Past Medical History: Cancer, COPD, Musculoskeletal Disorder, Osteoarthritis (OA), Thyroid Disorder Additional Past Medical History / Comment(s): Hiatal hernia, sinusitis, osteopenia, IBS-C(constipation), Scoliosis, Kyphosis, seasonal allergies, poor sleep, anemia. Hx right breast cancer 2016, had lumpectomy and radiation. History of Any Multi-Drug Resistant Organisms: None Reported Past Surgical History: Appendectomy, Breast Surgery, Joint Replacement, Orthopedic Surgery, Tonsillectomy Additional Past Surgical History / Comment(s): Hemmorroidectomy, bilateral hip, knee, and shoulder replacements, and bilateral oopherectomy, right breast lumpectomy, bilateral cataract surgery. Past Anesthesia/Blood Transfusion Reactions: Postoperative Nausea & Vomiting (PONV) Additional Past Anesthesia/Blood Transfusion Reaction / Comment(s): Hiatal hernia. Past Psychological History: No Psychological Hx Reported Smoking Status: Former smoker Past Alcohol Use History: Occasional Past Drug Use History: None Reported - Past Family History Mother Family Medical History: Cancer Additional Family Medical History / Comment(s): Breast cancer. Father Family Medical History: Cancer, Deep Vein Thrombosis (DVT) Additional Family Medical History / Comment(s): Prostate and skin cancer. General Exam Limitations: no limitations General appearance: alert, in no apparent distress, cachectic Head exam: Present: atraumatic, normocephalic, normal inspection Eye exam: Present: normal appearance, PERRL, EOMI. Absent: scleral icterus, conjunctival injection, periorbital swelling ENT exam: Present: normal exam, mucous membranes moist Neck exam: Present: normal inspection. Absent: tenderness, meningismus, lymphadenopathy Respiratory exam: Present: normal lung sounds bilaterally. Absent: respiratory distress, wheezes, rales, rhonchi, stridor Cardiovascular Exam: Present: regular rate, normal rhythm, normal heart sounds. Absent: systolic murmur, diastolic murmur, rubs, gallop, clicks GI/Abdominal exam: Present: soft, normal bowel sounds. Absent: distended, tenderness, guarding, rebound, rigid Extremities exam: Present: normal inspection, full ROM, normal capillary refill. Absent: tenderness, pedal edema, joint swelling, calf tenderness Back exam: Present: normal inspection Neurological exam: Present: alert, oriented X3, CN II-XII intact Psychiatric exam: Present: normal affect, normal mood Skin exam: Present: warm, dry, intact, normal color. Absent: rash Course Vital Signs 12/13/22 12/14/22 12/14/22 20:26 03:17 07:00 Temperature 98.0 F 97.4 F L Pulse Rate 88 86 Pulse Rate [ 90 Pulse Oximetery ] Respiratory 20 18 16 Rate Blood Pressure 153/88 172/90 Blood Pressure 170/78 [Left Arm] O2 Sat by Pulse 96 95 93 L Oximetry - Reevaluation(s) Reevaluation #1: 12/13/22 22:54 Medical records reviewed Reevaluation #2: 12/14/22 00:45 Patient is unable to ambulate or stand here in the emergency department under her own power Reevaluation #3: 12/14/22 00:48 Patient informed results and questions answered Reevaluation #4: 12/13/22 22:54 Was pt. sent in by a medical professional or institution (, PA, FEDERAL JUDICIAL LAW CLERK, urgent care, hospital, or residential...) When possible be specific @ -no Did you speak to anyone other than the patient for history (EMS, parent, family, police, friend...)? What history was obtained from this source @ -no Did you review nursing and triage notes (agree or disagree)? Why? @ -agree Are old charts reviewed (outside hosp., previous admission, EMS record, old EKG, old radiological studies, urgent care reports/EKG's, residential records)? Report findings @ -yes Differential Diagnosis (chest pain, altered mental status, abdominal pain women, abdominal pain men, vaginal bleeding, weakness, fever, dyspnea, syncope, headache, dizziness, GI bleed, back pain, seizure, CVA, palpatations, mental health, musculoskeletal)? @ -prior EKG interpreted by me (3pts min.). @ -yes X-rays interpreted by me (1pt min.). @ -yes CT interpreted by me (1pt min.). @ -yes U/S interpreted by me (1pt. min.). @ -no What testing was considered but not performed or refused? (CT, X-rays, U/S, labs)? Why? @ -none What meds were considered but not given or refused? Why? @ -none Did you discuss the management of the patient with other professionals (professionals i.e. , PA, FEDERAL JUDICIAL LAW CLERK, lab, RT, psych nurse, social work associate, computer typesetter keyliner, teacher, safety and security officer, binder caser)? Give summary @ -no Was smoking cessation discussed for >3mins.? @ -no Was critical care preformed (if so, how long)? @ -no Were there social determinants of health that impacted care today? How? (Homelessness, low income, unemployed, alcoholism, drug addiction, transpor tation, low edu. Level, literacy, decrease access to med. care, half-way, rehab)? @ -none Was there de-escalation of care discussed even if they declined (Discuss DNR or withdrawal of care, Hospice)? DNR status @ -no What co-morbidities impacted this encounter? (DM, HTN, Smoking, COPD, CAD, Cancer, CVA, ARF, Chemo, Hep., AIDS, mental health diagnosis, sleep apnea, morbid obesity)? @ -none Was patient admitted / discharged? Hospital course, mention meds given and route, prescriptions, significant lab abnormalities, going to OR and other pertinent info. @ - 82 female to the emergency department for evaluation today. Patient since today for evaluation regards to weakness on the ground unable to ambulate. Patient was unable to stand or hold her only here in the emergency department. Admitted Undiagnosed new problem with uncertain prognosis? @ -no Drug Therapy requiring intensive monitoring for toxicity (Heparin, Nitro, Insulin, Cardizem)? @ -no Were any procedures done? @ -no Diagnosis/symptom? @ -Weakness and debility Acute, or Chronic, or Acute on Chronic? @ -Acute Uncomplicated (without systemic symptoms) or Complicated (systemic symptoms)? @ -Complicated Side effects of treatment? @ -no Exacerbation, Progression, or Severe Exacerbation? @ -exacerbation Poses a threat to life or bodily function? How? (Chest pain, USA, MN, pneumonia, PE, COPD, DKA, ARF, appy, cholecystitis, CVA, Diverticulitis, Homicidal, Suicidal, threat to staff... and all critical care pts) @ -yes extreme of age Reevaluation #5: 12/13/22 22:54 Differential Weakness: Hypoglycemia, shock, sepsis, hyponatremia, anemia, infection, MN, ETOH, adverse medicine reaction, overdose, stroke, this is not meant to be an all-inclusive list. - Consultations Consultation #1: Spoke with [facility] were agreeable to admit this patient Medical Decision Making - Medical Decision Making 82 female to the emergency department for evaluation today. Patient since today for evaluation regards to weakness on the ground unable to ambulate. Patient was unable to stand or hold her only here in the emergency department. - Lab Data Result diagrams: 12/18/22 05:36 12/18/22 05:36 Lab Results 12/13/22 12/13/22 12/13/22 Range/Units 01:21 22:11 22:11 WBC (3.8-10.6) k/uL RBC (3.80-5.40) m/uL Hgb (11.4-16.0) gm/dL Hct (34.0-46.0) % MCV (80.0-100.0) fL MCH (25.0-35.0) pg MCHC (31.0-37.0) g/dL RDW (11.5-15.5) % Plt Count (150-450) k/uL MPV Absolute Nucleated RBC % Neutrophils % % Lymphocytes % % Monocytes % % Eosinophils % % Basophils % % Neutrophils # (1.3-7.7) k/uL Lymphocytes # (1.0-4.8) k/uL Monocytes # (0-1.0) k/uL Eosinophils # (0-0.7) k/uL Basophils # (0-0.2) k/uL NRBC/100 WBC Diff (0.00-0.01) X 10*3/uL Hypochromasia Anisocytosis PT 13.2 H (9.0-12.0) sec INR 1.3 H (<1.2) APTT 22.0 (22.0-30.0) sec Sodium 137 (137-145) mmol/L Potassium 3.7 (3.5-5.1) mmol/L Chloride 103 (98-107) mmol/L Carbon Dioxide 26 (22-30) mmol/L Anion Gap 8 mmol/L BUN 34 H (7-17) mg/dL Creatinine 0.82 (0.52-1.04) mg/dL Est GFR (CKD-EPI) (>=60) Est GFR (CKD-EPI)AfAm 78 (>60 ml/min/1.73 sqM) Est GFR (CKD-EPI)NonAf 68 (>60 ml/min/1.73 sqM) BUN/Creatinine Ratio (12.00-20.00) Ratio Glucose 111 H (74-99) mg/dL Calcium 10.0 (8.4-10.2) mg/dL Phosphorus 3.5 (2.5-4.5) mg/dL Magnesium 1.9 (1.6-2.3) mg/dL Total Bilirubin 0.9 (0.2-1.3) mg/dL AST 49 H (14-36) U/L ALT 37 H (4-34) U/L Alkaline Phosphatase 179 H (38-126) U/L Creatine Kinase 160 H (30-135) U/L C-Reactive Protein (0.00-0.80) mg/dL Total Protein 7.1 (6.3-8.2) g/dL Albumin 4.1 (3.5-5.0) g/dL Procalcitonin (0.02-0.09) ng/mL Urine Color Urine Appearance (Clear) Urine pH (5.0-8.0) Ur Specific Raymond (1.001-1.035) Urine Protein (Negative) Urine Glucose (UA) (Negative) Urine Ketones (Negative) Urine Blood (Negative) Urine Nitrite (Negative) Urine Bilirubin (Negative) Urine Urobilinogen (<2.0) mg/dL Ur Leukocyte Esterase (Negative) Urine RBC (0-5) /hpf Urine WBC (0-5) /hpf Ur Squamous Epith Cells (0-4) /hpf Urine Mucus (None) /hpf 12/13/22 12/14/22 12/14/22 Range/Units 23:35 03:00 11:50 WBC 12.6 H 9.4 (3.8-10.6) k/uL RBC 3.50 L 3.76 L (3.80-5.40) m/uL Hgb 10.2 L 10.7 L (11.4-16.0) gm/dL Hct 31.9 L 35.0 (34.0-46.0) % MCV 91.3 93.0 (80.0-100.0) fL MCH 29.1 28.5 (25.0-35.0) pg MCHC 31.9 30.7 L (31.0-37.0) g/dL RDW 17.4 H 17.3 H (11.5-15.5) % Plt Count 135 L 136 L (150-450) k/uL MPV 7.9 8.2 Absolute Nucleated RBC % Neutrophils % 81 79 % Lymphocytes % 11 15 % Monocytes % 6 5 % Eosinophils % 0 1 % Basophils % 0 0 % Neutrophils # 10.2 H 7.4 (1.3-7.7) k/uL Lymphocytes # 1.4 1.4 (1.0-4.8) k/uL Monocytes # 0.8 0.4 (0-1.0) k/uL Eosinophils # 0.1 0.1 (0-0.7) k/uL Basophils # 0.0 0.0 (0-0.2) k/uL NRBC/100 WBC Diff (0.00-0.01) X 10*3/uL Hypochromasia Slight Moderate Anisocytosis Slight Slight PT (9.0-12.0) sec INR (<1.2) APTT (22.0-30.0) sec Sodium (137-145) mmol/L Potassium (3.5-5.1) mmol/L Chloride (98-107) mmol/L Carbon Dioxide (22-30) mmol/L Anion Gap mmol/L BUN (7-17) mg/dL Creatinine (0.52-1.04) mg/dL Est GFR (CKD-EPI) (>=60) Est GFR (CKD-EPI)AfAm (>60 ml/min/1.73 sqM) Est GFR (CKD-EPI)NonAf (>60 ml/min/1.73 sqM) BUN/Creatinine Ratio (12.00-20.00) Ratio Glucose (74-99) mg/dL Calcium (8.4-10.2) mg/dL Phosphorus (2.5-4.5) mg/dL Magnesium (1.6-2.3) mg/dL Total Bilirubin (0.2-1.3) mg/dL AST (14-36) U/L ALT (4-34) U/L Alkaline Phosphatase (38-126) U/L Creatine Kinase (30-135) U/L C-Reactive Protein (0.00-0.80) mg/dL Total Protein (6.3-8.2) g/dL Albumin (3.5-5.0) g/dL Procalcitonin (0.02-0.09) ng/mL Urine Color Colorless Urine Appearance Clear (Clear) Urine pH 7.5 (5.0-8.0) Ur Specific Raymond 1.020 (1.001-1.035) Urine Protein Trace H (Negative) Urine Glucose (UA) Negative (Negative) Urine Ketones Negative (Negative) Urine Blood Small H (Negative) Urine Nitrite Negative (Negative) Urine Bilirubin Negative (Negative) Urine Urobilinogen <2.0 (<2.0) mg/dL Ur Leukocyte Esterase Negative (Negative) Urine RBC 2 (0-5) /hpf Urine WBC 1 (0-5) /hpf Ur Squamous Epith Cells 1 (0-4) /hpf Urine Mucus Rare H (None) /hpf 12/14/22 12/15/22 12/15/22 Range/Units 11:50 05:38 05:38 WBC 9.69 (3.8-10.6) k/uL RBC 3.48 L (3.80-5.40) m/uL Hgb 9.5 L (11.4-16.0) gm/dL Hct 31.8 L (34.0-46.0) % MCV 91.4 (80.0-100.0) fL MCH 27.3 (25.0-35.0) pg MCHC 29.9 L (31.0-37.0) g/dL RDW 18.6 H (11.5-15.5) % Plt Count 134 L (150-450) k/uL MPV 11.3 Absolute Nucleated RBC 0 % Neutrophils % % Lymphocytes % % Monocytes % % Eosinophils % % Basophils % % Neutrophils # (1.3-7.7) k/uL Lymphocytes # (1.0-4.8) k/uL Monocytes # (0-1.0) k/uL Eosinophils # (0-0.7) k/uL Basophils # (0-0.2) k/uL NRBC/100 WBC Diff 0 (0.00-0.01) X 10*3/uL Hypochromasia Anisocytosis PT (9.0-12.0) sec INR (<1.2) APTT (22.0-30.0) sec Sodium 138 (137-145) mmol/L Potassium 4.0 (3.5-5.1) mmol/L Chloride 102 (98-107) mmol/L Carbon Dioxide 30 (22-30) mmol/L Anion Gap 6 mmol/L BUN 28 H (7-17) mg/dL Creatinine 0.71 (0.52-1.04) mg/dL Est GFR (CKD-EPI) (>=60) Est GFR (CKD-EPI)AfAm >90 (>60 ml/min/1.73 sqM) Est GFR (CKD-EPI)NonAf 81 (>60 ml/min/1.73 sqM) BUN/Creatinine Ratio (12.00-20.00) Ratio Glucose 116 H (74-99) mg/dL Calcium 9.4 (8.4-10.2) mg/dL Phosphorus (2.5-4.5) mg/dL Magnesium (1.6-2.3) mg/dL Total Bilirubin (0.2-1.3) mg/dL AST (14-36) U/L ALT (4-34) U/L Alkaline Phosphatase (38-126) U/L Creatine Kinase (30-135) U/L C-Reactive Protein (0.00-0.80) mg/dL Total Protein (6.3-8.2) g/dL Albumin (3.5-5.0) g/dL Procalcitonin 0.48 H (0.02-0.09) ng/mL Urine Color Urine Appearance (Clear) Urine pH (5.0-8.0) Ur Specific Raymond (1.001-1.035) Urine Protein (Negative) Urine Glucose (UA) (Negative) Urine Ketones (Negative) Urine Blood (Negative) Urine Nitrite (Negative) Urine Bilirubin (Negative) Urine Urobilinogen (<2.0) mg/dL Ur Leukocyte Esterase (Negative) Urine RBC (0-5) /hpf Urine WBC (0-5) /hpf Ur Squamous Epith Cells (0-4) /hpf Urine Mucus (None) /hpf 12/15/22 12/16/22 12/16/22 Range/Units 05:38 09:32 09:32 WBC 9.7 (3.8-10.6) k/uL RBC 3.56 L (3.80-5.40) m/uL Hgb 10.1 L (11.4-16.0) gm/dL Hct 32.9 L (34.0-46.0) % MCV 92.3 (80.0-100.0) fL MCH 28.3 (25.0-35.0) pg MCHC 30.7 L (31.0-37.0) g/dL RDW 17.1 H (11.5-15.5) % Plt Count 110 L (150-450) k/uL MPV 9.2 Absolute Nucleated RBC % Neutrophils % % Lymphocytes % % Monocytes % % Eosinophils % % Basophils % % Neutrophils # (1.3-7.7) k/uL Lymphocytes # (1.0-4.8) k/uL Monocytes # (0-1.0) k/uL Eosinophils # (0-0.7) k/uL Basophils # (0-0.2) k/uL NRBC/100 WBC Diff (0.00-0.01) X 10*3/uL Hypochromasia Slight Anisocytosis Slight PT (9.0-12.0) sec INR (<1.2) APTT (22.0-30.0) sec Sodium 139 134 L (137-145) mmol/L Potassium 4.1 3.5 (3.5-5.1) mmol/L Chloride 104 103 (98-107) mmol/L Carbon Dioxide 25.9 26 (22-30) mmol/L Anion Gap 9.10 5 mmol/L BUN 23.5 20 H (7-17) mg/dL Creatinine 0.8 0.64 (0.52-1.04) mg/dL Est GFR (CKD-EPI) 74 (>=60) Est GFR (CKD-EPI)AfAm >90 (>60 ml/min/1.73 sqM) Est GFR (CKD-EPI)NonAf 85 (>60 ml/min/1.73 sqM) BUN/Creatinine Ratio 29.38 H (12.00-20.00) Ratio Glucose 107 170 H (74-99) mg/dL Calcium 8.8 8.7 (8.4-10.2) mg/dL Phosphorus (2.5-4.5) mg/dL Magnesium (1.6-2.3) mg/dL Total Bilirubin (0.2-1.3) mg/dL AST (14-36) U/L ALT (4-34) U/L Alkaline Phosphatase (38-126) U/L Creatine Kinase (30-135) U/L C-Reactive Protein 7.90 H 11.4 H (0.00-0.80) mg/dL Total Protein (6.3-8.2) g/dL Albumin (3.5-5.0) g/dL Procalcitonin (0.02-0.09) ng/mL Urine Color Urine Appearance (Clear) Urine pH (5.0-8.0) Ur Specific Raymond (1.001-1.035) Urine Protein (Negative) Urine Glucose (UA) (Negative) Urine Ketones (Negative) Urine Blood (Negative) Urine Nitrite (Negative) Urine Bilirubin (Negative) Urine Urobilinogen (<2.0) mg/dL Ur Leukocyte Esterase (Negative) Urine RBC (0-5) /hpf Urine WBC (0-5) /hpf Ur Squamous Epith Cells (0-4) /hpf Urine Mucus (None) /hpf 12/17/22 12/17/22 Range/Units 06:38 06:38 WBC 9.26 (3.8-10.6) k/uL RBC 3.75 L (3.80-5.40) m/uL Hgb 10.5 L (11.4-16.0) gm/dL Hct 33.8 L (34.0-46.0) % MCV 90.1 (80.0-100.0) fL MCH 28.0 (25.0-35.0) pg MCHC 31.1 L (31.0-37.0) g/dL RDW 17.9 H (11.5-15.5) % Plt Count 140 (150-450) k/uL MPV 11.6 Absolute Nucleated RBC 0 % Neutrophils % % Lymphocytes % % Monocytes % % Eosinophils % % Basophils % % Neutrophils # (1.3-7.7) k/uL Lymphocytes # (1.0-4.8) k/uL Monocytes # (0-1.0) k/uL Eosinophils # (0-0.7) k/uL Basophils # (0-0.2) k/uL NRBC/100 WBC Diff 0 (0.00-0.01) X 10*3/uL Hypochromasia Anisocytosis PT (9.0-12.0) sec INR (<1.2) APTT (22.0-30.0) sec Sodium 134 L (137-145) mmol/L Potassium 3.7 (3.5-5.1) mmol/L Chloride 101 (98-107) mmol/L Carbon Dioxide 28 (22-30) mmol/L Anion Gap 5 mmol/L BUN 18 H (7-17) mg/dL Creatinine 0.62 (0.52-1.04) mg/dL Est GFR (CKD-EPI) (>=60) Est GFR (CKD-EPI)AfAm >90 (>60 ml/min/1.73 sqM) Est GFR (CKD-EPI)NonAf 86 (>60 ml/min/1.73 sqM) BUN/Creatinine Ratio (12.00-20.00) Ratio Glucose 106 H (74-99) mg/dL Calcium 8.7 (8.4-10.2) mg/dL Phosphorus (2.5-4.5) mg/dL Magnesium (1.6-2.3) mg/dL Total Bilirubin (0.2-1.3) mg/dL AST (14-36) U/L ALT (4-34) U/L Alkaline Phosphatase (38-126) U/L Creatine Kinase (30-135) U/L C-Reactive Protein 13.0 H (0.00-0.80) mg/dL Total Protein (6.3-8.2) g/dL Albumin (3.5-5.0) g/dL Procalcitonin (0.02-0.09) ng/mL Urine Color Urine Appearance (Clear) Urine pH (5.0-8.0) Ur Specific Raymond (1.001-1.035) Urine Protein (Negative) Urine Glucose (UA) (Negative) Urine Ketones (Negative) Urine Blood (Negative) Urine Nitrite (Negative) Urine Bilirubin (Negative) Urine Urobilinogen (<2.0) mg/dL Ur Leukocyte Esterase (Negative) Urine RBC (0-5) /hpf Urine WBC (0-5) /hpf Ur Squamous Epith Cells (0-4) /hpf Urine Mucus (None) /hpf - EKG Data -: EKG Interpreted by Me (EKG is sinus 86 ID [id number] QRS 100 QTc 426) - Radiology Data Radiology results: report reviewed (CT brain C-spine chest and the abdomen and pelvis positive for T12 fracture), image reviewed Disposition Clinical Impression: Fall, Weakness, Debility, T12 compression fracture Disposition: ADMITTED IP TO THIS HOSP Condition: Fair Is patient prescribed a controlled substance at d/c from ED?: No Time of Disposition: 00:45
[2022-12-13 22:44] LABS: INR 1.3 (<1.2); Prothrombin Time 13.2 sec (9.0-12.0)
[2022-12-13 22:45] LABS: ALT 37 U/L (4-34); AST 49 U/L (14-36); African American GFR (CKD) 78 (>60 ml/min/1.73 sqM); Albumin 4.1 g/dL (3.5-5.0); Alkaline Phosphatase 179 U/L (38-126); Anion Gap 8 mmol/L; Blood Urea Nitrogen 34 mg/dL (7-17); Carbon Dioxide 26 mmol/L (22-30); Chloride 103 mmol/L (98-107); Glucose 111 mg/dL (74-99); Magnesium 1.9 mg/dL (1.6-2.3); Non-African American GFR(CKD) 68 (>60 ml/min/1.73 sqM); Phosphorus 3.5 mg/dL (2.5-4.5); Potassium 3.7 mmol/L (3.5-5.1); Sodium 137 mmol/L (137-145); Total Bilirubin 0.9 mg/dL (0.2-1.3); Total Protein 7.1 g/dL (6.3-8.2)
--- NOTE | 2022-12-13 23:38 | CT ---
EXAM: CT Head Without Intravenous Contrast CLINICAL HISTORY: ITS.REASON CT Reason: fall TECHNIQUE: Axial computed tomography images of the head/brain without intravenous contrast. CTDI is 45.2 mGy and DLP is 1131 mGy-cm. This CT exam was performed using one or more of the following dose reduction techniques: automated exposure control, adjustment of the mA and/or kV according to patient size, and/or use of iterative reconstruction technique. COMPARISON: No relevant prior studies available. FINDINGS: No acute intracranial hemorrhage. No midline shift or mass effect. The territorial agee-white matter differentiation is maintained throughout. Age-related cerebral volume loss. Periventricular and subcortical white matter hypoattenuation, consistent with chronic microangiopathy. The visualized orbits appear grossly unremarkable. The calvarium is intact. The visualized paranasal sinuses and mastoid air cells are grossly clear. IMPRESSION: No acute intracranial hemorrhage, midline shift, or mass effect. EXAM: CT Cervical Spine Without Intravenous Contrast CLINICAL HISTORY: ITS.REASON CT Reason: fall TECHNIQUE: Axial computed tomography images of the cervical spine without intravenous contrast. CTDI is 10.5 mGy and DLP is 319.1 mGy-cm. This CT exam was performed using one or more of the following dose reduction techniques: automated exposure control, adjustment of the mA and/or kV according to patient size, and/or use of iterative reconstruction technique. COMPARISON: No relevant prior studies available. FINDINGS: The vertebral body heights are maintained. The craniocervical junction is intact. The atlanto-dens interval is maintained. The dens is intact. Grade 1 anterolisthesis of C4 on C5. Multilevel cervical spondylosis and degenerative disc disease. Straightening of the cervical lordosis. The unenhanced neck soft tissues are grossly unremarkable. The visualized lung apices are grossly clear. Subacute compression fracture involving the superior endplate of T5. Mild retropulsion of the vertebral body. Consider thoracic spine CT scan for further evaluation. IMPRESSION: No cervical spine fracture. Subacute compression fracture involving the superior endplate of T5. Mild retropulsion of the vertebral body. Consider thoracic spine CT scan for further evaluation.
--- NOTE | 2022-12-13 23:46 | CT ---
EXAM: CT Chest With Intravenous Contrast CLINICAL HISTORY: ITS.REASON CT Reason: fall TECHNIQUE: Axial computed tomography images of the chest with intravenous contrast. CTDI is 86.8 mGy and DLP is 335.6 mGy-cm. This CT exam was performed using one or more of the following dose reduction techniques: automated exposure control, adjustment of the mA and/or kV according to patient size, and/or use of iterative reconstruction technique. COMPARISON: No relevant prior studies available. FINDINGS: Lungs: Mild dependent atelectasis. Pleural space: Trace LEFT pleural effusion. No pneumothorax or infiltrate. Heart: Unremarkable. No cardiomegaly. No significant pericardial effusion. No significant coronary artery calcifications. Bones/joints: Bilateral shoulder arthroplasties. Degenerative changes of the spine. No acute fracture. No dislocation. Soft tissues: Unremarkable. Vasculature: Atherosclerotic changes of the aorta. No thoracic aortic aneurysm. Lymph nodes: Unremarkable. No enlarged lymph nodes. IMPRESSION: No acute findings in the chest. EXAM: CT Abdomen and Pelvis With Intravenous Contrast CLINICAL HISTORY: ITS.REASON CT Reason: fall TECHNIQUE: Axial computed tomography images of the abdomen and pelvis with intravenous contrast. CTDI is 8.2 mGy and DLP is 587.8 mGy-cm. This CT exam was performed using one or more of the following dose reduction techniques: automated exposure control, adjustment of the mA and/or kV according to patient size, and/or use of iterative reconstruction technique. COMPARISON: No relevant prior studies available. FINDINGS: Lung bases: Unremarkable. No mass. No consolidation. ABDOMEN: Liver: Unremarkable. No mass. Gallbladder and bile ducts: Unremarkable. No calcified stones. No ductal dilation. Pancreas: Unremarkable. No mass. No ductal dilation. Spleen: Unremarkable. No splenomegaly. Adrenals: Unremarkable. No mass. Kidneys and ureters: Unremarkable. No solid mass. No hydronephrosis. Stomach and bowel: Moderate fecal retention, correlate for constipation. No obstruction. No mucosal thickening. PELVIS: Appendix: No findings to suggest acute appendicitis. Bladder: Unremarkable. No mass. Reproductive: Unremarkable as visualized. ABDOMEN and PELVIS: Intraperitoneal space: Unremarkable. No free air. No significant fluid collection. Bones/joints: Degenerative changes of the spine. Bilateral hip arthroplasties. Levoconvex scoliosis of the lumbar spine. No acute fracture. No dislocation. Soft tissues: Unremarkable. Vasculature: Atherosclerotic changes of the aorta. No abdominal aortic aneurysm. Lymph nodes: Unremarkable. No enlarged lymph nodes. IMPRESSION: No acute findings in the abdomen or pelvis.
[2022-12-13 23:47] LABS: Anisocytosis Slight; Basophils % (A) 0 %; Eosinophils # (A) 0.1 k/uL (0-0.7); Eosinophils % (A) 0 %; HCT 31.9 % (34.0-46.0); HGB 10.2 gm/dL (11.4-16.0); Hypochromasia Slight; Lymphocytes # (A) 1.4 k/uL (1.0-4.8); Lymphocytes % (A) 11 %; MCH 29.1 pg (25.0-35.0); MCHC 31.9 g/dL (31.0-37.0); MCV 91.3 fL (80.0-100.0); Mean Platelet Volume 7.9; Monocytes # (A) 0.8 k/uL (0-1.0); Monocytes % (A) 6 %; Neutrophils # (A) 10.2 k/uL (1.3-7.7); Neutrophils % (A) 81 %; Platelet Count 135 k/uL (150-450); RDW 17.4 % (11.5-15.5); WBC 12.6 k/uL (3.8-10.6)
[2022-12-13] MEDS ORDERED: LORATADINE 10 MG TAB PO STA (23:58)
[2022-12-14] MEDS ORDERED: NALOXONE 0.4 MG/ML 1 ML VIAL IV PRN (02:42)
[2022-12-14] MEDS ORDERED: ONDANSETRON 4 MG/2 ML VIAL IVP PRN (02:42)
[2022-12-14] MEDS: HYDROmorphone 1 MG/ML 1 ML SYRINGE IVP PRN ×4 (03:15→23:54)
[2022-12-14] MEDS: SODIUM CHLORIDE 0.9% 1,000 ML IV SCH ×2 (03:26→18:03)
[2022-12-14 04:44] LABS: Appearance,Urine Clear (Clear); Bilirubin,Urine Negative (Negative); Blood,Urine Small (Negative); Color,Urine Colorless; Glucose,Urine (UA) Negative (Negative); Ketones,Urine Negative (Negative); Leukocyte Esterase,Urine Negative (Negative); Mucus,Urine Rare /hpf; Nitrite,Urine Negative (Negative); PH, Urine 7.5 (5.0-8.0); Protein,Urine Trace (Negative); RBC,Urine 2 /hpf (0-5); Squamous Epithelial Cell,Urine 1 /hpf (0-4); Urobilinogen,Urine <2.0 mg/dL (<2.0); WBC,Urine 1 /hpf (0-5)
[2022-12-14] MEDS ORDERED: ALBUTEROL NEBULIZED 2.5 MG/3 ML INHALATION PRN (10:10)
[2022-12-14] MEDS ORDERED: ACETAMINOPHEN TAB 325 MG TAB PO PRN (10:10)
[2022-12-14] MEDS: methocarbamoL 500 MG TAB PO SCH ×3 (12:06→21:01)
[2022-12-14 12:24] LABS: Anisocytosis Slight; Basophils % (A) 0 %; Eosinophils # (A) 0.1 k/uL (0-0.7); Eosinophils % (A) 1 %; HGB 10.7 gm/dL (11.4-16.0); Hypochromasia Moderate; Lymphocytes # (A) 1.4 k/uL (1.0-4.8); Lymphocytes % (A) 15 %; MCH 28.5 pg (25.0-35.0); MCHC 30.7 g/dL (31.0-37.0); Mean Platelet Volume 8.2; Monocytes # (A) 0.4 k/uL (0-1.0); Monocytes % (A) 5 %; Neutrophils # (A) 7.4 k/uL (1.3-7.7); Neutrophils % (A) 79 %; Platelet Count 136 k/uL (150-450); RBC 3.76 m/uL (3.80-5.40); RDW 17.3 % (11.5-15.5); WBC 9.4 k/uL (3.8-10.6)
[2022-12-14] MEDS: LIDOCAINE 5% PATCH TOPICAL SCH (12:27)
[2022-12-14] MEDS: LEVOTHYROXINE 88 MCG TAB PO SCH ×2 (12:28→14:39)
[2022-12-14] MEDS: FOLIC ACID 1 MG TAB PO SCH ×2 (12:28→14:39)
[2022-12-14] MEDS: PANTOPRAZOLE 40 MG TABLET PO SCH ×2 (12:28→14:39)
[2022-12-14 12:32] LABS: African American GFR (CKD) >90 (>60 ml/min/1.73 sqM); Anion Gap 6 mmol/L; Blood Urea Nitrogen 28 mg/dL (7-17); Calcium 9.4 mg/dL (8.4-10.2); Carbon Dioxide 30 mmol/L (22-30); Chloride 102 mmol/L (98-107); Glucose 116 mg/dL (74-99); Non-African American GFR(CKD) 81 (>60 ml/min/1.73 sqM); Sodium 138 mmol/L (137-145)
[2022-12-14] MEDS: CYANOCOBALAMIN 500 MCG TAB PO SCH ×2 (12:35→14:39)
--- NOTE | 2022-12-14 14:36 | CT ---
EXAMINATION TYPE: CT thor lumbar spine wo con DATE OF EXAM: 12/14/2022 COMPARISON: None HISTORY: recons- back pain CT DLP: 0 mGycm Automated exposure control for dose reduction was used. Contrast: None Technique: Recon images were obtained at 2 mm thick sections in the axial plane, coronal plane, and s agittal plane. FINDINGS: There is a mild compression deformity at the level of T5. Some posterior wall displacement is noted. AP spinal canal stenosis is not present. This is of indeterminant age but is an interval finding from 09/06/2022 comparison. Correlate with level of patient's pain Scoliosis is present. There is degenerative disc changes within the lumbar spine. Some endplate hernández es are present L3-4. Vacuum disc phenomenon is present L2-3. Loss of disc height and vacuum disc phen omenon is present L1-2 and T12-L1 Scattered thoracic disc levels with vacuum disc phenomenon are present within the mid thoracic spine. There is diffuse degenerative disc changes within the upper to mid thoracic spine. Vertebral body heights within the thoracic and lumbar spine otherwise appear preserved. An acute abno rmality is not identified. IMPRESSION: 1. INDETERMINANT AGE COMPRESSION DEFORMITY WITH POSTERIOR WALL DISPLACEMENT AT THE REGION OF T5. NO S MASON CANAL STENOSIS IS PRESENT. 2. SCOLIOSIS AND DIFFUSE DEGENERATIVE LOSS OF DISC HEIGHT THROUGHOUT THE THORACIC AND LUMBAR SPINE.
--- NOTE | 2022-12-14 14:41 | P.HPIM ---
History of Present Illness H&P Date: 12/14/22 Chief Complaint: Status post fall * 82-year-old lady with past medical history significant for chronic anemia, congestive heart failure diastolic dysfunction, history of COPD, CK D, history of vitamin B12 deficiency anemia, osteoarthritis, who was recently hospitalized and discharged in September 2022 after laparoscopic repair of paraesophageal hiatal hernia. Patient was discharged to rehab facility following that hospitalization * Patient presents with a fall and acute back pain, patient had a CT head CT cervical spine done, it did show subacute compression fracture of T5 vertebrae * Workup in ER showed CBC with white cell count of 12.6 hemoglobin of 10.2, platelet count of 135 PT INR 1.3 sodium of 137 potassium 3.7 chloride of 103 CO2 of 26 BUN 34 And 0.8 to. Liver profile showed AST of 49 a LT of 37 urinalysis was essentially negative REVIEW OF SYSTEMS: Back pain, falls CONSTITUTIONAL: No fever, no malaise, no fatigue. HEENT: No recent visual problems or hearing problems. Denied any sore throat. CARDIOVASCULAR: No chest pain, orthopnea, PND, no palpitations, no syncope. PULMONARY: No shortness of breath, no cough, no hemoptysis. GASTROINTESTINAL: No diarrhea, no nausea, no vomiting, no abdominal pain. NEUROLOGICAL: No headaches, no weakness, no numbness. HEMATOLOGICAL: Denies any bleeding or petechiae. GENITOURINARY: Denies any burning micturition, frequency, or urgency. MUSCULOSKELETAL/RHEUMATOLOGICAL: Denies any joint pain, swelling, or any muscle pain. ENDOCRINE: Denies any polyuria or polydipsia. PHYSICAL EXAMINATION: GENERAL: The patient is alert and oriented x3, not in any acute distress. Well developed, well nourished. HEENT: Pupils are round and equally reacting to light. EOMI. No scleral icterus. No conjunctival pallor. Normocephalic, atraumatic. No pharyngeal erythema. No thyromegaly. CARDIOVASCULAR: S1 and S2 present. No murmurs, rubs, or gallops. PULMONARY: Chest is clear to auscultation, no wheezing or crackles. ABDOMEN: Soft, nontender, nondistended, normoactive bowel sounds. No palpable organomegaly. MUSCULOSKELETAL: T Spine tenderness, NEUROLOGICAL: Gross neurological examination did not reveal any focal deficits. Motor strength is 4 x 5 bilateral lower extremity range of motion limited secondary to pain SKIN: No rashes. Past Medical History Past Medical History: Cancer, COPD, Musculoskeletal Disorder, Osteoarthritis (OA), Thyroid Disorder Additional Past Medical History / Comment(s): Hiatal hernia repair, sinusitis, osteopenia, IBS-C(constipation), Scoliosis, Kyphosis, seasonal allergies, poor sleep, anemia. Hx right breast cancer 2015, had lumpectomy and radiation. History of Any Multi-Drug Resistant Organisms: None Reported Past Surgical History: Appendectomy, Breast Surgery, Joint Replacement, O rthopedic Surgery, Tonsillectomy Additional Past Surgical History / Comment(s): Hemmorroidectomy, bilateral hip, knee, and shoulder replacements, and bilateral oopherectomy, right breast lumpectomy, bilateral cataract surgery, hiatal hernia repair. Past Anesthesia/Blood Transfusion Reactions: Postoperative Nausea & Vomiting (PONV) Additional Past Anesthesia/Blood Transfusion Reaction / Comment(s): Hiatal hernia. Past Psychological History: No Psychological Hx Reported Smoking Status: Former smoker Past Alcohol Use History: Occasional Additional Past Alcohol Use History / Comment(s): Quit smoking in College. Past Drug Use History: None Reported - Past Family History Mother Family Medical History: Cancer Additional Family Medical History / Comment(s): Breast cancer. Father Family Medical History: Cancer, Deep Vein Thrombosis (DVT) Additional Family Medical History / Comment(s): Prostate and skin cancer. Medications and Allergies Home Medications Medication Instructions Recorded Confirmed Type Levothyroxine Sodium [Synthroid] 88 mcg PO DAILY 03/17/15 12/14/22 History Folic Acid 1 mg PO DAILY #90 tablet 09/13/22 12/14/22 Rx Acetaminophen Tab [Tylenol] 325 mg PO Q6HR PRN tab 09/15/22 12/14/22 Rx Cyanocobalamin (Vitamin B-12) 2,500 mcg PO DAILY 30 Days tab 09/15/22 12/14/22 Rx [Vitamin B-12] Furosemide [Lasix] 20 mg PO DAILY tab 09/15/22 12/14/22 Rx Omeprazole 20 mg PO DAILY 30 Days #30 tab 09/15/22 12/14/22 Rx Albuterol Inhaler [Ventolin Hfa 1 - 2 puff INHALATION RT-Q6H PRN 12/14/22 12/14/22 History Inhaler] Potassium Chloride ER [K-Dur 20] 20 meq PO DAILY 12/14/22 12/14/22 History Allergies Allergy/AdvReac Type Severity Reaction Status Date / Time diphenhydramine HCl Allergy Itching Verified 12/14/22 07:07 [From Benadryl] levofloxacin [From Levaquin] Allergy Itching Verified 12/14/22 07:07 morphine Allergy Itching Verified 12/14/22 07:07 Physical Exam Vitals: Vital Signs Temp Pulse Pulse Resp BP BP Pulse Ox 12/14/22 13:48 98.3 F 84 16 175/80 93 L 12/14/22 07:43 86 16 138/75 98 12/14/22 07:00 97.4 F L 90 16 170/78 93 L 12/14/22 03:17 86 18 172/90 95 12/13/22 20:26 98.0 F 88 20 153/88 96 Intake and Output 12/13/22 12/14/22 12/14/22 22:59 06:59 14:59 Output Total 350 Balance -350 Output: Urine 350 Other: Voiding Method Diaper External Catheter Weight 45.359 kg 45.359 kg Results CBC & Chem 7: 12/14/22 11:50 12/14/22 11:50 Labs: Abnormal Lab Results - Last 24 Hours (Table) 12/13/22 12/13/22 12/13/22 Range/Units 01:21 22:11 22:11 WBC (3.8-10.6) k/uL RBC (3.80-5.40) m/uL Hgb (11.4-16.0) gm/dL Hct (34.0-46.0) % MCHC (31.0-37.0) g/dL RDW (11.5-15.5) % Plt Count (150-450) k/uL Neutrophils # (1.3-7.7) k/uL PT 13.2 H (9.0-12.0) sec INR 1.3 H (<1.2) BUN 34 H (7-17) mg/dL Glucose 111 H (74-99) mg/dL AST 49 H (14-36) U/L ALT 37 H (4-34) U/L Alkaline Phosphatase 179 H (38-126) U/L Creatine Kinase 160 H (30-135) U/L Urine Protein (Negative) Urine Blood (Negative) Urine Mucus (None) /hpf 12/13/22 12/14/22 12/14/22 Range/Units 23:35 03:00 11:50 WBC 12.6 H (3.8-10.6) k/uL RBC 3.50 L 3.76 L (3.80-5.40) m/uL Hgb 10.2 L 10.7 L (11.4-16.0) gm/dL Hct 31.9 L (34.0-46.0) % MCHC 30.7 L (31.0-37.0) g/dL RDW 17.4 H 17.3 H (11.5-15.5) % Plt Count 135 L 136 L (150-450) k/uL Neutrophils # 10.2 H (1.3-7.7) k/uL PT (9.0-12.0) sec INR (<1.2) BUN (7-17) mg/dL Glucose (74-99) mg/dL AST (14-36) U/L ALT (4-34) U/L Alkaline Phosphatase (38-126) U/L Creatine Kinase (30-135) U/L Urine Protein Trace H (Negative) Urine Blood Small H (Negative) Urine Mucus Rare H (None) /hpf 12/14/22 Range/Units 11:50 WBC (3.8-10.6) k/uL RBC (3.80-5.40) m/uL Hgb (11.4-16.0) gm/dL Hct (34.0-46.0) % MCHC (31.0-37.0) g/dL RDW (11.5-15.5) % Plt Count (150-450) k/uL Neutrophils # (1.3-7.7) k/uL PT (9.0-12.0) sec INR (<1.2) BUN 28 H (7-17) mg/dL Glucose 116 H (74-99) mg/dL AST (14-36) U/L ALT (4-34) U/L Alkaline Phosphatase (38-126) U/L Creatine Kinase (30-135) U/L Urine Protein (Negative) Urine Blood (Negative) Urine Mucus (None) /hpf Thrombosis Risk Factor Assmnt - Choose All That Apply Any of the Below Risk Factors Present?: No Other Risk Factors: Yes Each Risk Factor Represents 3 Points: Age 75 years or older Thrombosis Risk Factor Assessment Total Risk Factor Score: 3 Thrombosis Risk Factor Assessment Level: Moderate Risk Assessment and Plan Assessment: Assessment and plan * Status post fall with subacute thoracic spine fracture * Chronic anemia with vitamin B12 deficiency * History of COPD * History of congestive heart failure diastolic dysfunction * History of osteoarthritis * Generalized debility * Leukocytosis is reactive * CT head, CT cervical spine abdomen pelvis reviewed, CT thoracic and lumbar spine ordered * Maintain fall precautions while inpatient, continue pain control with Tylenol, Ultram, Robaxin * Requested spine surgery evaluation secondary intractable pain * Lasix on hold researched her with IV fluid patient appears hypovolemic * Follow up on CRP and pro-calcitonin levels white cell count elevation likely secondary to reactive noninfectious * CODE STATUS is full code
[2022-12-14] MEDS ORDERED: LORATADINE 10 MG TAB PO STA (21:38)
[2022-12-15] MEDS: HYDROmorphone 1 MG/ML 1 ML SYRINGE IVP PRN ×4 (03:24→20:19)
[2022-12-15] MEDS: hydrALAZINE HCL 20 MG/ML 1 ML VIAL IVP PRN ×2 (03:26→17:00)
[2022-12-15] MEDS: SODIUM CHLORIDE 0.9% 1,000 ML IV SCH (05:10)
[2022-12-15] MEDS: LEVOTHYROXINE 88 MCG TAB PO SCH (06:25)
[2022-12-15 08:45] LABS: HCT 31.8 % (37.2-46.3); HGB 9.5 d/dL (12.0-15.0); MCH 27.3 pg (27.0-32.0); MCHC 29.9 d/dL (32.0-37.0); MCV 91.4 FL (80.0-97.0); Mean Platelet Volume 11.3 FL (9.5-12.2); NRBC Per 100 WBC 0 X 10*3/uL (0.00-0.01); Platelet Count 134 X 10*3/uL (140-440); RBC 3.48 X 10*6/uL (4.10-5.20); RDW 18.6 % (11.5-14.5); WBC 9.69 X 10*3/uL (4.50-10.00)
--- NOTE | 2022-12-15 09:33 | P.CNOR ---
History of Present Illness - [facility] Consult date: 12/15/22 Requesting physician: Shahana Hernandez Consult reason: fracture (T5 fracture status post fall) History of present illness: Patient is an 82-year-old female who is seen at the bedside after consultation was placed for a T5 fracture seen on CT imaging. Patient states she did sustain a fall recently in her basement falling onto her back and has had increased pain since that time. She states it took 3 hours to crawl up the steps. She was brought to [facility] for further evaluation. Patient states at the bedside she is significant frustrated that she did not know she had a T5 fracture until I discussed this with her at the bedside. Patient states she has pain all over and does not know specifically where her pain is in regards to her back. She is known to have scoliosis. Patient states at the bedside she does not wish for me to examined and does not wish for any orthopedic treatment at this time. She states she would like to be left alone so she can eat her breakfast. She is known to follow with our office in the outpatient setting and is a regular patient of Dr. Delgadillo. We did discuss if her T5 fracture was acute in nature we will plan for bracing. She states she does not wish for any bracing or treatment. We did discuss we'll plan for bracing before increasing mobilization but the patient further declines. She is admitted to medicine. She has had multiple imaging modalities performed of her spine. She does have a history of recent hiatal hernia repair in September 2022 Past Medical History Past Medical History: Cancer, COPD, Musculoskeletal Disorder, Osteoarthritis (OA), Thyroid Disorder Additional Past Medical History / Comment(s): Hiatal hernia repair, sinusitis, osteopenia, IBS-C(constipation), Scoliosis, Kyphosis, seasonal allergies, poor sleep, anemia. Hx right breast cancer 2015, had lumpectomy and radiation. History of Any Multi-Drug Resistant Organisms: None Reported Past Surgical History: Appendectomy, Breast Surgery, Joint Replacement, Orthopedic Surgery, Tonsillectomy Additional Past Surgical History / Comment(s): Hemmorroidectomy, bilateral hip, knee, and shoulder replacements, and bilateral oopherectomy, right breast lumpectomy, bilateral cataract surgery, hiatal hernia repair. Past Anesthesia/Blood Transfusion Reactions: Postoperative Nausea & Vomiting (PONV) Additional Past Anesthesia/Blood Transfusion Reaction / Comm: Hiatal hernia. Past Psychological History: No Psychological Hx Reported Smoking Status: Former smoker Past Alcohol Use History: Occasional Additional Past Alcohol Use History / Comment(s): Quit smoking in College. Past Drug Use History: None Reported - Past Family History Mother Family Medical History: Cancer Additional Family Medical History / Comment(s): Breast cancer. Father Family Medical History: Cancer, Deep Vein Thrombosis (DVT) Additional Family Medical History / Comment(s): Prostate and skin cancer. Medications and Allergies Home Medications Medication Instructions Recorded Confirmed Type Levothyroxine Sodium [Synthroid] 88 mcg PO DAILY 03/17/15 12/14/22 History Folic Acid 1 mg PO DAILY #90 tablet 09/13/22 12/14/22 Rx Acetaminophen Tab [Tylenol] 325 mg PO Q6HR PRN tab 09/15/22 12/14/22 Rx Cyanocobalamin (Vitamin B-12) 2,500 mcg PO DAILY 30 Days tab 09/15/22 12/14/22 Rx [Vitamin B-12] Furosemide [Lasix] 20 mg PO DAILY tab 09/15/22 12/14/22 Rx Omeprazole 20 mg PO DAILY 30 Days #30 tab 09/15/22 12/14/22 Rx Albuterol Inhaler [Ventolin Hfa 1 - 2 puff INHALATION RT-Q6H PRN 12/14/22 12/14/22 History Inhaler] Potassium Chloride ER [K-Dur 20] 20 meq PO DAILY 12/14/22 12/14/22 History Allergies Allergy/AdvReac Type Severity Reaction Status Date / Time diphenhydramine HCl Allergy Itching Verified 12/14/22 07:07 [From Benadryl] levofloxacin [From Levaquin] Allergy Itching Verified 12/14/22 07:07 morphine Allergy Itching Verified 12/14/22 07:07 Physical Examination Osteopathic Statement: *. No significant issues noted on an osteopathic structural exam other than those noted in the History and Physical/Consult. Results Pertinent studies: CT of the head and cervical spine performed on 12/13/2022: No intracranial hemorrhage, midline shift, or mass effect: Subacute compression fractures involving superior endplate of T5; C4-5 spondylolisthesis and degenerative disc disease with anterior osteophytic spurring; C5-6 and C6-7 significant degenerative disc disease, spondylosis, and anterior osteophytic spurring; straightening of normal cervical lordosis CT of the thoracic spine and lumbar spine taken on 09/13/2022: T5 superior endplate compression fracture deformity; Degenerative scoliosis significant at the lumbar spine; L2-3 lateral listhesis; L4-5 lateral listhesis; L3-4 significant asymmetric degenerative disc disease; L4-5 spondylolisthesis; L5-S1 degenerative disc disease - Labs Labs: Abnormal Lab Results - Last 24 Hours (Table) 12/14/22 12/14/22 12/15/22 Range/Units 11:50 11:50 05:38 RBC 3.76 L 3.48 L (3.80-5.40) m/uL Hgb 10.7 L 9.5 L (11.4-16.0) gm/dL Hct 31.8 L (37.2-46.3) % MCHC 30.7 L 29.9 L (31.0-37.0) g/dL RDW 17.3 H 18.6 H (11.5-15.5) % Plt Count 136 L 134 L (150-450) k/uL BUN 28 H (7-17) mg/dL Glucose 116 H (74-99) mg/dL H & H 12/13/22 12/14/22 12/15/22 Range/Units 23:35 11:50 05:38 Hgb 10.2 L 10.7 L 9.5 L (11.4-16.0) gm/dL Hct 31.9 L 35.0 31.8 L (34.0-46.0) % Coagulation 12/13/22 Range/Units 22:11 INR 1.3 H (<1.2) Result Diagrams: 12/15/22 05:38 12/15/22 05:38 Assessment and Plan Assessment: Assessment: T5 fracture of unknown chronicity Degenerative scoliosis significant at the lumbar spine L2-3 lateral listhesis L4-5 lateral listhesis L3-4 significant asymmetric degenerative disc disease L4-5 spondylolisthesis L5-S1 degenerative disc disease Status post fall Acute on chronic back pain status post fall Status post recent hiatal hernia repair in September 2022 COPD History of cancer C4-5 spondylolisthesis and degenerative disc disease C5-6 and C6-7 significant degenerative disc disease and spondylosis with osteophytic spurring Cervical degenerative disc disease Cervical spondylosis (1) Compression fracture of T5 vertebra Current Visit: Yes Status: Acute Code(s): S22.050A - WEDGE COMPRESSION FRACTURE OF T5-T6 VERTEBRA, INIT SNOMED Code(s): 819488900 (2) Back pain Current Visit: Yes Status: Acute Code(s): M54.9 - DORSALGIA, UNSPECIFIED SNOMED Code(s): 610710239 (3) Status post fall Current Visit: Yes Status: Acute Code(s): Z91.81 - HISTORY OF FALLING SNOMED Code(s): 150160395 (4) Spondylolisthesis, cervical region Current Visit: Yes Status: Acute Code(s): M43.12 - SPONDYLOLISTHESIS, CERVICAL REGION SNOMED Code(s): 286621664 (5) Degenerative cervical disc Current Visit: Yes Status: Acute Code(s): M50.30 - OTHER CERVICAL DISC DEGENERATION, UNSP CERVICAL REGION SNOMED Code(s): 30305023 (6) Cervical spondylosis Current Visit: Yes Status: Acute Code(s): M47.812 - SPONDYLOSIS W/O MYELOPATHY OR RADICULOPATHY, CERVICAL REGION SNOMED Code(s): 606309226 (7) Scoliosis Current Visit: Yes Status: Acute Code(s): M41.9 - SCOLIOSIS, UNSPECIFIED SNOMED Code(s): 819787606 (8) Spondylolisthesis, lumbar region Current Visit: Yes Status: Acute Code(s): M43.16 - SPONDYLOLISTHESIS, LUMBAR REGION SNOMED Code(s): 430257843674765 (9) Degenerative lumbar disc Current Visit: Yes Status: Acute Code(s): M51.36 - OTHER INTERVERTEBRAL DISC DEGENERATION, LUMBAR REGION SNOMED Code(s): 68977787 (10) History of repair of hiatal hernia Current Visit: Yes Status: Acute Code(s): Z98.890 - OTHER SPECIFIED POSTPROCEDURAL STATES; Z87.19 - PERSONAL HISTORY OF OTHER DISEASES OF THE DIGESTIVE SYSTEM SNOMED Code(s): 50047956201298 (11) COPD (chronic obstructive pulmonary disease) Current Visit: Yes Status: Acute Code(s): J44.9 - CHRONIC OBSTRUCTIVE PULMONARY DISEASE, UNSPECIFIED SNOMED Code(s): 46257037 (12) History of cancer Current Visit: Yes Status: Acute Code(s): Z85.9 - PERSONAL HISTORY OF MALIGNANT NEOPLASM, UNSPECIFIED SNOMED Code(s): 912082957 Plan: Plan: 1. Currently, patient is declining any physical examination or further treatment from an orthopedic spine standpoint. We did discuss her T5 fracture on imaging and that she would need further assessment into the chronicity of this fracture. We did discuss that if this fracture was acute in nature we in itially planned for conservative treatment with bracing. Patient declines any physical examination or bracing. She states she does not currently want any treatment with orthopedics. She states she would like the her breakfast this morning and to be left alone. She is known to have scoliosis with chronic back pain but does admit to some increased pain following her recent fall. We did discuss if her T5 fracture was acute in nature we would plan for bracing prior to increasing her mobility. Patient again declines bracing, physical examination, or further evaluation from an orthopedic spine standpoint at this time. Per request of the patient, we will not currently plan for further treatm ent or evaluation. The case and images are reviewed. I agree with the above. Time with Patient: Greater than 30 (Including obtaining history, physical examination, reviewing of imaging, and dictation.)
[2022-12-15 09:45] LABS: BUN/Creat Ratio 29.38 Ratio (12.00-20.00); Blood Urea Nitrogen 23.5 mg/dL (9.0-27.0); Calcium 8.8 mg/dL (8.7-10.3); Carbon Dioxide 25.9 mmol/L (21.6-31.8); Chloride 104 mmol/L (96-109); Glucose 107 mg/dL (70-110); Potassium 4.1 mmol/L (3.5-5.5); Sodium 139 mmol/L (135-145)
[2022-12-15] MEDS: CYANOCOBALAMIN 500 MCG TAB PO SCH (09:48)
[2022-12-15] MEDS: FOLIC ACID 1 MG TAB PO SCH (09:48)
[2022-12-15] MEDS: methocarbamoL 500 MG TAB PO SCH ×4 (09:53→20:19)
[2022-12-15] MEDS: LIDOCAINE 5% PATCH TOPICAL SCH (09:53)
[2022-12-15] MEDS: PANTOPRAZOLE 40 MG TABLET PO SCH (09:53)
[2022-12-15] MEDS: LORATADINE 10 MG TAB PO SCH (10:28)
--- NOTE | 2022-12-15 14:30 | P.PN ---
Subjective Progress Note Date: 12/15/22 * 82-year-old lady with past medical history significant for chronic anemia, congestive heart failure diastolic dysfunction, history of COPD, CK D, history of vitamin B12 deficiency anemia, osteoarthritis, who was recently hospitalized and discharged in September 2022 after laparoscopic repair of paraesophageal hiatal hernia. Patient was discharged to rehab facility following that hospitalization * Patient presents with a fall and acute back pain, patient had a CT head CT cervical spine done, it did show subacute compression fracture of T5 vertebrae * Workup in ER showed CBC with white cell count of 12.6 hemoglobin of 10.2, platelet count of 135 PT INR 1.3 sodium of 137 potassium 3.7 chloride of 103 CO2 of 26 BUN 34 And 0.8 to. Liver profile showed AST of 49 a LT of 37 urinalysis was essentially negative * Patient had a CT thoracic spine done which did show compression fraction of T5 vertebrae, orthospine was consulted however patient refuses any intervention * Workup initiated included elevated CRP levels minimally elevated pro- calcitonin * Patient resuscitated with IV fluid with evaluation from PT OT with plan to discharge home if cleared by PT OT otherwise subacute rehab REVIEW OF SYSTEMS: Back pain CONSTITUTIONAL: No fever, no malaise, no fatigue. HEENT: No recent visual problems or hearing problems. Denied any sore throat. CARDIOVASCULAR: No chest pain, orthopnea, PND, no palpitations, no syncope. PULMONARY: No shortness of breath, no cough, no hemoptysis. GASTROINTESTINAL: No diarrhea, no nausea, no vomiting, no abdominal pain. NEUROLOGICAL: No headaches, no weakness, no numbness. HEMATOLOGICAL: Denies any bleeding or petechiae. GENITOURINARY: Denies any burning micturition, frequency, or urgency. MUSCULOSKELETAL/RHEUMATOLOGICAL: Denies any joint pain, swelling, or any muscle pain. ENDOCRINE: Denies any polyuria or polydipsia. Objective - Vital Signs Vital signs: Vital Signs Temp 98.3 F 12/15/22 07:00 Pulse 93 12/15/22 07:00 Resp 16 12/15/22 07:00 BP 128/72 12/15/22 07:00 Pulse Ox 97 12/15/22 07:00 FiO2 Intake & Output 12/14/22 12/15/22 12/15/22 18:59 06:59 18:59 Intake Total 0 Output Total 350 Balance -350 0 Weight 45.359 kg Intake: Oral 0 Output: Urine 350 Other: Voiding Method Diaper Diaper External Catheter External Catheter # Voids 700 - Exam PHYSICAL EXAMINATION: GENERAL: The patient is alert and oriented x3, not in any acute distress. Well developed, well nourished. HEENT: Pupils are round and equally reacting to light. EOMI. No scleral icterus. No conjunctival pallor. Normocephalic, atraumatic. No pharyngeal erythema. No thyromegaly. CARDIOVASCULAR: S1 and S2 present. No murmurs, rubs, or gallops. PULMONARY: Chest is clear to auscultation, no wheezing or crackles. ABDOMEN: Soft, nontender, nondistended, normoactive bowel sounds. No palpable organomegaly. MUSCULOSKELETAL: T Spine tenderness, NEUROLOGICAL: Gross neurological examination did not reveal any focal deficits. Motor strength is 4 x 5 bilateral lower extremity range of motion limited secondary to pain SKIN: No rashes. - Labs CBC & Chem 7: 12/15/22 05:38 12/15/22 05:38 Labs: Abnormal Lab Results - Last 24 Hours (Table) 12/15/22 12/15/22 12/15/22 Range/Units 05:38 05:38 05:38 RBC 3.48 L (4.10-5.20) X 10*6/uL Hgb 9.5 L (12.0-15.0) d/dL Hct 31.8 L (37.2-46.3) % MCHC 29.9 L (32.0-37.0) d/dL RDW 18.6 H (11.5-14.5) % Plt Count 134 L (140-440) X 10*3/uL BUN/Creatinine Ratio 29.38 H (12.00-20.00) Ratio C-Reactive Protein 7.90 H (0.00-0.80) mg/dL Procalcitonin 0.48 H (0.02-0.09) ng/mL Assessment and Plan Assessment: Assessment and plan * Status post fall with subacute thoracic spine fracture t 5 * Chronic anemia with vitamin B12 deficiency * History of COPD * History of congestive heart failure diastolic dysfunction * History of osteoarthritis * Generalized debility * Leukocytosis is reactive * CT head, CT cervical spine abdomen pelvis reviewed, CT thoracic and lumbar spine reviewed, auto spine consulted patient refuses any intervention. Please see Pritesh note for details * Maintain fall precautions while inpatient, continue pain control with Tylenol, Ultram, Robaxin * Patient resuscitated with IV fluids which have been discontinued 12/15 upon discharge patient to go back on Lasix * Follow up on CRP and pro-calcitonin levels white cell count elevation likely secondary to reactive noninfectious, minimally elevated pro-calcitonin noninfectious * No source of Infection noted * CODE STATUS is full code
[2022-12-16] MEDS: traMADol 50 MG TAB PO PRN (02:03)
[2022-12-16] MEDS: LEVOTHYROXINE 88 MCG TAB PO SCH (04:59)
[2022-12-16] MEDS: HYDROmorphone 1 MG/ML 1 ML SYRINGE IVP PRN ×4 (05:02→23:26)
[2022-12-16] MEDS: CYANOCOBALAMIN 500 MCG TAB PO SCH ×2 (09:01→09:04)
[2022-12-16] MEDS: methocarbamoL 500 MG TAB PO SCH ×4 (09:01→20:53)
[2022-12-16] MEDS: LORATADINE 10 MG TAB PO SCH (09:01)
[2022-12-16] MEDS: FOLIC ACID 1 MG TAB PO SCH (09:02)
[2022-12-16] MEDS: PANTOPRAZOLE 40 MG TABLET PO SCH (09:02)
[2022-12-16] MEDS: LIDOCAINE 5% PATCH TOPICAL SCH (09:02)
[2022-12-16 10:21] LABS: Anisocytosis Slight; HCT 32.9 % (34.0-46.0); HGB 10.1 gm/dL (11.4-16.0); Hypochromasia Slight; MCH 28.3 pg (25.0-35.0); MCHC 30.7 g/dL (31.0-37.0); MCV 92.3 fL (80.0-100.0); Mean Platelet Volume 9.2; Platelet Count 110 k/uL (150-450); RBC 3.56 m/uL (3.80-5.40); RDW 17.1 % (11.5-15.5); WBC 9.7 k/uL (3.8-10.6)
[2022-12-16] MEDS: FUROSEMIDE 20 MG TAB PO SCH (10:30)
[2022-12-16] MEDS: POTASSIUM CHLORIDE ER 20 MEQ TAB.ER PO SCH (10:30)
[2022-12-16] MEDS: amLODIPine 5 MG TAB PO SCH (10:30)
[2022-12-16 10:46] LABS: African American GFR (CKD) >90 (>60 ml/min/1.73 sqM); Anion Gap 5 mmol/L; Blood Urea Nitrogen 20 mg/dL (7-17); Calcium 8.7 mg/dL (8.4-10.2); Carbon Dioxide 26 mmol/L (22-30); Chloride 103 mmol/L (98-107); Glucose 170 mg/dL (74-99); Non-African American GFR(CKD) 85 (>60 ml/min/1.73 sqM); Potassium 3.5 mmol/L (3.5-5.1); Sodium 134 mmol/L (137-145)
[2022-12-16 11:07] LABS: C Reactive Protein 11.4 mg/dL (<1.0)
--- NOTE | 2022-12-16 13:32 | P.PN ---
Subjective Progress Note Date: 12/16/22 * 82-year-old lady with past medical history significant for chronic anemia, congestive heart failure diastolic dysfunction, history of COPD, CK D, history of vitamin B12 deficiency anemia, osteoarthritis, who was recently hospitalized and discharged in September 2022 after laparoscopic repair of paraesophageal hiatal hernia. Patient was discharged to rehab facility following that hospitalization * Patient presents with a fall and acute back pain, patient had a CT head CT cervical spine done, it did show subacute compression fracture of T5 vertebrae * Workup in ER showed CBC with white cell count of 12.6 hemoglobin of 10.2, platelet count of 135 PT INR 1.3 sodium of 137 potassium 3.7 chloride of 103 CO2 of 26 BUN 34 And 0.8 to. Liver profile showed AST of 49 a LT of 37 urinalysis was essentially negative * Patient had a CT thoracic spine done which did show compression fraction of T5 vertebrae, orthospine was consulted however patient refuses any intervention * Workup initiated included elevated CRP levels minimally elevated pro- calcitonin * Patient resuscitated with IV fluid with evaluation from PT OT with plan to discharge home if cleared by PT OT otherwise subacute rehab * 12/16: She seen and evaluated bedside. Patient was counseled regarding discharge to subacute rehab will continue to follow up on CRP and pro- calcitonin levels. NO SOURCE infection noted REVIEW OF SYSTEMS: Back pain CONSTITUTIONAL: No fever, no malaise, no fatigue. HEENT: No recent visual problems or hearing problems. Denied any sore throat. CARDIOVASCULAR: No chest pain, orthopnea, PND, no palpitations, no syncope. PULMONARY: No shortness of breath, no cough, no hemoptysis. GASTROINTESTINAL: No diarrhea, no nausea, no vomiting, no abdominal pain. NEUROLOGICAL: No headaches, no weakness, no numbness. HEMATOLOGICAL: Denies any bleeding or petechiae. GENITOURINARY: Denies any burning micturition, frequency, or urgency. MUSCULOSKELETAL/RHEUMATOLOGICAL: Denies any joint pain, swelling, or any muscle pain. ENDOCRINE: Denies any polyuria or polydipsia. Objective - Vital Signs Vital signs: Vital Signs Temp 98.2 F 12/16/22 07:00 Pulse 98 12/16/22 10:30 Resp 16 12/16/22 11:37 BP 130/78 12/16/22 10:30 Pulse Ox 92 L 12/16/22 11:37 FiO2 Intake & Output 12/15/22 12/16/22 12/16/22 18:59 06:59 18:59 Intake Total 118 118 Output Total 600 500 Balance -482 -500 118 Intake: Oral 118 118 Output: Urine 600 500 Other: Voiding Method Diaper External Catheter External Catheter - Exam PHYSICAL EXAMINATION: GENERAL: The patient is alert and oriented x3, not in any acute distress. Well developed, well nourished. HEENT: Pupils are round and equally reacting to light. EOMI. No scleral icterus. No conjunctival pallor. Normocephalic, atraumatic. No pharyngeal erythema. No thyromegaly. CARDIOVASCULAR: S1 and S2 present. No murmurs, rubs, or gallops. PULMONARY: Chest is clear to auscultation, no wheezing or crackles. ABDOMEN: Soft, nontender, nondistended, normoactive bowel sounds. No palpable organomegaly. MUSCULOSKELETAL: T Spine tenderness, on palpation secondary to compression fracture NEUROLOGICAL: Gross neurological examination did not reveal any focal deficits. Motor strength is 4 x 5 bilateral lower extremity range of motion limited secondary to pain SKIN: No rashes. - Labs CBC & Chem 7: 12/16/22 09:32 12/16/22 09:32 Labs: Abnormal Lab Results - Last 24 Hours (Table) 12/16/22 12/16/22 Range/Units 09:32 09:32 RBC 3.56 L (3.80-5.40) m/uL Hgb 10.1 L (11.4-16.0) gm/dL Hct 32.9 L (34.0-46.0) % MCHC 30.7 L (31.0-37.0) g/dL RDW 17.1 H (11.5-15.5) % Plt Count 110 L (150-450) k/uL Sodium 134 L (137-145) mmol/L BUN 20 H (7-17) mg/dL Glucose 170 H (74-99) mg/dL C-Reactive Protein 11.4 H (<1.0) mg/dL Assessment and Plan Assessment: Assessment and plan * Status post fall with subacute thoracic spine fracture t 5 * Chronic anemia with vitamin B12 deficiency * History of COPD * History of congestive heart failure diastolic dysfunction * History of osteoarthritis * Generalized debility * Leukocytosis is reactive * CT head, CT cervical spine abdomen pelvis reviewed, CT thoracic and lumbar spine reviewed, auto spine consulted patient refuses any intervention. Please see Pritesh note for details * Maintain fall precautions while inpatient, continue pain control with Tylenol, Ultram, Robaxin * Patient resuscitated with IV fluids which have been discontinued 12/15 upon discharge patient to go back on Lasix * Follow up on CRP and pro-calcitonin levels white cell count elevation likely secondary to reactive noninfectious, minimally elevated pro-calcitonin n oninfectious * No source of Infection noted * CODE STATUS is full code
[2022-12-17] MEDS: LEVOTHYROXINE 88 MCG TAB PO SCH (05:29)
[2022-12-17] MEDS: HYDROmorphone 1 MG/ML 1 ML SYRINGE IVP PRN (05:34)
[2022-12-17 09:03] LABS: African American GFR (CKD) >90 (>60 ml/min/1.73 sqM); Anion Gap 5 mmol/L; Blood Urea Nitrogen 18 mg/dL (7-17); Calcium 8.7 mg/dL (8.4-10.2); Carbon Dioxide 28 mmol/L (22-30); Chloride 101 mmol/L (98-107); Glucose 106 mg/dL (74-99); Non-African American GFR(CKD) 86 (>60 ml/min/1.73 sqM); Potassium 3.7 mmol/L (3.5-5.1); Sodium 134 mmol/L (137-145)
[2022-12-17] MEDS: PANTOPRAZOLE 40 MG TABLET PO SCH (09:10)
[2022-12-17] MEDS: FOLIC ACID 1 MG TAB PO SCH (09:10)
[2022-12-17] MEDS: LIDOCAINE 5% PATCH TOPICAL SCH (09:10)
[2022-12-17] MEDS: POTASSIUM CHLORIDE ER 20 MEQ TAB.ER PO SCH (09:10)
[2022-12-17] MEDS: LORATADINE 10 MG TAB PO SCH (09:10)
[2022-12-17] MEDS: amLODIPine 5 MG TAB PO SCH (09:10)
[2022-12-17] MEDS: methocarbamoL 500 MG TAB PO SCH ×3 (09:11→20:45)
[2022-12-17] MEDS: FUROSEMIDE 20 MG TAB PO SCH (09:11)
[2022-12-17] MEDS: CYANOCOBALAMIN 500 MCG TAB PO SCH (09:12)
[2022-12-17 09:29] LABS: HCT 33.8 % (37.2-46.3); HGB 10.5 d/dL (12.0-15.0); MCHC 31.1 d/dL (32.0-37.0); MCV 90.1 FL (80.0-97.0); Mean Platelet Volume 11.6 FL (9.5-12.2); NRBC Per 100 WBC 0 X 10*3/uL (0.00-0.01); Platelet Count 140 X 10*3/uL (140-440); RBC 3.75 X 10*6/uL (4.10-5.20); RDW 17.9 % (11.5-14.5); WBC 9.26 X 10*3/uL (4.50-10.00)
[2022-12-17] MEDS: traMADol 50 MG TAB PO PRN ×2 (10:38→22:28)
--- NOTE | 2022-12-17 11:13 | XR ---
EXAMINATION TYPE: XR chest 1V portable DATE OF EXAM: 12/17/2022 COMPARISON: 09/05/2022 INDICATION: Weakness upper back pain TECHNIQUE: Single frontal view of the chest is obtained. FINDINGS: The heart size is enlarged. The pulmonary vasculature is normal. Right lower lobe infiltrate is present. A moderate right pleural effusion may be present. Clinical co rrelation for pneumonia is recommended IMPRESSION: 1. Right lower lobe infiltrate with pleural effusion. Correlate for pneumonia.
--- NOTE | 2022-12-17 12:25 | P.PN ---
Subjective Progress Note Date: 12/17/22 * 82-year-old lady with past medical history significant for chronic anemia, congestive heart failure diastolic dysfunction, history of COPD, CK D, history of vitamin B12 deficiency anemia, osteoarthritis, who was recently hospitalized and discharged in September 2022 after laparoscopic repair of paraesophageal hiatal hernia. Patient was discharged to rehab facility following that hospitalization * Patient presents with a fall and acute back pain, patient had a CT head CT cervical spine done, it did show subacute compression fracture of T5 vertebrae * Workup in ER showed CBC with white cell count of 12.6 hemoglobin of 10.2, platelet count of 135 PT INR 1.3 sodium of 137 potassium 3.7 chloride of 103 CO2 of 26 BUN 34 And 0.8 to. Liver profile showed AST of 49 a LT of 37 urinalysis was essentially negative * Patient had a CT thoracic spine done which did show compression fraction of T5 vertebrae, orthospine was consulted however patient refuses any intervention * Workup initiated included elevated CRP levels minimally elevated pro- calcitonin * Patient resuscitated with IV fluid with evaluation from PT OT with plan to discharge home if cleared by PT OT otherwise subacute rehab * 12/16: She seen and evaluated bedside. Patient was counseled regarding discharge to subacute rehab will continue to follow up on CRP and pro- calcitonin levels. NO SOURCE infection noted * 12/17: Patient seen and evaluated bedside. Care plan discussed with patient regarding discharge to subacute rehab patient in agreement. CRP trending up, chest x-ray obtained right lower lobe pneumonia noted started on Augmentin REVIEW OF SYSTEMS: Back pain CONSTITUTIONAL: No fever, no malaise, no fatigue. HEENT: No recent visual problems or hearing problems. Denied any sore throat. CARDIOVASCULAR: No chest pain, orthopnea, PND, no palpitations, no syncope. PULMONARY: Occasional shortness of breath and cough GASTROINTESTINAL: No diarrhea, no nausea, no vomiting, no abdominal pain. NEUROLOGICAL: No headaches, no weakness, no numbness. HEMATOLOGICAL: Denies any bleeding or petechiae. GENITOURINARY: Denies any burning micturition, frequency, or urgency. MUSCULOSKELETAL/RHEUMATOLOGICAL: Denies any joint pain, swelling, or any muscle pain. ENDOCRINE: Denies any polyuria or polydipsia. Objective - Vital Signs Vital signs: Vital Signs Temp 98.2 F 12/16/22 19:20 Pulse 53 L 12/16/22 19:20 Resp 14 12/16/22 19:20 BP 133/75 12/16/22 19:20 Pulse Ox 93 L 12/16/22 19:20 FiO2 Intake & Output 12/16/22 12/16/22 12/17/22 06:59 18:59 06:59 Intake Total 118 Output Total 500 300 Balance -500 -182 Intake: Oral 118 Output: Urine 500 300 Other: Voiding Method Diaper External Catheter Diaper External Catheter External Catheter - Exam PHYSICAL EXAMINATION: GENERAL: The patient is alert and oriented x3, not in any acute distress. Well developed, well nourished. Ill appearance, HEENT: Pupils are round and equally reacting to light. EOMI. No scleral icterus. CARDIOVASCULAR: S1 and S2 present. No murmurs, rubs, or gallops. PULMONARY: Chest is clear to auscultation, no wheezing or crackles. ABDOMEN: Soft, nontender, nondistended, normoactive bowel sounds. No palpable organomegaly. MUSCULOSKELETAL: T Spine tenderness, on palpation secondary to compression fracture NEUROLOGICAL: Gross neurological examination did not reveal any focal deficits. Motor strength is 4 x 5 bilateral lower extremity range of motion limited secondary to pain SKIN: No rashes. - Labs CBC & Chem 7: 12/17/22 06:38 12/17/22 06:38 Labs: Abnormal Lab Results - Last 24 Hours (Table) 12/16/22 12/16/22 Range/Units 09:32 09:32 RBC 3.56 L (3.80-5.40) m/uL Hgb 10.1 L (11.4-16.0) gm/dL Hct 32.9 L (34.0-46.0) % MCHC 30.7 L (31.0-37.0) g/dL RDW 17.1 H (11.5-15.5) % Plt Count 110 L (150-450) k/uL Sodium 134 L (137-145) mmol/L BUN 20 H (7-17) mg/dL Glucose 170 H (74-99) mg/dL C-Reactive Protein 11.4 H (<1.0) mg/dL Assessment and Plan Assessment: Assessment and plan * Status post fall with subacute thoracic spine fracture t 5 * Right lower lobe pneumonia * Chronic anemia with vitamin B12 deficiency * History of COPD * History of congestive heart failure diastolic dysfunction * History of osteoarthritis * Generalized debility * CT head, CT cervical spine abdomen pelvis reviewed, CT thoracic and lumbar spine reviewed, auto spine consulted patient refuses any intervention. Please see ORTHO note for details * In regards to right lower lobe pneumonia, patient started on Augmentin day 1 of 5 * Maintain fall precautions while inpatient, continue pain control with Tylenol, Ultram, Robaxin * Patient resuscitated with IV fluids which have been discontinued 12/15 upon d ischarge patient to go back on Lasix * Follow up on CRP and pro-calcitonin levels white cell count elevation is secondary to underlying pneumonia * Plan to discharge to subacute rehab patient in agreement * CODE STATUS is full code
[2022-12-17] MEDS: AMOXIC-POT CLAV 875-125MG 1 EACH TAB PO SCH ×2 (14:10→20:46)
[2022-12-18] MEDS: methocarbamoL 500 MG TAB PO SCH ×5 (01:13→20:40)
[2022-12-18] MEDS: LEVOTHYROXINE 88 MCG TAB PO SCH (06:28)
[2022-12-18 08:37] LABS: HCT 32.7 % (37.2-46.3); MCH 27.7 pg (27.0-32.0); MCHC 30.6 d/dL (32.0-37.0); MCV 90.6 FL (80.0-97.0); Mean Platelet Volume 10.8 FL (9.5-12.2); NRBC Per 100 WBC 0 X 10*3/uL (0.00-0.01); Platelet Count 154 X 10*3/uL (140-440); RBC 3.61 X 10*6/uL (4.10-5.20); RDW 17.9 % (11.5-14.5); WBC 8.51 X 10*3/uL (4.50-10.00)
[2022-12-18] MEDS: AMOXIC-POT CLAV 875-125MG 1 EACH TAB PO SCH ×2 (09:17→20:40)
[2022-12-18] MEDS: LORATADINE 10 MG TAB PO SCH (09:17)
[2022-12-18] MEDS: LIDOCAINE 5% PATCH TOPICAL SCH (09:17)
[2022-12-18] MEDS: FOLIC ACID 1 MG TAB PO SCH (09:17)
[2022-12-18] MEDS: FUROSEMIDE 20 MG TAB PO SCH (09:18)
[2022-12-18] MEDS: amLODIPine 5 MG TAB PO SCH (09:18)
[2022-12-18] MEDS: POTASSIUM CHLORIDE ER 20 MEQ TAB.ER PO SCH (09:19)
[2022-12-18] MEDS: PANTOPRAZOLE 40 MG TABLET PO SCH (09:20)
[2022-12-18] MEDS: CYANOCOBALAMIN 500 MCG TAB PO SCH (09:20)
[2022-12-18 10:41] LABS: BUN/Creat Ratio 24.29 Ratio (12.00-20.00); Calcium 8.9 mg/dL (8.7-10.3); Chloride 103 mmol/L (96-109); Glucose 107 mg/dL (70-110); Sodium 139 mmol/L (135-145)
--- NOTE | 2022-12-18 13:46 | P.PN ---
Subjective Progress Note Date: 12/18/22 * 82-year-old lady with past medical history significant for chronic anemia, congestive heart failure diastolic dysfunction, history of COPD, CK D, history of vitamin B12 deficiency anemia, osteoarthritis, who was recently hospitalized and discharged in September 2022 after laparoscopic repair of paraesophageal hiatal hernia. Patient was discharged to rehab facility following that hospitalization * Patient presents with a fall and acute back pain, patient had a CT head CT cervical spine done, it did show subacute compression fracture of T5 vertebrae * Workup in ER showed CBC with white cell count of 12.6 hemoglobin of 10.2, platelet count of 135 PT INR 1.3 sodium of 137 potassium 3.7 chloride of 103 CO2 of 26 BUN 34 And 0.8 to. Liver profile showed AST of 49 a LT of 37 urinalysis was essentially negative * Patient had a CT thoracic spine done which did show compression fraction of T5 vertebrae, orthospine was consulted however patient refuses any intervention * Workup initiated included elevated CRP levels minimally elevated pro- calcitonin * Patient resuscitated with IV fluid with evaluation from PT OT with plan to discharge home if cleared by PT OT otherwise subacute rehab * 12/16: She seen and evaluated bedside. Patient was counseled regarding discharge to subacute rehab will continue to follow up on CRP and pro- calcitonin levels. NO SOURCE infection noted * 12/17: Patient seen and evaluated bedside. Care plan discussed with patient regarding discharge to subacute rehab patient in agreement. CRP trending up, chest x-ray obtained right lower lobe pneumonia noted started on Augmentin 12/18. Patient seen and examined. States back pain has improved. PT and OT recommended rehab REVIEW OF SYSTEMS: CONSTITUTIONAL: No fever, no malaise,. CARDIOVASCULAR: No chest pain, no palpitations, no syncope. PULMONARY: No shortness of breath, no cough, GASTROINTESTINAL: No diarrhea, no nausea, no vomiting, no abdominal pain. NEUROLOGICAL: No headaches, no weakness, PHYSICAL EXAMINATION: GENERAL: The patient is alert and oriented x3, not in any acute distress. Well d eveloped, well nourished. HEENT: Pupils are round and equally reacting to light. EOMI. No scleral icterus. No conjunctival pallor. Normocephalic, atraumatic. No pharyngeal erythema. No thyromegaly. CARDIOVASCULAR: S1 and S2 present. No murmurs, rubs, or gallops. PULMONARY: Chest is clear to auscultation, no wheezing or crackles. ABDOMEN: Soft, nontender, nondistended, normoactive bowel sounds. No palpable organomegaly. MUSCULOSKELETAL: No joint swelling or deformity. EXTREMITIES: No cyanosis, clubbing, or pedal edema. NEUROLOGICAL: Gross neurological examination did not reveal any focal deficits. SKIN: No rashes. Assessment and plan * Status post fall with subacute thoracic spine fracture t 5 * Right lower lobe pneumonia * Chronic anemia with vitamin B12 deficiency * History of COPD * History of congestive heart failure diastolic dysfunction * History of osteoarthritis * Generalized debility * CT head, CT cervical spine abdomen pelvis reviewed, CT thoracic and lumbar spine reviewed, auto spine consulted patient refuses any intervention. Please see ORTHO note for details * In regards to right lower lobe pneumonia, patient started on Augmentin day 2 of 5 * Maintain fall precautions while inpatient, continue pain control with Tylenol, Ultram, Robaxin * Patient resuscitated with IV fluids which have been discontinued 12/15 upon discharge patient to go back on Lasix * Follow up on CRP and pro-calcitonin levels white cell count elevation is secondary to underlying pneumonia * PT and OT recommended rehab, waiting on placement Labs and medication were reviewed.. Continue same treatment. Continue with symptomatic treatment. Resume home medication. Monitor labs and vitals. DVT and GI prophylaxis. Further recommendations as per clinical course of the patient Dictation was produced using [employer] dictation software. please excuse any grammatical, word or spelling errors. Objective - Vital Signs Vital signs: Vital Signs Temp 98.8 F 12/18/22 08:00 Pulse 98 12/18/22 08:00 Resp 18 12/18/22 08:00 BP 170/91 12/18/22 08:00 Pulse Ox 94 L 12/18/22 08:00 FiO2 Intake & Output 12/17/22 12/18/22 12/18/22 18:59 06:59 18:59 Intake Total 118 Output Total 500 Balance -500 118 Intake: Oral 118 Output: Urine 500 Other: Voiding Method Diaper # Voids 2 0 # Bowel Movements 0 - Labs CBC & Chem 7: 12/18/22 05:36 12/18/22 05:36 Labs: Abnormal Lab Results - Last 24 Hours (Table) 12/18/22 Range/Units 05:36 RBC 3.61 L (4.10-5.20) X 10*6/uL Hgb 10.0 L (12.0-15.0) d/dL Hct 32.7 L (37.2-46.3) % MCHC 30.6 L (32.0-37.0) d/dL RDW 17.9 H (11.5-14.5) %
--- NOTE | 2022-12-18 13:49 | P.EN ---
Patient will require a TLSO brace while out of bed secondary to T5 fracture and osteoarthritis
[2022-12-18] MEDS: traMADol 50 MG TAB PO PRN (17:50)
[2022-12-19] MEDS: traMADol 50 MG TAB PO PRN (00:23)
[2022-12-19] MEDS: LEVOTHYROXINE 88 MCG TAB PO SCH (06:48)
[2022-12-19] MEDS: polyethylene glycoL 3350 17 GM POWD.PACK PO PRN ×2 (06:48→21:10)
[2022-12-19] MEDS: methocarbamoL 500 MG TAB PO SCH ×4 (09:30→20:21)
[2022-12-19] MEDS: POTASSIUM CHLORIDE ER 20 MEQ TAB.ER PO SCH (09:30)
[2022-12-19] MEDS: LORATADINE 10 MG TAB PO SCH (09:30)
[2022-12-19] MEDS: AMOXIC-POT CLAV 875-125MG 1 EACH TAB PO SCH ×2 (09:31→20:21)
[2022-12-19] MEDS: PANTOPRAZOLE 40 MG TABLET PO SCH (09:31)
[2022-12-19] MEDS: FOLIC ACID 1 MG TAB PO SCH (09:31)
[2022-12-19] MEDS: LIDOCAINE 5% PATCH TOPICAL SCH (09:33)
[2022-12-19] MEDS: FUROSEMIDE 20 MG TAB PO SCH (09:43)
[2022-12-19] MEDS: amLODIPine 10 MG TAB PO SCH (09:43)
[2022-12-19] MEDS: CYANOCOBALAMIN 500 MCG TAB PO SCH (09:43)
[2022-12-19] MEDS: amLODIPine 5 MG TAB PO SCH (09:56)
--- NOTE | 2022-12-19 12:48 | P.PN ---
Subjective Progress Note Date: 12/19/22 * 82-year-old lady with past medical history significant for chronic anemia, congestive heart failure diastolic dysfunction, history of COPD, CK D, history of vitamin B12 deficiency anemia, osteoarthritis, who was recently hospitalized and discharged in September 2022 after laparoscopic repair of paraesophageal hiatal hernia. Patient was discharged to rehab facility following that hospitalization * Patient presents with a fall and acute back pain, patient had a CT head CT cervical spine done, it did show subacute compression fracture of T5 vertebrae * Workup in ER showed CBC with white cell count of 12.6 hemoglobin of 10.2, platelet count of 135 PT INR 1.3 sodium of 137 potassium 3.7 chloride of 103 CO2 of 26 BUN 34 And 0.8 to. Liver profile showed AST of 49 a LT of 37 urinalysis was essentially negative * Patient had a CT thoracic spine done which did show compression fraction of T5 vertebrae, orthospine was consulted however patient refuses any intervention * Workup initiated included elevated CRP levels minimally elevated pro- calcitonin * Patient resuscitated with IV fluid with evaluation from PT OT with plan to discharge home if cleared by PT OT otherwise subacute rehab * 12/16: She seen and evaluated bedside. Patient was counseled regarding discharge to subacute rehab will continue to follow up on CRP and pro- calcitonin levels. NO SOURCE infection noted * 12/17: Patient seen and evaluated bedside. Care plan discussed with patient regarding discharge to subacute rehab patient in agreement. CRP trending up, chest x-ray obtained right lower lobe pneumonia noted started on Augmentin * 12/19: Patient seen and evaluated bedside, patient is alert and does complain of back pain blood pressure findings discussed with the anti-hypertensive medications adjusted potential discharge within the next 24 hours REVIEW OF SYSTEMS: Back pain CONSTITUTIONAL: No fever, no malaise, no fatigue. HEENT: No recent visual problems or hearing problems. Denied any sore throat. CARDIOVASCULAR: No chest pain, orthopnea, PND, no palpitations, no syncope. PULMONARY: Occasional shortness of breath and cough GASTROINTESTINAL: No diarrhea, no nausea, no vomiting, no abdominal pain. NEUROLOGICAL: No headaches, no weakness, no numbness. HEMATOLOGICAL: Denies any bleeding or petechiae. GENITOURINARY: Denies any burning micturition, frequency, or urgency. MUSCULOSKELETAL/RHEUMATOLOGICAL: Denies any joint pain, swelling, or any muscle pain. ENDOCRINE: Denies any polyuria or polydipsia. Objective - Vital Signs Vital signs: Vital Signs Temp 98.5 F 12/19/22 08:00 Pulse 86 12/19/22 08:00 Resp 16 12/19/22 08:00 BP 173/96 12/19/22 08:00 Pulse Ox 96 12/19/22 08:00 FiO2 Intake & Output 12/18/22 12/19/22 12/19/22 18:59 06:59 18:59 Intake Total 236 Output Total 700 Balance 236 -700 Intake: Oral 236 Output: Urine 700 Other: Voiding Method Bedside Commode External Catheter # Voids 1 2 - Exam PHYSICAL EXAMINATION: GENERAL: The patient is alert and oriented x3, not in any acute distress. Well developed, well nourished. Ill appearance, HEENT: Pupils are round and equally reacting to light. EOMI. No scleral icterus. CARDIOVASCULAR: S1 and S2 present. No murmurs, rubs, or gallops. PULMONARY: Chest is clear to auscultation, no wheezing or crackles. ABDOMEN: Soft, nontender, nondistended, normoactive bowel sounds. No palpable organomegaly. MUSCULOSKELETAL: T Spine tenderness, on palpation secondary to compression fracture NEUROLOGICAL: Gross neurological examination did not reveal any focal deficits. Motor strength is 4 x 5 bilateral lower extremity range of motion limited secondary to pain SKIN: No rashes. - Labs CBC & Chem 7: 12/18/22 05:36 12/18/22 05:36 Assessment and Plan Assessment: Assessment and plan * Status post fall with subacute thoracic spine fracture t 5 * Right lower lobe pneumonia * Hypertensive urgency * Chronic anemia with vitamin B12 deficiency * History of COPD * History of congestive heart failure diastolic dysfunction * History of osteoarthritis * Generalized debility * CT head, CT cervical spine abdomen pelvis reviewed, CT thoracic and lumbar spine reviewed, auto spine consulted patient refuses any intervention. Please see ORTHO note for details * In regards to right lower lobe pneumonia, patient started on Augmentin day 3 of 5 * Maintain fall precautions while inpatient, continue pain control with Tylenol, Ultram, Robaxin * In regards to hypertension continue oral amlodipine. Patient refusing Lasix, when necessary IV hydralazine ordered for hypertension * Patient was resuscitated with IV fluids which have been discontinued 12/15 upon discharge , is refusing Lasix that is her home medication * Follow up on CRP and pro-calcitonin levels white cell count elevation is secondary to underlying pneumonia * Plan to discharge to subacute rehab patient in agreement * CODE STATUS is full code
[2022-12-20] MEDS: LEVOTHYROXINE 88 MCG TAB PO SCH (05:27)
[2022-12-20 08:11] VITALS: RESP 16
[2022-12-20] MEDS: amLODIPine 10 MG TAB PO SCH (09:27)
[2022-12-20] MEDS: LIDOCAINE 5% PATCH TOPICAL SCH (09:27)
[2022-12-20] MEDS: CYANOCOBALAMIN 500 MCG TAB PO SCH (09:27)
[2022-12-20] MEDS: FOLIC ACID 1 MG TAB PO SCH (09:27)
[2022-12-20] MEDS: POTASSIUM CHLORIDE ER 20 MEQ TAB.ER PO SCH (09:27)
[2022-12-20] MEDS: LORATADINE 10 MG TAB PO SCH (09:27)
[2022-12-20] MEDS: PANTOPRAZOLE 40 MG TABLET PO SCH (09:27)
[2022-12-20] MEDS: methocarbamoL 500 MG TAB PO SCH ×4 (09:28→20:35)
[2022-12-20] MEDS: AMOXIC-POT CLAV 875-125MG 1 EACH TAB PO SCH ×2 (09:28→20:35)
[2022-12-20] MEDS: FUROSEMIDE 20 MG TAB PO SCH (09:28)
[2022-12-20] MEDS: METOPROLOL TARTRATE 25 MG TAB PO SCH ×2 (10:59→20:35)
[2022-12-20] MEDS ORDERED: CYANOCOBALAMIN 1,000 MCG/ML 1 ML VIAL IM ONE (13:25)
--- NOTE | 2022-12-20 13:25 | P.PN ---
Subjective Progress Note Date: 12/20/22 * 82-year-old lady with past medical history significant for chronic anemia, congestive heart failure diastolic dysfunction, history of COPD, CK D, history of vitamin B12 deficiency anemia, osteoarthritis, who was recently hospitalized and discharged in September 2022 after laparoscopic repair of paraesophageal hiatal hernia. Patient was discharged to rehab facility following that hospitalization * Patient presents with a fall and acute back pain, patient had a CT head CT cervical spine done, it did show subacute compression fracture of T5 vertebrae * Workup in ER showed CBC with white cell count of 12.6 hemoglobin of 10.2, platelet count of 135 PT INR 1.3 sodium of 137 potassium 3.7 chloride of 103 CO2 of 26 BUN 34 And 0.8 to. Liver profile showed AST of 49 a LT of 37 urinalysis was essentially negative * Patient had a CT thoracic spine done which did show compression fraction of T5 vertebrae, orthospine was consulted however patient refuses any intervention * Workup initiated included elevated CRP levels minimally elevated pro- calcitonin * Patient resuscitated with IV fluid with evaluation from PT OT with plan to discharge home if cleared by PT OT otherwise subacute rehab * 12/16: She seen and evaluated bedside. Patient was counseled regarding discharge to subacute rehab will continue to follow up on CRP and pro- calcitonin levels. NO SOURCE infection noted * 12/17: Patient seen and evaluated bedside. Care plan discussed with patient regarding discharge to subacute rehab patient in agreement. CRP trending up, chest x-ray obtained right lower lobe pneumonia noted started on Augmentin * 12/19: Patient seen and evaluated bedside, patient is alert and does complain of back pain blood pressure findings discussed with the anti-hypertensive medications adjusted potential discharge within the next 24 hours * 12/20: Patient seen and evaluated bedside. Patient does complain of generalized weakness. Will give vitamin B12 intramuscular injection he had plan to discharge to rehab within the next 24 hours started on beta rolan secondary to paroxysmal tachycardia started on telemetry monitoring. CBC basic metabolic panel and magnesium levels ordered REVIEW OF SYSTEMS: Back pain CONSTITUTIONAL: No fever, no malaise, no fatigue. HEENT: No recent visual problems or hearing problems. Denied any sore throat. CARDIOVASCULAR: No chest pain, orthopnea, PND, no palpitations, no syncope. PULMONARY: Occasional shortness of breath and cough GASTROINTESTINAL: No diarrhea, no nausea, no vomiting, no abdominal pain. NEUROLOGICAL: No headaches, no weakness, no numbness. HEMATOLOGICAL: Denies any bleeding or petechiae. GENITOURINARY: Denies any burning micturition, frequency, or urgency. MUSCULOSKELETAL/RHEUMATOLOGICAL: Denies any joint pain, swelling, or any muscle pain. ENDOCRINE: Denies any polyuria or polydipsia. Objective - Vital Signs Vital signs: Vital Signs Temp 98.4 F 12/20/22 08:00 Pulse 104 H 12/20/22 08:00 Resp 16 12/20/22 08:00 BP 152/106 12/20/22 08:00 Pulse Ox 98 12/20/22 08:00 FiO2 Intake & Output 12/19/22 12/20/22 12/20/22 18:59 06:59 18:59 Intake Total 118 118 Output Total 1000 Balance -882 118 Intake: Oral 118 118 Output: Urine 1000 Other: Voiding Method Bedside Commode External Catheter # Voids 2 - Exam PHYSICAL EXAMINATION: GENERAL: The patient is alert and oriented x3, not in any acute distress. Well developed, well nourished. Ill appearance, HEENT: Pupils are round and equally reacting to light. EOMI. No scleral icterus. CARDIOVASCULAR: S1 and S2 present. No murmurs, rubs, or gallops. Tachycardia noted PULMONARY: Chest is clear to auscultation, no wheezing or crackles. ABDOMEN: Soft, nontender, nondistended, normoactive bowel sounds. No palpable organomegaly. MUSCULOSKELETAL: T Spine tenderness, on palpation secondary to compression fracture NEUROLOGICAL: Gross neurological examination did not reveal any focal deficits. Motor strength is 4 x 5 bilateral lower extremity range of motion limited secondary to pain SKIN: No rashes. - Labs CBC & Chem 7: 12/18/22 05:36 12/18/22 05:36 Assessment and Plan Assessment: Assessment and plan * Status post fall with subacute thoracic spine fracture t 5 * Right lower lobe pneumonia * Hypertensive urgency * Chronic anemia with vitamin B12 deficiency * History of COPD * History of congestive heart failure diastolic dysfunction * History of osteoarthritis * Generalized debility * CT head, CT cervical spine abdomen pelvis reviewed, CT thoracic and lumbar spine reviewed, auto spine consulted patient refuses any intervention. Please see ORTHO note for details * In regards to right lower lobe pneumonia, patient started on Augmentin day 4 of 5 * Maintain fall precautions while inpatient, continue pain control with Tylenol, Ultram, Robaxin * In regards to hypertension continue oral amlodipine. Patient refusing Lasix, when necessary IV hydralazine ordered for hypertension, started Lopressor * Patient was resuscitated with IV fluids which have been discontinued 12/15 upon discharge , is refusing Lasix that is her home medication * Follow up on CRP and pro-calcitonin levels white cell count elevation is secondary to underlying pneumonia * Plan to discharge to subacute rehab patient in agreement * CODE STATUS is full code
[2022-12-20 15:38] LABS: Anisocytosis Slight; HCT 37.1 % (34.0-46.0); HGB 11.6 gm/dL (11.4-16.0); Hypochromasia Slight; MCH 28.3 pg (25.0-35.0); MCHC 31.4 g/dL (31.0-37.0); MCV 90.3 fL (80.0-100.0); Mean Platelet Volume 7.8; RBC 4.11 m/uL (3.80-5.40); WBC 9.5 k/uL (3.8-10.6)
[2022-12-20 15:43] LABS: Platelet Count 289 k/uL (150-450)
[2022-12-20 15:48] LABS: African American GFR (CKD) 81 (>60 ml/min/1.73 sqM); Anion Gap 6 mmol/L; Blood Urea Nitrogen 22 mg/dL (7-17); Calcium 9.5 mg/dL (8.4-10.2); Carbon Dioxide 28 mmol/L (22-30); Chloride 100 mmol/L (98-107); Glucose 98 mg/dL (74-99); Magnesium 2.1 mg/dL (1.6-2.3); Non-African American GFR(CKD) 70 (>60 ml/min/1.73 sqM); Potassium 4.8 mmol/L (3.5-5.1); Sodium 134 mmol/L (137-145)
[2022-12-20] MEDS: polyethylene glycoL 3350 17 GM POWD.PACK PO PRN (20:35)
[2022-12-21] MEDS: LEVOTHYROXINE 88 MCG TAB PO SCH (05:40)
[2022-12-21] MEDS: CYANOCOBALAMIN 500 MCG TAB PO SCH (09:47)
[2022-12-21] MEDS: LORATADINE 10 MG TAB PO SCH (09:48)
[2022-12-21] MEDS: AMOXIC-POT CLAV 875-125MG 1 EACH TAB PO SCH (09:48)
[2022-12-21] MEDS: FOLIC ACID 1 MG TAB PO SCH (09:48)
[2022-12-21] MEDS: methocarbamoL 500 MG TAB PO SCH (09:48)
[2022-12-21] MEDS: POTASSIUM CHLORIDE ER 20 MEQ TAB.ER PO SCH (09:48)
[2022-12-21] MEDS: LIDOCAINE 5% PATCH TOPICAL SCH (09:48)
[2022-12-21] MEDS: METOPROLOL TARTRATE 25 MG TAB PO SCH (09:48)
[2022-12-21] MEDS: amLODIPine 10 MG TAB PO SCH (09:48)
[2022-12-21] MEDS: PANTOPRAZOLE 40 MG TABLET PO SCH (09:48)
--- NOTE | 2022-12-21 10:27 | P.DS ---
Providers Date of admission: 12/17/22 17:55 Expected date of discharge: 12/21/22 Attending physician: Marion Wolf Consults: 12/14/22 14:37 Consult Physician Routine Consulting Provider: Luis Angel Hunter Consult Reason/Comments: Status post fall compression fracture of thoracic spine Do you want consulting provider notified?: Yes Primary care physician: [facility] Course: * 82-year-old lady with past medical history significant for chronic anemia, congestive heart failure diastolic dysfunction, history of COPD, CK D, history of vitamin B12 deficiency anemia, osteoarthritis, who was recently hospitalized and discharged in September 2022 after laparoscopic repair of paraesophageal hiatal hernia. Patient was discharged to rehab facility following that hospitalization * Patient presents with a fall and acute back pain, patient had a CT head CT cervical spine done, it did show subacute compression fracture of T5 vertebrae * Workup in ER showed CBC with white cell count of 12.6 hemoglobin of 10.2, platelet count of 135 PT INR 1.3 sodium of 137 potassium 3.7 chloride of 103 CO2 of 26 BUN 34 And 0.8 to. Liver profile showed AST of 49 a LT of 37 urinalysis was essentially negative * Patient had a CT thoracic spine done which did show compression fraction of T5 vertebrae, orthospine was consulted however patient refuses any intervention * Workup initiated included elevated CRP levels minimally elevated pro- calcitonin * Patient resuscitated with IV fluid with evaluation from PT OT with plan to discharge home if cleared by PT OT otherwise subacute rehab * 12/16: She seen and evaluated bedside. Patient was counseled regarding discharge to subacute rehab will continue to follow up on CRP and pro- calcitonin levels. NO SOURCE infection noted * 12/17: Patient seen and evaluated bedside. Care plan discussed with patient regarding discharge to subacute rehab patient in agreement. CRP trending up, chest x-ray obtained right lower lobe pneumonia noted started on Augmentin * 12/19: Patient seen and evaluated bedside, patient is alert and does complain of back pain blood pressure findings discussed with the anti-hypertensive medications adjusted potential discharge within the next 24 hours * 12/20: Patient seen and evaluated bedside. Patient does complain of generalized weakness. Will give vitamin B12 intramuscular injection he had plan to discharge to rehab within the next 24 hours started on beta rolan secondary to paroxysmal tachycardia started on telemetry monitoring. CBC basic metabolic panel and magnesium levels ordered * 12/21: Patient seen and evaluated bedside. The pain has improved, tachycardia has improved patient to be discharged to rehab facility stable condition PHYSICAL EXAMINATION: GENERAL: The patient is alert and oriented x3, not in any acute distress. Well developed, well nourished. Chronic Ill appearance, HEENT: Pupils are round and equally reacting to light. EOMI. No scleral icterus. CARDIOVASCULAR: S1 and S2 present. No murmurs, rate normal PULMONARY: Chest is clear to auscultation, no wheezing or crackles. ABDOMEN: Soft, nontender, nondistended, normoactive bowel sounds. No palpable organomegaly. MUSCULOSKELETAL: T Spine tenderness, on palpation secondary to compression fracture NEUROLOGICAL: Gross neurological examination did not reveal any focal deficits. Motor strength is 4 x 5 bilateral lower extremity range of motion limited secondary to pain SKIN: No rashes. Assessment: Assessment and plan * Status post fall with subacute thoracic spine fracture t 5 * Right lower lobe pneumonia * Hypertensive urgency * Chronic anemia with vitamin B12 deficiency * History of COPD * History of congestive heart failure diastolic dysfunction * History of osteoarthritis * Generalized debility * CT head, CT cervical spine abdomen pelvis reviewed, CT thoracic and lumbar spine reviewed, auto spine consulted patient refuses any intervention. Please see ORTHO note for details * In regards to right lower lobe pneumonia, patient started on Augmentin day 5 of 5 * Maintain fall precautions while inpatient, continue pain control with Tylenol, Ultram, Robaxin * In regards to hypertension continue oral amlodipine. Patient refusing Lasix, when necessary IV hydralazine ordered for hypertension, started Lopressor * Patient was resuscitated with IV fluids which have been discontinued 12/15 upon discharge , is refusing Lasix that is her home medication * Follow up on CRP and pro-calcitonin levels white cell count elevation is secondary to underlying pneumonia * Plan to discharge to subacute rehab patient in agreement Patient Condition at Discharge: Stable Plan - Discharge Summary Discharge Rx Participant: No New Discharge Prescriptions: New Amoxic-Pot Clav 875-125Mg [Augmentin 875-125] 1 each PO Q12HR 1 Days #2 tab Lidocaine 5% Patch [Lidoderm 5% Patch] 1 patch TOPICAL DAILY 7 Days #7 patch Metoprolol Tartrate [Lopressor] 25 mg PO BID 30 Days #60 tab amLODIPine [Norvasc] 10 mg PO DAILY tab methocarbamoL [Robaxin] 500 mg PO QID 7 Days #28 tab Continue Levothyroxine Sodium [Synthroid] 88 mcg PO DAILY Omeprazole 20 mg PO DAILY 30 Days #30 tab Cyanocobalamin (Vitamin B-12) [Vitamin B-12] 2,500 mcg PO DAILY 30 Days tab Albuterol Inhaler [Ventolin Hfa Inhaler] 1 - 2 puff INHALATION RT-Q6H PRN PRN Reason: Shortness Of Breath Folic Acid 1 mg PO DAILY #90 tablet Acetaminophen Tab [Tylenol] 325 mg PO Q6HR PRN tab PRN Reason: Fever And/ Or Pain Furosemide [Lasix] 20 mg PO DAILY tab Potassium Chloride ER [K-Dur 20] 20 meq PO DAILY Discharge Medication List Levothyroxine Sodium [Synthroid] 88 mcg PO DAILY 03/17/15 [History] Folic Acid 1 mg PO DAILY #90 tablet 09/13/22 [Rx] Acetaminophen Tab [Tylenol] 325 mg PO Q6HR PRN tab 09/15/22 [Rx] Cyanocobalamin (Vitamin B-12) [Vitamin B-12] 2,500 mcg PO DAILY 30 Days tab 09/15/22 [Rx] Furosemide [Lasix] 20 mg PO DAILY tab 09/15/22 [Rx] Omeprazole 20 mg PO DAILY 30 Days #30 tab 09/15/22 [Rx] Albuterol Inhaler [Ventolin Hfa Inhaler] 1 - 2 puff INHALATION RT-Q6H PRN 12/14/22 [History] Potassium Chloride ER [K-Dur 20] 20 meq PO DAILY 12/14/22 [History] Amoxic-Pot Clav 875-125Mg [Augmentin 875-125] 1 each PO Q12HR 1 Days #2 tab 12/21/22 [Rx] Lidocaine 5% Patch [Lidoderm 5% Patch] 1 patch TOPICAL DAILY 7 Days #7 patch 12/21/22 [Rx] Metoprolol Tartrate [Lopressor] 25 mg PO BID 30 Days #60 tab 12/21/22 [Rx] amLODIPine [Norvasc] 10 mg PO DAILY tab 12/21/22 [Rx] methocarbamoL [Robaxin] 500 mg PO QID 7 Days #28 tab 12/21/22 [Rx] Follow up Appointment(s)/Referral(s): [facility], [NON-STAFF] - 1-2 Days (Home care will call to set up appointment, any questions please call agency.) Jasper Linares DO [Primary Care Provider] - 1-2 days Discharge Disposition: TRANSFER TO SNF/ECF
[2022-12-21 15:42] VITALS: BP 150/89; PULSE 85; TEMP 98
== END 2022-12-21 13:07 | DRG 194 ==
LOC: EC 20:10 → SUPCPDRO 20:10 → 6NMEDSUR 12-14 02:42 → 5NMEDONC 12-14 03:06 → 6NMEDSUR 12-14 03:07 → 5NMEDONC 12-14 03:35 → 6NMEDSUR 12-14 05:47 → OBSVTOIN 12-17 17:55
PROVIDERS: ADMIT Hospitalist; ATTEND Hospitalist
DX: J18.9 Pneumonia, unspecified organism (principal); I50.32 Chronic diastolic (congestive) heart failure; M50.021 Cervical disc disorder at C4-C5 level with myelopathy; J44.0 Chronic obstructive pulmonary disease with (acute) lower respiratory infection; M51.06 Intervertebral disc disorders with myelopathy, lumbar region; S22.089A Unspecified fracture of T11-T12 vertebra, initial encounter for closed fracture; I11.0 Hypertensive heart disease with heart failure; M46.02 Spinal enthesopathy, cervical region; I47.9 Paroxysmal tachycardia, unspecified; D51.9 Vitamin B12 deficiency anemia, unspecified; M41.56 Other secondary scoliosis, lumbar region; E86.1 Hypovolemia; M19.90 Unspecified osteoarthritis, unspecified site; M85.80 Other specified disorders of bone density and structure, unspecified site; M43.16 Spondylolisthesis, lumbar region; M51.17 Intervertebral disc disorders with radiculopathy, lumbosacral region; G89.29 Other chronic pain; M43.12 Spondylolisthesis, cervical region; M47.22 Other spondylosis with radiculopathy, cervical region; I16.0 Hypertensive urgency; D64.89 Other specified anemias; R53.81 Other malaise; T50.1X6A Underdosing of loop [high-ceiling] diuretics, initial encounter; W10.9XXA Fall (on) (from) unspecified stairs and steps, initial encounter; Z96.643 Presence of artificial hip joint, bilateral; Z96.653 Presence of artificial knee joint, bilateral; Z96.611 Presence of right artificial shoulder joint; Z96.612 Presence of left artificial shoulder joint; Y92.018 Other place in single-family (private) house as the place of occurrence of the external cause; Z91.128 Patient's intentional underdosing of medication regimen for other reason; Z85.3 Personal history of malignant neoplasm of breast; Z87.891 Personal history of nicotine dependence; Z91.81 History of falling; Z79.890 Hormone replacement therapy; Z79.899 Other long term (current) drug therapy; Z88.5 Allergy status to narcotic agent; Z88.8 Allergy status to other drugs, medicaments and biological substances; Z92.3 Personal history of irradiation; Z87.19 Personal history of other diseases of the digestive system
CPT/HCPCS: 36415; 70450; 71045; 71260; 72125; 72128; 72131; 74177; 80048; 80053; 81001; 82550; 83735; 84100; 84145; 85025; 85027; 85610; 85730; 86140; 94640; 94664; 94760; 96361; 96374; 96376; 99285

== ENCOUNTER → 2023-02-08 | Outpatient (CLI) | payer MEDICARE ==
--- NOTE | 2023-02-08 14:55 | US ---
EXAMINATION TYPE: US venous doppler duplex LE BI DATE OF EXAM: 02/08/2023 2:35 PM COMPARISON: None CLINICAL INDICATION: Female, 82 years old with history of R60.0 LOCALIZED EDEMA; SIDE PERFORMED: Bilateral TECHNIQUE: The lower extremity deep venous system is examined utilizing real time linear array sonog alona with graded compression, doppler sonography and color-flow sonography. VESSELS IMAGED: Common Femoral Vein Deep Femoral Vein Greater Saphenous Vein * Femoral Vein Popliteal Vein Small Saphenous Vein * Proximal Calf Veins (* superficial vessels) Grayscale, color doppler, spectral doppler imaging performed of the deep veins of the lower extremiti es. There is normal flow, compressibility, vascular waveforms. Right Leg: Negative for DVT Left Leg: Negative for DVT Thin-walled anechoic fluid collection within the left groin measuring 2.6 x 0.7 x 3.1 cm IMPRESSION: 1. No deep venous thrombosis seen within the bilateral lower extremities. 2. Thin-walled anechoic fluid collection within the left groin which may represent a seroma versus f luid filled inguinal hernia.
== END | disposition home or self-care (01) ==
LOC: RADUSWWP 13:51
PROVIDERS: ATTEND Family Medicine
DX: R60.0 Localized edema (principal)
CPT/HCPCS: 93970

== ENCOUNTER 2023-02-11 14:45 | Emergency (ER) | payer MEDICARE ==
[2023-02-11 15:02] VITALS: RESP 18; TEMP 97.7
[2023-02-11] MEDS ORDERED: LORATADINE 10 MG TAB PO STA (15:20)
[2023-02-11] MEDS ORDERED: SODIUM CHLORIDE 0.9% 500 ML 500 ML IV STA (15:20)
--- NOTE | 2023-02-11 15:30 | ED ---
General Adult HPI - General Chief complaint: Dizziness Stated complaint: weakness Time Seen by Provider: 02/11/23 15:12 Source: patient, EMS, RN notes reviewed Mode of arrival: EMS Limitations: no limitations - History of Present Illness Initial comments: 82-year-old female presents emergency Department via EMS with chief complaint of fall. Patient states that she moved quickly and episodes of dizziness and fell. She states she has no specific complaints at this time she does complain of some diffuse pain. Patient states she has frequent falls as usual she denies any head injury no loss conscious. She has been given some leg swelling which she had an ultrasound at the end of last week. She denies chest pain palpitations nausea vomiting. - Related Data Home Medications Medication Instructions Recorded Confirmed Levothyroxine Sodium [Synthroid] 88 mcg PO DAILY 03/17/15 12/14/22 Acetaminophen Tab [Tylenol Tab] 500 mg PO Q4H 02/11/23 02/11/23 Chlorpheniramine Maleate 4 mg PO Q4H 02/11/23 02/11/23 [Chlor-Trimeton] Allergies Allergy/AdvReac Type Severity Reaction Status Date / Time diphenhydramine HCl Allergy Itching Verified 02/11/23 16:53 [From Benadryl] levofloxacin [From Levaquin] Allergy Itching Verified 02/11/23 16:53 levothyroxine Allergy Unknown Verified 02/11/23 16:54 morphine Allergy Itching Verified 02/11/23 16:53 Review of Systems ROS Statement: Those systems with pertinent positive or pertinent negative responses have been documented in the HPI. ROS Other: All systems not noted in ROS Statement are negative. Past Medical History Past Medical History: Cancer, COPD, Musculoskeletal Disorder, Osteoarthritis (OA), Thyroid Disorder Additional Past Medical History / Comment(s): Hiatal hernia, sinusitis, osteopenia, IBS-C(constipation), Scoliosis, Kyphosis, seasonal allergies, poor sleep, anemia. Hx right breast cancer 2016, had lumpectomy and radiation. History of Any Multi-Drug Resistant Organisms: None Reported Past Surgical History: Appendectomy, Breast Surgery, Joint Replacement, Orthopedic Surgery, Tonsillectomy Additional Past Surgical History / Comment(s): Hemmorroidectomy, bilateral hip, knee, and shoulder replacements, and bilateral oopherectomy, right breast lumpectomy, bilateral cataract surgery. Past Anesthesia/Blood Transfusion Reactions: Postoperative Nausea & Vomiting (PONV) Additional Past Anesthesia/Blood Transfusion Reaction / Comment(s): Hiatal hernia. Past Psychological History: No Psychological Hx Reported Smoking Status: Former smoker Past Alcohol Use History: Occasional Past Drug Use History: None Reported - Past Family History Mother Family Medical History: Cancer Additional Family Medical History / Comment(s): Breast cancer. Father Family Medical History: Cancer, Deep Vein Thrombosis (DVT) Additional Family Medical History / Comment(s): Prostate and skin cancer. General Exam Limitations: no limitations General appearance: alert, in no apparent distress Head exam: Present: atraumatic, normocephalic, normal inspection Eye exam: Present: normal appearance, PERRL, EOMI. Absent: scleral icterus, conjunctival injection, periorbital swelling ENT exam: Present: normal exam, normal oropharynx, mucous membranes moist Neck exam: Present: normal inspection, full ROM. Absent: tenderness, meningismus, lymphadenopathy Respiratory exam: Present: normal lung sounds bilaterally. Absent: respiratory distress, wheezes, rales, rhonchi, stridor Cardiovascular Exam: Present: regular rate, normal rhythm, normal heart sounds. Absent: systolic murmur, diastolic murmur, rubs, gallop, clicks Extremities exam: Present: normal inspection, full ROM, normal capillary refill, pedal edema (Left greater than right mild erythema left). Absent: tenderness, joint swelling, calf tenderness Back exam: Present: full ROM. Absent: tenderness, paraspinal tenderness, vertebral tenderness Neurological exam: Present: alert, oriented X3, CN II-XII intact, reflexes normal. Absent: motor sensory deficit Course Vital Signs 02/11/23 02/11/23 14:48 16:47 Temperature 97.7 F Pulse Rate 72 83 Respiratory 18 18 Rate Blood Pressure 161/95 117/84 O2 Sat by Pulse 99 96 Oximetry EKG Findings - EKG Comments: EKG Findings:: EKG performed at 16:01 sinus rhythm rate of 86 DE 162 QRS 85 QT/QTC 373/416 - EKG Results: EKG: interpreted by KATY Medical Decision Making - Medical Decision Making Was pt. sent in by a medical professional or institution (, PA, AIRCRAFT DESIGN ENGINEER, urgent care, hospital, or group home...) When possible be specific @ -No Did you speak to anyone other than the patient for history (EMS, parent, family, police, friend...)? What history was obtained from this source @ -No Did you review nursing and triage notes (agree or disagree)? Why? @ -I reviewed and agree with nursing and triage notes Were old charts reviewed (outside hosp., previous admission, EMS record, old EKG, old radiological studies, urgent care reports/EKG's, group home records)? Report findings @ -. Prior charting, laboratory studies Differential Diagnosis (chest pain, altered mental status, abdominal pain women, abdominal pain men, vaginal bleeding, weakness, fever, dyspnea, syncope, headache, dizziness, GI bleed, back pain, seizure, CVA, palpatations, mental health, musculoskeletal)? @ -Fall, weakness, dehydration EKG interpreted by me (3pts min.). @ -As above X-rays interpreted by me (1pt min.). @ -Chest x-ray shows no acute for pulmonary process CT interpreted by me (1pt min.). @ -None done U/S interpreted by me (1pt. min.). @ -None done What testing was considered but not performed or refused? (CT, X-rays, U/S, labs)? Why? @ -None What meds were considered but not given or refused? Why? @ -None Did you discuss the management of the patient with other professionals (professionals i.e. , PA, AIRCRAFT DESIGN ENGINEER, lab, RT, psych nurse, director social service, sensor technician, teacher, credit or loans officer, watch caser)? Give summary @ -No Was smoking cessation discussed for >3mins.? @ -No Was critical care preformed (if so, how long)? @ -No Were there social determinants of health that impacted care today? How? (Homelessness, low income, unemployed, alcoholism, drug addiction, transportation, low edu. Level, literacy, decrease access to med. care, retirement, rehab)? @ -No Was there de-escalation of care discussed even if they declined (Discuss DNR or withdrawal of care, Hospice)? DNR status @ -No What co-morbidities impacted this encounter? (DM, HTN, Smoking, COPD, CAD, Cancer, CVA, ARF, Chemo, Hep., AIDS, mental health diagnosis, sleep apnea, morbid obesity)? @ -None Was patient admitted / discharged? Hospital course, mention meds given and route, prescriptions, significant lab abnormalities, going to OR and other pertinent info. @ -Discharge patient labs are unremarkable patient does have distress she ate multiple sandwiches in the room is able to ambulate and is discharged home in stable condition. Undiagnosed new problem with uncertain prognosis? @ -No Drug Therapy requiring intensive monitoring for toxicity (Heparin, Nitro, Insulin, Cardizem)? @ -No Were any procedures done? @ -No Diagnosis/symptom? @ -Generalized weakness, fall Acute, or Chronic, or Acute on Chronic? @ -Acute Uncomplicated (without systemic symptoms) or Complicated (systemic symptoms)? @ -Uncomplicated Side effects of treatment? @ -No Exacerbation, Progression, or Severe Exacerbation? @ -No Poses a threat to life or bodily function? How? (Chest pain, USA, AL, pneumonia, PE, COPD, DKA, ARF, appy, cholecystitis, CVA, Diverticulitis, Homicidal, Suicidal, threat to staff... and all critical care pts) @ -No - Lab Data Result diagrams: 02/11/23 15:32 02/11/23 15:32 Lab Results 02/11/23 02/11/23 Range/Units 15:32 15:32 WBC 10.5 (3.8-10.6) k/uL RBC 3.72 L (3.80-5.40) m/uL Hgb 11.2 L (11.4-16.0) gm/dL Hct 35.0 (34.0-46.0) % MCV 94.1 (80.0-100.0) fL MCH 30.1 (25.0-35.0) pg MCHC 32.0 (31.0-37.0) g/dL RDW 14.9 (11.5-15.5) % Plt Count 268 (150-450) k/uL MPV 9.4 Neutrophils % 76 % Lymphocytes % 18 % Monocytes % 5 % Eosinophils % 1 % Basophils % 0 % Neutrophils # 8.0 H (1.3-7.7) k/uL Lymphocytes # 1.9 (1.0-4.8) k/uL Monocytes # 0.5 (0-1.0) k/uL Eosinophils # 0.1 (0-0.7) k/uL Basophils # 0.0 (0-0.2) k/uL Hypochromasia Slight Sodium 135 L (137-145) mmol/L Potassium 4.3 (3.5-5.1) mmol/L Chloride 101 (98-107) mmol/L Carbon Dioxide 24 (22-30) mmol/L Anion Gap 10 mmol/L BUN 37 H (7-17) mg/dL Creatinine 0.71 (0.52-1.04) mg/dL Est GFR (CKD-EPI)AfAm >90 (>60 ml/min/1.73 sqM) Est GFR (CKD-EPI)NonAf 81 (>60 ml/min/1.73 sqM) Glucose 102 H (74-99) mg/dL Calcium 10.2 (8.4-10.2) mg/dL Magnesium 2.0 (1.6-2.3) mg/dL Total Bilirubin 0.7 (0.2-1.3) mg/dL AST 35 (14-36) U/L ALT 17 (4-34) U/L Alkaline Phosphatase 186 H (38-126) U/L Total Protein 6.8 (6.3-8.2) g/dL Albumin 3.9 (3.5-5.0) g/dL Disposition Clinical Impression: Fall, Weakness Disposition: HOME SELF-CARE Condition: Stable Instructions (If sedation given, give patient instructions): Fall Prevention for Older Adults (ED) Additional Instructions: Please return to the Emergency Department if symptoms worsen or any other concerns. Is patient prescribed a controlled substance at d/c from ED?: No Referrals: Jasper Linares DO [Primary Care Provider] - 1-2 days Time of Disposition: 17:00
--- NOTE | 2023-02-11 15:36 | XR ---
EXAMINATION TYPE: XR chest 2V DATE OF EXAM: 02/11/2023 COMPARISON: 09/05/2022 HISTORY: Weakness TECHNIQUE: Frontal and lateral views of the chest are obtained. FINDINGS: There is no focal air space opacity, pleural effusion, or pneumothorax seen. The cardiac silhouette size is within normal limits. The pulmonary vasculature is not congested. There is a left shoulder pr osthesis and there are healed posterior left rib fractures. IMPRESSION: No acute cardiopulmonary process.
[2023-02-11 15:46] LABS: Basophils % (A) 0 %; Eosinophils # (A) 0.1 k/uL (0-0.7); Eosinophils % (A) 1 %; HGB 11.2 gm/dL (11.4-16.0); Hypochromasia Slight; Lymphocytes # (A) 1.9 k/uL (1.0-4.8); Lymphocytes % (A) 18 %; MCH 30.1 pg (25.0-35.0); MCV 94.1 fL (80.0-100.0); Mean Platelet Volume 9.4; Monocytes # (A) 0.5 k/uL (0-1.0); Monocytes % (A) 5 %; Neutrophils % (A) 76 %; Platelet Count 268 k/uL (150-450); RBC 3.72 m/uL (3.80-5.40); RDW 14.9 % (11.5-15.5); WBC 10.5 k/uL (3.8-10.6)
[2023-02-11 16:20] LABS: ALT 17 U/L (4-34); AST 35 U/L (14-36); African American GFR (CKD) >90 (>60 ml/min/1.73 sqM); Albumin 3.9 g/dL (3.5-5.0); Alkaline Phosphatase 186 U/L (38-126); Anion Gap 10 mmol/L; Blood Urea Nitrogen 37 mg/dL (7-17); Calcium 10.2 mg/dL (8.4-10.2); Carbon Dioxide 24 mmol/L (22-30); Chloride 101 mmol/L (98-107); Glucose 102 mg/dL (74-99); Non-African American GFR(CKD) 81 (>60 ml/min/1.73 sqM); Potassium 4.3 mmol/L (3.5-5.1); Sodium 135 mmol/L (137-145); Total Bilirubin 0.7 mg/dL (0.2-1.3); Total Protein 6.8 g/dL (6.3-8.2)
[2023-02-11 18:32] VITALS: BP 121/80; PULSE 82
== END 2023-02-11 18:27 | disposition home or self-care (01) ==
LOC: EC 14:45
DX: R53.1 Weakness (principal); J44.9 Chronic obstructive pulmonary disease, unspecified; M19.90 Unspecified osteoarthritis, unspecified site; E07.9 Disorder of thyroid, unspecified; Z87.891 Personal history of nicotine dependence; Z88.8 Allergy status to other drugs, medicaments and biological substances; Z88.1 Allergy status to other antibiotic agents; Z88.5 Allergy status to narcotic agent; Z79.890 Hormone replacement therapy; Z79.899 Other long term (current) drug therapy; W18.30XA Fall on same level, unspecified, initial encounter
CPT/HCPCS: 36415; 71046; 80053; 83735; 85025; 93005; 99285

== ENCOUNTER 2023-02-13 10:12 | Inpatient (IN) | payer MEDICARE ==
[2023-02-13] MEDS ORDERED: SODIUM CHLORIDE 0.9% 1,000 ML IV STA (10:24)
--- NOTE | 2023-02-13 10:44 | ED ---
Fall HPI - General Chief Complaint: Fall Stated Complaint: Fall,NoThinners Time Seen by Provider: 02/13/23 10:14 Source: patient, EMS, RN notes reviewed Mode of arrival: EMS Limitations: no limitations - History of Present Illness Initial Comments: Patient is an 82-year-old female presented ER with chief complaint of a fall. Patient was seen here in the ER on 02/11/23 and diagnosed with dehydration and discharged home. Patient states a couple of days ago when she was walking through her how she tripped over clutter and fell. Patient states a step ladder fell on her. She denies loss of consciousness or blood thinner use. Patient is complaining of bilateral shoulder pain and neck pain. Patient states she was on the floor overnight. Patient has no other complaints at this time. - Related Data Home Medications Medication Instructions Recorded Confirmed Levothyroxine Sodium [Synthroid] 88 mcg PO DAILY 03/17/15 02/11/23 Acetaminophen Tab [Tylenol Tab] 500 mg PO Q4H 02/11/23 02/11/23 Chlorpheniramine Maleate 4 mg PO Q4H 02/11/23 02/11/23 [Chlor-Trimeton] Allergies Allergy/AdvReac Type Severity Reaction Status Date / Time diphenhydramine HCl Allergy Itching Verified 02/11/23 16:53 [From Benadryl] levofloxacin [From Levaquin] Allergy Itching Verified 02/11/23 16:53 levothyroxine Allergy Unknown Verified 02/11/23 16:54 morphine Allergy Itching Verified 02/11/23 16:53 Review of Systems ROS Statement: Those systems with pertinent positive or pertinent negative responses have been documented in the HPI. ROS Other: All systems not noted in ROS Statement are negative. Past Medical History Past Medical History: Cancer, COPD, Musculoskeletal Disorder, Osteoarthritis (OA), Thyroid Disorder Additional Past Medical History / Comment(s): Hiatal hernia, sinusitis, osteopenia, IBS-C(constipation), Scoliosis, Kyphosis, seasonal allergies, poor sleep, anemia. Hx right breast cancer 2015, had lumpectomy and radiation. History of Any Multi-Drug Resistant Organisms: None Reported Past Surgical History: Appendectomy, Breast Surgery, Joint Replacement, Orthopedic Surgery, Tonsillectomy Additional Past Surgical History / Comment(s): Hemmorroidectomy, bilateral hip, knee, and shoulder replacements, and bilateral oopherectomy, right breast lumpectomy, bilateral cataract surgery. Past Anesthesia/Blood Transfusion Reactions: Postoperative Nausea & Vomiting (PONV) Additional Past Anesthesia/Blood Transfusion Reaction / Comment(s): Hiatal hernia. Past Psychological History: No Psychological Hx Reported Smoking Status: Former smoker Past Alcohol Use History: Occasional Past Drug Use History: None Reported - Past Family History Mother Family Medical History: Cancer Additional Family Medical History / Comment(s): Breast cancer. Father Family Medical History: Cancer, Deep Vein Thrombosis (DVT) Additional Family Medical History / Comment(s): Prostate and skin cancer. General Exam General appearance: alert, in no apparent distress Head exam: Present: atraumatic, normocephalic, normal inspection Eye exam: Present: normal appearance, periorbital swelling Pupils: Present: normal accommodation Respiratory exam: Present: normal lung sounds bilaterally. Absent: respiratory distress, wheezes, rales, rhonchi, stridor Cardiovascular Exam: Present: regular rate, normal rhythm, normal heart sounds. Absent: systolic murmur, diastolic murmur, rubs, gallop, clicks GI/Abdominal exam: Present: soft, normal bowel sounds. Absent: distended, tenderness, guarding, rebound, rigid Extremities exam: Present: normal inspection, other (Pain to palpation of bilateral shoulders; 2+ bilateral radial pulse) Skin exam: Present: other (Patient's clothing are soaked in urine with a strong odor.) Course Vital Signs 02/13/23 02/13/23 02/13/23 11:13 12:08 14:19 Temperature 98.6 F 97.9 F Pulse Rate 82 62 70 Respiratory 16 16 18 Rate Blood Pressure 152/87 142/76 146/80 O2 Sat by Pulse 93 L 94 L 97 Oximetry Medical Decision Making - Medical Decision Making Was pt. sent in by a medical professional or institution (, PA, OLD COIN DEALER, urgent care, hospital, or [facility]...) When possible be specific @ -No Did you speak to anyone other than the patient for history (EMS, parent, family, police, friend...)? What history was obtained from this source @ -EMS and POA. Did you review nursing and triage notes (agree or disagree)? Why? @ -I reviewed and agree with nursing and triage notes Were old charts reviewed (outside hosp., previous admission, EMS record, old EKG, old radiological studies, urgent care reports/EKG's, [facility] records)? Report findings @ -No old charts were reviewed Differential Diagnosis (chest pain, altered mental status, abdominal pain women, abdominal pain men, vaginal bleeding, weakness, fever, dyspnea, syncope, headache, dizziness, GI bleed, back pain, seizure, CVA, palpatations, mental health, musculoskeletal)? @ -Differential Weakness: Hypoglycemia, shock, sepsis, hyponatremia, anemia, infection, LA, ETOH, adverse medicine reaction, overdose, stroke, this is not meant to be an all-inclusive list. EKG interpreted by me (3pts min.). @ -As above X-rays interpreted by me (1pt min.). @ -Bilateral shoulder x-rays show no acute processes. CT interpreted by me (1pt min.). @ -CT brain and C-spine showed no acute intracranial hemorrhage, mass effect, fracture. U/S interpreted by me (1pt. min.). @ -None done What testing was considered but not performed or refused? (CT, X-rays, U/S, labs)? Why? @ -None What meds were considered but not given or refused? Why? @ -None Did you discuss the management of the patient with other professionals (professionals i.e. , PA, OLD COIN DEALER, lab, RT, psych nurse, oncology social work, global implementation manager, teacher, electorate officer, lead case manager)? Give summary @ -Yes, I spoke with Dr. Fournier for admission. I also spoke with case management who advised PT/OT consults. Was smoking cessation discussed for >3mins.? @ -No Was critical care preformed (if so, how long)? @ -No Were there social determinants of health that impacted care today? How? (Homelessness, low income, unemployed, alcoholism, drug addiction, transportation, low edu. Level, literacy, decrease access to med. care, half-way, rehab)? @ -No Was there de-escalation of care discussed even if they declined (Discuss DNR or withdrawal of care, Hospice)? DNR status @ -No What co-morbidities impacted this encounter? (DM, HTN, Smoking, COPD, CAD, Cancer, CVA, ARF, Chemo, Hep., AIDS, mental health diagnosis, sleep apnea, morbid obesity)? @ -None Was patient admitted / discharged? Hospital course, mention meds given and route, prescriptions, significant lab abnormalities, going to OR and other pertinent info. @ -Admitted. Labs in the ER were significant for a CK of 473, BUN [address] of brain and cspine were negative for acute intracranial process. X- rays of bilateral shoulders showed no acute fractures, dislocations. In the ER, the patient received IV fluids and by mouth Tylenol. We spoke with the patient's POA who stated they would like to get her back into [facility]. They report her home is not a safe environment for her due to clutter. I spoke with Dr. Fournier for admission. Patient expressed understanding and agreement with the care plan. Undiagnosed new problem with uncertain prognosis? @ -No Drug Therapy requiring intensive monitoring for toxicity (Heparin, Nitro, Insulin, Cardizem)? @ -No Were any procedures done? @ -No Diagnosis/symptom? @ -Weakness/multiple falls Acute, or Chronic, or Acute on Chronic? @ -Acute Uncomplicated (without systemic symptoms) or Complicated (systemic symptoms)? @ -Uncomplicated Side effects of treatment? @ -No Exacerbation, Progression, or Severe Exacerbation? @ -No Poses a threat to life or bodily function? How? (Chest pain, USA, LA, pneumonia, PE, COPD, DKA, ARF, appy, cholecystitis, CVA, Diverticulitis, Homicidal, Suicidal, threat to staff... and all critical care pts) @ -No - Lab Data Result diagrams: 02/13/23 10:42 02/13/23 10:42 Lab Results 02/13/23 02/13/23 02/13/23 Range/Units 10:42 10:42 10:42 WBC 11.8 H (3.8-10.6) k/uL RBC 4.54 (3.80-5.40) m/uL Hgb 13.5 (11.4-16.0) gm/dL Hct 43.1 (34.0-46.0) % MCV 94.9 (80.0-100.0) fL MCH 29.9 (25.0-35.0) pg MCHC 31.5 (31.0-37.0) g/dL RDW 14.8 (11.5-15.5) % Plt Count 273 (150-450) k/uL MPV 7.9 Neutrophils % 80 % Lymphocytes % 15 % Monocytes % 5 % Eosinophils % 0 % Basophils % 0 % Neutrophils # 9.4 H (1.3-7.7) k/uL Lymphocytes # 1.7 (1.0-4.8) k/uL Monocytes # 0.5 (0-1.0) k/uL Eosinophils # 0.0 (0-0.7) k/uL Basophils # 0.0 (0-0.2) k/uL Hypochromasia Slight Sodium 137 (137-145) mmol/L Potassium 4.3 (3.5-5.1) mmol/L Chloride 101 (98-107) mmol/L Carbon Dioxide 26 (22-30) mmol/L Anion Gap 10 mmol/L BUN 29 H (7-17) mg/dL Creatinine 0.55 (0.52-1.04) mg/dL Est GFR (CKD-EPI)AfAm >90 (>60 ml/min/1.73 sqM) Est GFR (CKD-EPI)NonAf 89 (>60 ml/min/1.73 sqM) Glucose 109 H (74-99) mg/dL Calcium 10.5 H (8.4-10.2) mg/dL Total Bilirubin 1.3 (0.2-1.3) mg/dL AST 52 H (14-36) U/L ALT 28 (4-34) U/L Alkaline Phosphatase 173 H (38-126) U/L Creatine Kinase (30-135) U/L CK-MB (CK-2) 10.8 H (0.0-3.4) ng/mL Total Protein 7.3 (6.3-8.2) g/dL Albumin 4.1 (3.5-5.0) g/dL Urine Color Urine Appearance (Clear) Urine pH (5.0-8.0) Ur Specific [place] (1.001-1.035) Urine Protein (Negative) Urine Glucose (UA) (Negative) Urine Ketones (Negative) Urine Blood (Negative) Urine Nitrite (Negative) Urine Bilirubin (Negative) Urine Urobilinogen (<2.0) mg/dL Ur Leukocyte Esterase (Negative) Urine RBC (0-5) /hpf Urine WBC (0-5) /hpf Ur Squamous Epith Cells (0-4) /hpf Urine Mucus (None) /hpf Influenza Type A (PCR) (Not Detectd) Influenza Type B (PCR) (Not Detectd) RSV (PCR) (Not Detectd) SARS-CoV-2 (PCR) (Not Detectd) 02/13/23 02/13/23 02/13/23 Range/Units 10:42 10:42 11:00 WBC (3.8-10.6) k/uL RBC (3.80-5.40) m/uL Hgb (11.4-16.0) gm/dL Hct (34.0-46.0) % MCV (80.0-100.0) fL MCH (25.0-35.0) pg MCHC (31.0-37.0) g/dL RDW (11.5-15.5) % Plt Count (150-450) k/uL MPV Neutrophils % % Lymphocytes % % Monocytes % % Eosinophils % % Basophils % % Neutrophils # (1.3-7.7) k/uL Lymphocytes # (1.0-4.8) k/uL Monocytes # (0-1.0) k/uL Eosinophils # (0-0.7) k/uL Basophils # (0-0.2) k/uL Hypochromasia Sodium (137-145) mmol/L Potassium (3.5-5.1) mmol/L Chloride (98-107) mmol/L Carbon Dioxide (22-30) mmol/L Anion Gap mmol/L BUN (7-17) mg/dL Creatinine (0.52-1.04) mg/dL Est GFR (CKD-EPI)AfAm (>60 ml/min/1.73 sqM) Est GFR (CKD-EPI)NonAf (>60 ml/min/1.73 sqM) Glucose (74-99) mg/dL Calcium (8.4-10.2) mg/dL Total Bilirubin (0.2-1.3) mg/dL AST (14-36) U/L ALT (4-34) U/L Alkaline Phosphatase (38-126) U/L Creatine Kinase 473 H (30-135) U/L CK-MB (CK-2) (0.0-3.4) ng/mL Total Protein (6.3-8.2) g/dL Albumin (3.5-5.0) g/dL Urine Color Light Yellow Urine Appearance Clear (Clear) Urine pH 5.5 (5.0-8.0) Ur Specific [place] 1.019 (1.001-1.035) Urine Protein 1+ H (Negative) Urine Glucose (UA) Negative (Negative) Urine Ketones 2+ H (Negative) Urine Blood Small H (Negative) Urine Nitrite Negative (Negative) Urine Bilirubin Negative (Negative) Urine Urobilinogen <2.0 (<2.0) mg/dL Ur Leukocyte Esterase Negative (Negative) Urine RBC 7 H (0-5) /hpf Urine WBC 1 (0-5) /hpf Ur Squamous Epith Cells 1 (0-4) /hpf Urine Mucus Rare H (None) /hpf Influenza Type A (PCR) Not Detected (Not Detectd) Influenza Type B (PCR) Not Detected (Not Detectd) RSV (PCR) Not Detected (Not Detectd) SARS-CoV-2 (PCR) Not Detected (Not Detectd) - EKG Data -: EKG Interpreted by Al EKG Comments: EKG taken at 10:53 shows normal sinus rhythm with no acute T-wave abnormalities noted. Ventricular rate 88, HI interval 120, QRS duration 89, QT/QTc 387/433. - Radiology Data Radiology results: report reviewed, image reviewed Disposition Clinical Impression: Weakness Disposition: ADMITTED IP TO THIS [facility] Condition: Stable Referrals: Jasper Linares DO [Primary Care Provider] - 1-2 days Time of Disposition: 16:50
--- NOTE | 2023-02-13 11:02 | CT ---
EXAMINATION TYPE: CT brain kemi wo con DATE OF EXAM: 02/13/2023 COMPARISON: 12/13/2022 HISTORY: 82-year-old female with pain, Fall yesterday CT DLP: 1382.60 mGycm Automated exposure control for dose reduction was used. Technique: Examination of the head was done in axial plane without intravenous contrast. Coronal and sagittal reconstructions performed. CT of the cervical spine was obtained in axial plane without intravenous injection of contrast mater ial. Coronal and sagittal reformatted images were obtained from the axial views for evaluation of f ractures, spinal alignment and canal. FINDINGS: Head: There is no evidence of acute intracranial hemorrhage, acute ischemic changes, mass, mass-effect, or extra-axial fluid collection. There is no effacement of cerebral sulci or basal subarachnoid cister ns. There is no hydrocephalus. There is no midline shift. Benitez-white matter distinction is preserv ed. Mild patchy white matter hypodensities redemonstrated in both cerebral hemispheres. Old lacunar infar ct left basal ganglia. Faint benign bilateral basal ganglia calcifications redemonstrated. Rightward nasal septal deviation. Trace mucosal thickening ethmoid air cells. Mastoid air cells are p neumatized. Orbits and globes are intact. Cervical spine: No craniocervical junction abnormally, predental space widening, or prevertebral soft tissue swelling . Degenerative change of the C1 dens articulation. Asymmetric prominent degenerative change along the right lateral mass articulation of C1-C2. Moderate to advanced multilevel spondylotic change. Degenerative grade 1 anterolisthesis C3-C4, C4-C5 and T2-T3. There is vertebral compression deformity T5 with similar retropulsion into the ventral spinal canal c ausing mild spinal canal narrowing. Mild superior endplate deformities of T3 and T4 remain unchanged from 12/13/2022. No acute fracture is seen. Severe degenerative change left TMJ and moderate to severe at the right TMJ. Variable moderate neuroforaminal stenoses mid and lower cervical spine. Sagittal and coronal reformatted images confirm above findings. COMBINED IMPRESSION: 1. Mild to moderate patchy burden of chronic small vessel ischemic disease. No acute intracranial abn ormality seen. 2. No acute fracture of the cervical spine. Moderate to advanced multilevel spondylotic change redemo nstrated. No acute fracture seen. Endplate compression injuries involving T3-T4 as well as compressio n fracture of T5 remain unchanged back to 12/13/2022.
[2023-02-13 11:18] LABS: Basophils % (A) 0 %; Eosinophils % (A) 0 %; HCT 43.1 % (34.0-46.0); HGB 13.5 gm/dL (11.4-16.0); Hypochromasia Slight; Lymphocytes # (A) 1.7 k/uL (1.0-4.8); Lymphocytes % (A) 15 %; MCH 29.9 pg (25.0-35.0); MCHC 31.5 g/dL (31.0-37.0); MCV 94.9 fL (80.0-100.0); Mean Platelet Volume 7.9; Monocytes # (A) 0.5 k/uL (0-1.0); Monocytes % (A) 5 %; Neutrophils # (A) 9.4 k/uL (1.3-7.7); Neutrophils % (A) 80 %; Platelet Count 273 k/uL (150-450); RBC 4.54 m/uL (3.80-5.40); RDW 14.8 % (11.5-15.5); WBC 11.8 k/uL (3.8-10.6)
[2023-02-13 11:38] LABS: ALT 28 U/L (4-34); AST 52 U/L (14-36); African American GFR (CKD) >90 (>60 ml/min/1.73 sqM); Albumin 4.1 g/dL (3.5-5.0); Alkaline Phosphatase 173 U/L (38-126); Anion Gap 10 mmol/L; Blood Urea Nitrogen 29 mg/dL (7-17); Calcium 10.5 mg/dL (8.4-10.2); Carbon Dioxide 26 mmol/L (22-30); Chloride 101 mmol/L (98-107); Glucose 109 mg/dL (74-99); Non-African American GFR(CKD) 89 (>60 ml/min/1.73 sqM); Potassium 4.3 mmol/L (3.5-5.1); Sodium 137 mmol/L (137-145); Total Bilirubin 1.3 mg/dL (0.2-1.3); Total Protein 7.3 g/dL (6.3-8.2)
--- NOTE | 2023-02-13 12:36 | XR ---
EXAMINATION TYPE: XR shoulder complete BILAT DATE OF EXAM: 02/13/2023 12:25 PM INDICATION: Patient age:Female; 82 years old; Reason for study: pain; COMPARISON: Chest radiograph 02/11/2023 TECHNIQUE: Both shoulders are examined in AP internal rotation, AP external rotation, and scapular Y view projections. FINDINGS: Post surgical changes from bilateral shoulder prosthesis. Hardware appears intact with appropriate al ignment. No periprosthetic lucency. Healed left posterior rib fractures. No acute fracture. No disloc ation. No soft tissue swelling. The remaining portions of the visualized chest are unremarkable. IMPRESSION: 1. No acute osseous pathology. 2. Postsurgical changes from bilateral prosthesis. Hardware appears intact with appropriate alignmen t. 3. Healed left-sided rib fractures.
[2023-02-13 14:53] LABS: Appearance,Urine Clear (Clear); Bilirubin,Urine Negative (Negative); Blood,Urine Small (Negative); Color,Urine Light Yellow; Glucose,Urine (UA) Negative (Negative); Ketones,Urine 2+ (Negative); Leukocyte Esterase,Urine Negative (Negative); Mucus,Urine Rare /hpf; Nitrite,Urine Negative (Negative); PH, Urine 5.5 (5.0-8.0); Protein,Urine 1+ (Negative); RBC,Urine 7 /hpf (0-5); Specific Gravity,Urine 1.019 (1.001-1.035); Squamous Epithelial Cell,Urine 1 /hpf (0-4); Urobilinogen,Urine <2.0 mg/dL (<2.0); WBC,Urine 1 /hpf (0-5)
[2023-02-13] MEDS ORDERED: NALOXONE 0.4 MG/ML 1 ML VIAL IV PRN (16:25)
[2023-02-13] MEDS: SODIUM CHLORIDE 0.9% 1,000 ML IV SCH (16:58)
[2023-02-13] MEDS: ACETAMINOPHEN TAB 325 MG TAB PO PRN (17:01)
[2023-02-14] MEDS ORDERED: LEVOTHYROXINE 88 MCG TAB PO SCH (06:30)
[2023-02-14] MEDS: ACETAMINOPHEN TAB 325 MG TAB PO PRN (07:23)
[2023-02-14] MEDS: SODIUM CHLORIDE 0.9% 1,000 ML IV SCH ×2 (07:40→09:45)
[2023-02-14] MEDS: LEVOTHYROXINE 88 MCG PO SCH (09:04)
[2023-02-14] MEDS ORDERED: KETOROLAC 15 MG/ML 1 ML VIAL IVP PRN (11:07)
[2023-02-14] MEDS ORDERED: FAMOTIDINE 20 MG TAB PO SCH (11:15)
--- NOTE | 2023-02-14 11:18 | P.HPIM ---
History of Present Illness 82-year-old female admitted for evaluation with physical therapy and outpatient therapy after she tripped and fell patient is quite weak lives by herself patient is alert oriented 3 memory is pretty good and able to give me good hi story. Patient denied any dysuria urine is slightly abnormal but not convincing for urinary tract infection. Patient denied loss of consciousness was complaining of bilateral shoulder pain neck pain CT of the head and neck as well as shoulder were obtained which didn't show any obvious fractures patient has some bruises from fall. She is comparing of pain and patient says she requires antihistamine daily otherwise she'll have uncontrolled runny nose. REVIEW OF SYSTEMS: CONSTITUTIONAL: Diffuse faint but from bruises and fall. HEENT: No recent visual problems or hearing problems. Denied any sore throat. CARDIOVASCULAR: No chest pain, orthopnea, PND, no palpitations, no syncope. PULMONARY: No shortness of breath, no cough, no hemoptysis. GASTROINTESTINAL: No diarrhea, no nausea, no vomiting, no abdominal pain. NEUROLOGICAL: No headaches, no weakness, no numbness. HEMATOLOGICAL: Denies any bleeding or petechiae. GENITOURINARY: Denies any burning micturition, frequency, or urgency. MUSCULOSKELETAL/RHEUMATOLOGICAL: Denies any joint pain, swelling, or any muscle pain. ENDOCRINE: Denies any polyuria or polydipsia. The rest of the 14-point review of systems is negative. PHYSICAL EXAMINATION: GENERAL: The patient is alert and oriented x3, not in any acute distress. Well developed, well nourished. HEENT: Pupils are round and equally reacting to light. EOMI. No scleral icterus. No conjunctival pallor. Normocephalic, atraumatic. No pharyngeal erythema. No thyromegaly. CARDIOVASCULAR: S1 and S2 present. No murmurs, rubs, or gallops. PULMONARY: Chest is clear to auscultation, no wheezing or crackles. ABDOMEN: Soft, nontender, nondistended, normoactive bowel sounds. No palpable organomegaly. MUSCULOSKELETAL: No joint swelling or deformity. EXTREMITIES: No cyanosis, clubbing, or pedal edema. NEUROLOGICAL: Gross neurological examination did not reveal any focal deficits. Does have significant generalized weakness SKIN: No rashes. Assessment and plan -Generalized weakness and fall: Secondary to age related muscle atrophy, physical therapy at admission the evaluation supportive care, Toradol and Tylenol for pain along with GI prophylaxis with the Protonix -Perennial ALLERGIES for which patient will be started on Heide -Hyperthyroidism: Continue levothyroxine -Recent hiatal hernia repair: Protonix Leukocytosis reactive secondary to fall without any evidence of infection DVT prophylaxis: Lovenox Past Medical History Past Medical History: Cancer, COPD, Musculoskeletal Disorder, Osteoarthritis (OA), Thyroid Disorder Additional Past Medical History / Comment(s): Hiatal hernia, sinusitis, osteopenia, IBS-C(constipation), Scoliosis, Kyphosis, seasonal allergies, poor sleep, anemia. Hx right breast cancer 2016, had lumpectomy and radiation. History of Any Multi-Drug Resistant Organisms: None Reported Past Surgical History: Appendectomy, Breast Surgery, Joint Replacement, Orthopedic Surgery, Tonsillectomy Additional Past Surgical History / Comment(s): Hemmorroidectomy, bilateral hip, knee, and shoulder replacements, and bilateral oopherectomy, right breast lumpectomy, bilateral cataract surgery. Past Anesthesia/Blood Transfusion Reactions: Postoperative Nausea & Vomiting (PONV) Additional Past Anesthesia/Blood Transfusion Reaction / Comment(s): Hiatal hernia. Past Psychological History: No Psychological Hx Reported Smoking Status: Former smoker Past Alcohol Use History: Occasional Additional Past Alcohol Use History / Comment(s): Quit smoking in College. Past Drug Use History: None Reported - Past Family History Mother Family Medical History: Cancer Additional Family Medical History / Comment(s): Breast cancer. Father Family Medical History: Cancer, Deep Vein Thrombosis (DVT) Additional Family Medical History / Comment(s): Prostate and skin cancer. Medications and Allergies Home Medications Medication Instructions Recorded Confirmed Type Levothyroxine Sodium [Synthroid] 88 mcg PO DAILY 03/17/15 02/13/23 History Acetaminophen Tab [Tylenol Tab] 500 mg PO Q4H 02/11/23 02/13/23 History Chlorpheniramine Maleate 4 mg PO Q4H 02/11/23 02/13/23 History [Chlor-Trimeton] Allergies Allergy/AdvReac Type Severity Reaction Status Date / Time diphenhydramine HCl Allergy Itching Verified 02/13/23 18:26 [From Benadryl] levofloxacin [From Levaquin] Allergy Itching Verified 02/13/23 18:26 levothyroxine Allergy Patient Verified 02/13/23 18:27 can only take brand name morphine Allergy Itching Verified 02/13/23 18:26 Physical Exam Vitals: Vital Signs Temp Pulse Pulse Resp BP BP Pulse Ox 02/14/23 08:00 93 18 127/76 92 L 02/14/23 06:56 97.5 F L 84 16 144/77 96 02/14/23 00:32 98.4 F 104 H 16 121/71 95 02/13/23 18:54 97.9 F 66 18 122/81 97 02/13/23 14:19 70 18 146/80 97 02/13/23 12:08 97.9 F 62 16 142/76 94 L Intake and Output 02/13/23 02/14/23 02/14/23 22:59 06:59 14:59 Other: Weight 47.627 kg Results CBC & Chem 7: 02/13/23 10:42 02/13/23 10:42 Labs: Abnormal Lab Results - Last 24 Hours (Table) 02/13/23 02/13/23 02/13/23 Range/Units 10:42 10:42 10:42 WBC 11.8 H (3.8-10.6) k/uL Neutrophils # 9.4 H (1.3-7.7) k/uL BUN 29 H (7-17) mg/dL Glucose 109 H (74-99) mg/dL Calcium 10.5 H (8.4-10.2) mg/dL AST 52 H (14-36) U/L Alkaline Phosphatase 173 H (38-126) U/L Creatine Kinase (30-135) U/L CK-MB (CK-2) 10.8 H (0.0-3.4) ng/mL Urine Protein (Negative) Urine Ketones (Negative) Urine Blood (Negative) Urine RBC (0-5) /hpf Urine Mucus (None) /hpf 02/13/23 02/13/23 Range/Units 10:42 10:42 WBC (3.8-10.6) k/uL Neutrophils # (1.3-7.7) k/uL BUN (7-17) mg/dL Glucose (74-99) mg/dL Calcium (8.4-10.2) mg/dL AST (14-36) U/L Alkaline Phosphatase (38-126) U/L Creatine Kinase 473 H (30-135) U/L CK-MB (CK-2) (0.0-3.4) ng/mL Urine Protein 1+ H (Negative) Urine Ketones 2+ H (Negative) Urine Blood Small H (Negative) Urine RBC 7 H (0-5) /hpf Urine Mucus Rare H (None) /hpf Thrombosis Risk Factor Assmnt - Choose All That Apply Any of the Below Risk Factors Present?: Yes Each Factor Represents 1 point: Abnormal pulmonary function (COPD) Other Risk Factors: Yes Each Risk Factor Represents 3 Points: Age 75 years or older Other congenital or acquired thrombophilia - If yes, enter type in comment: No Thrombosis Risk Factor Assessment Total Risk Factor Score: 4 Thrombosis Risk Factor Assessment Level: Moderate Risk
[2023-02-14] MEDS: ACETAMINOPHEN TAB 500 MG TAB PO SCH ×4 (11:40→23:36)
[2023-02-14] MEDS: PANTOPRAZOLE 40 MG/10 ML VIAL IVP SCH (11:40)
[2023-02-14] MEDS: LORATADINE 10 MG TAB PO SCH (11:41)
[2023-02-14] MEDS: ENOXAPARIN 40 MG/0.4 ML SYRINGE SQ SCH (11:41)
[2023-02-15] MEDS: ACETAMINOPHEN TAB 500 MG TAB PO SCH ×6 (02:47→23:24)
[2023-02-15] MEDS: LEVOTHYROXINE 88 MCG PO SCH (06:45)
[2023-02-15] MEDS: LORATADINE 10 MG TAB PO SCH (07:58)
[2023-02-15] MEDS: ENOXAPARIN 40 MG/0.4 ML SYRINGE SQ SCH (07:58)
[2023-02-15] MEDS: PANTOPRAZOLE 40 MG/10 ML VIAL IVP SCH (07:58)
[2023-02-15] MEDS ORDERED: ENOXAPARIN 40 MG/0.4 ML SYRINGE SQ SCH (09:00)
[2023-02-15 14:26] VITALS: BMI 20.5
--- NOTE | 2023-02-15 14:35 | P.PN ---
Subjective Progress Note Date: 02/15/23 82-year-old female admitted for evaluation with physical therapy and outpatient therapy after she tripped and fell patient is quite weak lives by herself patient is alert oriented 3 memory is pretty good and able to give me good history. Patient denied any dysuria urine is slightly abnormal but not convi ncing for urinary tract infection. Patient denied loss of consciousness was complaining of bilateral shoulder pain neck pain CT of the head and neck as well as shoulder were obtained which didn't show any obvious fractures patient has some bruises from fall. She is comparing of pain and patient says she requires antihistamine daily otherwise she'll have uncontrolled runny nose. 02/15/2023 Patient is evaluated today standing up at the bedside with walker. She is being washed up. Her bottom is reddened but no breakdown. It is blanchable she has an optifoam applied. She has fallen twice at home since Sunday already sent home from the ER once and fell again. Pts nephew Bebeto who lives out of state had called someone to check on her she was found down. He is concerned for her safety and the house is unkept with food everywhere per the patient. He is hoping she will agree to rehab. She has refused and wants to return home. Social work is consulted. Review of Systems Constitutional: Denied any fatigue denied any fever. Cardio vascular: denied any chest pain, palpitations Gastrointestinal: denied any nausea, vomiting, diarrhea Pulmonary: Denied any shortness of breath cough Neurologic denied any new focal deficits All inpatient medications were reviewed and appropriate changes in these medications as dictated in the interval history and assessment and plan. PHYSICAL EXAMINATION: GENERAL: The patient is alert and oriented x3, not in any acute distress. Well developed, well nourished. HEENT: Pupils are round and equally reacting to light. EOMI. No scleral icterus. No conjunctival pallor. Normocephalic, atraumatic. No pharyngeal erythema. No thyromegaly. CARDIOVASCULAR: S1 and S2 present. No murmurs, rubs, or gallops. PULMONARY: Chest is clear to auscultation, no wheezing or crackles. ABDOMEN: Soft, nontender, nondistended, normoactive bowel sounds. No palpable organomegaly. MUSCULOSKELETAL: No joint swelling or deformity. EXTREMITIES: No cyanosis, clubbing, or pedal edema. NEUROLOGICAL: Gross neurological examination did not reveal any focal deficits. Does have significant generalized weakness SKIN: No rashes. Stage 1 sacral presurre injury blanchable but reddended. No skin breakdown. Assessment -Generalized weakness and fall: Secondary to age related muscle atrophy, physical therapy -Frequent falls at home per family -Seasonal allergies on Heide -Hyperthyroidism: Continue levothyroxine -Recent hiatal hernia repair: Protonix -Leukocytosis reactive secondary to fall without any evidence of infection -Stage 1 sacral pressure injury present on admission GI prophylaxis DT prophylasix lovenox Plan Patient is being evaluated by social work home with homecare vs. [facility] family concerned for her safety with frequent falls at home Continue optifoam and pressure offloading to the sacrum If plan is for DC home patient can be discharged home today. Family wanting to speak with social work about rehab The impression and plan of care has been dictated by Trinity Child, Nurse Practitioner as directed. Dr. Martin MD I have performed a history and physical examination and medical decision making of this patient, discussed the same with the dictator, and agree with the dictators assessment and plan as written, documented as a scribe. Based on total visit time, I have performed more than 50% of this visit. Objective - Vital Signs Vital signs: Vital Signs Temp 97.6 F 02/15/23 13:51 Pulse 94 02/15/23 13:51 Resp 19 02/15/23 13:51 BP 149/89 02/15/23 13:51 Pulse Ox 99 02/15/23 13:51 FiO2 Intake & Output 02/14/23 02/15/23 02/15/23 18:59 06:59 18:59 Intake Total 1500 Balance 1500 Weight 47.627 kg Intake: Intake, IV Titration 900 Amount Sodium Chloride 0.9% 1, 900 000 ml @ 75 mls/hr IV . [id number] CECILIO Rx#:[id number] Oral 600 Other: # Voids 1 1 1 # Bowel Movements 1 - Labs CBC & Chem 7: 02/13/23 10:42 02/13/23 10:42 Assessment and Plan Time with Patient: Less than 30
--- NOTE | 2023-02-15 16:13 | P.DS ---
Providers Date of admission: 02/13/23 16:38 Attending physician: Manjinder Fournier Primary care physician: Jasper Linares [facility] Course: Final Diagnosis -Generalized weakness and fall: Secondary to age related muscle atrophy, physical therapy -Frequent falls at home per family -Seasonal allergies on Heide -Hyperthyroidism: Continue levothyroxine -Recent hiatal hernia repair: Protonix -Leukocytosis reactive secondary to fall without any evidence of infection -Stage 1 sacral pressure injury present on admission Discharge Disposition Patient stable for discharge home with gaurded prognosis. Patient high risk for falls has refused subacute rehab. Talked with nephew and social work followed up as well and patient will be discharged home with homecare and home PT. Nephew planning on coming to [facility] this weekend to talk with her about going to rehab vs. placement. He has considered guardianship. Patient to follow up with her PCP Dr. Jasper Linares. Hospital Course This is an 82-year-old female admitted for evaluation with physical therapy and outpatient therapy after she tripped and fell patient is quite weak lives by herself patient is alert oriented 3 memory is pretty good. Patient denied any dysuria urine is slightly abnormal but not convincing for urinary tract infection. Patient denied loss of consciousness was complaining of bilateral shoulder pain neck pain CT of the head and neck as well as shoulder were obtained which didn't show any obvious fractures patient has some bruises from fall. She is comparing of pain and patient says she requires antihistamine daily otherwise she'll have uncontrolled runny nose. She is noted to have allergy to benadryl. She was evaluated by PT and OT okay for discharge home with homecare. She has refused subacute rehab at this time. As mentioned above discussed this discharge plan with her family and recommendations for home with homecare made and pts nephew to follow up with her closely. Shelter plan likely will need some type of ECF. She has a stage 1 pressure injury on her bottom di scussed pressure offloading to the patient. No chest pain, no shortness of breath, no nausea vomiting or diarrhea. Her lungs are clear S1 S2 auscultated. Abdomen soft and nontender. Pt to follow up closely with PCP. She will be discharged home Please see medication reconciliation for a list of current medication Thank you for allowing us to participate in the care of this patient. The impression and plan of care has been dictated by Trinity Child, Nurse Practitioner as directed. Dr. Martin MD I have performed a history and physical examination and medical decision making of this patient, discussed the same with the dictator, and agree with the dictators assessment and plan as written, documented as a scribe. Based on total visit time, I have performed more than 50% of this visit. Patient Condition at Discharge: Fair Plan - Discharge Summary Discharge Rx Participant: No New Discharge Prescriptions: No Action Levothyroxine Sodium [Synthroid] 88 mcg PO DAILY Chlorpheniramine Maleate [Chlor-Trimeton] 4 mg PO Q4H Acetaminophen Tab [Tylenol Tab] 500 mg PO Q4H Discharge Medication List Levothyroxine Sodium [Synthroid] 88 mcg PO DAILY 03/17/15 [History] Acetaminophen Tab [Tylenol Tab] 500 mg PO Q4H 02/11/23 [History] Chlorpheniramine Maleate [Chlor-Trimeton] 4 mg PO Q4H 02/11/23 [History] Follow up Appointment(s)/Referral(s): [facility], [NON-STAFF] - 1-2 Days Jasper Linares DO [Primary Care Provider] - 1-2 days
[2023-02-16] MEDS: ACETAMINOPHEN TAB 500 MG TAB PO SCH ×6 (02:24→23:30)
[2023-02-16] MEDS: LEVOTHYROXINE 88 MCG PO SCH (05:49)
[2023-02-16] MEDS: LORATADINE 10 MG TAB PO SCH (08:17)
[2023-02-16] MEDS: PANTOPRAZOLE 40 MG/10 ML VIAL IVP SCH (08:21)
[2023-02-16] MEDS: ENOXAPARIN 40 MG/0.4 ML SYRINGE SQ SCH (08:36)
[2023-02-16 11:17] LABS: ALT 24 U/L (8-44); AST 28 U/L (13-35); Albumin 3.4 g/dL (3.8-4.9); Albumin/Globulin Ratio 1.48 Ratio (1.60-3.17); Alkaline Phosphatase 166 U/L (41-126); Blood Urea Nitrogen 23.3 mg/dL (9.0-27.0); Calcium 9.7 mg/dL (8.7-10.3); Carbon Dioxide 28.1 mmol/L (21.6-31.8); Chloride 104 mmol/L (96-109); Globulin 2.3 g/dL (1.6-3.3); Glucose 98 mg/dL (70-110); Potassium 4.4 mmol/L (3.5-5.5); Sodium 139 mmol/L (135-145); Total Bilirubin 0.3 mg/dL (0.3-1.2); Total Protein 5.7 g/dL (6.2-8.2)
[2023-02-16] MEDS: CEPHALEXIN 500 MG CAP PO SCH ×2 (11:43→22:08)
--- NOTE | 2023-02-16 12:21 | P.DS ---
Providers Date of admission: 02/13/23 16:38 Attending physician: Manjinder Fournier Primary care physician: [facility] Course: -Generalized weakness and fall: Secondary to age related muscle atrophy, physical therapy -Frequent falls at home per family -Pernicious anemia and vitamin b12 deficiency, follow up with -Seasonal allergies on Heide -Hyperthyroidism: Continue levothyroxine -Recent hiatal hernia repair: Protonix -Leukocytosis reactive secondary to fall without any evidence of infection -Stage 1 sacral pressure injury present on admission hospital course: This is a pleasant 82 years old female with multiple medical problems presents from home after she fell, she says she tripped and an object that should not be there, she states that her heart is in a mess that she cannot go back home because she feels unsafe for her, she has a family member to come tomorrow to help with cleaning the house. However patient will be discharged to rehab today. She denies any headache dizziness, no syncope, no chest pain or dyspnea. No change in urine or bowel habits. She denies fever. She denies any other complaints. She feels generally weak which is chronic. No new complaint. She was admitted and evaluated, CT of the head and neck was unremarkable for acute process, labs looks stable, patient is afebrile vitals stable. Numerous viruses were unremarkable and undetected Patient is followed by physical therapy and recommended subacute rehab for which patient is agreeable Patient has a dry scab on her right cheek with slightly worsening erythema around suspicious for cellulitis and patient was started on Keflex 5 days upon discharge. Patient has mild leukocytosis. Also patient has evidence of chronic kidney disease with creatinine ranging between 0.5 and 1.0, patient is asymptomatic. Creatinine today is 1.0. E lectrolytes stable. Liver enzymes not elevated. We recommend patient follow up with dock operator Dr. Avalos in 1 week after discharge. Also we will come in to monitor her creatinine in 2-3 days, written instruction is provided. Also patient states that she has history of pernicious anemia and that she follow up with Dr. lara , she states that she has appointment with him on 01/20 that she intends to follow up with. Patient will be discharged to short course of oral Keflex Problems and management plan were discussed with the patient and he verbalized understanding and acceptance Patient was found stable and can be discharged home in guarded prognosis however he needs follow-up as an outpatient. Patient was instructed to follow up with PCP Dr. Linares within one week and patient agrees Patient was instructed to follow up with her roofing technician in one week, patient said that she already has an appointment with him on 02/20 that she intends to follow up with. Chest was instructed to follow up with dock operator Dr. Avalos in clinic after discharge and she agrees Physical exam -Gen: patient is a AAOx3, no distress. Dried scab On the right cheek with mild surrounding cellulitis CVS: S1-S2, RRR, no murmur Lungs: B/L CTA, no wheezing Abdomen: soft, no distention, no tenderness, positive bowel sounds Extremity: no leg edema or induration Time spent more than 35 minutes Patient Condition at Discharge: Fair Plan - Discharge Summary Discharge Rx Participant: No New Discharge Prescriptions: New Cephalexin [Keflex] 500 mg PO TID 5 Days #14 cap Continue Levothyroxine Sodium [Synthroid] 88 mcg PO DAILY Acetaminophen Tab [Tylenol] 500 mg PO Q4H Discontinued Chlorpheniramine Maleate [Chlor-Trimeton] 4 mg PO Q4H Discharge Medication List Levothyroxine Sodium [Synthroid] 88 mcg PO DAILY 03/17/15 [History] Acetaminophen Tab [Tylenol] 500 mg PO Q4H 02/11/23 [History] Cephalexin [Keflex] 500 mg PO TID 5 Days #14 cap 02/16/23 [Rx] Follow up Appointment(s)/Referral(s): Lluvia Avalos MD [STAFF PHYSICIAN] - 1 Week [facility], [NON-STAFF] - 1-2 Days Brooklynn Lara MD [STAFF PHYSICIAN] - 02/20/23 (please call to confirm appointment ) Jasper Linares DO [Primary Care Provider] - 1-2 days (ECF please call for follow-up appointment.) Ambulatory/Diagnostic Orders: Basic Metabolic Panel [LAB.AMB] Time Frame: 2 Days, Location: None Selected Comprehensive Metabolic Panel [LAB.AMB] Time Frame: 4 Days, Location: None Selected Activity/Diet/Wound Care/Special Instructions: heart healthy diet activity is as tolerated we recommend pt check her basic metabolic panel with her doctor in 2-3 days, please recheck her kidney function test and serum creatinine Discharge/Stand Alone Forms: Community Resources, Help In The Home Discharge Disposition: TRANSFER TO SNF/ECF
[2023-02-16 22:08] LABS: HCT 33.9 % (34.0-46.0); Hypochromasia Moderate; MCH 29.7 pg (25.0-35.0); MCHC 30.9 g/dL (31.0-37.0); MCV 96.2 fL (80.0-100.0); Mean Platelet Volume 8.1; Platelet Count 254 k/uL (150-450); RBC 3.52 m/uL (3.80-5.40); RDW 14.8 % (11.5-15.5); WBC 5.9 k/uL (3.8-10.6)
[2023-02-16 22:13] LABS: HGB 10.5 gm/dL (11.4-16.0)
[2023-02-17] MEDS: ACETAMINOPHEN TAB 500 MG TAB PO SCH ×2 (03:57→07:07)
[2023-02-17] MEDS: LEVOTHYROXINE 88 MCG PO SCH (05:52)
[2023-02-17 07:50] VITALS: BP 171/90; PULSE 83; RESP 18; TEMP 97.5
[2023-02-17] MEDS: PANTOPRAZOLE 40 MG/10 ML VIAL IVP SCH (08:42)
[2023-02-17] MEDS: LORATADINE 10 MG TAB PO SCH (08:42)
[2023-02-17] MEDS: CEPHALEXIN 500 MG CAP PO SCH (08:43)
[2023-02-17] MEDS: ENOXAPARIN 40 MG/0.4 ML SYRINGE SQ SCH (08:43)
[2023-02-17] MEDS: ACETAMINOPHEN TAB 325 MG TAB PO PRN (08:46)
[2023-02-17 09:04] LABS: HCT 37.5 % (34.0-46.0); HGB 11.3 gm/dL (11.4-16.0); Hypochromasia Moderate; MCH 29.2 pg (25.0-35.0); MCHC 30.3 g/dL (31.0-37.0); MCV 96.6 fL (80.0-100.0); Mean Platelet Volume 10.1; Platelet Count 309 k/uL (150-450); RBC 3.88 m/uL (3.80-5.40); RDW 14.6 % (11.5-15.5); WBC 5.3 k/uL (3.8-10.6)
[2023-02-17 09:24] LABS: African American GFR (CKD) 70 (>60 ml/min/1.73 sqM); Non-African American GFR(CKD) 61 (>60 ml/min/1.73 sqM)
--- NOTE | 2023-02-17 22:51 | P.DS ---
Providers Date of admission: 02/13/23 16:38 Attending physician: Manjinder Fournier Primary care physician: [facility] Course: Diagnoses: -Generalized weakness and fall: Secondary to age related muscle atrophy, physical therapy -Frequent falls at home per family -Pernicious anemia and vitamin b12 deficiency, follow up with -Seasonal allergies on [place] -Hyperthyroidism: Continue levothyroxine -Recent hiatal hernia repair: Protonix -Leukocytosis reactive secondary to fall without any evidence of infection -Stage 1 sacral pressure injury present on admission hospital course: This is a pleasant 82 years old female with multiple medical problems presents from home after she fell, she says she tripped and an object that should not be there, she states that her heart is in a mess that she cannot go back home because she feels unsafe for her, she has a family member to come tomorrow to help with cleaning the house. However patient will be discharged to rehab today. She denies any headache dizziness, no syncope, no chest pain or dyspnea. No change in urine or bowel habits. She denies fever. She denies any other complaints. She feels generally weak which is chronic. No new complaint. She was admitted and evaluated, CT of the head and neck was unremarkable for acute process, labs looks stable, patient is afebrile vitals stable. Numerous viruses were unremarkable and undetected Patient is followed by physical therapy and recommended subacute rehab for which patient is agreeable Patient has a dry scab on her right cheek with slightly worsening erythema around suspicious for cellulitis and patient was started on Keflex 5 days upon discharge. Patient has mild leukocytosis. Also patient has evidence of chronic kidney disease with creatinine ranging between 0.5 and 1.0, patient is asymptomatic. Creatinine today is 1.0. Electrolytes stable. Liver enzymes not elevated. We recommend patient follow up with bander Dr. Avalos in 1 week after discharge. Also we will come in to monitor her creatinine in 2-3 days, written instruction is provided. Also patient states that she has history of pernicious anemia and that she follow up with Dr. lara , she states that she has appointment with him on 01/20 that she intends to follow up with. Patient will be discharged to short course of oral Keflex. Her cellulitis on the right cheek was improving Patient hemoglobin remained stable 10.5-Yi with a stable at the reference venture 0.9. Initially patient was supposed to go to rehab however she change her mind and she wants to go home. She said that the phrenic family member will come and help heart in the house . Patient eager to go home today Problems and management plan were discussed with the patient and he verbalized understanding and acceptance Patient was found stable and can be discharged home in guarded prognosis however he needs follow-up as an outpatient. Patient was instructed to follow up with PCP Dr. Linares within one week and patient agrees Patient was instructed to follow up with her rag baler in one week, patient said that she already has an appointment with him on 02/20 that she intends to follow up with. Chest was instructed to follow up with bander Dr. Avalos in clinic after discharge and she agrees Physical exam -Gen: patient is a AAOx3, no distress. Dried scab On the right cheek with mild surrounding cellulitis CVS: S1-S2, RRR, no murmur Lungs: B/L CTA, no wheezing Abdomen: soft, no distention, no tenderness, positive bowel sounds Extremity: no leg edema or induration Time spent more than 35 minutes Patient Condition at Discharge: Fair Plan - Discharge Summary Discharge Rx Participant: No New Discharge Prescriptions: New Cephalexin [Keflex] 500 mg PO BID 4 Days #8 cap Continue Levothyroxine Sodium [Synthroid] 88 mcg PO DAILY Acetaminophen Tab [Tylenol] 500 mg PO Q4H Discontinued Chlorpheniramine Maleate [Chlor-Trimeton] 4 mg PO Q4H Discharge Medication List Levothyroxine Sodium [Synthroid] 88 mcg PO DAILY 03/17/15 [History] Acetaminophen Tab [Tylenol] 500 mg PO Q4H 02/11/23 [History] Cephalexin [Keflex] 500 mg PO BID 4 Days #8 cap 02/17/23 [Rx] Follow up Appointment(s)/Referral(s): Lluvia Avalos MD [STAFF PHYSICIAN] - 1 Week (Please call Sunday to schedule appointment ) [facility], [NON-STAFF] - 1-2 Days Brooklynn Lara MD [STAFF PHYSICIAN] - 02/20/23 (please call to confirm appointment ) Jasper Linares DO [Primary Care Provider] - 11/16/23 ([facility] please call for follow-up appointment.) Ambulatory/Diagnostic Orders: Basic Metabolic Panel [LAB.AMB] Time Frame: 2 Days, Location: None Selected Comprehensive Metabolic Panel [LAB.AMB] Time Frame: 4 Days, Location: None Selected Patient Instructions/Handouts: Weakness (DC) Activity/Diet/Wound Care/Special Instructions: heart healthy diet activity is as tolerated we recommend pt check her basic metabolic panel with her doctor in 2-3 days, please recheck her kidney function test and serum creatinine Discharge/Stand Alone Forms: Community Resources, Help In The Home Discharge Disposition: TRANSFER TO SNF/ECF
== END 2023-02-17 14:20 | DRG 884 ==
LOC: EC 10:12 → 4SSUR 16:38
PROVIDERS: ADMIT Internal Medicine; ATTEND Internal Medicine
DX: R54 Age-related physical debility (principal); L03.211 Cellulitis of face; M62.58 Muscle wasting and atrophy, not elsewhere classified, other site; M19.90 Unspecified osteoarthritis, unspecified site; Z79.890 Hormone replacement therapy; Z20.822 Contact with and (suspected) exposure to COVID-19; J44.9 Chronic obstructive pulmonary disease, unspecified; R29.6 Repeated falls; Z91.81 History of falling; J30.2 Other seasonal allergic rhinitis; E05.90 Thyrotoxicosis, unspecified without thyrotoxic crisis or storm; E11.22 Type 2 diabetes mellitus with diabetic chronic kidney disease; E53.8 Deficiency of other specified B group vitamins; E86.0 Dehydration; I12.9 Hypertensive chronic kidney disease with stage 1 through stage 4 chronic kidney disease, or unspecified chronic kidney disease; L89.151 Pressure ulcer of sacral region, stage 1; M85.88 Other specified disorders of bone density and structure, other site; K58.9 Irritable bowel syndrome, unspecified; M41.9 Scoliosis, unspecified; W01.0XXA Fall on same level from slipping, tripping and stumbling without subsequent striking against object, initial encounter; Z88.8 Allergy status to other drugs, medicaments and biological substances; Z85.3 Personal history of malignant neoplasm of breast; Z88.1 Allergy status to other antibiotic agents; Z87.19 Personal history of other diseases of the digestive system
CPT/HCPCS: 36415; 70450; 72125; 80053; 81001; 82550; 82553; 82565; 85025; 85027; 87636; 96361; 96372; 96374; 99285

== ENCOUNTER → 2023-03-16 | Outpatient (CLI) | payer MEDICARE ==
--- NOTE | 2023-03-16 11:57 | US ---
EXAMINATION TYPE: US abdomen complete DATE OF EXAM: 03/16/2023 COMPARISON: CT & US CLINICAL INDICATION: Female, 82 years old with history of R74.01 elevated levels of liver; ELEVATED L FT'S TECHNIQUE: Multiple sonographic images of the abdomen are obtained. FINDINGS: EXAM MEASUREMENTS: Liver Length: 16.8 cm Gallbladder Wall: 0.2 cm CBD: 0.4 cm Right Kidney: 9.9 x 4.1 x 5.2 cm FLAVORER NOTES: Very limited and difficult exam, pt elderly, kyphotic, unable to ambulate well, hold breath during exam Pancreas: Obscured by bowel gas Liver: Limited views show no abnormality , heterotopic increased coarsened echotexture. Gallbladder: limited views show no abnormality Evidence for sonographic Retana's sign: No CBD: wnl Spleen: Obscured by overlying bowel gas Right Kidney: wnl, lower pole gassed out Left Kidney: Obscured by overlying bowel gas Upper IVC: wnl Abd Aorta: Prox and mid appeared wnl, lower pole gassed out The liver has coarsened echotexture with no suspicious mass.. The intrahepatic portion of the IVC an d proximal abdominal aorta are within normal limits. There is no evidence of cholelithiasis. Common bile duct is unremarkable. The visualized portions of the pancreas are homogenous. The spleen is u nremarkable. Kidneys are symmetric and free of hydronephrosis. No renal lesions are seen. IMPRESSION: 1. Coarsened liver echotexture suggestive of hepatocellular disease. 2. No evidence for acute process.
== END | disposition home or self-care (01) ==
LOC: RADUSWWP 09:10
PROVIDERS: ATTEND Family Medicine
DX: K76.89 Other specified diseases of liver (principal); R74.01 Elevation of levels of liver transaminase levels
CPT/HCPCS: 76700

== ENCOUNTER 2024-01-13 15:53 | Emergency (ER) | payer MEDICARE ==
--- NOTE | 2024-01-13 16:01 | ED ---
ENT HPI - General Chief complaint: Dental/Oral Stated complaint: dental pain Time Seen by Provider: 01/13/24 16:05 Source: patient, EMS, RN notes reviewed Mode of arrival: EMS Limitations: no limitations - History of Present Illness Initial comments: This is an 83-year-old female presents emergency department for chief complaint of dental pain. Patient dates that over the past 3 days she has been having worsening left upper tooth pain and swelling of her cheek. She denies fevers, chills, nausea, vomiting, difficulty swallowing, throat pain, jaw pain. She denies recent antibiotic use. States that her appointment with her dentist is scheduled for February. She has not seen a dentist since 2018. No other acute complaints at this time. - Related Data Home Medications Medication Instructions Recorded Confirmed Levothyroxine Sodium [Synthroid] 88 mcg PO DAILY 03/17/15 02/13/23 Acetaminophen Tab [Tylenol] 500 mg PO Q4H 02/11/23 02/13/23 Previous Rx's Medication Instructions Recorded Cephalexin [Keflex] 500 mg PO BID 4 Days #8 cap 02/17/23 Amoxic-Pot Clav 875-125Mg 1 tab PO Q12HR #19 tab 01/13/24 [Augmentin 875-125] Allergies Allergy/AdvReac Type Severity Reaction Status Date / Time diphenhydramine HCl Allergy Itching Verified 01/13/24 15:59 [From Benadryl] levofloxacin [From Levaquin] Allergy Itching Verified 01/13/24 15:59 levothyroxine Allergy Patient Verified 01/13/24 15:59 can only take brand name morphine Allergy Itching Verified 01/13/24 15:59 Review of Systems ROS Statement: Those systems with pertinent positive or pertinent negative responses have been documented in the HPI. ROS Other: All systems not noted in ROS Statement are negative. Past Medical History Past Medical History: Cancer, COPD, Musculoskeletal Disorder, Osteoarthritis (OA), Thyroid Disorder Additional Past Medical History / Comment(s): Hiatal hernia, sinusitis, osteope traci, IBS-C(constipation), Scoliosis, Kyphosis, seasonal allergies, poor sleep, anemia. Hx right breast cancer 2015, had lumpectomy and radiation. History of Any Multi-Drug Resistant Organisms: None Reported Past Surgical History: Appendectomy, Breast Surgery, Joint Replacement, Orthopedic Surgery, Tonsillectomy Additional Past Surgical History / Comment(s): Hemmorroidectomy, bilateral hip, knee, and shoulder replacements, and bilateral oopherectomy, right breast lumpectomy, bilateral cataract surgery. Past Anesthesia/Blood Transfusion Reactions: Postoperative Nausea & Vomiting (PONV) Additional Past Anesthesia/Blood Transfusion Reaction / Comment(s): Hiatal hernia. Past Psychological History: No Psychological Hx Reported Smoking Status: Former smoker Past Alcohol Use History: Occasional Past Drug Use History: None Reported - Past Family History Mother Family Medical History: Cancer Additional Family Medical History / Comment(s): Breast cancer. Father Family Medical History: Cancer, Deep Vein Thrombosis (DVT) Additional Family Medical History / Comment(s): Prostate and skin cancer. General Exam Limitations: no limitations General appearance: alert, in no apparent distress Eye exam: Present: normal appearance, PERRL, EOMI. Absent: scleral icterus, conjunctival injection, periorbital swelling Expanded Teeth exam: Present: dental caries, fractured tooth #, dental tenderness #, gingival enlargement, other (dental abscess over gingivia of teeth #12 and #13) Neck exam: Present: normal inspection. Absent: tenderness, meningismus, lymphadenopathy Respiratory exam: Present: normal lung sounds bilaterally. Absent: respiratory distress, wheezes, rales, rhonchi, stridor Cardiovascular Exam: Present: regular rate, normal rhythm, normal heart sounds. Absent: systolic murmur, diastolic murmur, rubs, gallop, clicks GI/Abdominal exam: Present: soft, normal bowel sounds. Absent: distended, tenderness, guarding, rebound, rigid Extremities exam: Present: normal inspection, full ROM, normal capillary refill. Absent: tenderness, pedal edema, joint swelling, calf tenderness Skin exam: Present: warm, dry, intact, normal color. Absent: rash Course Vital Signs 01/13/24 15:55 Temperature 99.5 F Pulse Rate 89 Respiratory 16 Rate Blood Pressure 140/92 O2 Sat by Pulse 97 Oximetry Medical Decision Making - Medical Decision Making Was pt. sent in by a medical professional or institution (, PA, POWER PLANT ELECTRICIAN, urgent care, hospital, or assisted...) When possible be specific @ -No Did you speak to anyone other than the patient for history (EMS, parent, family, police, friend...)? What history was obtained from this source @ -No Did you review nursing and triage notes (agree or disagree)? Why? @ -I reviewed and agree with nursing and triage notes Were old charts reviewed (outside hosp., previous admission, EMS record, old EKG, old radiological studies, urgent care reports/EKG's, assisted records)? Report findings @ -No old charts were reviewed Differential Diagnosis (chest pain, altered mental status, abdominal pain women, abdominal pain men, vaginal bleeding, weakness, fever, dyspnea, syncope, headache, dizziness, GI bleed, back pain, seizure, CVA, palpatations, mental health, musculoskeletal)? @ -Dental pain, dental abscess, dental caries, fractured tooth, pulpitis, this list is not all inclusive EKG interpreted by me (3pts min.). @ -None X-rays interpreted by me (1pt min.). @ -None done CT interpreted by me (1pt min.). @ -None done U/S interpreted by me (1pt. min.). @ -None done What testing was considered but not performed or refused? (CT, X-rays, U/S, labs)? Why? @ -None What meds were considered but not given or refused? Why? @ -None Did you discuss the management of the patient with other professionals (professionals i.e. , PA, POWER PLANT ELECTRICIAN, lab, RT, psych nurse, social security assessor, special forces communications sergeant, teacher, custom protection officer, nurse case management)? Give summary @ -No Was smoking cessation discussed for >3mins.? @ -No Was critical care preformed (if so, how long)? @ -No Were there social determinants of health that impacted care today? How? (Homelessness, low income, unemployed, alcoholism, drug addiction, transportation, low edu. Level, literacy, decrease access to med. care, long-term, rehab)? @ -No Was there de-escalation of care discussed even if they declined (Discuss DNR or withdrawal of care, Hospice)? DNR status @ -No What co-morbidities impacted this encounter? (DM, HTN, Smoking, COPD, CAD, Cancer, CVA, ARF, Chemo, Hep., AIDS, mental health diagnosis, sleep apnea, morbid obesity)? @ -None Was patient admitted / discharged? Hospital course, mention meds given and route, prescriptions, significant lab abnormalities, going to OR and other pertinent info. @ -Discharge. 83-year-old female with dental pain. Patient was via EMS in no signs acute distress. Vitals are stable. She is noted to have swelling of the left side of the face with no jaw tenderness, negative Colt signs. Patient has tenderness to noted abscess of the left superior mandibular gingiva. 14- gauge needle was used to aspirate 2 abscesses with successful drainage of purulent material and blood. She is provided with dose of Toradol emergency department and first dose of Augmentin and instructed to follow-up with dentist within 24 to 48 hours and complete full course of antibiotics as prescribed. discussed with Dr. Paz Undiagnosed new problem with uncertain prognosis? @ -No Drug Therapy requiring intensive monitoring for toxicity (Heparin, Nitro, Insulin, Cardizem)? @ -No Were any procedures done? @ -No Diagnosis/symptom? @ -dental abscess Acute, or Chronic, or Acute on Chronic? @ -acute Uncomplicated (without systemic symptoms) or Complicated (systemic symptoms)? @ -uncomplicated Side effects of treatment? @ -No Exacerbation, Progression, or Severe Exacerbation? @ -No Poses a threat to life or bodily function? How? (Chest pain, [place], [place], pneumonia, PE, COPD, DKA, ARF, appy, cholecystitis, CVA, Diverticulitis, Homicidal, Suicidal, threat to staff... and all critical care pts) @ -No Disposition Clinical Impression: Dental abscess, Pain, dental Disposition: HOME SELF-CARE Condition: Good Instructions (If sedation given, give patient instructions): Dental Abscess (ED) Additional Instructions: Return to the emergency department for any new or worsening symptoms. Recommend he complete full course of antibiotics as prescribed. Call your dentist first thing in the morning to schedule a follow-up appointment within the next 48 hours for further evaluation. Prescriptions: Amoxic-Pot Clav 875-125Mg [Augmentin 875-125] 1 tab PO Q12HR #19 tab Is patient prescribed a controlled substance at d/c from ED?: No Referrals: Jasper Linares DO [Primary Care Provider] - 1-2 days Time of Disposition: 17:18
[2024-01-13] MEDS: KETOROLAC 15 MG/ML 1 ML VIAL IM STA (17:44)
[2024-01-13] MEDS: AMOXIC-POT CLAV 875-125MG 1 EACH TAB PO STA (17:44)
[2024-01-13 17:58] VITALS: BP 144/87; PULSE 79; RESP 20; TEMP 99
== END 2024-01-13 17:58 | disposition home or self-care (01) ==
LOC: EC 15:53
CPT/HCPCS: 96372; 99282

== ENCOUNTER 2024-03-01 15:06 | Inpatient (IN) | payer MEDICARE ==
[2024-03-01 16:02] LABS: Basophils % (A) 0 %; Eosinophils # (A) 0.1 k/uL (0-0.7); Eosinophils % (A) 2 %; HCT 42.1 % (34.0-46.0); HGB 13.4 gm/dL (11.4-16.0); Hypochromasia Slight; Lymphocytes # (A) 2.8 k/uL (1.0-4.8); Lymphocytes % (A) 38 %; MCH 31.5 pg (25.0-35.0); MCHC 31.8 g/dL (31.0-37.0); MCV 99.1 fL (80.0-100.0); Mean Platelet Volume 7.2; Monocytes # (A) 0.4 k/uL (0-1.0); Monocytes % (A) 6 %; Neutrophils % (A) 52 %; Platelet Count 289 k/uL (150-450); RBC 4.24 m/uL (3.80-5.40); RDW 13.4 % (11.5-15.5); WBC 7.6 k/uL (3.8-10.6)
--- NOTE | 2024-03-01 16:32 | ED ---
General Adult HPI - General Chief complaint: Skin/Abscess/Foreign Body Stated complaint: johnny foot swelling Time Seen by Provider: 03/01/24 15:14 Source: patient Mode of arrival: wheelchair Limitations: no limitations - History of Present Illness Initial comments: 83-year-old female who presents emergency department reporting bilateral lower extremity redness and swelling. States that it started over the past couple of days. She thinks the inciting factor is that she had her toenails cut in November. The swelling and redness is localized to the lower calfs. Does have a history of cellulitis. Denies fevers. Also admits that she was on a diuretic up until April. Her transition manager told her she did not need it at that time. She denies any chest pain or difficulty breathing. No history of DVT or PE. No other additional symptoms to include abdominal pain, headache, visual disturbance, weakness. no other alleviating, precipitating or modifying factors - Related Data Home Medications Medication Instructions Recorded Confirmed Levothyroxine Sodium [Synthroid] 88 mcg PO DAILY 03/17/15 02/13/23 Acetaminophen Tab [Tylenol] 500 mg PO Q4H 02/11/23 02/13/23 Previous Rx's Medication Instructions Recorded Cephalexin [Keflex] 500 mg PO BID 4 Days #8 cap 02/17/23 Amoxic-Pot Clav 875-125Mg 1 tab PO Q12HR #19 tab 01/13/24 [Augmentin 875-125] Allergies Allergy/AdvReac Type Severity Reaction Status Date / Time diphenhydramine HCl Allergy Itching Verified 03/01/24 15:26 [From Benadryl] levofloxacin [From Levaquin] Allergy Itching Verified 03/01/24 15:26 levothyroxine Allergy Patient Verified 03/01/24 15:26 can only take brand name morphine Allergy Itching Verified 03/01/24 15:26 Review of Systems ROS Statement: Those systems with pertinent positive or pertinent negative responses have been documented in the HPI. ROS Other: All systems not noted in ROS Statement are negative. Past Medical History Past Medical History: Cancer, COPD, Musculoskeletal Disorder, Osteoarthritis (OA), Thyroid Disorder Additional Past Medical History / Comment(s): Hiatal hernia, sinusitis, osteopenia, IBS-C(constipation), Scoliosis, Kyphosis, seasonal allergies, poor sleep, anemia. Hx right breast cancer 2016, had lumpectomy and radiation. History of Any Multi-Drug Resistant Organisms: None Reported Past Surgical History: Appendectomy, Breast Surgery, Joint Replacement, Orthopedic Surgery, Tonsillectomy Additional Past Surgical History / Comment(s): Hemmorroidectomy, bilateral hip, knee, and shoulder replacements, and bilateral oopherectomy, right breast lumpectomy, bilateral cataract surgery. Past Anesthesia/Blood Transfusion Reactions: Postoperative Nausea & Vomiting (PONV) Additional Past Anesthesia/Blood Transfusion Reaction / Comment(s): Hiatal hernia. Past Psychological History: No Psychological Hx Reported Smoking Status: Former smoker Past Alcohol Use History: Occasional Past Drug Use History: None Reported - Past Family History Mother Family Medical History: Cancer Additional Family Medical History / Comment(s): Breast cancer. Father Family Medical History: Cancer, Deep Vein Thrombosis (DVT) Additional Family Medical History / Comment(s): Prostate and skin cancer. General Exam Limitations: no limitations General appearance: alert, in no apparent distress Head exam: Present: atraumatic, normocephalic, normal inspection Eye exam: Present: normal appearance, PERRL, EOMI. Absent: scleral icterus, conjunctival injection, periorbital swelling ENT exam: Present: normal exam, mucous membranes moist Neck exam: Present: normal inspection. Absent: tenderness, meningismus, lymphadenopathy Respiratory exam: Present: normal lung sounds bilaterally. Absent: respiratory distress, wheezes, rales, rhonchi, stridor Cardiovascular Exam: Present: regular rate, normal rhythm, normal heart sounds. Absent: systolic murmur, diastolic murmur, rubs, gallop, clicks GI/Abdominal exam: Present: soft, normal bowel sounds. Absent: distended, tenderness, guarding, rebound, rigid Extremities exam: Present: full ROM, normal capillary refill, pedal edema, other (Patient has extremely erythematous, brawny lower extremities. The left is worse than the right). Absent: tenderness, joint swelling, calf tenderness Back exam: Present: normal inspection Neurological exam: Present: alert, oriented X3, CN II-XII intact Psychiatric exam: Present: normal affect, normal mood Skin exam: Present: warm, dry, intact, normal color. Absent: rash Course Vital Signs 03/01/24 03/01/24 03/01/24 15:23 15:35 16:25 Temperature 98.1 F Pulse Rate 85 88 82 Respiratory 18 16 16 Rate Blood Pressure 142/87 154/90 168/93 O2 Sat by Pulse 96 98 95 Oximetry Medical Decision Making - Medical Decision Making Was pt. sent in by a medical professional or institution ([facility], [facility], urgent care, hospital, or jail...) When possible be specific @ -No Did you speak to anyone other than the patient for history (EMS, parent, family, police, friend...)? What history was obtained from this source @ -No Did you review nursing and triage notes (agree or disagree)? Why? @ -I reviewed and agree with nursing and triage notes Were old charts reviewed (outside hosp., previous admission, EMS record, old EKG, old radiological studies, urgent care reports/EKG's, jail records)? Report findings @ -No old charts were reviewed Differential Diagnosis (chest pain, altered mental status, abdominal pain women, abdominal pain men, vaginal bleeding, weakness, fever, dyspnea, syncope, headache, dizziness, GI bleed, back pain, seizure, CVA, palpatations, mental health, musculoskeletal)? @ -Cellulitis, DVT, peripheral edema, congestive heart failure EKG interpreted by me (3pts min.). @ -Not done X-rays interpreted by me (1pt min.). @ -None done CT interpreted by me (1pt min.). @ -None done U/S interpreted by me (1pt. min.). @ -None done What testing was considered but not performed or refused? (CT, X-rays, U/S, labs)? Why? @ -None What meds were considered but not given or refused? Why? @ -None Did you discuss the management of the patient with other professionals (professionals i.e. [facility], [facility] [employer], lab, RT, psych nurse, drug abuse social worker, community manager, teacher, gunnery/ordnance officer, manager of case)? Give summary @ -Spoke with Dr. Chow for admission Was smoking cessation discussed for >3mins.? @ -No Was critical care preformed (if so, how long)? @ -No Were there social determinants of health that impacted care today? How? (Homelessness, low income, unemployed, alcoholism, drug addiction, trans portation, low edu. Level, literacy, decrease access to med. care, care home, rehab)? @ -No Was there de-escalation of care discussed even if they declined (Discuss DNR or withdrawal of care, Hospice)? DNR status @ -No What co-morbidities impacted this encounter? (DM, HTN, Smoking, COPD, CAD, Cancer, CVA, ARF, Chemo, Hep., AIDS, mental health diagnosis, sleep apnea, morbid obesity)? @ -None Was patient admitted / discharged? Hospital course, mention meds given and route, prescriptions, significant lab abnormalities, going to OR and other pertinent info. @ -Upon arrival patient seen and evaluated in room 19. Thorough history and physical exam was performed. IV was established. Laboratory studies were conducted. Patient was given a dose of Unasyn. I did recommend overnight observation for which the patient was agreeable. Spoke with Dr. Morris for the admission Undiagnosed new problem with uncertain prognosis? @ -No Drug Therapy requiring intensive monitoring for toxicity (Heparin, Nitro, Insulin, Cardizem)? @ -No Were any procedures done? @ -No Diagnosis/symptom? @ -Acute bilateral lower extremity cellulitis, left greater than right Acute, or Chronic, or Acute on Chronic? @ -Acute Uncomplicated (without systemic symptoms) or Complicated (systemic symptoms)? @ -Complicated Side effects of treatment? @ -No Exacerbation, Progression, or Severe Exacerbation? @ -No Poses a threat to life or bodily function? How? (Chest pain, [place], [place], pneumonia, PE, COPD, DKA, ARF, appy, cholecystitis, CVA, Diverticulitis, Homicidal, Suicidal, threat to staff... and all critical care pts) @ -No - Lab Data Result diagrams: 03/01/24 15:48 03/01/24 15:48 Lab Results 03/01/24 03/01/24 Range/Units 15:48 15:48 WBC 7.6 (3.8-10.6) k/uL RBC 4.24 (3.80-5.40) m/uL Hgb 13.4 (11.4-16.0) gm/dL Hct 42.1 (34.0-46.0) % MCV 99.1 (80.0-100.0) fL MCH 31.5 (25.0-35.0) pg MCHC 31.8 (31.0-37.0) g/dL RDW 13.4 (11.5-15.5) % Plt Count 289 (150-450) k/uL MPV 7.2 Neutrophils % 52 % Lymphocytes % 38 % Monocytes % 6 % Eosinophils % 2 % Basophils % 0 % Neutrophils # 4.0 (1.3-7.7) k/uL Lymphocytes # 2.8 (1.0-4.8) k/uL Monocytes # 0.4 (0-1.0) k/uL Eosinophils # 0.1 (0-0.7) k/uL Basophils # 0.0 (0-0.2) k/uL Hypochromasia Slight Sodium 136 L (137-145) mmol/L Potassium 5.0 (3.5-5.1) mmol/L Chloride 107 (98-107) mmol/L Carbon Dioxide 25 (22-30) mmol/L Anion Gap 4 mmol/L BUN 24 H (7-17) mg/dL Creatinine 0.80 (0.52-1.04) mg/dL Est GFR (CKD-EPI)AfAm 80 (>60 ml/min/1.73 sqM) Est GFR (CKD-EPI)NonAf 70 (>60 ml/min/1.73 sqM) Glucose 90 (74-99) mg/dL Calcium 9.7 (8.4-10.2) mg/dL Total Bilirubin 0.9 (0.2-1.3) mg/dL AST 34 (14-36) U/L ALT 14 (4-34) U/L Alkaline Phosphatase 150 H (38-126) U/L C-Reactive Protein 1.2 H (<1.0) mg/dL NT-Pro-B Natriuret Pep 317 pg/mL Total Protein 6.8 (6.3-8.2) g/dL Albumin 3.9 (3.5-5.0) g/dL Disposition Clinical Impression: Lower extremity cellulitis Disposition: ADMITTED IP TO THIS [facility] Condition: Stable Is patient prescribed a controlled substance at d/c from ED?: No Referrals: Jasper Linares DO [Primary Care Provider] - 1-2 days Time of Disposition: 17:34 Decision to Admit Reason: Admit from EC Decision Date: 03/01/24 Decision Time: 17:35
[2024-03-01] MEDS: AMPICILLIN-SULBACTAM 3 GM in SODIUM CHLORIDE 0.9% 100 ML IVPB STA (16:48)
[2024-03-01 16:50] LABS: ALT 14 U/L (4-34); African American GFR (CKD) 80 (>60 ml/min/1.73 sqM); Anion Gap 4 mmol/L; Blood Urea Nitrogen 24 mg/dL (7-17); C Reactive Protein 1.2 mg/dL (<1.0); Calcium 9.7 mg/dL (8.4-10.2); Carbon Dioxide 25 mmol/L (22-30); Chloride 107 mmol/L (98-107); Glucose 90 mg/dL (74-99); Non-African American GFR(CKD) 70 (>60 ml/min/1.73 sqM); Sodium 136 mmol/L (137-145); Total Bilirubin 0.9 mg/dL (0.2-1.3)
[2024-03-01 16:55] LABS: NT-Pro-B-Type Natriuretic Pept 317 pg/mL
[2024-03-01 16:56] LABS: AST 34 U/L (14-36); Albumin 3.9 g/dL (3.5-5.0); Total Protein 6.8 g/dL (6.3-8.2)
[2024-03-01 16:57] LABS: Alkaline Phosphatase 150 U/L (38-126)
[2024-03-01] MEDS ORDERED: NALOXONE 0.4 MG/ML 1 ML VIAL IV PRN (17:35)
[2024-03-01] MEDS ORDERED: VANCOMYCIN IV PER PHARMACY 1 EACH MISC MISCELLANE PRN (17:38)
[2024-03-01] MEDS: FUROSEMIDE 10 MG/ML 2 ML VIAL IV STA (18:41)
[2024-03-01] MEDS: VANCOMYCIN 1,000 MG in SODIUM CHLORIDE 0.9% 250 ML IVPB SCH (18:43)
[2024-03-01] MEDS: AMPICILLIN-SULBACTAM 3 GM in SODIUM CHLORIDE 0.9% 100 ML IVPB SCH (22:30)
[2024-03-02 08:13] LABS: Basophils % (A) 0 %; Eosinophils % (A) 1 %; HCT 35.9 % (34.0-46.0); HGB 11.3 gm/dL (11.4-16.0); Hypochromasia Slight; Lymphocytes # (A) 2.4 k/uL (1.0-4.8); Lymphocytes % (A) 37 %; MCH 31.4 pg (25.0-35.0); MCHC 31.6 g/dL (31.0-37.0); MCV 99.2 fL (80.0-100.0); Mean Platelet Volume 7.5; Monocytes # (A) 0.4 k/uL (0-1.0); Monocytes % (A) 7 %; Neutrophils # (A) 3.5 k/uL (1.3-7.7); Neutrophils % (A) 53 %; Platelet Count 255 k/uL (150-450); RBC 3.62 m/uL (3.80-5.40); RDW 13.5 % (11.5-15.5); WBC 6.6 k/uL (3.8-10.6)
[2024-03-02 08:23] LABS: African American GFR (CKD) 70 (>60 ml/min/1.73 sqM); Anion Gap 2 mmol/L; Blood Urea Nitrogen 22 mg/dL (7-17); Calcium 8.7 mg/dL (8.4-10.2); Carbon Dioxide 30 mmol/L (22-30); Chloride 107 mmol/L (98-107); Glucose 104 mg/dL (74-99); Non-African American GFR(CKD) 61 (>60 ml/min/1.73 sqM); Sodium 139 mmol/L (137-145)
[2024-03-02] MEDS: CHOLECALCIFEROL 25 MCG (1000 IU) TABLET PO SCH (09:50)
[2024-03-02] MEDS: LEVOTHYROXINE 88 MCG TAB PO SCH (09:50)
[2024-03-02] MEDS: LORATADINE 10 MG TAB PO PRN (10:37)
--- NOTE | 2024-03-02 11:08 | P.HPIM ---
History of Present Illness H&P Date: 03/02/24 This is a pleasant 83-year-old female with medical history significant for COPD, hypothyroidism, IBS, right breast cancer with lumpectomy and radiation. Patient is a former smoker. She comes into the hospital with concern for increasing lower extremity cellulitis worse on the right. Patient states that she had her nails trimmed at a new podiatry office back in January since then she has having issues with redness. She also recently had cataract surgery has issues with nearsightedness once she was able to get a good look at her legs and noticed how red they were she decided to come into the ER for further evaluation. She denies any fever chills, and there is no drainage or open wounds from the legs. Was admitted to the hospital, and consult was placed to infectious disease. She was started on IV Unasyn and IV vancomycin. She denies any history of MRSA which we will discontinue the vancomycin and continue on Unasyn at this time. White blood cell count has been normal at 7.6 and 6.6. Her renal function is normal. REVIEW OF SYSTEMS: CONSTITUTIONAL: No fever, no malaise, no fatigue. HEENT: No recent visual problems or hearing problems. Denied any sore throat. CARDIOVASCULAR: No chest pain, orthopnea, PND, no palpitations, no syncope. PULMONARY: No shortness of breath, no cough, no hemoptysis. GASTROINTESTINAL: No diarrhea, no nausea, no vomiting, no abdominal pain. NEUROLOGICAL: No headaches, no weakness, no numbness. HEMATOLOGICAL: Denies any bleeding or petechiae. GENITOURINARY: Denies any burning micturition, frequency, or urgency. MUSCULOSKELETAL/RHEUMATOLOGICAL: Denies any joint pain, swelling, or any muscle pain. ENDOCRINE: Denies any polyuria or polydipsia. The rest of the 14-point review of systems is negative. PHYSICAL EXAMINATION: GENERAL: The patient is alert and oriented x3, not in any acute distress. Well developed, well nourished. HEENT: Pupils are round and equally reacting to light. EOMI. No scleral icterus. No conjunctival pallor. Normocephalic, atraumatic. No pharyngeal erythema. No thyromegaly. CARDIOVASCULAR: S1 and S2 present. No murmurs, rubs, or gallops. PULMONARY: Chest is clear to auscultation, no wheezing or crackles. ABDOMEN: Soft, nontender, nondistended, normoactive bowel sounds. No palpable organomegaly. MUSCULOSKELETAL: No joint swelling or deformity. EXTREMITIES: No cyanosis, clubbing, or pedal edema. NEUROLOGICAL: Gross neurological examination did not reveal any focal deficits. SKIN: No rashes. Bilateral lower extremity erythema greater on the right Assessment and plan Acute right lower extremity cellulitis without sepsis and mild left lower extremity cellulitis without sepsis present on admission History of COPD stable History of hypothyroidism resumed on her levothyroxine History of allergic rhinitis maintained on Claritin daily which has been resumed History of right-sided breast cancer with colectomy and radiation GI prophylaxis with Protonix DVT prophylaxis heparin subcu Full code Patient has been started on IV Unasyn with infectious disease consultation for further antibiotic recommendations and management of the cellulitis Monitor renal function Patient does use [employer] [facility] and is concerned that she will miss her meal drop-off on Sunday as they provide her with freezer meals for the weekend. We will have to [facility] know that she is hospitalized and if they are able to bring her these freezer meals on Sunday as needed anticipate 1 to 2 days of hospital stay and patient could likely be discharged home by Sunday. Home medications have been resumed The impression and plan of care has been dictated by [facility] Nurse Practitioner as directed. Dr. Martin MD I have performed a history and physical examination and medical decision making of this patient, discussed the same with the dictator, and agree with the dictators assessment and plan as written, documented as a scribe. Based on total visit time, I have performed more than 50% of this visit. Past Medical History Past Medical History: Cancer, COPD, Musculoskeletal Disorder, Osteoarthritis (OA), Thyroid Disorder Additional Past Medical History / Comment(s): Hiatal hernia, sinusitis, osteopenia, IBS-C(constipation), Scoliosis, Kyphosis, seasonal allergies, poor sleep, anemia. Hx right breast cancer 2015, had lumpectomy and radiation. States no COPD. History of Any Multi-Drug Resistant Organisms: None Reported Past Surgical History: Appendectomy, Breast Surgery, Joint Replacement, Orthopedic Surgery, Tonsillectomy Additional Past Surgical History / Comment(s): Hemmorroidectomy, bilateral hip, knee, and shoulder replacements, and bilateral oopherectomy, right breast lumpectomy, bilateral cataract surgery. Past Anesthesia/Blood Transfusion Reactions: Postoperative Nausea & Vomiting (PONV) Additional Past Anesthesia/Blood Transfusion Reaction / Comment(s): Hiatal hernia. Past Psychological History: No Psychological Hx Reported Smoking Status: Former smoker Past Alcohol Use History: Occasional Additional Past Alcohol Use History / Comment(s): Quit smoking in College. Past Drug Use History: None Reported - Past Family History Mother Family Medical History: Cancer Additional Family Medical History / Comment(s): Breast cancer. Father Family Medical History: Cancer, Deep Vein Thrombosis (DVT) Additional Family Medical History / Comment(s): Prostate and skin cancer. Medications and Allergies Home Medications Medication Instructions Recorded Confirmed Type Levothyroxine Sodium [Synthroid] 88 mcg PO DAILY 03/17/15 03/01/24 History Chlorpheniramine Maleate 4 mg PO Q4H PRN 03/01/24 03/01/24 History [Chlor-Trimeton] Cholecalciferol [Vitamin D3 (25 25 mcg PO DAILY 03/01/24 03/01/24 History Mcg = 1000 Iu)] Loratadine [Claritin] 10 mg PO DAILY PRN 03/01/24 03/01/24 History Allergies Allergy/AdvReac Type Severity Reaction Status Date / Time diphenhydramine HCl Allergy Itching Verified 03/01/24 18:51 [From Benadryl] levofloxacin [From Levaquin] Allergy Itching Verified 03/01/24 18:51 levothyroxine Allergy Patient Verified 03/01/24 18:51 can only take brand name morphine Allergy Itching Verified 03/01/24 18:51 Physical Exam Vitals: Vital Signs Temp Pulse Pulse Resp BP BP Pulse Ox 03/02/24 07:00 97.9 F 80 17 133/83 95 03/02/24 01:23 98.3 F 83 17 115/71 96 03/01/24 21:51 90 16 130/77 03/01/24 19:30 82 17 160/85 97 03/01/24 18:00 83 16 158/88 98 03/01/24 16:25 82 16 168/93 95 03/01/24 15:35 88 16 154/90 98 03/01/24 15:23 98.1 F 85 18 142/87 96 Intake and Output 11/03/02/24 03/02/24 22:59 06:59 14:59 Other: # Voids 2 3 1 Weight 49.895 kg 49.895 kg Results CBC & Chem 7: 03/02/24 07:55 03/02/24 07:55 Labs: Abnormal Lab Results - Last 24 Hours (Table) 03/01/24 03/02/24 03/02/24 Range/Units 15:48 07:55 07:55 RBC 3.62 L (3.80-5.40) m/uL Hgb 11.3 L (11.4-16.0) gm/dL Sodium 136 L (137-145) mmol/L BUN 24 H 22 H (7-17) mg/dL Glucose 104 H (74-99) mg/dL Alkaline Phosphatase 150 H (38-126) U/L C-Reactive Protein 1.2 H (<1.0) mg/dL Assessment and Plan Time with Patient: Less than 30
[2024-03-02] MEDS: ACETAMINOPHEN TAB 325 MG TAB PO PRN (18:00)
[2024-03-02] MEDS: HEPARIN SODIUM,PORCINE 5,000 UNIT/ML 1 ML VIAL SQ SCH (20:17)
--- NOTE | 2024-03-02 22:17 | P.CONS ---
History of Present Illness - Reason for Consult Consult date: 03/02/24 Cellulitis Requesting physician: Cale Salazar - Chief Complaint Bilateral lower extremity swelling and redness x 1 day - History of Present Illness Patient is a 83-year-old female with a past medical history significant for osteoarthritis COPD IBS hospital for evaluation of bilateral lower extremity redness and swelling that apparently has been getting worse for the last few days apparently the patient did have cutting of her nail done by the internet webmaster apparently may have continued did have some bleeding initially especially to the right big toenail subsequently patient noticed to have increasing swelling as well as redness to the leg for the patient presented to hospital patient denies high-grade fever did have some chills and noticed to have a low-grade fever of 99.7 F this afternoon patient not tachycardic hypotensive or hypoxic patient did have a white count of 7.6 creatinine has been normal liver enzymes are normal CRP is 1.2 patient has been diagnosed with a cellulitis he was started on Unasyn and vancomycin infectious disease was co nsulted for further management of antibiotic therapy Review of Systems Positive point and negatives has been mentioned in the HPI, complete review of systems was performed and all other systems are negative Past Medical History Past Medical History: Cancer, COPD, Musculoskeletal Disorder, Osteoarthritis (OA), Thyroid Disorder Additional Past Medical History / Comment(s): Hiatal hernia, sinusitis, osteop enia, IBS-C(constipation), Scoliosis, Kyphosis, seasonal allergies, poor sleep, anemia. Hx right breast cancer 2015, had lumpectomy and radiation. States no COPD. History of Any Multi-Drug Resistant Organisms: None Reported Past Surgical History: Appendectomy, Breast Surgery, Joint Replacement, Orthopedic Surgery, Tonsillectomy Additional Past Surgical History / Comment(s): Hemmorroidectomy, bilateral hip, knee, and shoulder replacements, and bilateral oopherectomy, right breast lumpectomy, bilateral cataract surgery. Past Anesthesia/Blood Transfusion Reactions: Postoperative Nausea & Vomiting (PONV) Additional Past Anesthesia/Blood Transfusion Reaction / Comm: Hiatal hernia. Past Psychological History: No Psychological Hx Reported Smoking Status: Former smoker Past Alcohol Use History: Occasional Additional Past Alcohol Use History / Comment(s): Quit smoking in College. Past Drug Use History: None Reported - Past Family History Mother Family Medical History: Cancer Additional Family Medical History / Comment(s): Breast cancer. Father Family Medical History: Cancer, Deep Vein Thrombosis (DVT) Additional Family Medical History / Comment(s): Prostate and skin cancer. Medications and Allergies Home Medications Medication Instructions Recorded Confirmed Type Levothyroxine Sodium [Synthroid] 88 mcg PO DAILY 03/17/15 03/01/24 History Chlorpheniramine Maleate 4 mg PO Q4H PRN 03/01/24 03/01/24 History [Chlor-Trimeton] Cholecalciferol [Vitamin D3 (25 25 mcg PO DAILY 03/01/24 03/01/24 History Mcg = 1000 Iu)] Loratadine [Claritin] 10 mg PO DAILY PRN 03/01/24 03/01/24 History Allergies Allergy/AdvReac Type Severity Reaction Status Date / Time diphenhydramine HCl Allergy Itching Verified 03/01/24 18:51 [From Benadryl] levofloxacin [From Levaquin] Allergy Itching Verified 03/01/24 18:51 levothyroxine Allergy Patient Verified 03/01/24 18:51 can only take brand name morphine Allergy Itching Verified 03/01/24 18:51 Physical Exam Vitals: Vital Signs Temp Pulse Pulse Resp BP BP Pulse Ox 03/02/24 07:00 97.9 F 80 17 133/83 95 03/02/24 01:23 98.3 F 83 17 115/71 96 03/01/24 21:51 90 16 130/77 03/01/24 19:30 82 17 160/85 97 03/01/24 18:00 83 16 158/88 98 03/01/24 16:25 82 16 168/93 95 03/01/24 15:35 88 16 154/90 98 03/01/24 15:23 98.1 F 85 18 142/87 96 Intake and Output 03/01/24 03/02/24 03/02/24 22:59 06:59 14:59 Other: # Voids 2 3 1 Weight 49.895 kg 49.895 kg Elderly female lying in the bed in no distress No tachypnea or accessory muscle respiration use Unlabored breathing Swelling evidence of bilateral lower extremity pain no skin breakdown or any drainage Patient is awake alert oriented x 3 Results CBC & Chem 7: 03/02/24 07:55 03/02/24 07:55 Labs: Abnormal Lab Results - Last 24 Hours (Table) 03/01/24 03/02/24 03/02/24 Range/Units 15:48 07:55 07:55 RBC 3.62 L (3.80-5.40) m/uL Hgb 11.3 L (11.4-16.0) gm/dL Sodium 136 L (137-145) mmol/L BUN 24 H 22 H (7-17) mg/dL Glucose 104 H (74-99) mg/dL Alkaline Phosphatase 150 H (38-126) U/L C-Reactive Protein 1.2 H (<1.0) mg/dL Assessment and Plan (1) Lower extremity cellulitis Current Visit: Yes Status: Acute Code(s): L03.119 - CELLULITIS OF UNSPECIFIED PART OF LIMB SNOMED Code(s): 215722692 Plan: 1patient with bilateral lower extremity swelling and redness is mostly diffuse swelling redness likely streptococcal disease MRSA 2-vancomycin has been discontinued 3-we will continue with Unasyn and monitor redness closely Will follow on a clinical condition and cultures to further adjust medication if needed Thank you for this consultation will follow this patient along with you Time with Patient: Greater than 30
[2024-03-03] MEDS: PANTOPRAZOLE 40 MG TABLET PO SCH (05:41)
[2024-03-03 06:16] LABS: African American GFR (CKD) 67 (>60 ml/min/1.73 sqM); Anion Gap 0 mmol/L; Blood Urea Nitrogen 23 mg/dL (7-17); Calcium 8.7 mg/dL (8.4-10.2); Carbon Dioxide 29 mmol/L (22-30); Chloride 109 mmol/L (98-107); Glucose 104 mg/dL (74-99); Non-African American GFR(CKD) 58 (>60 ml/min/1.73 sqM); Sodium 138 mmol/L (137-145)
--- NOTE | 2024-03-03 13:09 | P.PN ---
Subjective Progress Note Date: 03/03/24 Principal diagnosis: Hospital course: This is a pleasant 83-year-old female with medical history significant for COPD, hypothyroidism, IBS, right breast cancer with lumpectomy and radiation. Patient is a former smoker. She comes into the hospital with concern for increasing lower extremity cellulitis worse on the right. Patient states that she had her nails trimmed at a new podiatry office back in January since then she has having issues with redness. She also recently had cataract surgery has issues with nearsightedness once she was able to get a good look at her legs and noticed how red they were she decided to come into the ER for further evaluation. She denies any fever chills, and there is no drainage or open wounds from the legs. Was admitted to the hospital, and consult was placed to infectious disease. She was started on IV Unasyn and IV vancomycin. She denies any history of MRSA which we will discontinue the vancomycin and continue on Unasyn at this time. White blood cell count has been normal at 7.6 and 6.6. Her renal function is normal. 03/03/24: Patient seen and examined at bedside today. She notes an improvement in the redness and edema of b/l lower extremities. Labs today show sodium 138, potassium 4, BUN 23. Review of systems: Pertinent positives and negatives as discussed in HPI, a complete review of systems was performed and all other systems are negative. Vitals: Signs Reviewed Physical examination: General: nontoxic, no distress, appears at stated age Derm: warm, dry, intact Head: atraumatic, normocephalic, symmetric Eyes: EOMI, anicteric sclera Mouth: no lip lesion, mucus membranes moist Cardiovascular: S1 S2 reg, no murmur Lungs: CTA bilateral, no rhonchi, no rales, no accessory muscle use Abdominal: soft, non-tender to palpataion Extremities: Redness of b/l LE upto ankle, pitting edema of the left lower extremity Neuro: Alert, Oriented, Gross neurological examination did not reveal any focal deficits. Psych: well appearing, appropriate affect Assessment/Plan: Patient is an 83-year-old female with past medical history of COPD, hypothyroidism, IBS, right breast cancer with lumpectomy and radiation presented to the ED with increasing lower extremity redness and swelling. She has been admitted for lower extremity cellulitis and continues to be on IV Unasyn. Active: #. Acute lower extremity cellulitis Continue Unasyn 3 g IVPB 3 times daily #. Pain/fever management Continue acetaminophen 650 mg p.o. every 6 hours as needed Chronic: #. Hypothyroidism Continue levothyroxine 88 mcg p.o. daily #. Allergic rhinitis Continue Claritin 10 mg p.o. daily as needed F: None E: Replete as required N: Heart healthy diet A: Ambulatory DVT prophylaxis: Heparin 5000 units SQ every 12 hours GI prophylaxis: Protonix 40 mg p.o. daily Objective - Vital Signs Vital signs: Vital Signs Temp 98.6 F 03/03/24 06:50 Pulse 78 03/03/24 06:50 Resp 17 03/03/24 06:50 BP 128/79 03/03/24 06:50 Pulse Ox 95 03/03/24 06:50 FiO2 Intake & Output 03/02/24 03/03/24 03/03/24 18:59 06:59 18:59 Intake Total 360 Balance 360 Intake: Oral 360 Other: Voiding Method Toilet # Voids 1 2 - Labs CBC & Chem 7: 03/02/24 07:55 03/03/24 04:57 Labs: Abnormal Lab Results - Last 24 Hours (Table) 03/03/24 Range/Units 04:57 Chloride 109 H (98-107) mmol/L BUN 23 H (7-17) mg/dL Glucose 104 H (74-99) mg/dL
--- NOTE | 2024-03-03 21:34 | P.PN ---
Subjective Progress Note Date: 03/03/24 Principal diagnosis: Reason for follow-up is bilateral lower extremity cellulitis Patient is a 83-year-old female with a past medical history significant for osteoarthritis COPD [facility] hospital for evaluation of bilateral lower extremity redness and swelling, patient symptoms started after traumatic nail cutting has been diagnosed with a cellulitis. On today's evaluation that is 03/03/2024, Patient is afebrile patient is currently on room air and denies having any shortness of breath, the patient denies any chest pain or cough, the patient denies any nausea vomiting did not have any abdominal pain and no diarrhea pain redness and swelling to the legs has decreased. Patient did have a creatinine 0.93 no CBC was done today Objective - Vital Signs Vital signs: Vital Signs Temp 98.6 F 03/03/24 06:50 Pulse 78 03/03/24 06:50 Resp 17 03/03/24 06:50 BP 128/79 03/03/24 06:50 Pulse Ox 95 03/03/24 06:50 FiO2 Intake & Output 03/02/24 03/03/24 03/03/24 18:59 06:59 18:59 Intake Total 360 118 Balance 360 118 Intake: Oral 360 118 Other: Voiding Method Toilet # Voids 1 2 - Exam GENERAL DESCRIPTION: An elderly female lying in bed in no distress RESPIRATORY SYSTEM: Unlabored breathing , decreased breath sounds at bases HEART: S1 S2 regular rate and rhythm , ABDOMEN: Soft , no tenderness EXTREMITIES: Bilateral lower extremity erythema left greater than right though slightly decreased in intensity - Labs CBC & Chem 7: 03/02/24 07:55 03/03/24 04:57 Labs: Abnormal Lab Results - Last 24 Hours (Table) 03/03/24 Range/Units 04:57 Chloride 109 H (98-107) mmol/L BUN 23 H (7-17) mg/dL Glucose 104 H (74-99) mg/dL Assessment and Plan (1) Lower extremity cellulitis Current Visit: Yes Status: Acute Code(s): L03.119 - CELLULITIS OF UNSPECIFIED PART OF LIMB SNOMED Code(s): 844795821 Plan: 1patient with bilateral lower extremity swelling and redness is mostly diffuse swelling redness likely streptococcal disease MRSA 2-patient did have some improvement we will continue with Unasyn for another 24 hours before transitioning her to oral antibiotic Thank you for this consultation will follow this patient along with you Time with Patient: Less than 30
[2024-03-04 07:55] VITALS: RESP 19
[2024-03-04 08:48] LABS: HCT 36.1 % (37.2-46.3); HGB 11.4 g/dL (12.0-15.0); MCHC 31.6 g/dL (32.0-37.0); MCV 101.4 FL (80.0-97.0); Mean Platelet Volume 10.3 FL (9.5-12.2); NRBC Per 100 WBC 0 X 10*3/uL (0.00-0.01); Platelet Count 242 X 10*3/uL (140-440); RBC 3.56 X 10*6/uL (4.10-5.20); RDW 14.6 % (11.5-14.5); WBC 6.73 X 10*3/uL (4.50-10.00)
[2024-03-04 09:00] LABS: BUN/Creat Ratio 26.75 Ratio (12.00-20.00); Blood Urea Nitrogen 21.4 mg/dL (9.0-27.0); Calcium 8.9 mg/dL (8.7-10.3); Chloride 104 mmol/L (96-109); Glucose 106 mg/dL (70-110); Sodium 146 mmol/L (135-145)
--- NOTE | 2024-03-04 14:12 | P.PN ---
Subjective Progress Note Date: 03/04/24 Principal diagnosis: Reason for follow-up is bilateral lower extremity cellulitis Patient is a 83-year-old female with a past medical history significant for osteoarthritis COPD [facility] hospital for evaluation of bilateral lower extremity redness and swelling, patient symptoms started after traumatic nail cutting has been diagnosed with a cellulitis. On today's evaluation that is 03/04/2024, patient has been afebrile, patient is breathing comfortably and is currently on room air, patient denies having any significant cough no chest pain, patient denies nausea vomiting or diarrhea and no abdominal pain pain and redness of the lower extremity has decreased in intensity. Patient did have a white count of 6.73, creatinine 0.8 Objective - Vital Signs Vital signs: Vital Signs Temp 98.2 F 03/04/24 07:54 Pulse 80 03/04/24 07:54 Resp 19 03/04/24 07:54 BP 148/84 03/04/24 07:54 Pulse Ox 94 L 03/04/24 07:54 FiO2 Intake & Output 03/03/24 03/04/24 03/04/24 18:59 06:59 18:59 Intake Total 354 118 Balance 354 118 Intake: Oral 354 118 Other: Voiding Method Toilet # Voids 3 2 - Exam GENERAL DESCRIPTION: An elderly female lying in bed in no distress RESPIRATORY SYSTEM: Unlabored breathing , decreased breath sounds at bases HEART: S1 S2 regular rate and rhythm , ABDOMEN: Soft , no tenderness EXTREMITIES: Bilateral lower extremity erythema slightly decreased in intensity - Labs CBC & Chem 7: 03/04/24 05:22 03/04/24 05:22 Labs: Abnormal Lab Results - Last 24 Hours (Table) 03/04/24 03/04/24 Range/Units 05:22 05:22 RBC 3.56 L (4.10-5.20) X 10*6/uL Hgb 11.4 L (12.0-15.0) g/dL Hct 36.1 L (37.2-46.3) % MCV 101.4 H (80.0-97.0) FL MCHC 31.6 L (32.0-37.0) g/dL RDW 14.6 H (11.5-14.5) % Sodium 146 H (135-145) mmol/L Anion Gap 17.00 H (4.00-12.00) mmol/L BUN/Creatinine Ratio 26.75 H (12.00-20.00) Ratio Assessment and Plan (1) Lower extremity cellulitis Current Visit: Yes Status: Acute Code(s): L03.119 - CELLULITIS OF UNSPECIFIED PART OF LIMB SNOMED Code(s): 960278377 Plan: 1patient with bilateral lower extremity swelling and redness is mostly diffuse swelling redness likely streptococcal disease MRSA 2-patient did have some improvement to the lower extremity cellulitis we will recommend a 7-day course of oral Keflex 500 mg 3 times daily and doxycycline 100 mg twice a day on discharge discussed with the resident physician Thank you for this consultation will follow this patient along with you
[2024-03-04 14:15] VITALS: BP 130/75; PULSE 87; TEMP 99
--- NOTE | 2024-03-04 14:24 | P.DS ---
Providers Date of admission: 03/03/24 08:30 Expected date of discharge: 03/04/24 Attending physician: Rey Chow MD Consults: 03/02/24 09:49 Consult Physician Routine Consulting Provider: Arvin Rebolledo Consult Reason/Comments: Cellulitis Do you want consulting provider notified?: Yes Primary care physician: Jasper Linares [facility] Course: Discharge diagnosis: Acute lower extremity cellulitis Pain/fever management Hypothyroidism Allergic rhinitis Hospital Course: This is a pleasant 83-year-old female with medical history significant for COPD, hypothyroidism, IBS, right breast cancer with lumpectomy and radiation. Patient is a former smoker. She comes into the hospital with concern for increasing lower extremity cellulitis worse on the right. Patient states that she had her nails trimmed at a new podiatry office back in January since then she has having issues with redness. She also recently had cataract surgery has issues with nearsightedness once she was able to get a good look at her legs and noticed how red they were she decided to come into the ER for further evaluation. She denies any fever chills, and there is no drainage or open wounds from the legs. Was admitted to the hospital, and consult was placed to infectious disease. She was started on IV Unasyn and IV vancomycin. She denies any history of MRSA which we will discontinue the vancomycin and continue on Unasyn at this time. White blood cell count has been normal at 7.6 and 6.6. Her renal function is normal. 03/03/24: Patient seen and examined at bedside today. She notes an improvement in the redness and edema of b/l lower extremities. Labs today show sodium 138, potassium 4, BUN 23. 03/04/24: Patient evaluated at bedside. No new complaints today. Patient seen at bedside today and is feeling good and excited about discharge. Patient will be discharged today and is given a script for Keflex and doxycycline. Patient is given a handout for cellulitis and is advised to be compliant with medications. Patient is advised to follow-up with PCP in 1-2 days. Vital signs are reviewed and stable General: nontoxic, no distress, appears at stated age Derm: warm, dry, intact Head: atraumatic, normocephalic, symmetric Eyes: EOMI, anicteric sclera Mouth: no lip lesion, mucus membranes moist Cardiovascular: S1 S2 reg, no murmur Lungs: CTA bilateral, no rhonchi, no rales, no accessory muscle use Abdominal: soft, non-tender to palpataion Extremities: Redness of b/l LE upto ankle, pitting edema of the left lower extremity Neuro: Alert, Oriented, Gross neurological examination did not reveal any focal deficits. Psych: well appearing, appropriate affect A total of 30 minutes of time were spent preparing this complex discharge summary. Patient was discharged on 03/04/24 at 1430. Patient Condition at Discharge: Stable Plan - Discharge Summary New Discharge Prescriptions: New Cephalexin [Keflex] 500 mg PO TID 7 Days #21 cap Doxycycline [Vibramycin] 100 mg PO BID 7 Days #14 capsule Continue Levothyroxine Sodium [Synthroid] 88 mcg PO DAILY Cholecalciferol [Vitamin D3 (25 Mcg = 1000 Iu)] 25 mcg PO DAILY Loratadine [Claritin] 10 mg PO DAILY PRN PRN Reason: Allergy Symptoms Chlorpheniramine Maleate [Chlor-Trimeton] 4 mg PO Q4H PRN PRN Reason: Allergy Symptoms Discharge Medication List Levothyroxine Sodium [Synthroid] 88 mcg PO DAILY 03/17/15 [History] Chlorpheniramine Maleate [Chlor-Trimeton] 4 mg PO Q4H PRN 03/01/24 [History] Cholecalciferol [Vitamin D3 (25 Mcg = 1000 Iu)] 25 mcg PO DAILY 03/01/24 [History] Loratadine [Claritin] 10 mg PO DAILY PRN 03/01/24 [History] Cephalexin [Keflex] 500 mg PO TID 7 Days #21 cap 03/04/24 [Rx] Doxycycline [Vibramycin] 100 mg PO BID 7 Days #14 capsule 03/04/24 [Rx] Follow up Appointment(s)/Referral(s): Jasper Linares DO [Primary Care Provider] - 1-2 days Patient Instructions/Handouts: Cellulitis (GEN) Discharge Disposition: HOME SELF-CARE
== END 2024-03-04 17:50 | disposition home or self-care (01) | DRG 603 ==
LOC: EC 15:06 → 6NMEDSUR 17:37 → OBSVTOIN 03-03 08:30
PROVIDERS: ADMIT Internal Medicine; ATTEND Internal Medicine
DX: L03.115 Cellulitis of right lower limb (principal); L03.116 Cellulitis of left lower limb; E03.9 Hypothyroidism, unspecified; J44.9 Chronic obstructive pulmonary disease, unspecified; M41.9 Scoliosis, unspecified; M85.80 Other specified disorders of bone density and structure, unspecified site; J30.2 Other seasonal allergic rhinitis; J30.9 Allergic rhinitis, unspecified; Z79.890 Hormone replacement therapy; Z79.899 Other long term (current) drug therapy; Z85.3 Personal history of malignant neoplasm of breast; Z92.3 Personal history of irradiation; Z87.891 Personal history of nicotine dependence; Z96.643 Presence of artificial hip joint, bilateral; Z96.653 Presence of artificial knee joint, bilateral; Z96.612 Presence of left artificial shoulder joint; Z96.611 Presence of right artificial shoulder joint; Z88.1 Allergy status to other antibiotic agents; Z88.5 Allergy status to narcotic agent; Z88.8 Allergy status to other drugs, medicaments and biological substances
CPT/HCPCS: 36415; 80048; 80053; 83880; 84443; 85025; 85027; 86140; 96365; 96366; 96367; 96375; 99285

== ENCOUNTER → 2024-09-26 | Outpatient (CLI) | payer MEDICARE ==
--- NOTE | 2024-09-26 16:06 | BD ---
EXAMINATION TYPE: Axial Bone Density DATE OF EXAM: 09/26/2024 CLINICAL HISTORY: 84 years old Female. ICD-10 CODE: Z80.0 MENOPAUSAL STATE , Additional History: Height: 58 Weight: 112.7 FRAX RISK QUESTIONS: Alcohol (3 or more units per day): no Family History (Parent hip fracture): no Glucocorticoids (More than 3mos): no (Ex: prednisone, prednisolone, methylprednisolone, dexamethasone, and hydrocortisone). History of Fracture in Adulthood: hand Secondary Osteoporosis: 1. Type 1 Diabetes: no 2. Hyperthyroidism: no 3. Menopause before 45: no 4. Malnutrition: no 5. Chronic liver disease: no Rheumatoid Arthritis: no Current Tobacco Use: no RISK FACTORS HISTORY OF: Hip Fracture (Right/Left): no Spine Fracture: no History of Wrist Fracture: Surgery to Spine/Hip(right/left)/Wrist (right/left): Bilateral hip replacement When: 1990 MEDICATIONS: Thyroid Medications: Synthroid How Long: past 40 years Osteoporosis Medications: no EXAM MEASUREMENTS: Bone mineral densitometry was performed using the [employer] System. Bone mineral density as measured about the Lumbar spine is: ----- L1-L4(G/cm2): 0.826 T Score Values are as follows: ----- L1: -2.8 ----- L2: -2.9 ----- L3: -3.1 ----- L4: -3.1 ----- L1-L4: -3.0 Z Score Values are as follows: ----- L1: -0.4 ----- L2: -0.6 ----- L3: -0.7 ----- L4: -0.8 ----- L1-L4: -0.6 Bone mineral density has: decreased -23.2 % since study of: 12/28/2015 Bone mineral density about the L Wrist (g/cm2): 0.282 T Score values are as follows: -----Dist. R+U: -6.0 -----Prox. R+U: -5.5 -----Radius total: -6.5 Z Score values are as follows: -----Dist. R+U: -3.0 -----Prox. R+U: -2.6 -----Radius total: -3.6 Baseline wrist study FRAX%s: The graph provided illustrates a n/a % chance for a major osteoporotic fx and a n/a% chance f or the hips probability for fx in 10 years time. IMPRESSION: Osteoporosis (T Score less than -2.5). There is increased fracture risk and therapy is usually indicated based on age. Re-Screen 1-2 years. NOTE: T-SCORE=SD OF THE YOUNG ADULT MEAN. [facility], , 09/26/2024 4:03 PM
--- NOTE | 2024-09-26 18:41 | MM ---
Reason for Exam: Screening (asymptomatic). Last mammogram was performed 3 year(s) and 0 month(s) ago. Patient History: Menarche at age 14. Patient has no children. Postmenopausal. Breast cancer, age 75. Estrogen for 5 years from age 49 until age 55. Progesterone for 5 years from age 49 until age 55. Hormonal Contraceptives for 10 years from age 22 until age 32. Lumpectomy on the Right side. 12/03/2015, Benign Core Biopsy on the right side. 11/17/2015, Malignant Core Biopsy on the right side. Radiation Therapy, right. Mother had breast cancer. Prior Study Comparison: 09/12/2019 Bilateral Diagnostic Mammogram, LOC[facility]IN [facility]. 09/16/2020 Bilateral Diagnostic Mammogram, [facility]. 09/19/2021 Bilateral MG 3D diag mammo w/cad [facility], [facility]. Tissue Density: There are scattered areas of fibroglandular density. Findings: Analyzed By CAD. Postsurgical and posttreatment changes redemonstrated on the right. Some developing fat necrosis calcifications of the patient right breast posterior surgical site. There is no suspicious group of microcalcifications or new suspicious mass in either breast. Overall Assessment: Benign, BI-RAD 2 Management: Screening Mammogram of both breasts in 1 year. Patient should continue monthly self-breast exams. A clinical breast exam by your physician is recommended on an annual basis. This exam should not preclude additional follow-up of suspicious palpable abnormalities. Note on Radha scores and lifetime risk: 1. A Radha score greater than 3% is considered moderate risk. If this is the case, consider specialist referral to assess eligibility for a risk reducing agent. 2. If overall lifetime risk for the development of breast cancer is 20% or higher, the patient may qualify for future screening with alternating mammogram and breast MRI. [facility], , 09/26/2024 6:39 PM. Electronically signed and approved by: Frankie Gonzales M.D. Radiologist
== END | disposition home or self-care (01) ==
LOC: RADMAMWWP 14:23
PROVIDERS: ATTEND Family Medicine
DX: Z12.31 Encounter for screening mammogram for malignant neoplasm of breast (principal); M81.0 Age-related osteoporosis without current pathological fracture; R92.323 Mammographic fibroglandular density, bilateral breasts; R92.1 Mammographic calcification found on diagnostic imaging of breast; Z80.3 Family history of malignant neoplasm of breast; Z85.3 Personal history of malignant neoplasm of breast; Z78.0 Asymptomatic menopausal state; Z92.0 Personal history of contraception
CPT/HCPCS: 77063; 77067; 77080